=== PATIENT | male | born 1950 | race Caucasian/White ===

== ENCOUNTER 2025-06-09 13:04 | Outpatient (AMB) | payer OTHER, SELFPAY ==
--- OUTSIDE RECORDS SUMMARY | 2022-10-26 07:07 | XMS_ITS | Continuity of Care Document ---
Author Organization [facility] Address [address] [place] [address] Care Team Providers Care Correctional Officer Captain Name Role Phone Provider MD, Test Unavailable [...] Comp Medication Payment 018 OFFICE/OUTPATIENT VISIT, EST [facility] - PAGE 1-25 [facility] - PAGES 26 AND [...] Diagnoses Date Provider Providers Copied on Encounter [facility], [address], [place], [place], [id number], [facility] No Information 3 Provider Test. . OFFICE/OUTPA TIENT VISIT, EST [facility], [address], [place], [place], [id number], [facility] [place] low back pain (chief complaint) Radiculopath y of lumbosacral regionPostla minectomy syndromeTroc hanteric bursitis, left hipPain in left hipBreakdown (mechanical) of implanted electronic neurostimula tor, generator, sequelaType 2 diabetes mellitus w/ diabetic neuropathyCh ronic pain syndromeEnco unter for therapeutic drug level monitoringLo ng term (current) use of opiate analgesic 2 Delonte Perez. [address] [place] [address], [address], [place], [id number], [place]. tel:[phone] [facility], [address], [place], [place], [id number], [facility] [place] No Information 2 Rakesh Mcbride. [address] [place] [address], [address] [place] [address], [facility], . tel:[phone] Referring Provider: Rae Cameron, [address] [place] [address] [address], [place], [place], [facility]. tel:[phone] OFFICE/OUTPA TIENT VISIT, EST [facility], [address], [place], [place], [id number], [facility] [place] low back pain (chief complaint) Radiculopath y of lumbosacral regionPostla minectomy syndromeTroc hanteric bursitis, left hipPain in left hipBreakdown (mechanical) of implanted electronic neurostimula tor, generator, sequelaType 2 diabetes mellitus w/ diabetic neuropathyCh ronic pain syndromeEnco unter for therapeutic drug level monitoringLo ng term (current) use of opiate analgesic Julian-3 0-202 2 Delonte Ana. [address] [place] [address], [address], [place], [place], [address], . tel:[phone] OFFICE/OUTPA TIENT VISIT, EST [facility], [address], [place], [place], [id number], [facility] [place] low back pain (chief complaint) Radiculopath y of lumbosacral regionPostla minectomy syndromeTroc hanteric bursitis, left hipPain in left hipBreakdown (mechanical) of implanted electronic neurostimula tor, generator, sequelaType 2 diabetes mellitus w/ diabetic neuropathyCh ronic pain syndromeEnco unter for therapeutic drug level monitoringLo ng term (current) use of opiate analgesic Julian-0 2-202 2 Delonte Ana. [address] [place] [address], [address], [place], [place], [address], [place]. tel:[phone] OFFICE/OUTPA TIENT VISIT, EST [facility], [address], [place], [place], [address], [facility] [place] back pain (chief complaint) Chronic pain syndromeBrea kdown (mechanical) of implanted electronic neurostimula tor, generator, sequelaEncou nter for therapeutic drug level monitoringTy pe 2 diabetes mellitus w/ diabetic neuropathyPa in in left hipTrochante kayla bursitis, left hipPostlamin ectomy syndromeRadi culopathy of lumbosacral regionLong term (current) use of opiate analgesic May-0 6-202 2 Kerneklian Liat. [address] [place] [address], [address], [place], [place], [address], [place]. tel:[phone] OFFICE/OUTPA TIENT VISIT, EST [facility], [address], [place], [place], [id number], [facility] [place] low back pain (chief complaint) Chronic pain syndromeBrea kdown (mechanical) of implanted electronic neurostimula tor, generator, sequelaEncou nter for therapeutic drug level monitoringTy pe 2 diabetes mellitus w/ diabetic neuropathyPa in in left hipTrochante kayla bursitis, left hipPostlamin ectomy syndromeRadi culopathy of lumbosacral regionLong term (current) use of opiate analgesic Apr- 2 Sonya Josue. [address] [place] [address], [address], [place], [place], [address], [place]. [phone] OFFICE/OUTPA TIENT VISIT, EST [facility], [address], [place], [place], [id number], [place] [facility] [place] low back pain (chief complaint) Radiculopath y of lumbosacral regionLong term (current) use of opiate analgesicChr onic pain syndromeBrea kdown (mechanical) of implanted electronic neurostimula tor, generator, sequelaEncou nter for therapeutic drug level monitoringTy pe 2 diabetes mellitus w/ diabetic neuropathyPa in in left hipTrochante kayla bursitis, left hipPostlamin ectomy syndrome 2 Sonya Josue. [address] [place] [address], [address], [place], [place], [address], [place]. tel:[phone] OFFICE/OUTPA TIENT VISIT, EST [facility], [address], [place], [place], [address], [place] [facility] [place] low back pain (chief complaint) Radiculopath y of lumbosacral regionLong term (current) use of opiate analgesicChr onic pain syndromeBrea kdown (mechanical) of implanted electronic neurostimula tor, generator, sequelaEncou nter for therapeutic drug level monitoringTy pe 2 diabetes mellitus w/ diabetic neuropathyPa in in left hipTrochante kayla bursitis, left hipPostlamin ectomy syndrome 2 Rakesh Mcbride. [address] [place] [address], [address], [place], [address], [place]. tel:[phone] [facility], [address], [place], [place], [id number], [place] [facility] [place] back pain (chief complaint) Radiculopath y of lumbosacral regionLong term (current) use of opiate analgesicChr onic pain syndromeMusc le spasm of backEncounte r for therapeutic drug level monitoringTy pe 2 diabetes mellitus w/ diabetic neuropathyPa in in left hipTrochante kayla bursitis, left hipPostlamin ectomy syndromeBrea kdown (mechanical) of implanted electronic neurostimula tor, generator, sequela 2 Sonya Liat. [address] [place] [address], [address], [place], [place], [address], [place]. tel:[phone] OFFICE/OUTPA TIENT VISIT, EST [facility], [address], [place], [place], [address], [place] [facility] [place] back pain (chief complaint) Radiculopath y of lumbosacral regionLong term (current) use of opiate analgesicChr onic pain syndromeMusc le spasm of backEncounte r for therapeutic drug level monitoringTy pe 2 diabetes mellitus w/ diabetic neuropathyPa in in left hipTrochante kayla bursitis, left hipPostlamin ectomy syndromeBrea kdown (mechanical) of implanted electronic neurostimula tor, generator, sequela 2 Sony[facility]. [address] [place] [address], [address], [place], [address], [place]. tel:[phone] [facility], [address], [place], [place], [id number], [place] [facility] Breakdown (mechanical) of implanted electronic neurostimula tor, generator, sequela 2 Hannah Baileybh. [address] [place] [address], [address] [place] [address], [id number], [place]. tel:[phone] OFFICE/OUTPA TIENT VISIT, EST [facility], [address], [place], [place], [id number], [place] [facility] [place] back pain (chief complaint) Radiculopath y of lumbosacral regionLong term (current) use of opiate analgesicChr onic pain syndromeMusc le spasm of backEncounte r for therapeutic drug level monitoringTy pe 2 diabetes mellitus w/ diabetic neuropathyPa in in left hipTrochante kayla bursitis, left hipPostlamin ectomy syndromeBrea kdown (mechanical) of implanted electronic neurostimula tor, generator, sequela 2 Rakesh Mcbride. [address] [place] [address], [address], [place], [address], [place]. tel:[phone] OFFICE/OUTPA TIENT VISIT, EST [facility], [address], [place], [place], [id number], [facility] [place] back pain (chief complaint) [facility] (current) use of opiate analgesicChr onic pain syndromeMusc le spasm of backEncounte r for therapeutic drug level monitoringTy pe 2 diabetes mellitus w/ diabetic neuropathyRa diculopathy of lumbosacral regionPain in left hipTrochante kayla bursitis, left hipPostlamin ectomy syndromeBrea kdown (mechanical) of implanted electronic neurostimula tor, generator, sequela 1 Hannah Baileybh. [address] [place] [address], [address], [place], [address], [place]. tel:[phone] [facility], [address], [place], [place], [address], [place] [facility] [place] back pain (chief complaint) Chronic pain syndromeLong term (current) use of opiate analgesicMus marquez spasm of backEncounte r for therapeutic drug level monitoringRa diculopathy, lumbar regionType 2 diabetes mellitus w/ diabetic neuropathyCe rvicalgiaPos tlaminectomy syndrome 1 Sonya Staleyh. [address] [place] [address], [address], [place], [place], [address], [place]. tel:[phone] OFFICE/OUTPA TIENT VISIT, EST [facility], [address], [place], [place], [address], [place] [facility] [place] back pain (chief complaint) Chronic pain syndromeLong term (current) use of opiate analgesicMus marquez spasm of backEncounte r for therapeutic drug level monitoringTy pe 2 diabetes mellitus w/ diabetic neuropathyRa diculopathy, lumbar regionPostla minectomy syndromeCerv icalgia 1 Rakesh Mcbride. [address] [place] [address], [facility] [address], [place], [facility], . tel:[phone] OFFICE/OUTPA TIENT VISIT, EST [facility], [address], [place], [place], [id number], [facility] [place] low back pain (chief complaint) Type 2 diabetes mellitus w/ diabetic neuropathyTr ochanteric bursitis, left hipLong term (current) use of opiate analgesicChr onic pain syndrome 1 Lincoln Rutherford. [facility], [address], [place], [facility], . tel:[phone] OFFICE/OUTPA TIENT VISIT, EST [facility], [address], [place], [place], [address], [facility] [place] back pain (chief complaint) Other cervical disc degeneration , cervicothora cic regionCervic algiaLong term (current) use of opiate analgesicChr onic pain syndrome 1 Lincoln Rutherford. [facility], [address], [place], [facility], . tel:[phone] OFFICE/OUTPA TIENT VISIT, EST [facility], [address], [place], [place], [id number], [facility] [place] back pain (chief complaint) Spondylosis w/o myelopathy of lumbosacral regionPain in left hipLong term (current) use of opiate analgesicChr onic pain syndrome 1 Lincoln Rutherford. [facility], [address], [place], [facility], . tel:[phone] [facility], [address], [place], [place], [id number], [facility] [place] Pain in left hipTrochante kayla bursitis, left hipChronic pain syndromeLong term (current) use of opiate analgesic 1 Hannah Edmonds. [address] [place] [address], [id number], . tel:[phone] OFFICE/OUTPA TIENT VISIT, EST [facility], [address], [place], [place], [id number], [facility] [place] low back pain (chief complaint) Radiculopath y of lumbosacral regionInfect ion due to intrathecal infusion pump, subsequent encounterBre akdown of intrathecal infusion pump, subsequent encounterMus marquez spasm of backChronic pain syndromeEnco unter for therapeutic drug level monitoringLo ng term (current) use of opiate analgesic 1 Hannah Edmonds. [address] [place] [address], [id number], . tel:[phone] Referring Provider: Grey Young, [address] [place] [address], [place], [address] . tel:[phone] [facility], [address], [place], [place], [id number], [facility] [place] low back pain (chief complaint) Pain in left hip 1 Hannah Edmonds. [address] [place] [address], [id number], . tel:[phone] Referring Provider: Grey Young, [address] [place] [address], [place], [address] . tel:[phone] OFFICE/OUTPA TIENT VISIT, EST [facility], [address], [place], [place], [id number], [facility] [place] low back pain (chief complaint) Radiculopath y of lumbosacral regionTrocha nteric bursitis, left hipInfection due to intrathecal infusion pump, subsequent encounterBre akdown of intrathecal infusion pump, subsequent encounterMus marquez spasm of backChronic pain syndromePain in left hipEncounter for therapeutic drug level monitoringLo ng term (current) use of opiate analgesic 1 Delonet Perez. [address] [place] [address], [address], [place], [place], [address], [place]. tel:[phone] [facility], [address], [place], [place], [address], [facility] [place] Radiculopath y of lumbosacral region 1 Hannah Grey. [address] [place] [address], [address], [place], [place], [address], [place]. tel:[phone] OFFICE/OUTPA TIENT VISIT, EST [facility], [address], [place], [place], [address], [facility] [place] back pain (chief complaint) Radiculopath y of lumbosacral regionInfect ion due to intrathecal infusion pump, subsequent encounterBre akdown of intrathecal infusion pump, subsequent encounterMus marquez spasm of backChronic pain syndromeLong term (current) use of opiate analgesicPai n in left hipTrochante kayla bursitis, left hip 1 Hannahtim CabreraGrey. [address] [place] [address], [address] [facility], [place], [place], [address], [place]. tel:[phone] OFFICE/OUTPA TIENT VISIT, EST [facility], [address], [place], [place], [address], [facility] [place] back pain (chief complaint) Radiculopath y of lumbosacral regionInfect ion due to intrathecal infusion pump, subsequent encounterBre akdown of intrathecal infusion pump, subsequent encounterTyp e 2 diabetes mellitus w/ diabetic neuropathyMu scle spasm of backChronic pain syndromeEnco unter for therapeutic drug level monitoringLo ng term (current) use of opiate analgesic 1 Delonte Jonesa. [address] [place] [address], [address], [place], [place], [address], [place]. tel:[phone] OFFICE/OUTPA TIENT VISIT, EST [facility], [address], [place], [place], [address], [facility] [place] back pain (chief complaint)ne ck pain (chief complaint) Radiculopath y of lumbosacral regionInfect ion due to intrathecal infusion pump, subsequent encounterBre akdown of intrathecal infusion pump, subsequent encounterTyp e 2 diabetes mellitus w/ diabetic neuropathyMu scle spasm of backChronic pain syndromeEnco unter for therapeutic drug level monitoringLo ng term (current) use of opiate analgesic 1 Delonte Perez. [address] [place] [address], [address], [place], [place], [address], . tel:[phone] OFFICE/OUTPA TIENT VISIT, EST [facility], [address], [place], [place], [address], [facility] [place] low back pain (chief complaint)ne ck pain (chief complaint) Radiculopath y of lumbosacral regionInfect ion due to intrathecal infusion pump, subsequent encounterBre akdown of intrathecal infusion pump, subsequent encounterTyp e 2 diabetes mellitus w/ diabetic neuropathyMu scle spasm of backChronic pain syndromeEnco unter for therapeutic drug level monitoringLo ng term (current) use of opiate analgesic 1 Delonte Perez. [address] [place] [address], [address], [place], [address], [place]. tel:[phone] OFFICE/OUTPA TIENT VISIT, EST [facility], [address], [place], [place], [address], [facility] [place] neck pain (chief complaint)ba ck pain (chief complaint) Radiculopath y of lumbosacral regionInfect ion due to intrathecal infusion pump, subsequent encounterBre akdown of intrathecal infusion pump, subsequent encounterTyp e 2 diabetes mellitus w/ diabetic neuropathyMu scle spasm of backChronic pain syndromeEnco unter for therapeutic drug level monitoringLo ng term (current) use of opiate analgesic 1 Delonte Ana. [address] [place] [address], [address], [place], [place], [address], [place]. tel:[phone] OFFICE/OUTPA TIENT VISIT, EST [facility], [address], [place], [place], [id number], [facility] [place] back pain (chief complaint)ne ck pain (chief complaint) Body mass index (BMI) 33.0-33.9, adultRadicul opathy of lumbosacral regionInfect ion due to intrathecal infusion pump, subsequent encounterBre akdown of intrathecal infusion pump, subsequent encounterTyp e 2 diabetes mellitus w/ diabetic neuropathyMu scle spasm of backChronic pain syndromeEnco unter for therapeutic drug level monitoringLo ng term (current) use of opiate analgesic 0 Delonte Ana. [address] [place] [address], [address], [place], [place], [address], [place]. tel:[phone] [facility], [address], [place], [place], [id number], [facility] Radiculopath y of lumbosacral region 0 Hannah Grey. [address] [place] [address], [address], [place], [address], [place]. tel:[phone] OFFICE/OUTPA TIENT VISIT, EST [facility], [address], [place], [place], [address], [facility] [place] back pain (chief complaint)ne ck pain (chief complaint) Radiculopath y of lumbosacral regionInfect ion due to intrathecal infusion pump, subsequent encounterBre akdown of intrathecal infusion pump, subsequent encounterTyp e 2 diabetes mellitus w/ diabetic neuropathyMu scle spasm of backChronic pain syndromeEnco unter for therapeutic drug level monitoringLo ng term (current) use of opiate analgesic Jul- 0 Delonte Ana. [address] [place] [address], [address], [place], [place], [address], [place]. tel:[phone] OFFICE/OUTPA TIENT VISIT, EST [facility], [address], [place], [place], [address], [facility] [place] back pain (chief complaint)ne ck pain (chief complaint) Radiculopath y of lumbosacral regionInfect ion due to intrathecal infusion pump, subsequent encounterBre akdown of intrathecal infusion pump, subsequent encounterTyp e 2 diabetes mellitus w/ diabetic neuropathyMu scle spasm of backChronic pain syndromeEnco unter for therapeutic drug level monitoringLo ng term (current) use of opiate analgesic Oct-2 9-202 0 Delonte Ana. [address] [place] [address], [address], [place], [place], [address], [place]. tel:[phone] OFFICE/OUTPA TIENT VISIT, [facility], [address], [place], [place], [address], [facility] [place] back pain (chief complaint)ne ck pain (chief complaint) Radiculopath y of lumbosacral regionInfect ion due to intrathecal infusion pump, subsequent encounterBre akdown of intrathecal infusion pump, subsequent encounterTyp e 2 diabetes mellitus w/ diabetic neuropathyMu scle spasm of backChronic pain syndromeEnco unter for therapeutic drug level monitoringLo ng term (current) use of opiate analgesic Oct-0 2-202 0 Delonte Ana. [address] [place] [address], [address], [place], [address], [place]. tel:[phone] OFFICE/OUTPA TIENT VISIT, [facility], [address], [place], [place], [id number], [facility] [place] low back pain (chief complaint) Radiculopath y of lumbosacral regionInfect ion due to intrathecal infusion pump, subsequent encounterBre akdown of intrathecal infusion pump, subsequent encounterTyp e 2 diabetes mellitus w/ diabetic neuropathyMu scle spasm of backChronic pain syndromeEnco unter for therapeutic drug level monitoringLo ng term (current) use of opiate analgesic Sep-0 4-202 0 Delonte Ana. [address] [place] [address], [address], [place], [id number], [place]. tel:[phone] Referring Provider: Ana Martel, [address] [place] [address] [address], [place], [address] . tel:[phone] OFFICE/OUTPA TIENT VISIT, EST [facility], [address], [place], [place], [address], [facility] [place] low back pain (chief complaint) Radiculopath y of lumbosacral regionInfect ion due to intrathecal infusion pump, subsequent encounterBre akdown of intrathecal infusion pump, subsequent encounterTyp e 2 diabetes mellitus w/ diabetic neuropathyMu scle spasm of backChronic pain syndromeEnco unter for therapeutic drug level monitoringLo ng term (current) use of opiate analgesic Apr- 0 Delonte Ana. [address] [place] [address], [address], [place], [place], [address], . tel:[phone] Referring Provider: Ana Martel, [address] [place] [address] [address], [place], [address] . tel:[phone] OFFICE/OUTPA TIENT VISIT, EST [facility], [address], [place], [place], [address], [facility] [place] low back pain (chief complaint) Radiculopath y of lumbosacral regionInfect ion due to intrathecal infusion pump, subsequent encounterBre akdown of intrathecal infusion pump, subsequent encounterTyp e 2 diabetes mellitus w/ diabetic neuropathyMu scle spasm of backChronic pain syndromeEnco unter for therapeutic drug level monitoringLo ng term (current) use of opiate analgesic Mar- 0 0 Delonte Ana. [address] [place] [address], [address], [place], [place], [address], . tel:[phone] OFFICE/OUTPA TIENT VISIT, EST [facility], [address], [place], [place], [address], [facility] [place] back pain (chief complaint) Radiculopath y of lumbosacral regionInfect ion due to intrathecal infusion pump, subsequent encounterBre akdown of intrathecal infusion pump, subsequent encounterTyp e 2 diabetes mellitus w/ diabetic neuropathyMu scle spasm of backChronic pain syndromeEnco unter for therapeutic drug level monitoringLo ng term (current) use of opiate analgesic Julian-0 5-202 0 Delonte Ana. [address] [place] [address], [address], [place], [place], [address], . tel:[phone] OFFICE/OUTPA TIENT VISIT, EST [facility], [address], [place], [place], [address], [facility] [place] back pain (chief complaint) Radiculopath y of lumbosacral regionInfect ion due to intrathecal infusion pump, subsequent encounterBre akdown of intrathecal infusion pump, subsequent encounterTyp e 2 diabetes mellitus w/ diabetic neuropathyMu scle spasm of backChronic pain syndromeEnco unter for therapeutic drug level monitoringLo ng term (current) use of opiate analgesic May-0 0 Delonte Ana. [address] [place] [address], [address], [place], [place], [address], . tel:[phone] Referring Provider: Ana Martel, [address] [place] [address] [address], [place], [address] . tel:[phone] OFFICE/OUTPA TIENT VISIT, [facility], [address], [place], [place], [address], [facility] [place] back pain (chief complaint) Radiculopath y of lumbosacral regionInfect ion due to intrathecal infusion pump, subsequent encounterMus marquez spasm of backBreakdow n of intrathecal infusion pump, subsequent encounterChr onic pain syndromeEnco unter for therapeutic drug level monitoringLo ng term (current) use of opiate analgesicTyp e 2 diabetes mellitus w/ diabetic neuropathy Apr-1 0-202 0 Delonte Ana. [address] [place] [address], [address], [place], [place], [address], . tel:[phone] OFFICE/OUTPA TIENT VISIT, EST [facility], [address], [place], [place], [address], [facility] [place] back pain (chief complaint)ce rvicalgia (chief complaint) Radiculopath y of lumbosacral regionMuscle spasm of backCervical giaLong term (current) use of opiate analgesicChr onic pain syndrome 0 Symone Craig. [address] , [place], [address], [place]. tel:[phone] [facility], [address], [place], [place], [address], [facility] No Information 0 Delonte Ana. [address] [place] [address], [address], [place], [place], [address], [place]. tel:[phone] Referring Provider: Ana Martel, [address] [place] [address] [address], [place], [address] . tel:[phone] OFFICE/OUTPA TIENT VISIT, EST [facility], [address], [place], [place], [address], [facility] neck pain (chief complaint)lo w back pain (chief complaint) Radiculopath y of lumbosacral regionInfect ion due to intrathecal infusion pump, subsequent encounterMus marquez spasm of backBreakdow n of intrathecal infusion pump, subsequent encounterChr onic pain syndromeEnco unter for therapeutic drug level monitoringLo ng term (current) use of opiate analgesicTyp e 2 diabetes mellitus w/ diabetic neuropathy 0 Delontegerard Oreillysea. [address] [place] [address], [address], [place], [place], [address], [place]. tel:[phone] OFFICE/OUTPA TIENT VISIT, EST [facility], [address], [place], [place], [address], [facility] [place] Follow up chronic pain (chief complaint) Radiculopath y of lumbosacral regionInfect ion due to intrathecal infusion pump, subsequent encounterMus marquez spasm of backBreakdow n of intrathecal infusion pump, subsequent encounterChr onic pain syndromeEnco unter for therapeutic drug level monitoringLo ng term (current) use of opiate analgesicTyp e 2 diabetes mellitus w/ diabetic neuropathy 0 Delonte Ana. [address] [place] [address], [address], [place], [place], [address], . tel:[phone] OFFICE/OUTPA TIENT VISIT, EST [facility], [address], [place], [place], [address], [facility] [place] low back pain (chief complaint) Radiculopath y of lumbosacral regionInfect ion due to intrathecal infusion pump, subsequent encounterMus marquez spasm of backBreakdow n of intrathecal infusion pump, subsequent encounterChr onic pain syndromeEnco unter for therapeutic drug level monitoringLo ng term (current) use of opiate analgesicTyp e 2 diabetes mellitus w/ diabetic neuropathy 9 Delonte Ana. [address] [place] [address], [address], [place], [place], [address], [place]. tel:[phone] OFFICE/OUTPA TIENT VISIT, EST [facility], [address], [place], [place], [address], [facility] [place] back pain (chief complaint) Radiculopath y of lumbosacral regionInfect ion due to intrathecal infusion pump, subsequent encounterMus marquez spasm of backBreakdow n of intrathecal infusion pump, subsequent encounterChr onic pain syndromeEnco unter for therapeutic drug level monitoringLo ng term (current) use of opiate analgesicTyp e 2 diabetes mellitus w/ diabetic neuropathy 9 Delonte Ana. [address] [place] [address], [address], [place], [place], [address], [place]. tel:[phone] OFFICE/OUTPA TIENT VISIT, EST [facility], [address], [place], [place], [address], [facility] [place] low back pain (chief complaint)ne ck pain (chief complaint) Radiculopath y of lumbosacral regionInfect ion due to intrathecal infusion pump, subsequent encounterMus marquez spasm of backBreakdow n of intrathecal infusion pump, subsequent encounterChr onic pain syndromeEnco unter for therapeutic drug level monitoringLo ng term (current) use of opiate analgesic Oct-0 4-201 9 Delonte Ana. [address] [place] [address], [address], [place], [place], [address], [place]. tel:[phone] OFFICE/OUTPA TIENT VISIT, EST [facility], [address], [place], [place], [address], [facility] [place] low back pain (chief complaint)ne ck pain (chief complaint) Radiculopath y of lumbosacral regionInfect ion due to intrathecal infusion pump, subsequent encounterMus marquez spasm of backBreakdow n of intrathecal infusion pump, subsequent encounterChr onic pain syndromeEnco unter for therapeutic drug level monitoringLo ng term (current) use of opiate analgesic Sep-0 6 9 Hannah Grey. [address] [place] [address], [address] [place] [address], [id number], [place]. tel:[phone] OFFICE/OUTPA TIENT VISIT, EST [facility], [address], [place], [place], [address], [facility] [place] neck pain (chief complaint) Radiculopath y of lumbosacral regionInfect ion due to intrathecal infusion pump, subsequent encounterMus marquez spasm of backBreakdow n of intrathecal infusion pump, subsequent encounterChr onic pain syndromeEnco unter for therapeutic drug level monitoringLo ng term (current) use of opiate analgesic Aug-0 9-201 9 Delonte Ana. [address] [place] [address], [address], [place], [place], [address], [place]. tel:[phone] OFFICE/OUTPA TIENT VISIT, EST [facility], [address], [place], [place], [address], [place] [facility] [place] neck pain (chief complaint)lo w back pain (chief complaint) Radiculopath y of lumbosacral regionInfect ion due to intrathecal infusion pump, subsequent encounterMus marquez spasm of backBreakdow n of intrathecal infusion pump, subsequent encounterChr onic pain syndromeEnco unter for therapeutic drug level monitoringLo ng term (current) use of opiate analgesicOve [facility] 2-201 9 Delonte Perez. [address] [place] [address], [address], [place], [place], [address], . tel:[phone] Referring Provider: Ana Martel, [address] [place] [address] [address], [place], [address] . tel:[phone] OFFICE/OUTPA TIENT VISIT, EST [facility], [address], [place], [place], [address], [facility] [place] low back pain (chief complaint)ne ck pain (chief complaint) Radiculopath y of lumbosacral regionInfect ion due to intrathecal infusion pump, subsequent encounterMus marquez spasm of backBreakdow n of intrathecal infusion pump, subsequent encounterChr onic pain syndromeEnco unter for therapeutic drug level monitoringLo ng term (current) use of opiate analgesicOve [facility] 9 Delonte Perez. [address] [place] [address], [address], [place], [place], [address], . tel:[phone] OFFICE/OUTPA TIENT VISIT, EST [facility], [address], [place], [place], [address], [facility] [place] neck pain (chief complaint)lo w back pain (chief complaint) Radiculopath y of lumbosacral regionInfect ion due to intrathecal infusion pump, subsequent encounterMus marquez spasm of backChronic pain syndromeEnco unter for therapeutic drug level monitoringLo ng term (current) use of opiate analgesicBre akdown of intrathecal infusion pump, subsequent encounter 0 3 9 Delonte Perez. [address] [place] [address], [address], [place], [place], [address], . tel:[phone] OFFICE/OUTPA TIENT VISIT, EST [facility], [address], [place], [place], [address], [facility] [place] neck pain (chief complaint)lo w back [...] analgesic Apr-0 5-201 9 Delonte Ana. [address] [place] [address], [address], [place], [place], [address], [place]. tel:[phone] OFFICE/OUTPA TIENT VISIT, [facility], [address], [place], [place], [address], [facility] [place] neck pain (chief complaint)lo w back pain (chief complaint) OverweightRa diculopathy of lumbosacral regionInfect ion due to intrathecal infusion pump, subsequent encounterBre akdown (mechanical) of implanted electronic neurostimula tor, generator, sequelaChron ic pain syndromeEnco unter for therapeutic drug level monitoringLo ng term (current) use of opiate analgesicMus marquez spasm of back Mar-0 -201 9 Delonte Ana. [address] [place] [address], [address], [place], [place], [address], [place]. tel:[phone] OFFICE/OUTPA TIENT VISIT, [facility], [address], [place], [place], [address], [facility] [place] neck pain (chief complaint)lo w back pain (chief complaint) OverweightRa diculopathy of lumbosacral regionInfect ion due to intrathecal infusion pump, subsequent encounterBre akdown (mechanical) of implanted electronic neurostimula tor, generator, sequelaChron ic pain syndromeEnco unter for therapeutic drug level monitoringLo ng term (current) use of opiate analgesic Feb-0 1-201 9 Delonte Ana. [address] [place] [address], [address], [place], [place], [address], . tel:[phone] OFFICE/OUTPA TIENT VISIT, EST [facility], [address], [place], [place], [address], [facility] [place] neck pain (chief complaint)lo w back pain (chief complaint) OverweightRa diculopathy of lumbosacral regionInfect ion due to intrathecal infusion pump, subsequent encounterBre akdown (mechanical) of implanted electronic neurostimula tor, generator, sequelaChron ic pain syndromeEnco unter for therapeutic drug level monitoringLo ng term (current) use of opiate analgesic Pierre-0 4-201 9 Delonte Ana. [address] [place] [address], Unit [facility], [place], [place], [address], . tel:[phone] OFFICE/OUTPA TIENT VISIT, EST [facility], [address], [place], [place], [address], [facility] [place] low back pain (chief complaint)ne ck pain (chief complaint) Radiculopath y of lumbosacral regionInfect ion due to intrathecal infusion pump, subsequent encounterBre akdown (mechanical) of implanted electronic neurostimula tor, generator, sequelaChron ic pain syndromeEnco unter for therapeutic drug level monitoringLo ng term (current) use of opiate analgesicOve [facility] Dec-0 7-201 8 Delonte Ana. [address] [place] [address], [address], [place], [place], [address], [place]. tel:[phone] OFFICE/OUTPA TIENT VISIT, EST [facility], [address], [place], [place], [address], [facility] [place] low back pain (chief complaint)ne ck pain (chief complaint) OverweightRa diculopathy of lumbosacral regionInfect ion due to intrathecal infusion pump, subsequent encounterBre akdown (mechanical) of implanted electronic neurostimula tor, generator, sequelaChron ic pain syndromeEnco unter for therapeutic drug level monitoringLo ng term (current) use of opiate analgesic Nov-0 9-201 8 Delonte Ana. [address] [place] [address], [address], [place], [place], [address], . tel:[phone] OFFICE/OUTPA TIENT VISIT, EST [facility], [address], [place], [place], [address], [facility] [place] neck pain (chief complaint)lo w back pain (chief complaint) OverweightIn fection due to intrathecal infusion pump, subsequent encounterBre akdown (mechanical) of implanted electronic neurostimula tor, generator, sequelaChron ic pain syndromeEnco unter for therapeutic drug level monitoringLo ng term (current) use of opiate analgesicRad iculopathy of lumbosacral region 8 Delonte Perez. [address] [place] [address], [address], [place], [place], [address], [place]. tel:[phone] OFFICE/OUTPA TIENT VISIT, EST [facility], [address], [place], [place], [address], [facility] [place] neck pain (chief complaint)lo w back pain (chief complaint) Body mass index (BMI) 33.0-33.9, adultInfecti on due to intrathecal infusion pump, subsequent encounterBre akdown (mechanical) of implanted electronic neurostimula tor, generator, sequelaChron ic pain syndromeEnco unter for therapeutic drug level monitoringLo ng term (current) use of opiate analgesic 8 Hannah Edmonds. [address] [place] [address], [address], [place], [address], [place]. tel:[phone] OFFICE/OUTPA TIENT VISIT, EST [facility], [address], [place], [place], [address], [facility] [place] neck pain (chief complaint)lo w back pain (chief complaint) Infection due to intrathecal infusion pump, subsequent encounterBre akdown (mechanical) of implanted electronic neurostimula tor, generator, sequelaOverw eightChronic pain syndromeEnco unter for therapeutic drug level monitoringLo ng term (current) use of opiate analgesic 8 Delonte Perez. [address] [place] [address], [address] [facility], [place], [place], [address], [place]. tel:[phone] OFFICE/OUTPA TIENT VISIT, EST [facility], [address], [place], [place], [address], [facility] [place] back pain (chief complaint)ne ck pain (chief complaint) Infection due to intrathecal infusion pump, subsequent encounterBre akdown (mechanical) of implanted electronic neurostimula tor, generator, sequelaChron ic pain syndromeEnco unter for therapeutic drug level monitoringLo ng term (current) use of opiate analgesicBod y mass index (BMI) 32.0-32.9, adult 8 Delonte Jonesa. [address] [place] [address], [address] [place] [address], [id number], [place]. tel:[phone] OFFICE/OUTPA TIENT VISIT, EST [facility], [address], [place], [place], [address], [facility] [place] back pain (chief complaint)ne ck pain (chief complaint) Infection due to intrathecal infusion pump, subsequent encounterBre akdown (mechanical) of implanted electronic neurostimula tor, generator, sequelaChron ic pain syndromeEnco unter for therapeutic drug level monitoringLo ng term (current) use of opiate analgesicBod y mass index (BMI) 32.0-32.9, adult 8 Delonte Jonesa. [address] [place] [address], [address] [facility], [place], [place], [address], [place]. tel:[phone] OFFICE/OUTPA TIENT VISIT, EST [facility], [address], [place], [place], [address], [facility] [place] low back pain (chief complaint) Body mass index (BMI) 32.0-32.9, adultInfecti on due to intrathecal infusion pump, subsequent encounterBre akdown (mechanical) of implanted electronic neurostimula tor, generator, sequelaChron ic pain syndromeLong term (current) use of opiate analgesic 8 Hannah Edmonds. [address] [place] [address], [address] [facility], [place], [place], [address], [place]. tel:[phone] OFFICE/OUTPA TIENT VISIT, EST [facility], [address], [place], [place], [address], [facility] [place] neck pain (chief complaint)Le g Pain (chief complaint) Body mass index (BMI) 32.0-32.9, adultInfecti on due to intrathecal infusion pump, subsequent encounterBre akdown (mechanical) of implanted electronic neurostimula tor, generator, sequelaChron ic pain syndromeLong term (current) use of opiate analgesic Apr-2 8 Hannah Edmonds. [address] [place] [address], [place] [address], [place], [place], [address], [place]. tel:[phone] [facility], [address], [place], [place], [address], [facility] [place] Infection due to intrathecal infusion pump, subsequent encounter Apr-0 8 Hannah Edmonds. [address] [place] [address], [place] [address], [place], [place], [address], [place]. tel:[phone] OFFICE/OUTPA TIENT VISIT, EST [facility], [address], [place], [place], [address], [facility] [place] neck pain (chief complaint)lo w back pain (chief complaint) Chronic pain syndromeBrea kdown (mechanical) of implanted electronic neurostimula tor, generator, initial encounterInf ection due to intrathecal infusion pump, initial encounterLon g term (current) use of opiate analgesic Apr-0 8 Hannah Edmonds. [address] [place] [address], [place], [place], [address], [place]. tel:[phone] Referring Provider: Grey Young, [address] [place] [address], [place], [address] . tel:[phone] OFFICE/OUTPA TIENT VISIT, EST [facility], [address], [place], [place], [address], [facility] [place] [facility] low back pain (chief complaint)ne ck pain (chief complaint) Body mass index (BMI) 32.0-32.9, adultSpondyl osis w/o myelopathy of lumbosacral regionRadicu lopathy of lumbosacral regionLow back painLong term (current) use of opiate analgesicChr onic pain syndrome Apr-0 8 Lincoln Rutherford. [address] [facility], [address], [place], [facility], . tel:[phone] OFFICE/OUTPA TIENT VISIT, EST [facility], [address], [place], [place], [address], [facility] [place] [facility] neck pain (chief complaint)lo w back pain (chief complaint) Obesity, unspecifiedS pondylosis w/o myelopathy of lumbosacral regionRadicu lopathy of lumbosacral regionLow back painChronic pain syndromePain in right handInflamma tory reaction due to intrathecal infusion pump, sequela 8 Lnicoln Rutherford. [address] [facility], [address], [place], [facility], . tel:[phone] [facility], [address], [place], [place], [address], [facility] No Information 8 Jose Theodore. [address], [address] [place], [facility], [place]. [phone] [facility], [address], [place], [place], [address], [facility] No Information 8 Jose Theodore. [address], [place], [address], [place]. tel:[phone] [facility], [address], [place], [place], [address], [facility] No Information 8 Jose Theodore. [address], [place], [place], [facility], . tel:[phone] OFFICE/OUTPA TIENT VISIT, EST [facility], [address], [place], [place], [address], [facility] [place] [facility] low back pain (chief complaint) Spondylosis w/o myelopathy of lumbosacral regionRadicu lopathy of lumbosacral regionPain in right handLow back painLong term (current) use of opiate analgesicChr onic pain syndromeBody mass index (BMI) 32.0-32.9, adult Jose Theodore. [address], [place], [place], [facility], . tel:[phone] [facility], [address], [place], [place], [address], [facility] [place] No Information 8 Jose Theodore. [address] [facility], [address], [place], [place], [facility], . tel:[phone] Referring Provider: Arben Hardy, [address], [place], [place], [facility]. tel:[phone] OFFICE/OUTPA TIENT VISIT, EST [facility], [address], [place], [place], [address], [facility] [place] [facility] low back pain (chief complaint) Spondylosis w/o myelopathy of lumbosacral regionRadicu lopathy of lumbosacral regionPain in right handLow back painChronic pain syndromeLong term (current) use of opiate analgesicObe sity, unspecified 8 Jose Theodore. [address], [place], [place], [facility], . tel:[phone] Referring Provider: Arben Hardy, [address], [place], [address]. tel:[phone] OFFICE/OUTPA TIENT VISIT, EST [facility], [address], [place], [place], [address], [facility] low back pain (chief complaint) Obesity, unspecifiedS pondylosis w/o myelopathy of lumbosacral regionRadicu lopathy of lumbosacral regionPain in right handLow back painLong term (current) use of opiate analgesicChr onic pain syndrome 8 Lincoln Rutherford. [facility], [address], [place], [facility], . tel:[phone] OFFICE/OUTPA TIENT VISIT, EST [facility], [address], [place], [place], [address], [facility] low back pain (chief complaint)ne ck pain (chief complaint) Body mass index (BMI) 33.0-33.9, adultSpondyl osis w/o myelopathy of lumbosacral regionRadicu lopathy of lumbosacral regionLow back painLong term (current) use of opiate analgesicChr onic pain syndrome 8 Lincoln Rutherford. [facility], [facility], [address], [place], [facility], . tel:[phone] OFFICE/OUTPA TIENT VISIT, EST [facility], [address], [place], [place], [id number], [facility] back pain (chief complaint) Radiculopath y of lumbosacral regionLow back painLong term (current) use of opiate analgesicChr onic pain syndromeObes ity, unspecified 7 Kathy Tse. [address] [place] [address], [facility] [place], [place], [address], [place]. [phone] Referring Provider: Dedrick Chou, [address] [place] [address] [place], [address] . tel:[phone] OFFICE/OUTPA TIENT VISIT, EST [facility], [address], [place], [place], [address], [facility] [place] low back pain (chief complaint) Spondylosis w/o myelopathy of lumbosacral regionRadicu lopathy of lumbosacral regionPain in right handLow back painLong term (current) use of opiate analgesicChr onic pain syndromeObes ity, unspecified 0 7 [facility]. [address] [place] [address], [facility] [place], [place], [address] [place] [address], . tel:[phone] OFFICE/OUTPA TIENT VISIT, EST [facility], [address], [place], [place], [address], [facility] [place] [facility] back pain (chief complaint)ne ck pain (chief complaint) Radiculopath y of lumbosacral regionLow back painLong term (current) use of opiate analgesicEnc ounter for therapeutic drug level monitoringCh ronic pain syndromeCerv icalgia 7 [facility]. [address] [place] [address], [facility] [place], [place], [address] [place] [address], . tel:[phone] OFFICE/OUTPA TIENT VISIT, EST [facility], [address], [place], [place], [address], [facility] [place] neck pain (chief complaint)lo w back pain (chief complaint) Radiculopath y of lumbosacral regionSpondy losis w/o myelopathy of lumbosacral regionLow back painLong term (current) use of opiate analgesicChr onic pain syndromeEnco unter for therapeutic drug level monitoring Sep-0 8 7 Symone Craig. [address] [place], [place], [facility], . tel:[phone] OFFICE/OUTPA TIENT VISIT, EST [facility], [address], [place], [place], [address], [facility] neck pain (chief complaint)lo w back pain (chief complaint) Obesity, unspecifiedR adiculopathy of lumbosacral regionLong term (current) use of opiate analgesicChr onic pain syndromeLow back pain Kathy Tse. [address] [place] [address], [address] [place], [place], [address], . tel:[phone] [facility], [address], [place], [place], [address], [facility] PMC neck pain (chief complaint)lo w back pain (chief complaint) Radiculopath y of lumbosacral regionLow back painEncounte r for therapeutic drug level monitoringLo ng term (current) use of opiate analgesicChr onic pain syndromeCerv icalgiaSpond ylosis w/o myelopathy of lumbosacral region Kathy Tse. [address] [place] [address], [facility] [place], [id number], . tel:[phone] Referring Provider: Dedrick Chou, [address] [place] [address] [place], [address] . tel:[phone] OFFICE/OUTPA TIENT VISIT, EST [facility], [address], [place], [place], [id number], [facility] PMC Hip Pain (chief complaint)ne ck pain (chief complaint) Radiculopath y of lumbosacral regionSpondy losis w/o myelopathy of lumbosacral regionLong term (current) use of opiate analgesicChr onic pain syndrome Kathy Tse. [address] [place] [address], [address] [place], [address], . tel:[phone] OFFICE/OUTPA TIENT VISIT, EST [facility], [address], [place], [place], [id number], [facility] PMC back pain (chief complaint)pu mp refill (chief complaint) Spondylosis w/o myelopathy of lumbosacral regionRadicu lopathy of lumbosacral regionPain in right handLow back painCervical giaLong term (current) use of opiate analgesicEnc ounter for therapeutic drug level monitoringCh ronic pain syndromeBody mass index (BMI) 31.0-31.9, adult Feb- 7 [facility]. [address] [place] [address], [facility] [place], [id number], . tel:[phone] OFFICE/OUTPA TIENT VISIT, EST [facility], [address], [place], [place], [id number], [facility] [place] PMC neck pain (chief complaint)lo w back pain (chief complaint) Body mass index (BMI) 31.0-31.9, adultSpondyl osis w/o myelopathy of lumbosacral regionRadicu lopathy of lumbosacral regionLong term (current) use of opiate analgesicLow back painEncounte r for therapeutic drug level monitoringCe rvicalgiaChr onic pain syndrome [facility]. [address] [place] [address], [address] [place], [place], [id number], [place]. tel:[phone] OFFICE/OUTPA TIENT VISIT, EST [facility], [address], [place], [place], [id number], [facility] [place] PMC back pain (chief complaint) Body mass index (BMI) 31.0-31.9, adultCervica lgiaChronic pain syndromeEnco unter for therapeutic drug level monitoringLo ng term (current) use of opiate analgesicLow back painObesity, unspecifiedO verweightPai n in right handRadiculo allie of lumbosacral regionSpondy losis w/o myelopathy of lumbosacral region [facility]. [address] [place] [address], [address] [place], [address] [place] [address], . tel:[phone] [facility], [address], [place], [place], [id number], [facility] PMC Pump modification (chief complaint) Body mass index (BMI) 31.0-31.9, adultCervica lgiaChronic pain syndromeEnco unter for therapeutic drug level monitoringLo ng term (current) use of opiate analgesicLow back painObesity, unspecifiedO verweightPai n in right handRadiculo allie of lumbosacral regionSpondy losis w/o myelopathy of lumbosacral region Apr-1 0-201 7 Kathy Tse. [address] [place] [address], [address] [place], [address], . tel:[phone] OFFICE/OUTPA TIENT VISIT, EST [facility], [address], [place], [place], [id number], [place] [facility] PMC staple removal (chief complaint)ba ck pain (chief complaint)ne ck pain (chief complaint) Body mass index (BMI) 31.0-31.9, adultCervica lgiaChronic pain syndromeEnco unter for therapeutic drug level monitoringLo ng term (current) use of opiate analgesicLow back painObesity, unspecifiedO verweightPai n in right handRadiculo allie of lumbosacral regionSpondy losis w/o myelopathy of lumbosacral region Apr-0 3 7 Kathy Tse. [address] [place] [address], [address] [place], [address], . tel:[phone] Referring Provider: Dedrick Chou, [address] [place] [address] [place], [address] . tel:[phone] [facility], [address], [place], [place], [address], [place] [facility] [place] PMC neck pain (chief complaint)lo w back pain (chief complaint)wo und change (chief complaint) Body mass index (BMI) 31.0-31.9, adultCervica lgiaChronic pain syndromeEnco unter for therapeutic drug level monitoringLo ng term (current) use of opiate analgesicLow back painObesity, unspecifiedO verweightPai n in right handRadiculo allie of lumbosacral regionSpondy losis w/o myelopathy of lumbosacral region Nov-10 10-201 7 Kathy Tse. [address] [place] [address], [address] [place], [address], . tel:[phone] Referring Provider: Dedrick Chou, [address] [place] [address] [address] [facility], [place], [address] . tel:[phone] [facility], [address], [place], [place], [id number], [facility] [place] Chronic pain syndromeRadi culopathy of lumbosacral region 3-201 7 Kathy Tse. [address] [place] [address], [address] [place], [address], . tel:[phone] OFFICE/OUTPA TIENT VISIT, EST [facility], [address], [place], [place], [id number], [facility] PMC neck pain (chief complaint)lo w back pain (chief complaint) Body mass index (BMI) 31.0-31.9, adultCervica lgiaChronic pain syndromeEnco unter for therapeutic drug level monitoringLo ng term (current) use of opiate analgesicObe sity, unspecifiedO verweightPai n in right handRadiculo allie of lumbosacral regionSpondy losis w/o myelopathy of lumbosacral regionLow back pain 7 Kathy Tse. [address] [place] [address], [address] [place], [address], . tel:[phone] OFFICE/OUTPA TIENT VISIT, EST [facility], [address], [place], [place], [id number], [facility] PMC low back pain (chief complaint)ne ck pain (chief complaint) Body mass index (BMI) 31.0-31.9, adultCervica lgiaChronic pain syndromeEnco unter for therapeutic drug level monitoringLo ng term (current) use of opiate analgesicPai n in right handRadiculo allie of lumbosacral regionObesit y, unspecified 7 [facility]. [facility], [address] [place], [address], . tel:[phone] OFFICE/OUTPA TIENT VISIT, EST [facility], [address], [place], [place], [id number], [facility] PMC back pain (chief complaint)ne ck pain (chief complaint) Spondylosis w/o myelopathy of lumbosacral regionRadicu lopathy of lumbosacral regionPain in right handOverweig htObesity, unspecifiedL royer term (current) use of opiate analgesicEnc ounter for therapeutic drug level monitoringCh ronic pain syndromeCerv icalgiaBody mass index (BMI) 31.0-31.9, adult 6 [facility]. [address] [place] [address], [address] [place], [address], . tel:[phone] [facility], [address], [place], [place], [id number], [facility] [place] PMC neck pain (chief complaint)lo w back pain (chief complaint) Body mass index (BMI) 31.0-31.9, adultCervica lgiaChronic pain syndromeEnco unter for therapeutic drug level monitoringLo ng term (current) use of opiate analgesicObe sity, unspecifiedO verweightPai n in right handRadiculo allie of lumbosacral regionSpondy losis w/o myelopathy of lumbosacral region 6 [facility]. [address] [place] [address], [address] [place], [address], . tel:[phone] [facility] [employer], [address], [place], [place], [id number], [facility] Radiculopath y of lumbosacral region 6 [facility]. [address] [place] [address], [address] [place], [address], . tel:[phone] [facility], [address], [place], [place], [id number], [place] [facility] No Information 6 Madelinadán Santiago. [address], [place], [address], [place]. tel:[phone] OFFICE/OUTPA TIENT VISIT, EST [facility], [address], [place], [place], [id number], [facility] [place] PMC neck pain (chief complaint)lo w back pain (chief complaint) CervicalgiaC hronic pain syndromeEnco unter for therapeutic drug level monitoringLo ng term (current) use of opiate analgesicObe sity, unspecifiedO verweightRad iculopathy of lumbosacral regionSpondy losis w/o myelopathy of lumbosacral regionPain in right hand [facility]. [address] [place] [address], [facility] [place], [place], [address] [place] [address], . tel:[phone] OFFICE/OUTPA TIENT VISIT, EST [facility], [address], [place], [place], [id number], [facility] [place] PMC neck pain (chief complaint)lo w back pain (chief complaint) Obesity, unspecifiedC hronic pain syndromeLong term (current) use of opiate analgesicRad iculopathy of lumbosacral regionSpondy losis w/o myelopathy of lumbosacral regionCervic algia 6 [facility]. [address] [place] [address], [facility] [place], [place], [address] [place] [address], . tel:[phone] OFFICE/OUTPA TIENT VISIT, EST [facility], [address], [place], [place], [id number], [facility] [place] PMC low back pain (chief complaint)ne ck pain (chief complaint) Obesity, unspecifiedC hronic pain syndromeLong term (current) use of opiate analgesicRad iculopathy of lumbosacral regionSpondy losis w/o myelopathy of lumbosacral region Sep-3 0-201 6 [facility]. [facility], [address] [place], [address], . tel:[phone] OFFICE/OUTPA TIENT VISIT, EST [facility], [address], [place], [place], [id number], [facility] [place] PMC neck pain (chief complaint)lo w back pain (chief complaint) Obesity, unspecifiedC hronic pain syndromeLong term (current) use of opiate analgesicCer vicalgiaRadi culopathy of lumbosacral regionSpondy losis w/o myelopathy of lumbosacral regionEncoun ter for therapeutic drug level monitoring Sep-0 2-201 6 [facility]. [address] [place] [address], [address] [place], [address], . tel:[phone] OFFICE/OUTPA TIENT VISIT, EST [facility], [address], [place], [place], [id number], [facility] [place] PMC neck pain (chief complaint)Ab dominal pain (chief complaint)lo w back pain (chief complaint) OverweightCh ronic pain syndromeLong term (current) use of opiate analgesicRad iculopathy of lumbosacral regionSpondy ls w/o myelopathy or radiculopath y, lumbosacr region Aug-0 5-201 6 [facility]. [facility], [address] [place], [address], . tel:[phone] [facility], [address], [place], [place], [id number], [facility] [place] No Information 6 Damion Santiago. [address], [place], [address], [place]. tel:[phone] [facility], [address], [place], [place], [address], [place] [facility] [place] Radiculopath y of lumbosacral region 6 Indio Saxena. [address], [place], [place], [facility], . tel:[phone] Referring Provider: Hemanth Mora, [address], [place], [place], [facility]. tel:[phone] OFFICE/OUTPA TIENT VISIT, EST [facility], [address], [place], [place], [id number], [facility] [place] neck pain (chief complaint)lo w back pain (chief complaint) Obesity, unspecifiedC hronic pain syndromeRadi culopathy of lumbosacral regionCervic algiaLong term (current) use of opiate analgesicEnc ounter for therapeutic drug level monitoring 6 Indio Saxena. [address], [place], [place], [facility], [place]. tel:[phone] OFFICE/OUTPA TIENT VISIT, EST [facility], [address], [place], [place], [id number], [facility] [place] neck pain (chief complaint)lo w back pain (chief complaint) Obesity, unspecified 6 Indio Saxena. [address], [place], [facility], [place]. tel:[phone] OFFICE/OUTPA TIENT VISIT, EST [facility], [address], [place], [place], [id number], [facility] [place] neck pain (chief complaint)lo w back pain (chief complaint) Obesity, unspecifiedC hronic pain syndromeRadi culopathy of lumbosacral regionCervic algiaLong term (current) use of opiate analgesicEnc ounter for therapeutic drug level monitoring 6 Indio Saxena. [address], [place], [facility], [place]. tel:[phone] OFFICE/OUTPA TIENT VISIT, EST [facility], [address], [place], [place], [id number], [facility] [place] low back pain (chief complaint)ne ck pain (chief complaint) Obesity, unspecifiedC hronic pain syndromeRadi culopathy of lumbosacral regionCervic algiaLong term (current) use of opiate analgesicEnc ounter for therapeutic drug level monitoring 6 Indio Saxena. [address], [place], [facility], [place]. tel:[phone] OFFICE/OUTPA TIENT VISIT, EST [facility], [address], [place], [place], [id number], [facility] [place] low back pain (chief complaint)ne ck pain (chief complaint) Obesity, unspecifiedC hronic pain syndromeRadi culopathy of lumbosacral regionCervic algiaLong term (current) use of opiate analgesicEnc ounter for therapeutic drug level monitoring 6 Indio Saxena. [address], [place], [facility], [place]. tel:[phone] OFFICE/OUTPA TIENT VISIT, EST [facility], [address], [place], [place], [address], [facility] [place] low back pain (chief complaint)ne ck pain (chief complaint) Obesity, unspecifiedC hronic pain syndromeRadi culopathy of lumbosacral regionCervic algiaLong term (current) use of opiate analgesicEnc ounter for therapeutic drug level monitoring 6 Indio Saxena. [address], [place], [facility], [place]. tel:[phone] OFFICE/OUTPA TIENT VISIT, EST [facility], [address], [place], [place], [id number], [facility] [place] neck pain (chief complaint)lo w back pain (chief complaint) Chronic pain syndromeRadi culopathy of lumbosacral regionCervic algiaLong term (current) use of opiate analgesicEnc ounter for therapeutic drug level monitoring 6 Indio Saxena. [address], [place], [facility], [place]. tel:[phone] OFFICE/OUTPA TIENT VISIT, EST [facility], [address], [place], [place], [id number], [facility] [place] neck pain (chief complaint)lo w back pain (chief complaint) [facility] (current) use of opiate analgesicEnc ounter for therapeutic drug level monitoringCe rvicalgiaRad iculopathy of lumbosacral regionChroni c pain syndromeSpon dyls w/o myelopathy or radiculopath y, lumbosacr region 5 Indio Saxena. [address], [place], [facility], [place]. [phone] OFFICE/OUTPA TIENT VISIT, EST [facility], [address], [place], [place], [id number], [facility] [place] low back pain (chief complaint)ne ck pain (chief complaint) Obesity, unspecifiedL royer term (current) use of opiate analgesicEnc ounter for therapeutic drug level monitoringCe rvicalgiaRad iculopathy of lumbosacral regionChroni c pain syndrome 5 Indio Saxena. [address], [place], [facility], [place]. [phone] OFFICE/OUTPA TIENT VISIT, EST [facility], [address], [place], [place], [id number], [facility] [place] low back pain (chief complaint)ne ck pain (chief complaint) Obesity, unspecifiedC hronic pain syndromeCerv icalgiaEncou nter for therapeutic drug level monitoringLo ng term (current) use of opiate analgesicRad iculopathy of lumbosacral region 5 Indio Saxena. [address], [place], [facility], [place]. [phone] Referring Provider: Hemanth Mora, [address], [place], [facility]. tel:[phone] OFFICE/OUTPA TIENT VISIT, EST [facility], [address], [place], [place], [id number], [facility] [place] low back pain (chief complaint) OverweightCh ronic pain syndromeLumb ar radiculopath yLumbar disc degenerative diseaseCervi theo degenerative disk diseaseEncou nter for current correction use of high risk medicationEn counter for therapeutic drug monitoring 5 Indio Saxena. [address], [place], [address], [place]. tel:[phone] OFFICE/OUTPA TIENT VISIT, EST [facility], [address], [place], [place], [address], [facility] [place] low back pain (chief complaint) Chronic pain syndromeLumb ar radiculopath yLumbar disc degenerative diseaseCervi theo degenerative disk diseaseEncou nter for current herpetologist use of high risk medicationEn counter for therapeutic drug monitoring Indio Saxena. [address], [place], [facility], [place]. tel:[phone] Referring Provider: Hemanth Mora, [address], [place], [facility]. tel:[phone] OFFICE/OUTPA TIENT VISIT, EST [facility], [address], [place], [place], [id number], [facility] [place] neck pain (chief complaint)lo w back pain (chief complaint) ObesityLumba r radiculopath yLumbar disc degenerative diseaseCervi theo degenerative disk diseaseChron ic pain syndromeEnco unter for therapeutic drug monitoringEn counter for current herpetologist use of high risk medication Symone Craig. [address], [place], [facility], . tel:[phone] Family History Family Member Type Diagnosis Age At Onset Mother Problem (finding) malignant neoplasm of l lashaun Mother Problem (finding) Father Problem (finding) cancer of colon Brother Problem Sarcoma Father Problem (finding) Payers Payer name Insurance type Covered libertarian ID Authortank verma(s) [facility] [id number] Social History Type Description Quantity Date Captured [...] Referred To: Brayden Frederick [address] [place], [place], [id number] Ordered: Referrals: Infectious Disease. Brayden Frederick. Evaluate and treat ordered Referral Referred To: Oleksandr Cheng [address] [place], [place], [id number] Ordered: Referrals: Infectious Disease. Oleksandr Cheng. Evaluate [...] incontinence, rash, sexual dysfunction and weight loss. neck [...] ice, injection, narcotic analgesics and physical therapy. low back pain Severity level i s 8. The problem is stable. It occurs persistently. Location of pain is lower back. Pain is radiated to the left ankle, left calf, left foot and left thigh.The patient describes the pain as burning, numbness, piercing and stabbing. Symptoms are aggravated by daily activities. Symptoms are relieved by heat, ice, injection, pain meds/drugs and physical therapy. Follow up chronic pain [...] include Active Movement. Relieving factors include rest. neck pain The severity of the problem is moderate. The problem has not changed. The frequency of pain is constant. Location of pain is bilateral anterior neck and bilateral posterior neck. The patient describes the pain as Aching, Burning, Piercing, Sharp, Shooting and Stabbing. Aggravating factors include bending. Relieving factors include lying down. low back pain Severity level i s [...] reflux, vomiting, weight gain and weight loss. low back pain Severity [...] medication, pain meds/drugs and rest. neck pain Onset: [...] and weather. Relieving factors include narcotic analgesics. low back pain Onset: year ago. Severity [...] are relieved by pain meds/drugs. neck pain The severity of the problem [...] are relieved by pain meds/drugs. wound change neck pain The problem has worsened. The [...] related), tenderness, tingling and weakness. neck pain The problem has [...] incontinence, bladder retention, rash and sexual dysfunction. neck pain Onset: [...] Tool score: 0PHQ2 score: 0CAGE score: <3The [place] EFORCSE/Prescription Drug Monitoring Program was reviewed, found to be compliant and a copy was attached to the chart.Based on the above information and that the patient has not had an inconsistent UDS will consider the patient a green risk stratification. Related to Encounter for therapeutic drug level monitoring Patient is moving to [place]. This is his last visit. He states that his medication allow him to function. Patient needs his medication filled since he is moving on Sunday.[place] was [place]. Will renew medications. No follow up. Today I have discussed the options for care, including possible injections and physical therapy. The patient was advised on proper lifting techniques, home exercises and physical conditioning. Avoid heavy lifting and high impact activity. Patient was provided written material on the [facility] Information on Nonopioid Alternatives for the Treatment [...] to rule out any illicit use. The [place] prescription drug data base was reviewed and is compliant with the patient's treatment plan. 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 The [place] prescription drug data base was reviewed and is compliant with the patient's treatment plan. Related to [facility] (current) use of opiate analgesic The patient risk lev el was determined by evaluating their objective and subjective individual risk factors. At today's assessment, the patient's risk factors include an evaluation of the following documented information:Level of medication in MME/Day: 45# UDT's per last 12 months: 1Most recent UDT: 05/25/2021, this was compliantOpioid Risk Tool score: 0PHQ2 score: 0CAGE score: <3The [place] EFORCSE/Prescription Drug Monitoring Program was reviewed, found [...] his lower back. This is not a [employer] related injury and he will need to go through Medicare for this. Hip X-rays showed moderate degenerative changes. Left hip injection 01/28/21 provided long-lasting relief. No further interventions. Related to Pain in left hip Pt has evidence of t rochanteric bursitis in his left hip. This is not covered under [employer] [employer] and will need to be covered under [...] Patient was provided written material on the [facility] Information on Nonopioid Alternatives for the Treatment [...] to rule out any illicit use. The [place] prescription drug data base was reviewed and is compliant with the patient's treatment plan. 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 This is stable. Will monitor. Related to Postlaminectomy syndrome Pt has evidence of t rochanteric bursitis in his left hip. This is not covered under [employer] and will need to be covered under the patient's regular insurance.Left hip injection on 01/28/21. No interventions. Will monitor. Related to Trochanteric bursitis, left hip PMH of diabetes. Froylan alex obtain clearance prior to procedures. Related to Type 2 diabetes mellitus w/ diabetic neuropathy PMH of chronic left hip in addition to his lower back. This is not a [employer] related injury and he will need to [...] Tool score: 0PHQ2 score: 0CAGE score: <3The [place] EFORCSE/Prescription Drug Monitoring Program was reviewed, found [...] Patient was provided written material on the [facility] Information on Nonopioid Alternatives for the Treatment [...] Tool score: 0PHQ2 score: 0CAGE score: <3The [place] EFORCSE/Prescription Drug Monitoring Program was reviewed, found [...] left hip. This is not covered under [employer] and will need to be covered under the patient's regular insurance.Left hip injection on 01/28/21. No interventions. Will monitor. Related to Trochanteric bursitis, left hip PMH of chronic left hip in addition to his lower back. This is not a [employer] related injury and he will need to [...] to rule out any illicit use. The [place] prescription drug data base was reviewed and is compliant with the patient's treatment plan. Related to [facility] (current) use of opiate analgesic PMH of [...] Patient was provided written material on the [facility] Information on Nonopioid Alternatives for the Treatment [...] to rule out any illicit use. The [place] prescription drug data base was reviewed and is compliant with the patient's treatment plan. 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 Patient has [...] Tool score: 0PHQ2 score: 0CAGE score: <3The [place] EFORCSE/Prescription Drug Monitoring Program was reviewed, found [...] Patient was provided written material on the [facility] Information on Nonopioid Alternatives for the Treatment [...] Patient was provided written material on the [facility] Information on Nonopioid Alternatives for the Treatment [...] Tool score: 0PHQ2 score: 0CAGE score: <3The [place] EFORCSE/Prescription Drug Monitoring Program was reviewed, found to be compliant and a copy was attached to the chart.Based on the above information and that the patient has not had an inconsistent UDS will consider the patient a green risk stratification. Related to Encounter for therapeutic drug level monitoring PMH of back surgery about 20 years [...] healed. Related to Radiculopathy of lumbosacral region PMH of diabetes. Froylan alex obtain clearance prior to procedures. Related to Type 2 diabetes mellitus w/ diabetic neuropathy SCS explanted 10/03/2021. Will nida holden. Related to Breakdown (mechanical) of implanted electronic neurostimulator, generator, sequela The patient has evid ence of trochanteric bursitis in his left hip. This is not covered under [employer] and will need to be covered under the patient's regular insurance.Left hip injection on 01/28/21. No interventions. Will monitor. Related to Trochanteric bursitis, left hip 10/14/2021- No meds s ent- [...] to rule out any illicit use. The [place] prescription drug data base was reviewed and is compliant with the patient's treatment plan. 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 The [place] prescription drug data base was reviewed and is compliant with the patient's treatment plan. 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 This is not covered under [employer] and will need to be covered under [...] Patient was provided written material on the [facility] Information on Nonopioid Alternatives for the Treatment [...] Tool score: 0PHQ2 score: 0CAGE score: <3The [place] EFORCSE/Prescription Drug Monitoring Program was reviewed, found [...] Tool score: 0PHQ2 score: 0CAGE score: <3The [place] EFORCSE/Prescription Drug Monitoring Program was reviewed, found [...] interventions. Related to Pain in left hip Will obtain clearanc e prior to procedures. Related to Type 2 diabetes mellitus w/ diabetic neuropathy SCS explanted 10/03/2021. Will mo navin. Related [...] on plavix. We will reach out to landcare facilitator (Dr. Galvan, [facility]) for procedure clearance in future. He [...] Patient was provided written material on the [facility] Information on Nonopioid Alternatives for the Treatment [...] to rule out any illicit use. The [place] prescription drug data base was reviewed and is compliant with the patient's treatment plan. 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 We will reach out to landcare facilitator (Dr. Galvan, [facility]) for procedure clearance in future. He [...] Tool score: 0PHQ2 score: 0CAGE score: <3The [place] EFORCSE/Prescription Drug Monitoring Program was reviewed, found to be compliant and a copy was attached to the chart.Based on the above information and that the patient has not had an inconsistent UDS will consider the patient a green risk stratification. Related to Encounter for therapeutic drug level monitoring SCS explanted 10/03/2021. Related to Breakdown (mechanical) of implanted electronic neurostimulator, generator, sequela A significant compon ent of the patient's pain is coming from his left hip in addition to his lower back. This is not a [employer] related injury and he will need to go through Medicare for this. Hip X-rays were reviewed and show moderate degenerative changes. Left hip injection 01/28/21 provided long-lasting relief. No further interventions. Related to Pain in left hip PMH of back surgery about 20 years ago. Related to Postlaminectomy syndrome The patient has evid ence of trochanteric bursitis in his left hip. This is not covered under [employer] and will need to be covered under [...] Patient was provided written material on the [facility] Information on Nonopioid Alternatives for the Treatment [...] to rule out any illicit use. The [place] prescription drug data base was reviewed and is compliant with the patient's treatment plan. Related to [facility] (current) use of opiate analgesic The patient has a hi story of back surgery about 20 years ago. Related to Postlaminectomy syndrome A significant compon ent of the patient's pain is coming from his left hip in addition to his lower back. This is not a [employer] related injury and he will need to [...] left hip. This is not covered under [employer] and will need to be covered under [...] Patient was provided written material on the [facility] Information on Nonopioid Alternatives for the Treatment [...] Tool score: 0PHQ2 score: 0CAGE score: <3The [place] EFORCSE/Prescription Drug Monitoring Program was reviewed, found [...] to rule out any illicit use. The [place] prescription drug data base was reviewed and is compliant with the patient's treatment plan. Related to [facility] (current) use of opiate analgesic Patient has [...] stimulator placed. He has been to a sales vice president who states it's not neuropathy from his [...] 5-7 days. We will reach out to landcare facilitator (Dr. Galvan, [facility]). NPO for 6 hours and have lyft driver. No NSAIDs for 7 days. Is [...] lower back. This is not a [employer] related injury and he will need to [...] stimulator placed. He has been to a sales vice president who states it's not neuropathy from his [...] Tool score: 0PHQ2 score: 0CAGE score: <3The [place] EFORCSE/Prescription Drug Monitoring Program was reviewed, found [...] Patient was provided written material on the [facility] Information on Nonopioid Alternatives for the Treatment [...] to rule out any illicit use. The [place] prescription drug data base was reviewed and is compliant with the patient's treatment plan. 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 The [place] prescription drug data base was reviewed and is compliant with the patient's treatment plan. Related to [facility] (current) use of opiate analgesic Patient has [...] Tool score: 0PHQ2 score: 0CAGE score: <3The [place] EFORCSE/Prescription Drug Monitoring Program was reviewed, found [...] and treatments for his back pain through [employer]. Follow up for his hip as needed.Today I have discussed the options for care, including possible injections and physical therapy. The patient was advised on proper lifting techniques, home exercises and physical conditioning. Avoid heavy lifting and high impact activity. Patient was provided written material on the [facility] Information on Nonopioid Alternatives for the Treatment of Pain. Related to Chronic pain syndrome The patient's left h ip continues to do well after his injection on 01/28/21. All of his hip treatments are to be covered through Medicare. He receives medications and treatments for his back pain through [employer]. Follow up for his hip as needed.Today I have discussed the options for care, including possible injections and physical therapy. The patient was advised on proper lifting techniques, home exercises and physical conditioning. Avoid heavy lifting and high impact activity. Patient was provided written material on the [facility] Information on Nonopioid Alternatives for the Treatment [...] Tool score: 0PHQ2 score: 0CAGE score: <3The [place] EFORCSE/Prescription Drug Monitoring Program was reviewed, found [...] to rule out any illicit use. The [place] prescription drug data base was reviewed and is compliant with the patient's treatment plan. 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 Related to [facility] (current) use of opiate analgesic We have [...] Pain made available by the [facility]. 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 All of his hip treatments are to be covered through Medicare. He receives medications and treatments for his back pain through [employer]. Follow up for his hip as needed.Today I have discussed the options for care, including possible injections and physical therapy. The patient was advised on proper lifting techniques, home exercises and physical conditioning. Avoid heavy lifting and high impact activity. Patient was provided written material on the [facility] Information on Nonopioid Alternatives for the Treatment of Pain. Related to Chronic pain syndrome The patient has evid ence of trochanteric bursitis in his left hip. This is not covered under [employer] and will need to be covered under the patient's regular insurance.The patient is doing well since his left hip injection on 01/28/21. No interventions. Related to Trochanteric bursitis, left hip A significant compon ent of the patient's pain is coming from his left hip in addition to his lower back. This is not a [employer] related injury and he will need to [...] Tool score: 0PHQ2 score: 0CAGE score: <3The [place] EFORCSE/Prescription Drug Monitoring Program was reviewed, found to be compliant and a copy was attached to the chart.Based on the above information and that the patient has not had an inconsistent UDS will consider the patient a green risk stratification. Related to Encounter for therapeutic drug level monitoring His lumbar spine cheryl atments and medication are covered under [employer].[place] PDMP was reviewed today. Will renew medications. [...] Patient was provided written material on the [facility] Information on Nonopioid Alternatives for the Treatment [...] to rule out any illicit use. The [place] prescription drug data base was reviewed and is compliant with the patient's treatment plan. Related to [facility] (current) use of opiate analgesic Patient has chronic lower back pain with pain down the his legs L>R. He has been having increased lower back pain and continues to have radicular symptoms. Patient has a spinal cord stimulator placed. He has been to a sales vice president who states it's not neuropathy from his [...] Patient was provided written material on the [facility] Information on Nonopioid Alternatives for the Treatment [...] to rule out any illicit use. The [place] prescription drug data base was reviewed and is compliant with the patient's treatment plan. 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 At today's assessment, the patient's risk factors include an evaluation of the following documented information:Level of medication in MME/Day: 45# UDT's per last 12 months: 1Most recent UDT: 08/30/2020Opioid Risk Tool score: 0PHQ2 score: 0CAGE score: <3The [place] EFORCSE/Prescription Drug Monitoring Program was reviewed, found to be compliant and a copy was attached to the chart.Based on the above information and that the patient has not had an inconsistent UDS will consider the patient a green risk stratification. Related to Encounter for therapeutic drug level monitoring Patient had his morp marnie pump removed. [...] stimulator placed. He has been to a sales vice president who states it's not neuropathy from his [...] Patient was provided written material on the [facility] Information on Nonopioid Alternatives for the Treatment [...] stimulator placed. He has been to a sales vice president who states it's not neuropathy from his [...] to rule out any illicit use. The [place] prescription drug data base was reviewed and is compliant with the patient's treatment plan. 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 At today's assessment, the patient's risk factors include an evaluation of the following documented information:Level of medication in MME/Day: 45# UDT's per last 12 months: 1Most recent UDT: 08/30/2020Opioid Risk Tool score: 0PHQ2 score: 0CAGE score: <3The [place] EFORCSE/Prescription Drug Monitoring Program was reviewed, found [...] Patient was provided written material on the [facility] Information on Nonopioid Alternatives for the Treatment [...] stimulator placed. He has been to a sales vice president who states it's not neuropathy from his [...] Patient was provided written material on the [place] Department of Health Information on Nonopioid Alternatives [...] to rule out any illicit use. The [place] prescription drug data base was reviewed and is compliant with the patient's treatment plan. Related to [facility] (current) use of opiate analgesic Patient had [...] Tool score: 0PHQ2 score: 0CAGE score: <3The [place] EFORCSE/Prescription Drug Monitoring Program was reviewed, found [...] stimulator placed. He has been to a sales vice president who states it's not neuropathy from his [...] Tool score: 0PHQ2 score: 0CAGE score: <3The [place] EFORCSE/Prescription Drug Monitoring Program was reviewed, found [...] Patient was provided written material on the [facility] Information on Nonopioid Alternatives for the Treatment [...] stimulator placed. He has been to a sales vice president who states it's not neuropathy from his [...] to rule out any illicit use. The [place] prescription drug data base was reviewed and is compliant with the patient's treatment plan. Related to [facility] (current) use of opiate analgesic Patient was [...] to rule out any illicit use. The [place] prescription drug data base was reviewed and is compliant with the patient's treatment plan. 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 He has been to a sales vice president who states it's not neuropathy from his [...] Patient was provided written material on the [facility] Information on Nonopioid Alternatives for the Treatment [...] to rule out any illicit use. The [place] prescription drug data base was reviewed and is compliant with the patient's treatment plan. Related to [facility] (current) use of opiate analgesic Patient has [...] stimulator placed. He has been to a sales vice president who states it's not neuropathy from his [...] stimulator placed. He has been to a sales vice president who states it's not neuropathy from his [...] to the procedure and must have a lyft driver present at the time of the [...] to rule out any illicit use. The [place] prescription drug data base was reviewed and is compliant with the patient's treatment plan. 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 [place] PDMP was [place]. Telemedicine Visit. Latest UDS [...] Patient was provided written material on the [facility] Information on Nonopioid Alternatives for the Treatment of Pain. Related to Chronic pain syndrome Patient states that his current pain medication regiment allows him to function with ADLs. Patient has no history or evidence of opioid abuse or misuse and has been compliant on last UDS. For this reason patient's stratified risk is green. [place] PDMP was [place]. Telemedicine Visit. Latest UDS [...] Patient was provided written material on the [facility] Information on Nonopioid Alternatives for the Treatment [...] to rule out any illicit use. The [place] prescription drug data base was reviewed and is compliant with the patient's treatment plan. 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 He has been to a sales vice president who states it's not neuropathy from his [...] to the procedure and must have a lyft driver present at the time of the [...] Patient was provided written material on the [facility] Information on Nonopioid Alternatives for the Treatment [...] stimulator placed. He has been to a sales vice president who states it's not neuropathy from his [...] to rule out any illicit use. The [place] prescription drug data base was reviewed and is compliant with the patient's treatment plan. 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 [place] was [place]. Telemedicine Visit. Latest UDS [...] Patient was provided written material on the [facility] Information on Nonopioid Alternatives for the Treatment [...] to rule out any illicit use. The [place] prescription drug data base was reviewed and is compliant with the patient's treatment plan. 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 He has been having increased lower back pain and continues to have radicular symptoms. Patient has a spinal cord stimulator placed. He has been to a sales vice president who states it's not neuropathy from his [...] stimulator placed. He has been to a sales vice president who states it's not neuropathy from his [...] Patient was provided written material on the [facility] Information on Nonopioid Alternatives for the Treatment [...] to rule out any illicit use. The [place] prescription drug data base was reviewed and is compliant with the patient's treatment plan. Related to [facility] (current) use of opiate analgesic Patient has [...] to rule out any illicit use. The [place] prescription drug data base was reviewed and is compliant with the patient's treatment plan. Related to [facility] (current) use of opiate analgesic Patient's wound [...] Patient was provided written material on the [facility] Information on Nonopioid Alternatives for the Treatment of Pain. Related to Chronic pain syndrome Patient has chronic lower back pain with pain down the left leg. He has been having increased lower back pain and continues to have radicular symptoms. Patient has a spinal cord stimulator placed. He has been to a sales vice president who states it's not neuropathy from his [...] his Lyrica. This is a pharmacy issue. [place] was [place]. Telemedicine Visit. Latest UDS [...] Patient was provided written material on the [facility] Information on Nonopioid Alternatives for [...] to rule out any illicit use. The [place] prescription drug data base was reviewed and is compliant with the patient's treatment plan. 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 He has been to a sales vice president who states it's not neuropathy from his [...] to rule out any illicit use. The [place] prescription drug data base was reviewed and is compliant with the patient's treatment plan. 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 He has been to a sales vice president who states it's not neuropathy from his [...] to rule out any illicit use. The [place] prescription drug data base was reviewed and is compliant with the patient's treatment plan. Related to [facility] (current) use of opiate analgesic Patient states [...] Patient was provided written material on the [facility] Information on Nonopioid Alternatives for the Treatment [...] stimulator placed. He has been to a sales vice president who states it's not neuropathy from his [...] to rule out any illicit use. The [place] prescription drug data base was reviewed and is compliant with the patient's treatment plan.Patient was shown information provided by the [place] Department of Health regarding information on nonopioid alternatives for the treatment of pain. This was discussed patient verbalizes understanding. 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 Patient has [...] adequately. Compliant with previous UDS and current [place] PDMP; compliant. No changes in medical status [...] Patient was provided written material on the [facility] Information on Nonopioid Alternatives for the Treatment [...] stimulator placed. He has been to a sales vice president who states it's not neuropathy from his [...] to rule out any illicit use. The [place] prescription drug data base was reviewed and is compliant with the patient's treatment plan. Related to [facility] (current) use of opiate analgesic Patient states [...] Patient was provided written material on the [facility] Information on Nonopioid Alternatives for the Treatment [...] to rule out any illicit use. The [place] prescription drug data base was reviewed and is compliant with the patient's treatment plan. Related to [facility] (current) use of opiate analgesic Patient had [...] stimulator placed. He has been to a sales vice president who states it's not neuropathy from his [...] Patient was provided written material on the [facility] Information on Nonopioid Alternatives for the Treatment [...] stimulator placed. He has been to a sales vice president who states it's not neuropathy from his [...] to rule out any illicit use. The [place] prescription drug data base was reviewed and is compliant with the patient's treatment plan. 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 The [place] prescription drug data base was reviewed and is compliant with the patient's treatment plan. 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 He has been to a sales vice president who states it's not neuropathy from his [...] to rule out any illicit use. The [place] prescription drug data base was reviewed and is compliant with the patient's treatment plan. 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 The [place] prescription drug data base was reviewed and is compliant with the patient's treatment plan. Related to [facility] (current) use of opiate analgesic Patient's wound [...] this. He has been following with his landcare facilitator.[place]MP was [place]. Physical exam is consistent [...] concerns. Related to Chronic pain syndrome Patient was [...] to rule out any illicit use. The [place] prescription drug data base was reviewed and is compliant with the patient's treatment plan. 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 Related to Radiculopathy of lumbosacral region Patient's [...] he is to follow up with his landcare facilitator in 2 months. [place] PDMP was reviewed. [...] Patient was provided written material on the [facility] Information on Nonopioid Alternatives for the Treatment [...] to rule out any illicit use. The [place] prescription drug data base was reviewed and is compliant with the patient's treatment plan. Related to [facility] (current) use of opiate analgesic Patient has [...] heart rate. He continues following up with cardiology.[place]. Physical exam is consistent [...] to rule out any illicit use. The [place] prescription drug data base was reviewed and is compliant with the patient's treatment plan. Related to [facility] (current) use of opiate analgesic Patient has [...] heart rate. He continues following up with cardiology.[place]. Physical exam is consistent [...] to rule out any illicit use. The [place] prescription drug data base was reviewed and is compliant with the patient's treatment plan. Related to [facility] (current) use of opiate analgesic Patient's wound [...] implanted electronic neurostimulator, generator, sequela Patient has low back pain and a [...] to rule out any illicit use. The [place] prescription drug data base was reviewed and is compliant with the patient's treatment plan. 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 The [place] prescription drug data base was reviewed and is compliant with the patient's treatment plan. 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 The [place] prescription drug data base was reviewed and is compliant with the patient's treatment plan. Related to [facility] (current) use of opiate analgesic Patient had to have a cardiac catheterization with a stent placed. He is now having low heart rate and elevated BP. He states that he might need a pacemaker. He is still working with cardiology. [place] PDMP was [place]. Physical exam is consistent [...] to rule out any illicit use. The [place] prescription drug data base was reviewed and is compliant with the patient's treatment plan. Related to [facility] (current) use of opiate analgesic Patient had [...] to rule out any illicit use. The [place] prescription drug data base was reviewed and is compliant with the patient's treatment plan. Related to [facility] (current) use of opiate analgesic Patient states that he has had cardiac [...] to rule out any illicit use. The [place] prescription drug data base was reviewed and is compliant with the patient's treatment plan. 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 Will continue to monitor. [place] PD[place] was [place]. Physical exam is consistent [...] to rule out any illicit use. The [place] prescription drug data base was reviewed and is compliant with the patient's treatment plan. Related to [facility] (current) use of opiate analgesic Patient's wound [...] to rule out any illicit use. The [place] prescription drug data base was reviewed and is compliant with the patient's treatment plan. Related to [facility] (current) use of opiate analgesic Patient had [...] prescribe Percocet 10 mg daily dispense #30. [place] was [place]. Patient physical exam is [...] to rule out any illicit use. The [place] prescription drug data base was reviewed and is compliant with the patient's treatment plan. 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 The [place] prescription drug data base was reviewed and is compliant with the patient's treatment plan. Related to [facility] (current) use of opiate analgesic Patient feels [...] index (BMI) 32.0-32.9, adult Patient has a [employer] SCS. He feels like he has to charge his battery too often. The battery was changed last year. Advised to call the Chat[employer] artists' booking representative for the next appointment in order [...] to rule out any illicit use. The [place] prescription drug data base was reviewed and is compliant with the patient's treatment plan. Related to [facility] (current) use of opiate analgesic Dietary management [...] to rule out any illicit use. The [place] prescription drug data base was reviewed and is compliant with the patient's treatment plan. Related to [facility] (current) use of opiate analgesic [place] . Will order UDS [...] to rule out any illicit use. The [place] prescription drug data base was reviewed and is compliant with the patient's treatment plan. Related to [facility] (current) use of opiate analgesic [place] . The patient has [...] Body mass index (BMI) 32.0-32.9, adult The [facility] Drug Monitoring Program was reviewed for [...] time, but is being followed by a dean of education regarding this issue. The patient reports no [...] while taking these opioid medications. Related to [facility] (current) use of opiate analgesic Dietary management [...] ago, and was reprogrammed by his pump artists' booking representative. However, he indicates that at his last pump refill (09/28/17), a yellow fluid was extracted. He was concerned there may be a problem with is pump, and contacted a medication technician for his pump (Oleksandr), and was [...] while taking these opioid medications. 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 Related to [facility] (current) use of opiate analgesic The patient [...] Related to Radiculopathy of lumbosacral region The [facility] Drug Monitoring Program was reviewed for [...] was negative for hydromorphone metabolite. Retest and Science Analyst.The patient reports improved pain on the current [...] while taking these opioid medications. Related to [facility] (current) use of opiate analgesic Dietary management [...] is also getting morphine orally. [employer] and Science Analyst.Medications were refilled. The patient reports improved pain [...] while taking these opioid medications. 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 He has oral medication for breakthrough pain that remains stable allowing him to function. Patient is talking medication consistently and claims that current pain regimen allows patient to carry out daily routine/ADLs adequately. Compliant with previous UDS and current [place] PDMP; compliant. No changes in medical status [...] to rule out any illicit use. The [place] prescription drug data base was reviewed and is compliant with the patient's treatment plan. Related to [facility] (current) use of opiate analgesic The [facility] Drug Monitoring Program was reviewed for [...] as discussed at previous appointments. Related to [facility] (current) use of opiate analgesic The patient [...] while taking these opioid medications. Related to [facility] (current) use of opiate analgesic Today the [...] while taking these opioid medications. Related to [facility] (current) use of opiate analgesic Procedure was [...] while taking these opioid medications. Related to [facility] (current) use of opiate analgesic Dietary management [...] while taking these opioid medications. 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 SCS artists' booking representative present today for pump reprogramming. Performed [...] while taking these opioid medications. Related to [facility] (current) use of opiate analgesic Today the [...] to emergency room per the advisory of development representative. He was admitted to hospital and [...] in the presence of scribe and SCS artists' booking representative; no erythema or signs of infections. [...] while taking these opioid medications. 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 Advised to speak with Chatty Representatives to optimize stimulation. The patient presents [...] to rule out any illicit use. The [place] prescription drug data base was reviewed and is compliant with the patient's treatment plan. 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 The [place] prescription drug data base was reviewed and is compliant with the patient's treatment plan. 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 The [place] prescription drug data base was reviewed and is compliant with the patient's treatment plan. 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 Related to [facility] (current) use of opiate analgesic Today the [...] opioid medications.Start MSContin 15mg BID. 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 We will contact the artists' booking representative for reprogramming. Related to Radiculopathy of [...] He recently had the pump refilled by [employer]. He has the sheet from the refill, [...] while taking these opioid medications. Related to [facility] (current) use of opiate analgesic Dietary management [...] his intrathecal drug delivery system. Related to [facility] (current) use of opiate analgesic - Has had multiple e pidural steroid injectiosn as well as lumbar facet injections that have failed to control pain.- Uses Spinal Cord Stimulator daily with 40% relief felt in low back and legs bilaterally. - Continues with use of LSO back brace several days a week with activity. Related to Radiculopathy of lumbosacral region The patient has chromosomal disorders counselor krishna, intractable pain with the diagnoses listed [...] and rule out any illicit use. The [place] Prescription Drug Database was accessed and is [...] is cleared via renal function. Related to [facility] (current) use of opiate analgesic - Has [...] measures Related to Cervicalgia The patient has chromosomal disorders counselor krishna, intractable pain with the diagnoses listed [...] and rule out any illicit use. The [place] Prescription Drug Database was accessed and is compliant with the patient's treatment plan Related to Chronic pain syndrome Dietary management e ducation, guidance, and counseling Related to Obesity, unspecified He is very stable on his medication and IT medications. no changes will be made at this time. 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 The [place] Prescription Drug Database was accessed and is [...] in place and functioning properly. 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 The [place] Prescription Drug Database was accessed and is [...] Pentec and is doing well. Related to [facility] (current) use of opiate analgesic The patient has chromosomal disorders counselor krishna, intractable pain with the diagnoses listed [...] and rule out any illicit use. The [place] Prescription Drug Database was accessed and is [...] to his dosing or plan. 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 The [place] Prescription Drug Database was accessed and is [...] without experiencing significant side effects. 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 The [place] Prescription Drug Database was accessed and is [...] without experiencing significant side effects. 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 The [place] Prescription Drug Database was accessed and is [...] prior to the alarm date. Related to [facility] (current) use of opiate analgesic Patient submitted [...] measures Related to Cervicalgia The patient has chromosomal disorders counselor krishna, intractable pain with the diagnoses listed [...] and rule out any illicit use. The [place] Prescription Drug Database was accessed and is [...] of high risk medication The patient has chromosomal disorders counselor krishna, intractable pain with the diagnoses listed [...] and rule out any illicit use. The [place] Prescription Drug Database was accessed and is [...] intrathecal medications. Related to Encounter for current correction use of high risk medication The patient has chromosomal disorders counselor krishna, intractable pain with the diagnoses listed [...] and rule out any illicit use. The [place] Prescription Drug Database was accessed and is [...]
--- NOTE | 2025-06-09 13:07 | A.OFFVIS_ITS ---
Vital Signs 3 06/09/25 13:21 Height 5 ft 8 in Weight 167 lb 2 oz BMI 25.4 BP 105/56 L Blood Pressure Location Lt brachial Position Sitting Pulse 57 Intake Visit Reasons: painful right sided fatty tumor Intake Note: Patient is seen in office for evaluation of a lipoma of the right side of the abdomen. Pt c/o: onset one month, recently loss 40 lbs and notice a lump in the abdomen, painful, worse to sleep on it- has to sleep in his reclyner, denies any other concers Charge Authorizer Required: No Accompanied by: Self / Same As Patient Allergies No Known Allergies Allergy (Verified 06/09/25 13:14) Medication List - Last Reconciled 06/09/25 by Arben Garcia MD amlodipine 5 mg PO DAILY atorvastatin 80 mg PO DAILY cholecalciferol (vitamin D3) 10 mcg PO DAILY clopidogrel 75 mg PO DAILY diclofenac sodium 2% mL topical empagliflozin (Jardiance) 25 mg PO DAILY isosorbide mononitrate ER 30 mg PO DAILY losartan 50 mg PO DAILY metformin ER 500 mg PO BID ondansetron 2 mg PO Q6-8H PRN oxycodone myristate CR-ER (Xtampza ER) 9 mg PO BID pantoprazole 20 mg PO DAILY pregabalin 150 mg PO BID tamsulosin mg PO tirzepatide (Mounjaro) mg subcut HPI Comments Details: 74-year-old male patient presenting for evaluation of a lump located in the right flank. He reports some pain associated with this lump which seems to be increasing in severity. He is uncertain if the pain is from the lump or from kidney stones. He also has issues with his back in his previously undergone pain pump insertions including 1 in the right flank in the exact location of the palpable lump. He also had a pain pump in the left flank as well as the abdomen which subsequently became infected. He is interested in having the lump in the right flank removed. He does report losing a significant amount of weight which is made the lump more noticeable. COUNTS INCLUDE 234 BEDS AT THE [facility] Surgical History Hx of colonoscopy History of nasal surgery History of surgery on left wrist History of arthroscopy of left knee History of back surgery Hx of carpal tunnel repair Review of Systems Const All systems reviewed & are unremarkable except as noted in HPI and below Physical Exam Vital Signs: Last Vital Signs Pulse 57 06/09/25 13:21 BP 105/56 L 06/09/25 13:21 BMI result Body Mass Index 25.4 Const General: cooperative and no acute distress Nutritional Appearance: well nourished Orientation/consciousness: patient oriented x3 Limitations: no limitations HEENT Head: Yes normocephalic and Yes atraumatic Ears: hearing grossly normal bilaterally Resp Effort & Inspection: normal respiratory effort, no audible wheezes, no cough and no respiratory distress Cardio Jugular venous distension: no JVD GI Inspection: Yes normal to inspection Back/Spine/Pelvis Other: Palpable mass noted below the right flank incision which appears hard possibly scar tissue from prior hardware insertion. Does not feel like a lipoma to me. Back/spine/pelvis image: 2 1. Site of palpable mass right flank Skin Other: Warm, dry, no rash Neuro General: patient oriented x3 Extrem General: Yes no clubbing, cyanosis or edema Assessment & Plan Assessment & Plan (1) Right flank mass: Code(s): R19.09 - Other intra-abdominal and pelvic swelling, mass and lump Category: Medical Plan 74-year-old male patient presenting with a palpable mass located in the right flank which has become more noticeable after losing a significant amount of weight. He is uncertain if this lump is causing pain or is the pain related to kidney stones. On examination there is a flank incision from a prior pain pump placement in the right flank this appears to be residual scar tissue from that implant. To further evaluate this area I recommended a CT abdomen and pelvis. He will return following the study to review the results and discuss treatment options. Orders: Orders 2 CT abdomen pelvis wo IV con Today R19.09 - Other intra-abdominal and pelvic swelling, mass and lump Coding Level of Care Code New Pt Level 4 (48756) Diagnoses Right flank mass R19.09
[2025-06-09 13:21] VITALS: BP 105/56; PULSE 57; BMI 25.4
--- OUTSIDE RECORDS SUMMARY | 2025-06-09 16:00 | XMS_ITS | Patient Health Record ---
Author Organization [facility] Address [address] [facility] [address] [place] [address] Care Team Providers Care In Home Aide Name Role Phone CHEYANNE BENITO Primary Care Provider [phone] Juan DiegoduaneStefany paredes Unavailable [phone] Allergies No Known Allergies Results Component Value Reference Range Notes PSA (Serial Monitor)-[id number] Reviewed date:02/05/2025 07:20:18 AM Interpretation: Performing Lab:[facility], [address] [place] [address], Phone - [phone], Director - MDClarissedry Notes/Report: Prostate Specific Ag 0.4 0.0-4.0 ng/mL Norman ECLIA methodology. . According to the [place] [employer], Serum PSA should decrease and remain at undetectable levels after radical prostatectomy. The AUA defines biochemical recurrence as an initial PSA value 0.2 ng/mL or greater followed by a subsequent confirmatory PSA value 0.2 ng/mL or greater. Values obtained with different assay methods or kits cannot be used interchangeably. Results cannot be interpreted as absolute evidence of the presence or absence of malignant disease. Hemoglobin [id number] Reviewed date:02/05/2025 07:20:21 AM Interpretation: Performing Lab:[facility], [address] [facility], Phone - [phone], Director - Romeo Notes/Report: Hemoglobin A1c 5.2 4.8-5.6 % . Prediabetes: 5.7 - 6.4 Diabetes: >6.4 Glycemic control for adults with diabetes: <7.0 Albumin/Creatinine Ratio,Uri [id number] Reviewed date:02/05/2025 07:20:24 AM Interpretation: Performing Lab:[facility], [address] [place] [address], Phone - [phone], Director - Floryy Notes/Report: Creatinine, Urine 120.1 Not Estab. mg/dL Albumin, Urine 16.5 Not Estab. ug/mL Alb/Creat Ratio 14 0-29 mg/g creat Normal: 0 - 29 Moderately increased: 30 - 300 Severely increased: >300 Lipid Panel-[id number] Reviewed date:02/05/2025 07:20:26 AM Interpretation: Performing Lab:[facility], [address] [place] [address], Phone - [phone], Director - MDClarissedry Notes/Report: Cholesterol, Total 104 100-199 mg/dL Triglycerides 91 0-149 mg/dL HDL Cholesterol 40 >39 mg/dL VLDL Cholesterol Bryce 18 5-40 mg/dL LDL Chol Calc (NIH) 46 0-99 mg/dL Comp. Metabolic Panel (14)-3 Reviewed date:02/05/2025 07:20:38 AM Interpretation: Performing Lab:[facility], [address] [place] [address], Phone - [phone], Director - Floryy Notes/Report: Glucose 79 70-99 mg/dL BUN 16 8-27 mg/dL Creatinine 0.75 0.76-1.27 mg/dL eGFR 94 >59 mL/min/1.73 BUN/Creatinine Ratio 21 10-24 Sodium 144 134-144 mmol/L Potassium 3.7 3.5-5.2 mmol/L Chloride 108 96-106 mmol/L Carbon Dioxide, Total 23 20-29 mmol/L Calcium 9.2 8.6-10.2 mg/dL Protein, Total 5.7 6.0-8.5 g/dL Albumin 4.1 3.8-4.8 g/dL Globulin, Total 1.6 1.5-4.5 g/dL Bilirubin, Total 0.7 0.0-1.2 mg/dL Alkaline Phosphatase 100 44-121 IU/L AST (SGOT) 18 0-40 IU/L ALT (SGPT) 17 0-44 IU/L Hemoglobin [id number] Reviewed date:06/13/2024 01:37:20 PM Interpretation: Performing Lab:[facility], [address] [place] [address], Phone - [phone], Director - Floryy Notes/Report: Hemoglobin A1c 5.9 4.8-5.6 % . Prediabetes: 5.7 - 6.4 Diabetes: >6.4 Glycemic control for adults with diabetes: <7.0 Reason For Referral Reason Evaluation and manag ement Diagnosis 1 Disorder of the skin and subcutaneous tissue, unspecified (L98.9) Referral Organization [facility] Referring Provider First Name BENITO Referring Provider Last Name GU Referring Provider Speciality Internal edicine Referred Provider Specialty Dermatology General Notes Referral sent to [facility] - Office will call patient for scheduling., Mitzy Damon 06/13/2024 12:40:28 PM > Referral Priority Routine Reason Evaluation and manag ement - Dr Tipton Diagnosis 1 Pain in right hand ( M79.641) Referral Organization [facility] Referring Provider First Name BENITO Referring Provider Last Name [facility] Referred Provider Specialty Hand Surgery General Notes Referral sent to [facility] - Office will call patient for scheduling., Mitzy Damon 06/13/2024 12:45:06 PM > Referral Priority Routine Reason Lipoma right side ab domen Please evaluate and treat Diagnosis 1 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) Referral Organization [facility] Referring Provider First Name BENITO Referring Provider Last Name [facility] Referring Provider Speciality Internal edicine Referred Provider Specialty Surgery General Notes Please call the gretchen ent to schedule the appointment, Encounter created and SMS sent to the pt., Joana Diaz 04/28/2025 03:55:51 PM > Referral Priority Routine Reason Painful right sided fatty tumor; please evaluate and treat Diagnosis 1 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 Referral Priority Routine Reason Kidney stones Plea se evaluate and treat Diagnosis 1 Kidney stone (N20.0) Referral Organization [facility] Referring Provider First Name BENITO Referring Provider Last Name [facility] Referring Provider Speciality [facility] Referred Provider Specialty Urology General Notes Please call the gretchen ent to schedule the appointment, Referral SMS sent to the patient, Joana Diaz 05/26/2025 03:30:57 PM > Referral Priority Routine Medications Medication SIG (Take, Route, Frequency, Duration) Notes Start Date End Date Status Jardiance 25 MG TAKE 1 TABLET BY OLGA TH EVERY DAY; Duration: 90 Active Pantoprazole Sodium 20 MG TAKE 1 TABLET BY MOUTH EVERY DAY FOR 90 DAYS; Duration: 90 Active Ondansetron 4 MG 1 TABLET ON THE TONG UE AND ALLOW TO DISSOLVE ORALLY TWICE A DAY AFTER INJECTION 30 DAYS; Duration: 30 Active Tamsulosin HCl 0.4 MG 1 capsule Orally O nce a day; Duration: 30 days 05/25/2025 Active Losartan Potassium 50 MG TAKE 1 TABLET B Y MOUTH EVERY DAY; Duration: 90 Active amLODIPine Besylate 5 MG TAKE 1 TABLET B Y MOUTH EVERY DAY; Duration: 90 Active Diclofenac Sodium 3 % 1 application Exte rnally Twice a day; Duration: 30 days 10/07/2024 Active Isosorbide Mononitrate ER 30 MG 1 tablet in the morning Orally Once a day; Duration: 90 days Active Xtampza ER 9 MG 1 capsule with food Orally every 12 hrs; Duration: 28 days 05/19/2025 Active Mounjaro 15 MG/0.5ML 15 mg Subcutaneous Weekly; Duration: 30 days 03/03/2025 Active Tirzepatide 12.5 MG/0.5ML 12.5 mg Dx: Z6 8.28, E66.09 Subcutaneous weekly; Duration: 30 days Active Clopidogrel Bisulfate 75 MG TAKE 1 TABLET BY MOUTH EVERY DAY; Duration: 90 Active Atorvastatin Calcium 80 MG 1 tablet Oral ly Once a day; Duration: 90 days Active metFORMIN HCl ER 500 MG TAKE ONE TABLET BY MOUTH TWICE DAILY FOR 90 DAYS.; Duration: 90 Active Vitamin D (Cholecalciferol) 10 MCG (400 UNIT) 1 tablet Orally Once a day A ctive Pregabalin 150 MG TAKE 1 CAPSULE BY MO UTH TWICE A DAY; Duration: 28 05/28/2025 Active Social History Tobacco Use: Social History Observation Description Date Details (start date - stop date) Never Smoker NA - NA Tobacco Use/Smoking Question Answer Notes Are you a nonsmoker Alcohol Screen (Audit-C) Question Answer Notes Did you have a drink containing alcohol in the p ast year? No Points 0 Interpretation Negative Problems Problem Type SNOMED Code ICD Code Onset Dates Problem Status W/U Status Risk Notes Problem Basal cell carcinoma of scalp (923009410) Basal cell carcinoma of skin of scalp and neck (C44.41) Active confirmed Problem Diabetic neuropathy (179498574) Diabetes mellitus due to underlying condition with diabetic neuropathy, unspecified (E08.40) Active confirmed Problem Obesity due to excess calories (819422649) Other obesity due to excess calories (E66.09) Active confirmed Problem Mixed hyperlipidemia (242247476) Mixed hyperlipidemia (E78.2) Active confirmed Problem Pain due to neoplastic disease (97728107896738) 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) Active confirmed Problem Essential hypertension (37200847) Essential (primary) hypertension (I10) Active confirmed Problem Atherosclerotic heart disease of [place] coronary artery without angina pectoris (530070601502388) Atherosclerotic heart disease of [place] coronary artery without angina pectoris (I25.10) Active confirmed Problem Occlusion and stenosis of multiple and bilateral cerebral arteries (033149220) Occlusion and stenosis of bilateral carotid arteries (I65.23) Active confirmed Problem Gastro-esophageal reflux disease without esophagitis (639508106) Gastro-esophageal reflux disease without esophagitis (K21.9) Active confirmed Problem Osteoarthritis (571863859) Polyosteoarthritis , unspecified (M15.9) Active confirmed Problem Degeneration of thoracolumbar intervertebral disc (70631312) Other intervertebral disc degeneration, thoracolumbar region (M51.35) Active confirmed Problem Degeneration of lumbosacral intervertebral disc (05842508) Other intervertebral disc degeneration, lumbosacral region (M51.37) Active confirmed Problem Lumbosacral radiculopathy (4706466) Radiculopathy, lumbosacral region (M54.17) Active confirmed Problem Calculus of kidney (36827234) Calculus of kidney (N20.0) Active confirmed Problem Hesitancy of micturition (7588246) Hesitancy of micturition (R39.11) Active confirmed Problem Aortic valve disorder (4067128) Nonrheumatic aortic (valve) stenosis (I35.0) Active confirmed Problem Kidney stone (36474137) Kidney stone (N20.0) Active confirmed Vital Signs Heart Rate 72 /min 05/25/2025 Temperature 96.7 degrees Fahrenheit 05/25/2025 Blood pressure diastolic 78 mm Hg 05/25/2025 Oximetry 98 % 05/25/2025 Height 65 in 05/25/2025 Blood pressure systolic 110 mm Hg 05/25/2025 Weight 169.2 lbs 05/25/2025 BMI 28.15 kg/m2 05/25/2025 Encounters Encounter Location Date Provider Diagnosis [facility] [address] [facility] [address] [place] [address] 06/09/2024 BENITO GUL Radiculopathy, lumbosacral region M54.17 ; Pain in right hand M79.641 ; Type 2 diabetes mellitus with unspecified complications E11.8 ; Atherosclerotic heart disease of [place] coronary artery without angina pectoris I25.10 ; Other obesity due to excess calories E66.09 and Dietary counseling and surveillance Z71.3 [facility] [address] [facility] [address] [place] [address] 07/15/2024 BENITO GUL Type 2 diabetes mellitus with unspecified complications E11.8 ; Atherosclerotic heart disease of [place] coronary artery without angina pectoris I25.10 ; Other obesity due to excess calories E66.09 and Dietary counseling and surveillance Z71.3 [facility] [address] [facility] [address] [place] [address] 08/12/2024 BENITO GUL Type 2 diabetes mellitus with unspecified complications E11.8 ; Atherosclerotic heart disease of [place] coronary artery without angina pectoris I25.10 ; Other obesity due to excess calories E66.09 and Dietary counseling and surveillance Z71.3 [facility] [address] [facility] [address] [place] [address] 09/09/2024 BENITO GUL Type 2 diabetes mellitus with unspecified complications E11.8 ; Atherosclerotic heart disease of [place] coronary artery without angina pectoris I25.10 ; Other obesity due to excess calories E66.09 ; Dietary counseling and surveillance Z71.3 and Basal cell carcinoma of skin of scalp and neck C44.41 [facility] [address] [facility] [address] [place] [address] 10/07/2024 BENITO GUL Type 2 diabetes mellitus with unspecified complications E11.8 ; Atherosclerotic heart disease of [place] coronary artery without angina pectoris I25.10 ; Other obesity due to excess calories E66.09 ; Dietary counseling and surveillance Z71.3 ; Basal cell carcinoma of skin of scalp and neck C44.41 and Polyosteoarthritis, unspecified M15.[address] [place] [address] 11/04/2024 BENITO GUL Other obesity due to excess calories E66.09 and Dietary counseling and surveillance Z71.[address] [place] [address] 12/02/2024 BENITO GUL Other obesity due to excess calories E66.09 and Dietary counseling and surveillance Z71.[address] [place] [address] 01/05/2025 BENITO GUL Other obesity due to excess calories E66.09 and Dietary counseling and surveillance Z71.[address] [place] [address] 01/29/2025 BENITO GUL Encounter for genera l adult medical examination without abnormal findings Z00.00 ; Atherosclerotic heart disease of [place] coronary artery without angina pectoris I25.10 ; Diabetes mellitus due to underlying condition with diabetic neuropathy, unspecified E08.40 ; Mixed hyperlipidemia E78.2 ; Gastro-esophageal reflux disease without esophagitis K21.9 ; Radiculopathy, lumbosacral region M54.17 ; Basal cell carcinoma of skin of scalp and neck C44.41 and Encounter for screening for malignant neoplasm of prostate Z12.[address] [place] [address] 02/02/2025 BENITO GUL Other obesity due to excess calories E66.09 and Dietary counseling and surveillance Z71.[address] [place] [address] 03/02/2025 BENITO GUL Other obesity due to excess calories E66.09 and Dietary counseling and surveillance Z71.[address] [place] [address] 03/30/2025 BENITO GUL Other obesity due to excess calories E66.09 and Dietary counseling and surveillance Z71.3 [facility] [address] [facility] [facility] [address] [place] [address] 04/27/2025 BENITO GUL Other obesity due to excess calories E66.09 ; Dietary counseling and surveillance Z71.3 and Benign lipomatous neoplasm, unspecified D17.9 [facility] [address] [facility] [facility] [address] [place] [address] 05/25/2025 BENITO GUL Other obesity due to excess calories E66.09 ; Dietary counseling and surveillance Z71.3 ; Benign lipomatous neoplasm, unspecified D17.9 ; Calculus of kidney N20.0 and Hesitancy of micturition R39.11 [facility] [address] [facility] [address] [place] [address] 01/27/2025 [facility] [address] [facility] [facility] [address] [place] [address] 06/13/2024 [facility] [address] [facility] [facility] [address] [place] [address] 06/20/2024 [facility] [address] [facility] [facility] [address] [place] [address] 06/27/2024 [facility] [address] [facility] [facility] [address] [place] [address] 07/09/2024 [facility] [address] [facility] [facility] [address] [place] [address] 07/21/2024 [facility] [address] [facility] [facility] [address] [place] [address] 08/08/2024 [facility] [address] [facility] [address] [place] [address] 08/14/2024 [facility] [address] [facility] [facility] [address] [place] [address] 08/14/2024 [facility] [address] [facility] [facility] [address] [facility] [place] [address] 08/28/2024 BENITO GUL [facility] [address] [facility] [facility] [address] [facility] [place] [address] 08/29/2024 [facility] [address] [facility] [facility] [address] [facility] [place] [address] 10/03/2024 [facility]UL [facility] [address] [facility] [facility] [address] [facility] [place] [address] 10/14/2024 [facility]UL [facility] [address] [facility] [facility] [address] [place] [address] 10/31/2024 [facility] [address] [facility] [facility] [address] [facility] [place] [address] 11/28/2024 [facility] [address] [facility] [facility] [address] [place] [address] 12/01/2024 [facility] [address] [facility] [address] [facility] [place] [address] 12/30/2024 [facility]UL [facility] [address] [facility] [facility] [address] [facility] [place] [address] 01/27/2025 [facility] [address] [facility] [address] [facility] [place] [address] 03/03/2025 [facility] [address] [facility] [address] [place] [address] 03/03/2025 [facility]UL [facility] [address] [facility] [facility] [address] [facility] [place] [address] 04/15/2025 [facility] [address] [facility] [facility] [address] [facility] [place] [address] 04/28/2025 [facility] [address] [facility] [address] [facility] [place] [address] 05/07/2025 [facility] [address] [facility] [address] [place] [address] 05/26/2025 BENITO GUL [facility] [address] [facility] [address] [place] [address] 03/18/2025 [facility] [address] [facility] [address] [facility] [place] [address] 12/09/2024 [facility] [address] [facility] [address] [place] [address] 12/10/2024 [facility] [address] [facility] [facility] [address] [place] [address] 12/11/2024 [facility] [address] [facility] [facility] [address] [facility] [place] [address] 12/24/2024 [facility] [address] [facility] [address] [facility] [place] [address] 02/09/2025 [facility] [address] [facility] [facility] [address] [facility] [place] [address] 02/26/20[facility] [address] [facility] [facility] [address] [facility] [place] [address] 03/05/[address] [facility] [address] [facility] [facility] [address] [facility] [place] [address] 03/24/2025 [facility] [address] [facility] [facility] [address] [facility] [place] [address] 04/22/2025 [facility] [address] [address] [facility] [place] [address] 05/06/2025 [facility] [address] [facility] [address] [facility] [place] [address] 05/07/2025 [facility] [address] [place] [address] 05/19/2025 [facility] [address] [facility] [address] [facility] [place] [address] 05/27/2025 [facility] [address] [facility] [facility] [address] [place] [address] 05/28/2025 [facility] Assessments Encounter Date Diagnosis (ICD Code) Assessment Notes Treatment Notes Treatment Clinical Notes Section Notes 06/09/2024 Radiculopathy, lumbosacral region (ICD-10 - M54.17) Mr. Power is a 73-year-old gentleman with DM2, CAD, hypertension, hyperlipidemia, DDD and GERD here for follow up. Plan is as follows: Lumbar radiculopathy. Pain reasonably controlled on current regimen. Advised to do stretching exercises and weight loss. Right hand pain. Remote injury to the right first metacarpal. Now complains of pain and discomfort. Most likely osteoarthritis. x-ray of the right hand shows significant degenerative changes and. Referred to Hand Surgeon Dr. Tipton. DM type II. A1c is 5.9 which is within reasonable limits. His goal fasting sugars is less than 130 and postprandial less than 180. He has seen chief substation operator in the past 1 year. He is on the right medications. We Will add Mounjaro 2.5 mg which will help with diabetes and also help with weight loss. His renal function is stable and is advised to keep hydrated. Foot care discussed. Check A1c. Coronary artery disease. Stable on current regimen and he is asymptomatic. He is on right medications. General health concerns discussed with patient. Scribe services used to formulate this note under HIPAA compliance and under [place] law mandated for scribe services. Patient aware of service. Verbal consent and written consent taken from the patient. Patient understands and verbalizes understanding of the scribes services and all questions answered regarding scribes services. Patient agrees to use of scribes services. 06/09/2024 Pain in right hand (ICD-10 - M79.641) Mr. Power is a 73-year-old gentleman with DM2, CAD, hypertension, hyperlipidemia, DDD and GERD here for follow up. Plan is as follows: Lumbar radiculopathy. Pain reasonably controlled on current regimen. Advised to do stretching exercises and weight loss. Right hand pain. Remote injury to the right first metacarpal. Now complains of pain and discomfort. Most likely osteoarthritis. x-ray of the right hand shows significant degenerative changes and. Referred to Hand Surgeon Dr. Tipton. DM type II. A1c is 5.9 which is within reasonable limits. His goal fasting sugars is less than 130 and postprandial less than 180. He has seen chief substation operator in the past 1 year. He is on the right medications. We Will add Mounjaro 2.5 mg which will help with diabetes and also help with weight loss. His renal function is stable and is advised to keep hydrated. Foot care discussed. Check A1c. Coronary artery disease. Stable on current regimen and he is asymptomatic. He is on right medications. General health concerns discussed with patient. Scribe services used to formulate this note under HIPAA compliance and under [place] law mandated for scribe services. Patient aware of service. Verbal consent and written consent taken from the patient. Patient understands and verbalizes understanding of the scribes services and all questions answered regarding scribes services. Patient agrees to use of scribes services. 09/09/2024 Type 2 diabetes mellitus with unspecified complications (ICD-10 - E11.8) Coronary artery disease. Stable on current regimen and he is asymptomatic. He is on right medications. Type II diabetes mellitus. He checks his blood sugar at home and denies hypoglycemic and hyperglycemic episodes. He is on right medications. He has seen an chief substation operator for the past year. Foot care discussed. Constipation. Appropriate hydration advised and he can use a over the counter MiraLAX, Metamucil, Colace or milk of magnesia Class 1 obesity. He lost 4 pound lbs since last visit. increased to Zepbound 7.5 mg every weekly Advised dietary restrictions and regimental exercise. Goal is to lose 5-6 lbs a month. Office note patient has underlying coronary artery disease, DM type II, hyperlipidemia and Zepbound will help him decrease the risk of [place], strokes, carotid stenosis, peripheral vascular disease and improve diabetes. General health concerns discussed with patient. 09/09/2024 Atherosclerotic heart disease of [place] coronary artery without angina pectoris (ICD-10 - I25.10) Coronary artery disease. Stable on current regimen and he is asymptomatic. He is on right medications. Type II diabetes mellitus. He checks his blood sugar at home and denies hypoglycemic and hyperglycemic episodes. He is on right medications. He has seen an chief substation operator for the past year. Foot care discussed. Constipation. Appropriate hydration advised and he can use a over the counter MiraLAX, Metamucil, Colace or milk of magnesia Class 1 obesity. He lost 4 pound lbs since last visit. increased to Zepbound 7.5 mg every weekly Advised dietary restrictions and regimental exercise. Goal is to lose 5-6 lbs a month. Office note patient has underlying coronary artery disease, DM type II, hyperlipidemia and Zepbound will help him decrease the risk of [place], strokes, carotid stenosis, peripheral vascular disease and improve diabetes. General health concerns discussed with patient. 10/07/2024 Type 2 diabetes mellitus with unspecified complications (ICD-10 - E11.8) Mr. Power is a 73-year-old gentleman with DM2, CAD, hypertension, hyperlipidemia, DDD and GERD here for follow up on weight management. He reported severe pain in left first metatarsal (described as knife-like). Plan as follows: Weight Management: Lost 15-16 lbs in the past month on 7.5 mg medication. Minimal side effects: constipation and possible dehydration (slower urination). Continuing weight loss with current dose. Continue 7.5 mg dose for 4 more weeks. Foot Pain (Left First Metatarsal): Bony protuberance and pain on palpation. Decreased range of motion. Likely arthritis, worsened by weather changes. No signs of gout. Recommend Voltaren gel (diclofenac) for topical application twice daily. Use Biofreeze as an alternative. Can take Tylenol for pain relief. Follow-up: 4-week follow-up for weight management, foot pain, and insurance progress. Reassess pain and mobility in the foot. Check in on family health and medication concerns. Dietary recommendations. Food recall was done today and patient advised to be on low calorie, low carbohydrate diet. Restrict calories to less than 1500 kcal in 24 hours. Low glycemic index foods and encouraged. Meal replacements were recommended. Advised to use ywks-gph-jrrtmzq multivitamins and vitamin D. Advised to use calorie counter and adhere to portion control. Monthly goal is to lose 4-6 pounds Pharmacotherapy. Continue on current regimen. Side effects explained to the patient. Goal is to lose 3-5% of body weight in 3 months. Exercise. Patient encouraged to increase frequency, intensity and duration of exercise. Encouraged to burn at least 250-500 kcal in one session. Also encouraged to do weight training Assess. Different risk factors discussed with the patient and addressed Advise. Patient was given clear And specific advise that she will comply with Low-calorie diet and try not to exceed more than 1300 kcal in 24 hours. Agree. Mutually agreed to work together to achieve appropriate goals Assist. Motivational interviewing done. Arrange. Follow-up appointment arranged. Counseling. 15 minutes spent Face to face with the patient more than 50% of time was spent counseling 10/07/2024 Atherosclerotic heart disease of [place] coronary artery without angina pectoris (ICD-10 - I25.10) Mr. Power is a 73-year-old gentleman with DM2, CAD, hypertension, hyperlipidemia, DDD and GERD here for follow up on weight management. He reported severe pain in left first metatarsal (described as knife-like). Plan as follows: Weight Management: Lost 15-16 lbs in the past month on 7.5 mg medication. Minimal side effects: constipation and possible dehydration (slower urination). Continuing weight loss with current dose. Continue 7.5 mg dose for 4 more weeks. Foot Pain (Left First Metatarsal): Bony protuberance and pain on palpation. Decreased range of motion. Likely arthritis, worsened by weather changes. No signs of gout. Recommend Voltaren gel (diclofenac) for topical application twice daily. Use Biofreeze as an alternative. Can take Tylenol for pain relief. Follow-up: 4-week follow-up for weight management, foot pain, and insurance progress. Reassess pain and mobility in the foot. Check in on family health and medication concerns. Dietary recommendations. Food recall was done today and patient advised to be on low calorie, low carbohydrate diet. Restrict calories to less than 1500 kcal in 24 hours. Low glycemic index foods and encouraged. Meal replacements were recommended. Advised to use jlpt-cce-pnftnfd multivitamins and vitamin D. Advised to use calorie counter and adhere to portion control. Monthly goal is to lose 4-6 pounds Pharmacotherapy. Continue on current regimen. Side effects explained to the patient. Goal is to lose 3-5% of body weight in 3 months. Exercise. Patient encouraged to increase frequency, intensity and duration of exercise. Encouraged to burn at least 250-500 kcal in one session. Also encouraged to do weight training Assess. Different risk factors discussed with the patient and addressed Advise. Patient was given clear And specific advise that she will comply with Low-calorie diet and try not to exceed more than 1300 kcal in 24 hours. Agree. Mutually agreed to work together to achieve appropriate goals Assist. Motivational interviewing done. Arrange. Follow-up appointment arranged. Counseling. 15 minutes spent Face to face with the patient more than 50% of time was spent counseling 11/04/2024 Other obesity due to excess calories (ICD-10 - E66.09) Emile is 74 years old gentleman with CAD, DM type II, hypertension, acid reflux, lumbar radiculopathy/dege nerative disc disease is here for medical weight management. He lost 4 pounds since last visit. He is gradually losing weight and is keeping the weight down. Dietary recommendations. Food recall was done today and patient advised to be on low calorie, low carbohydrate diet. Restrict calories to less than 1500 kcal in 24 hours. Low glycemic index foods and encouraged. Meal replacements were recommended. Advised to use ocbr-pod-mllyink multivitamins and vitamin D. Advised to use calorie counter and adhere to portion control. Monthly goal is to lose 4-6 pounds Pharmacotherapy. Continue on current regimen. Side effects explained to the patient. Goal is to lose 3-5% of body weight in 3 months. Exercise. Patient encouraged to increase frequency, intensity and duration of exercise. Encouraged to burn at least 250-500 kcal in one session. Also encouraged to do weight training Assess. Different risk factors discussed with the patient and addressed Advise. Patient was given clear And specific advise that she will comply with Low-calorie diet and try not to exceed more than 1300 kcal in 24 hours. Agree. Mutually agreed to work together to achieve appropriate goals Assist. Motivational interviewing done. Arrange. Follow-up appointment arranged. Counseling. 20 minutes spent Face to face with the patient more than 50% of time was spent counseling 11/04/2024 Dietary counseling and surveillance (ICD-10 - Z71.3) Emile is 74 years old gentleman with CAD, DM type II, hypertension, acid reflux, lumbar radiculopathy/dege nerative disc disease is here for medical weight management. He lost 4 pounds since last visit. He is gradually losing weight and is keeping the weight down. Dietary recommendations. Food recall was done today and patient advised to be on low calorie, low carbohydrate diet. Restrict calories to less than 1500 kcal in 24 hours. Low glycemic index foods and encouraged. Meal replacements were recommended. Advised to use ztum-rfv-rwcfdkz multivitamins and vitamin D. Advised to use calorie counter and adhere to portion control. Monthly goal is to lose 4-6 pounds Pharmacotherapy. Continue on current regimen. Side effects explained to the patient. Goal is to lose 3-5% of body weight in 3 months. Exercise. Patient encouraged to increase frequency, intensity and duration of exercise. Encouraged to burn at least 250-500 kcal in one session. Also encouraged to do weight training Assess. Different risk factors discussed with the patient and addressed Advise. Patient was given clear And specific advise that she will comply with Low-calorie diet and try not to exceed more than 1300 kcal in 24 hours. Agree. Mutually agreed to work together to achieve appropriate goals Assist. Motivational interviewing done. Arrange. Follow-up appointment arranged. Counseling. 20 minutes spent Face to face with the patient more than 50% of time was spent counseling 12/02/2024 Other obesity due to excess calories (ICD-10 - E66.09) Emile is 74 years old gentleman with CAD, DM type II, hypertension, acid reflux, lumbar radiculopathy/dege nerative disc disease is here for medical weight management. He lost 5 pounds since last visit. He is gradually losing weight and is keeping the weight down. Dietary recommendations. Food recall was done today and patient advised to be on low calorie, low carbohydrate diet. Restrict calories to less than 1500 kcal in 24 hours. Low glycemic index foods and encouraged. Meal replacements were recommended. Advised to use zwgm-wmj-jyztcbu multivitamins and vitamin D. Advised to use calorie counter and adhere to portion control. Monthly goal is to lose 4-6 pounds Pharmacotherapy. Continue on current regimen. Side effects explained to the patient. Goal is to lose 3-5% of body weight in 3 months. Exercise. Patient encouraged to increase frequency, intensity and duration of exercise. Encouraged to burn at least 250-500 kcal in one session. Also encouraged to do weight training Assess. Different risk factors discussed with the patient and addressed Advise. Patient was given clear And specific advise that she will comply with Low-calorie diet and try not to exceed more than 1300 kcal in 24 hours. Agree. Mutually agreed to work together to achieve appropriate goals Assist. Motivational interviewing done. Arrange. Follow-up appointment arranged. Counseling. 15 minutes spent Face to face with the patient more than 50% of time was spent counseling 12/02/2024 Dietary counseling and surveillance (ICD-10 - Z71.3) Emile is 74 years old gentleman with CAD, DM type II, hypertension, acid reflux, lumbar radiculopathy/dege nerative disc disease is here for medical weight management. He lost 5 pounds since last visit. He is gradually losing weight and is keeping the weight down. Dietary recommendations. Food recall was done today and patient advised to be on low calorie, low carbohydrate diet. Restrict calories to less than 1500 kcal in 24 hours. Low glycemic index foods and encouraged. Meal replacements were recommended. Advised to use wxfw-ujh-mbksnjq multivitamins and vitamin D. Advised to use calorie counter and adhere to portion control. Monthly goal is to lose 4-6 pounds Pharmacotherapy. Continue on current regimen. Side effects explained to the patient. Goal is to lose 3-5% of body weight in 3 months. Exercise. Patient encouraged to increase frequency, intensity and duration of exercise. Encouraged to burn at least 250-500 kcal in one session. Also encouraged to do weight training Assess. Different risk factors discussed with the patient and addressed Advise. Patient was given clear And specific advise that she will comply with Low-calorie diet and try not to exceed more than 1300 kcal in 24 hours. Agree. Mutually agreed to work together to achieve appropriate goals Assist. Motivational interviewing done. Arrange. Follow-up appointment arranged. Counseling. 15 minutes spent Face to face with the patient more than 50% of time was spent counseling 01/05/2025 Other obesity due to excess calories (ICD-10 - E66.09) Emile is 74 years:med team type II, coronary artery disease, hypertension, hyperlipidemia, GERD, aortic stenosis is here today for medical weight management. He has lost problem 26 pounds so far. Dietary recommendations. Food recall was done today and patient advised to be on low calorie, low carbohydrate diet. Restrict calories to less than 1500 kcal in 24 hours. Low glycemic index foods and encouraged. Meal replacements were recommended. Advised to use zdwa-vjk-vyfnhui multivitamins and vitamin D. Advised to use calorie counter and adhere to portion control. Monthly goal is to lose 4-6 pounds Pharmacotherapy. Increase Mounjaro to 10 mg every weekly. Side effects explained to the patient. Goal is to lose 3-5% of body weight in 3 months. Exercise. Patient encouraged to increase frequency, intensity and duration of exercise. Encouraged to burn at least 250-500 kcal in one session. Also encouraged to do weight training Assess. Different risk factors discussed with the patient and addressed Advise. Patient was given clear And specific advise that she will comply with Low-calorie diet and try not to exceed more than 1300 kcal in 24 hours. Agree. Mutually agreed to work together to achieve appropriate goals Assist. Motivational interviewing done. Arrange. Follow-up appointment arranged. Counseling. 15 minutes spent Face to face with the patient more than 50% of time was spent counseling 01/05/2025 Dietary counseling and surveillance (ICD-10 - Z71.3) Emile is 74 years:med team type II, coronary artery disease, hypertension, hyperlipidemia, GERD, aortic stenosis is here today for medical weight management. He has lost problem 26 pounds so far. Dietary recommendations. Food recall was done today and patient advised to be on low calorie, low carbohydrate diet. Restrict calories to less than 1500 kcal in 24 hours. Low glycemic index foods and encouraged. Meal replacements were recommended. Advised to use vyso-qrf-dlqivyg multivitamins and vitamin D. Advised to use calorie counter and adhere to portion control. Monthly goal is to lose 4-6 pounds Pharmacotherapy. Increase Mounjaro to 10 mg every weekly. Side effects explained to the patient. Goal is to lose 3-5% of body weight in 3 months. Exercise. Patient encouraged to increase frequency, intensity and duration of exercise. Encouraged to burn at least 250-500 kcal in one session. Also encouraged to do weight training Assess. Different risk factors discussed with the patient and addressed Advise. Patient was given clear And specific advise that she will comply with Low-calorie diet and try not to exceed more than 1300 kcal in 24 hours. Agree. Mutually agreed to work together to achieve appropriate goals Assist. Motivational interviewing done. Arrange. Follow-up appointment arranged. Counseling. 15 minutes spent Face to face with the patient more than 50% of time was spent counseling 01/29/2025 Atherosclerotic heart disease of [place] coronary artery without angina pectoris (ICD-10 - I25.10) Emile is 74 years old gentleman with coronary artery disease/status post stent placement in [place] and currently following up with , diabetes mellitus type 2, hypertension, hyperlipidemia, multiple joint osteoarthritis/lum bar radiculopathy on pain management and basal cell carcinoma and GERD. Plan is as follows Coronary artery disease. Status post stent placement. He follows up with cardiology and had recent echocardiogram which was reviewed with EF of 55-60 percent with mild arteriosclerosis of aortic valve and mild left ventricular concentric hypertrophy. He is on isosorbide mononitrate ER 30 mg ,atorvastatin, isosorbide and losartan. He is also on Plavix 75 mg and he is tolerating the medication fine. Diabetes mellitus type 2 with neuropathy. A1c was 5.9 and it is within reasonable limits. He is on Jardiance 25 mg daily and he is also on Mounjaro which helps with diabetes and weight loss. he goes to [facility]. Foot care discussed with the patient. Hypertension/hyper lipidemia. Blood pressure reasonably controlled on amlodipine 5 mg 1 tablet daily, losartan 50 mg daily. He is on atorvastatin 80 mg daily and his goal LDL is under 100. Check lipid panel. Acid reflux. Continue on Protonix 20 mg 1 tablet daily. Dietary restrictions discussed Chronic pain management/neuropa thy/degenerative disc disease/lumbar radiculopathy. He is on pregabalin 150 mg 1 tablet twice a day along with Xtampza 9 mg 1 tablet every 12 hours and pain is reasonably controlled. Obesity. Dietary restrictions discussed in detail with the patient. He is currently consuming on average 6 sodas a day along with orange juice. He is on Mounjaro. He is losing weight but he is not losing desired weight or expected weight. Basal cell carcinoma of the scalp and forehead. He follows up with [place] [facility].next he is full code and his is his healthcare proxy He is up-to-date on age specific screening. He had his last colonoscopy at [place] and we will retrieve records. He will let us know the name of the physician and practice 01/29/2025 Encounter for general adult medical examination without abnormal findings (ICD-10 - Z00.00) Emile is 74 years old gentleman with coronary artery disease/status post stent placement in [place] and currently following up with , diabetes mellitus type 2, hypertension, hyperlipidemia, multiple joint osteoarthritis/lum bar radiculopathy on pain management and basal cell carcinoma and GERD. Plan is as follows Coronary artery disease. Status post stent placement. He follows up with cardiology and had recent echocardiogram which was reviewed with EF of 55-60 percent with mild arteriosclerosis of aortic valve and mild left ventricular concentric hypertrophy. He is on isosorbide mononitrate ER 30 mg ,atorvastatin, isosorbide and losartan. He is also on Plavix 75 mg and he is tolerating the medication fine. Diabetes mellitus type 2 with neuropathy. A1c was 5.9 and it is within reasonable limits. He is on Jardiance 25 mg daily and he is also on Mounjaro which helps with diabetes and weight loss. he goes to [facility]. Foot care discussed with the patient. Hypertension/hyper lipidemia. Blood pressure reasonably controlled on amlodipine 5 mg 1 tablet daily, losartan 50 mg daily. He is on atorvastatin 80 mg daily and his goal LDL is under 100. Check lipid panel. Acid reflux. Continue on Protonix 20 mg 1 tablet daily. Dietary restrictions discussed Chronic pain management/neuropa thy/degenerative disc disease/lumbar radiculopathy. He is on pregabalin 150 mg 1 tablet twice a day along with Xtampza 9 mg 1 tablet every 12 hours and pain is reasonably controlled. Obesity. Dietary restrictions discussed in detail with the patient. He is currently consuming on average 6 sodas a day along with orange juice. He is on Mounjaro. He is losing weight but he is not losing desired weight or expected weight. Basal cell carcinoma of the scalp and forehead. He follows up with [place] [facility].next he is full code and his is his healthcare proxy He is up-to-date on age specific screening. He had his last colonoscopy at [place] and we will retrieve records. He will let us know the name of the physician and practice 02/02/2025 Other obesity due to excess calories (ICD-10 - E66.09) Emile is 74 yo gentleman with CAD, HTN, HLD, Carotid stenosis, GERD, DDD on pain mgm is here for weight mgm. Plan is follow. Dietary recommendations. Food recall was done today and patient advised to be on low calorie, low carbohydrate diet. Restrict calories to less than 1500 kcal in 24 hours. Low glycemic index foods and encouraged. Meal replacements were recommended. Advised to use iknd-ydc-vitizsm multivitamins and vitamin D. Advised to use calorie counter and adhere to portion control. Monthly goal is to lose 4-6 pounds Pharmacotherapy. Continue on current regimen. Side effects explained to the patient. Goal is to lose 3-5% of body weight in 3 months. Exercise. Patient encouraged to increase frequency, intensity and duration of exercise. Encouraged to burn at least 250-500 kcal in one session. Also encouraged to do weight training Assess. Different risk factors discussed with the patient and addressed Advise. Patient was given clear And specific advise that she will comply with Low-calorie diet and try not to exceed more than 1300 kcal in 24 hours. Agree. Mutually agreed to work together to achieve appropriate goals Assist. Motivational interviewing done. Arrange. Follow-up appointment arranged. Counseling. 15 minutes spent Face to face with the patient more than 50% of time was spent counseling 02/02/2025 Dietary counseling and surveillance (ICD-10 - Z71.3) Emile is 74 yo gentleman with CAD, HTN, HLD, Carotid stenosis, GERD, DDD on pain mgm is here for weight mgm. Plan is follow. Dietary recommendations. Food recall was done today and patient advised to be on low calorie, low carbohydrate diet. Restrict calories to less than 1500 kcal in 24 hours. Low glycemic index foods and encouraged. Meal replacements were recommended. Advised to use eghf-ric-rnrswey multivitamins and vitamin D. Advised to use calorie counter and adhere to portion control. Monthly goal is to lose 4-6 pounds Pharmacotherapy. Continue on current regimen. Side effects explained to the patient. Goal is to lose 3-5% of body weight in 3 months. Exercise. Patient encouraged to increase frequency, intensity and duration of exercise. Encouraged to burn at least 250-500 kcal in one session. Also encouraged to do weight training Assess. Different risk factors discussed with the patient and addressed Advise. Patient was given clear And specific advise that she will comply with Low-calorie diet and try not to exceed more than 1300 kcal in 24 hours. Agree. Mutually agreed to work together to achieve appropriate goals Assist. Motivational interviewing done. Arrange. Follow-up appointment arranged. Counseling. 15 minutes spent Face to face with the patient more than 50% of time was spent counseling 03/02/2025 Other obesity due to excess calories (ICD-10 - E66.09) Emile is 74 yo gentleman with CAD, HTN, HLD, Carotid stenosis, GERD, DDD on pain mgm is here for weight mgm. No weight loss since last timePlan is follow. Dietary recommendations. Food recall was done today and patient advised to be on low calorie, low carbohydrate diet. Restrict calories to less than 1500 kcal in 24 hours. Low glycemic index foods and encouraged. Meal replacements were recommended. Advised to use vhxh-lpy-rjaildt multivitamins and vitamin D. Advised to use calorie counter and adhere to portion control. Monthly goal is to lose 4-6 pounds Pharmacotherapy. increase Mounjaro to 12.5 mg every weekly Side effects explained to the patient. Goal is to lose 3-5% of body weight in 3 months. Exercise. Patient encouraged to increase frequency, intensity and duration of exercise. Encouraged to burn at least 250-500 kcal in one session. Also encouraged to do weight training Assess. Different risk factors discussed with the patient and addressed Advise. Patient was given clear And specific advise that she will comply with Low-calorie diet and try not to exceed more than 1300 kcal in 24 hours. Agree. Mutually agreed to work together to achieve appropriate goals Assist. Motivational interviewing done. Arrange. Follow-up appointment arranged. Counseling. 15 minutes spent Face to face with the patient more than 50% of time was spent counseling 03/02/2025 Dietary counseling and surveillance (ICD-10 - Z71.3) Emile is 74 yo gentleman with CAD, HTN, HLD, Carotid stenosis, GERD, DDD on pain mgm is here for weight mgm. No weight loss since last timePlan is follow. Dietary recommendations. Food recall was done today and patient advised to be on low calorie, low carbohydrate diet. Restrict calories to less than 1500 kcal in 24 hours. Low glycemic index foods and encouraged. Meal replacements were recommended. Advised to use yvhb-hbn-czoigus multivitamins and vitamin D. Advised to use calorie counter and adhere to portion control. Monthly goal is to lose 4-6 pounds Pharmacotherapy. increase Mounjaro to 12.5 mg every weekly Side effects explained to the patient. Goal is to lose 3-5% of body weight in 3 months. Exercise. Patient encouraged to increase frequency, intensity and duration of exercise. Encouraged to burn at least 250-500 kcal in one session. Also encouraged to do weight training Assess. Different risk factors discussed with the patient and addressed Advise. Patient was given clear And specific advise that she will comply with Low-calorie diet and try not to exceed more than 1300 kcal in 24 hours. Agree. Mutually agreed to work together to achieve appropriate goals Assist. Motivational interviewing done. Arrange. Follow-up appointment arranged. Counseling. 15 minutes spent Face to face with the patient more than 50% of time was spent counseling 03/30/2025 Other obesity due to excess calories (ICD-10 - E66.09) Emile is 74 yo gentleman with CAD, HTN, HLD, Carotid stenosis, GERD, DDD on pain mgm is here for weight mgm. No weight loss since last time because he was noncompliant with low calorie diet. Plan is follow. Dietary recommendations. Food recall was done today and patient advised to be on low calorie, low carbohydrate diet. Restrict calories to less than 1500 kcal in 24 hours. Low glycemic index foods and encouraged. Meal replacements were recommended. Advised to use asxr-zqn-vqhnmdb multivitamins and vitamin D. Advised to use calorie counter and adhere to portion control. Monthly goal is to lose 4-6 pounds Pharmacotherapy. increase Mounjaro to 12.5 mg every weekly Side effects explained to the patient. Goal is to lose 3-5% of body weight in 3 months. Exercise. Patient encouraged to increase frequency, intensity and duration of exercise. Encouraged to burn at least 250-500 kcal in one session. Also encouraged to do weight training Assess. Different risk factors discussed with the patient and addressed Advise. Patient was given clear And specific advise that she will comply with Low-calorie diet and try not to exceed more than 1300 kcal in 24 hours. Agree. Mutually agreed to work together to achieve appropriate goals Assist. Motivational interviewing done. Arrange. Follow-up appointment arranged. Counseling. 15 minutes spent Face to face with the patient more than 50% of time was spent counseling 03/30/2025 Dietary counseling and surveillance (ICD-10 - Z71.3) Emile is 74 yo gentleman with CAD, HTN, HLD, Carotid stenosis, GERD, DDD on pain mgm is here for weight mgm. No weight loss since last time because he was noncompliant with low calorie diet. Plan is follow. Dietary recommendations. Food recall was done today and patient advised to be on low calorie, low carbohydrate diet. Restrict calories to less than 1500 kcal in 24 hours. Low glycemic index foods and encouraged. Meal replacements were recommended. Advised to use mizx-sye-vgqqabf multivitamins and vitamin D. Advised to use calorie counter and adhere to portion control. Monthly goal is to lose 4-6 pounds Pharmacotherapy. increase Mounjaro to 12.5 mg every weekly Side effects explained to the patient. Goal is to lose 3-5% of body weight in 3 months. Exercise. Patient encouraged to increase frequency, intensity and duration of exercise. Encouraged to burn at least 250-500 kcal in one session. Also encouraged to do weight training Assess. Different risk factors discussed with the patient and addressed Advise. Patient was given clear And specific advise that she will comply with Low-calorie diet and try not to exceed more than 1300 kcal in 24 hours. Agree. Mutually agreed to work together to achieve appropriate goals Assist. Motivational interviewing done. Arrange. Follow-up appointment arranged. Counseling. 15 minutes spent Face to face with the patient more than 50% of time was spent counseling 04/27/2025 Other obesity due to excess calories (ICD-10 - E66.09) Emile is 74 yo gentleman with CAD, HTN, HLD, Carotid stenosis, GERD, DDD on pain mgm is here for weight mgm. No weight loss since last time because he was noncompliant with low calorie diet. Plan is follow. Dietary recommendations. Food recall was done today and patient advised to be on low calorie, low carbohydrate diet. Restrict calories to less than 1500 kcal in 24 hours. Low glycemic index foods and encouraged. Meal replacements were recommended. Advised to use wwlt-sux-kksrjxc multivitamins and vitamin D. Advised to use calorie counter and adhere to portion control. Monthly goal is to lose 4-6 pounds Pharmacotherapy. Continue Mounjaro to 12.5 mg every weekly and there is no improvement we will switch to 15 mg every weekly. Side effects explained to the patient. Goal is to lose 3-5% of body weight in 3 months. Exercise. Patient encouraged to increase frequency, intensity and duration of exercise. Encouraged to burn at least 250-500 kcal in one session. Also encouraged to do weight training Assess. Different risk factors discussed with the patient and addressed Advise. Patient was given clear And specific advise that she will comply with Low-calorie diet and try not to exceed more than 1300 kcal in 24 hours. Agree. Mutually agreed to work together to achieve appropriate goals Assist. Motivational interviewing done. Arrange. Follow-up appointment arranged. Counseling. 15 minutes spent Face to face with the patient more than 50% of time was spent counseling 04/27/2025 Dietary counseling and surveillance (ICD-10 - Z71.3) Emile is 74 yo gentleman with CAD, HTN, HLD, Carotid stenosis, GERD, DDD on pain mgm is here for weight mgm. No weight loss since last time because he was noncompliant with low calorie diet. Plan is follow. Dietary recommendations. Food recall was done today and patient advised to be on low calorie, low carbohydrate diet. Restrict calories to less than 1500 kcal in 24 hours. Low glycemic index foods and encouraged. Meal replacements were recommended. Advised to use rlsl-ght-voceoki multivitamins and vitamin D. Advised to use calorie counter and adhere to portion control. Monthly goal is to lose 4-6 pounds Pharmacotherapy. Continue Mounjaro to 12.5 mg every weekly and there is no improvement we will switch to 15 mg every weekly. Side effects explained to the patient. Goal is to lose 3-5% of body weight in 3 months. Exercise. Patient encouraged to increase frequency, intensity and duration of exercise. Encouraged to burn at least 250-500 kcal in one session. Also encouraged to do weight training Assess. Different risk factors discussed with the patient and addressed Advise. Patient was given clear And specific advise that she will comply with Low-calorie diet and try not to exceed more than 1300 kcal in 24 hours. Agree. Mutually agreed to work together to achieve appropriate goals Assist. Motivational interviewing done. Arrange. Follow-up appointment arranged. Counseling. 15 minutes spent Face to face with the patient more than 50% of time was spent counseling 05/25/2025 Other obesity due to excess calories (ICD-10 - E66.09) Emile is 74 yo gentleman with CAD, HTN, HLD, Carotid stenosis, GERD, DDD on pain mgm is here for weight mgm. Lost 1 lb since last time because he was noncompliant with low calorie diet. Also complained of pain and discomfort right flank area.Plan is follow. Right flank pain. History of kidney stones in the past. Urine dip is negative for hematuria or infection. It can be musculoskeletal pain or pain coming from lipoma. Hesitancy of urination. Started on Flomax 0.4 mg 1 tablet daily and observe. Dietary recommendations. Food recall was done today and patient advised to be on low calorie, low carbohydrate diet. Restrict calories to less than 1500 kcal in 24 hours. Low glycemic index foods and encouraged. Meal replacements were recommended. Advised to use nzyv-hib-kttlvui multivitamins and vitamin D. Advised to use calorie counter and adhere to portion control. Monthly goal is to lose 4-6 pounds Pharmacotherapy. Increase Mounjaro to 15 mg every weekly Side effects explained to the patient. Goal is to lose 3-5% of body weight in 3 months. Exercise. Patient encouraged to increase frequency, intensity and duration of exercise. Encouraged to burn at least 250-500 kcal in one session. Also encouraged to do weight training Assess. Different risk factors discussed with the patient and addressed Advise. Patient was given clear And specific advise that she will comply with Low-calorie diet and try not to exceed more than 1300 kcal in 24 hours. Agree. Mutually agreed to work together to achieve appropriate goals Assist. Motivational interviewing done. Arrange. Follow-up appointment arranged. Counseling. 15 minutes spent Face to face with the patient more than 50% of time was spent counseling 05/25/2025 Dietary counseling and surveillance (ICD-10 - Z71.3) Emile is 74 yo gentleman with CAD, HTN, HLD, Carotid stenosis, GERD, DDD on pain mgm is here for weight mgm. Lost 1 lb since last time because he was noncompliant with low calorie diet. Also complained of pain and discomfort right flank area.Plan is follow. Right flank pain. History of kidney stones in the past. Urine dip is negative for hematuria or infection. It can be musculoskeletal pain or pain coming from lipoma. Hesitancy of urination. Started on Flomax 0.4 mg 1 tablet daily and observe. Dietary recommendations. Food recall was done today and patient advised to be on low calorie, low carbohydrate diet. Restrict calories to less than 1500 kcal in 24 hours. Low glycemic index foods and encouraged. Meal replacements were recommended. Advised to use lkva-vnw-ovmvefd multivitamins and vitamin D. Advised to use calorie counter and adhere to portion control. Monthly goal is to lose 4-6 pounds Pharmacotherapy. Increase Mounjaro to 15 mg every weekly Side effects explained to the patient. Goal is to lose 3-5% of body weight in 3 months. Exercise. Patient encouraged to increase frequency, intensity and duration of exercise. Encouraged to burn at least 250-500 kcal in one session. Also encouraged to do weight training Assess. Different risk factors discussed with the patient and addressed Advise. Patient was given clear And specific advise that she will comply with Low-calorie diet and try not to exceed more than 1300 kcal in 24 hours. Agree. Mutually agreed to work together to achieve appropriate goals Assist. Motivational interviewing done. Arrange. Follow-up appointment arranged. Counseling. 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 Lost 1 lb since last time because he was noncompliant with low calorie diet. Also complained of pain and discomfort right flank area.Plan is follow. Right flank pain. History of kidney stones in the past. Urine dip is negative for hematuria or infection. It can be musculoskeletal pain or pain coming from lipoma. Hesitancy of urination. Started on Flomax 0.4 mg 1 tablet daily and observe. Dietary recommendations. Food recall was done today and patient advised to be on low calorie, low carbohydrate diet. Restrict calories to less than 1500 kcal in 24 hours. Low glycemic index foods and encouraged. Meal replacements were recommended. Advised to use arvu-gsb-syvqbpf multivitamins and vitamin D. Advised to use calorie counter and adhere to portion control. Monthly goal is to lose 4-6 pounds Pharmacotherapy. Increase Mounjaro to 15 mg every weekly Side effects explained to the patient. Goal is to lose 3-5% of body weight in 3 months. Exercise. Patient encouraged to increase frequency, intensity and duration of exercise. Encouraged to burn at least 250-500 kcal in one session. Also encouraged to do weight training Assess. Different risk factors discussed with the patient and addressed Advise. Patient was given clear And specific advise that she will comply with Low-calorie diet and try not to exceed more than 1300 kcal in 24 hours. Agree. Mutually agreed to work together to achieve appropriate goals Assist. Motivational interviewing done. Arrange. Follow-up appointment arranged. Counseling. 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 No weight loss since last time because he was noncompliant with low calorie diet. Plan is follow. Dietary recommendations. Food recall was done today and patient advised to be on low calorie, low carbohydrate diet. Restrict calories to less than 1500 kcal in 24 hours. Low glycemic index foods and encouraged. Meal replacements were recommended. Advised to use zssf-tir-ffkzsum multivitamins and vitamin D. Advised to use calorie counter and adhere to portion control. Monthly goal is to lose 4-6 pounds Pharmacotherapy. Continue Mounjaro to 12.5 mg every weekly and there is no improvement we will switch to 15 mg every weekly. Side effects explained to the patient. Goal is to lose 3-5% of body weight in 3 months. Exercise. Patient encouraged to increase frequency, intensity and duration of exercise. Encouraged to burn at least 250-500 kcal in one session. Also encouraged to do weight training Assess. Different risk factors discussed with the patient and addressed Advise. Patient was given clear And specific advise that she will comply with Low-calorie diet and try not to exceed more than 1300 kcal in 24 hours. Agree. Mutually agreed to work together to achieve appropriate goals Assist. Motivational interviewing done. Arrange. Follow-up appointment arranged. Counseling. 15 minutes spent Face to face with the patient more than 50% of time was spent counseling 01/29/2025 Diabetes mellitus due to underlying condition with diabetic neuropathy, unspecified (ICD-10 - E08.40) Emile is 74 years old gentleman with coronary artery disease/status post stent placement in [place] and currently following up with , diabetes mellitus type 2, hypertension, hyperlipidemia, multiple joint osteoarthritis/lum bar radiculopathy on pain management and basal cell carcinoma and GERD. Plan is as follows Coronary artery disease. Status post stent placement. He follows up with cardiology and had recent echocardiogram which was reviewed with EF of 55-60 percent with mild arteriosclerosis of aortic valve and mild left ventricular concentric hypertrophy. He is on isosorbide mononitrate ER 30 mg ,atorvastatin, isosorbide and losartan. He is also on Plavix 75 mg and he is tolerating the medication fine. Diabetes mellitus type 2 with neuropathy. A1c was 5.9 and it is within reasonable limits. He is on Jardiance 25 mg daily and he is also on Mounjaro which helps with diabetes and weight loss. he goes to [facility]. Foot care discussed with the patient. Hypertension/hyper lipidemia. Blood pressure reasonably controlled on amlodipine 5 mg 1 tablet daily, losartan 50 mg daily. He is on atorvastatin 80 mg daily and his goal LDL is under 100. Check lipid panel. Acid reflux. Continue on Protonix 20 mg 1 tablet daily. Dietary restrictions discussed Chronic pain management/neuropa thy/degenerative disc disease/lumbar radiculopathy. He is on pregabalin 150 mg 1 tablet twice a day along with Xtampza 9 mg 1 tablet every 12 hours and pain is reasonably controlled. Obesity. Dietary restrictions discussed in detail with the patient. He is currently consuming on average 6 sodas a day along with orange juice. He is on Mounjaro. He is losing weight but he is not losing desired weight or expected weight. Basal cell carcinoma of the scalp and forehead. He follows up with [place] [facility].next he is full code and his is his healthcare proxy He is up-to-date on age specific screening. He had his last colonoscopy at [place] and we will retrieve records. He will let us know the name of the physician and practice 10/07/2024 Other obesity due to excess calories (ICD-10 - E66.09) Mr. Power is a 73-year-old gentleman with DM2, CAD, hypertension, hyperlipidemia, DDD and GERD here for follow up on weight management. He reported severe pain in left first metatarsal (described as knife-like). Plan as follows: Weight Management: Lost 15-16 lbs in the past month on 7.5 mg medication. Minimal side effects: constipation and possible dehydration (slower urination). Continuing weight loss with current dose. Continue 7.5 mg dose for 4 more weeks. Foot Pain (Left First Metatarsal): Bony protuberance and pain on palpation. Decreased range of motion. Likely arthritis, worsened by weather changes. No signs of gout. Recommend Voltaren gel (diclofenac) for topical application twice daily. Use Biofreeze as an alternative. Can take Tylenol for pain relief. Follow-up: 4-week follow-up for weight management, foot pain, and insurance progress. Reassess pain and mobility in the foot. Check in on family health and medication concerns. Dietary recommendations. Food recall was done today and patient advised to be on low calorie, low carbohydrate diet. Restrict calories to less than 1500 kcal in 24 hours. Low glycemic index foods and encouraged. Meal replacements were recommended. Advised to use znyh-ntq-wlvloel multivitamins and vitamin D. Advised to use calorie counter and adhere to portion control. Monthly goal is to lose 4-6 pounds Pharmacotherapy. Continue on current regimen. Side effects explained to the patient. Goal is to lose 3-5% of body weight in 3 months. Exercise. Patient encouraged to increase frequency, intensity and duration of exercise. Encouraged to burn at least 250-500 kcal in one session. Also encouraged to do weight training Assess. Different risk factors discussed with the patient and addressed Advise. Patient was given clear And specific advise that she will comply with Low-calorie diet and try not to exceed more than 1300 kcal in 24 hours. Agree. Mutually agreed to work together to achieve appropriate goals Assist. Motivational interviewing done. Arrange. Follow-up appointment arranged. Counseling. 15 minutes spent Face to face with the patient more than 50% of time was spent counseling 09/09/2024 Other obesity due to excess calories (ICD-10 - E66.09) Coronary artery disease. Stable on current regimen and he is asymptomatic. He is on right medications. Type II diabetes mellitus. He checks his blood sugar at home and denies hypoglycemic and hyperglycemic episodes. He is on right medications. He has seen an chief substation operator for the past year. Foot care discussed. Constipation. Appropriate hydration advised and he can use a over the counter MiraLAX, Metamucil, Colace or milk of magnesia Class 1 obesity. He lost 4 pound lbs since last visit. increased to Zepbound 7.5 mg every weekly Advised dietary restrictions and regimental exercise. Goal is to lose 5-6 lbs a month. Office note patient has underlying coronary artery disease, DM type II, hyperlipidemia and Zepbound will help him decrease the risk of [place], strokes, carotid stenosis, peripheral vascular disease and improve diabetes. General health concerns discussed with patient. 06/09/2024 Type 2 diabetes mellitus with unspecified complications (ICD-10 - E11.8) Mr. Power is a 73-year-old gentleman with DM2, CAD, hypertension, hyperlipidemia, DDD and GERD here for follow up. Plan is as follows: Lumbar radiculopathy. Pain reasonably controlled on current regimen. Advised to do stretching exercises and weight loss. Right hand pain. Remote injury to the right first metacarpal. Now complains of pain and discomfort. Most likely osteoarthritis. x-ray of the right hand shows significant degenerative changes and. Referred to Hand Surgeon Dr. Tipton. DM type II. A1c is 5.9 which is within reasonable limits. His goal fasting sugars is less than 130 and postprandial less than 180. He has seen chief substation operator in the past 1 year. He is on the right medications. We Will add Mounjaro 2.5 mg which will help with diabetes and also help with weight loss. His renal function is stable and is advised to keep hydrated. Foot care discussed. Check A1c. Coronary artery disease. Stable on current regimen and he is asymptomatic. He is on right medications. General health concerns discussed with patient. Scribe services used to formulate this note under HIPAA compliance and under [place] law mandated for scribe services. Patient aware of service. Verbal consent and written consent taken from the patient. Patient understands and verbalizes understanding of the scribes services and all questions answered regarding scribes services. Patient agrees to use of scribes services. 07/15/2024 Type 2 diabetes mellitus with unspecified complications (ICD-10 - E11.8) Mr. Power is a 73-year-old gentleman with DM2, CAD, hypertension, hyperlipidemia, DDD and GERD here for follow up. Plan is as follows: Lumbar radiculopathy. Pain reasonably controlled on current regimen. Advised to do stretching exercises and weight loss. Coronary artery disease. Stable on current regimen and he is asymptomatic. He is on right medications. Type II diabetes mellitus. A1c 5.9. He checks his blood sugar at home and denies hypoglycemic and hyperglycemic episodes. He is on right medications. He has seen an chief substation operator for the past year. Foot care discussed. check A1c. Constipation. Appropriate hydration advised and he can use a over the counter MiraLAX, Metamucil, Colace or milk of magnesia Class 1 obesity. He lost 4 lbs since last visit. Continue current regimen. Advised dietary restrictions and regimental exercise. Goal is to lose 5-6 lbs a month. General health concerns discussed with patient. Scribe services used to formulate this note under HIPAA compliance and under [place] law mandated for scribe services. Patient aware of service. Verbal consent and written consent taken from the patient. Patient understands and verbalizes understanding of the scribes services and all questions answered regarding scribes services. Patient agrees to use of scribes services. 08/12/2024 Type 2 diabetes mellitus with unspecified complications (ICD-10 - E11.8) Coronary artery disease. Stable on current regimen and he is asymptomatic. He is on right medications. Type II diabetes mellitus. He checks his blood sugar at home and denies hypoglycemic and hyperglycemic episodes. He is on right medications. He has seen an chief substation operator for the past year. Foot care discussed. Constipation. Appropriate hydration advised and he can use a over the counter MiraLAX, Metamucil, Colace or milk of magnesia Class 1 obesity. He lost a pound lbs since last visit. increased to Zepbound 5 mg every weekly Advised dietary restrictions and regimental exercise. Goal is to lose 5-6 lbs a month. Office note patient has underlying coronary artery disease, DM type II, hyperlipidemia and Zepbound will help him decrease the risk of [place], strokes, carotid stenosis, peripheral vascular disease and improve diabetes. General health concerns discussed with patient. Scribe services used to formulate this note under HIPAA compliance and under [place] law mandated for scribe services. Patient aware of service. Verbal consent and written consent taken from the patient. Patient understands and verbalizes understanding of the scribes services and all questions answered regarding scribes services. Patient agrees to use of scribes services. 08/12/2024 Atherosclerotic heart disease of [place] coronary artery without angina pectoris (ICD-10 - I25.10) Coronary artery disease. Stable on current regimen and he is asymptomatic. He is on right medications. Type II diabetes mellitus. He checks his blood sugar at home and denies hypoglycemic and hyperglycemic episodes. He is on right medications. He has seen an chief substation operator for the past year. Foot care discussed. Constipation. Appropriate hydration advised and he can use a over the counter MiraLAX, Metamucil, Colace or milk of magnesia Class 1 obesity. He lost a pound lbs since last visit. increased to Zepbound 5 mg every weekly Advised dietary restrictions and regimental exercise. Goal is to lose 5-6 lbs a month. Office note patient has underlying coronary artery disease, DM type II, hyperlipidemia and Zepbound will help him decrease the risk of [place], strokes, carotid stenosis, peripheral vascular disease and improve diabetes. General health concerns discussed with patient. Scribe services used to formulate this note under HIPAA compliance and under [place] law mandated for scribe services. Patient aware of service. Verbal consent and written consent taken from the patient. Patient understands and verbalizes understanding of the scribes services and all questions answered regarding scribes services. Patient agrees to use of scribes services. 07/15/2024 Atherosclerotic heart disease of [place] coronary artery without angina pectoris (ICD-10 - I25.10) Mr. Power is a 73-year-old gentleman with DM2, CAD, hypertension, hyperlipidemia, DDD and GERD here for follow up. Plan is as follows: Lumbar radiculopathy. Pain reasonably controlled on current regimen. Advised to do stretching exercises and weight loss. Coronary artery disease. Stable on current regimen and he is asymptomatic. He is on right medications. Type II diabetes mellitus. A1c 5.9. He checks his blood sugar at home and denies hypoglycemic and hyperglycemic episodes. He is on right medications. He has seen an chief substation operator for the past year. Foot care discussed. check A1c. Constipation. Appropriate hydration advised and he can use a over the counter MiraLAX, Metamucil, Colace or milk of magnesia Class 1 obesity. He lost 4 lbs since last visit. Continue current regimen. Advised dietary restrictions and regimental exercise. Goal is to lose 5-6 lbs a month. General health concerns discussed with patient. Scribe services used to formulate this note under HIPAA compliance and under [place] law mandated for scribe services. Patient aware of service. Verbal consent and written consent taken from the patient. Patient understands and verbalizes understanding of the scribes services and all questions answered regarding scribes services. Patient agrees to use of scribes services. 06/09/2024 Atherosclerotic heart disease of [place] coronary artery without angina pectoris (ICD-10 - I25.10) Mr. Power is a 73-year-old gentleman with DM2, CAD, hypertension, hyperlipidemia, DDD and GERD here for follow up. Plan is as follows: Lumbar radiculopathy. Pain reasonably controlled on current regimen. Advised to do stretching exercises and weight loss. Right hand pain. Remote injury to the right first metacarpal. Now complains of pain and discomfort. Most likely osteoarthritis. x-ray of the right hand shows significant degenerative changes and. Referred to Hand Surgeon Dr. Tipton. DM type II. A1c is 5.9 which is within reasonable limits. His goal fasting sugars is less than 130 and postprandial less than 180. He has seen chief substation operator in the past 1 year. He is on the right medications. We Will add Mounjaro 2.5 mg which will help with diabetes and also help with weight loss. His renal function is stable and is advised to keep hydrated. Foot care discussed. Check A1c. Coronary artery disease. Stable on current regimen and he is asymptomatic. He is on right medications. General health concerns discussed with patient. Scribe services used to formulate this note under HIPAA compliance and under [place] law mandated for scribe services. Patient aware of service. Verbal consent and written consent taken from the patient. Patient understands and verbalizes understanding of the scribes services and all questions answered regarding scribes services. Patient agrees to use of scribes services. 09/09/2024 Dietary counseling and surveillance (ICD-10 - Z71.3) Coronary artery disease. Stable on current regimen and he is asymptomatic. He is on right medications. Type II diabetes mellitus. He checks his blood sugar at home and denies hypoglycemic and hyperglycemic episodes. He is on right medications. He has seen an chief substation operator for the past year. Foot care discussed. Constipation. Appropriate hydration advised and he can use a over the counter MiraLAX, Metamucil, Colace or milk of magnesia Class 1 obesity. He lost 4 pound lbs since last visit. increased to Zepbound 7.5 mg every weekly Advised dietary restrictions and regimental exercise. Goal is to lose 5-6 lbs a month. Office note patient has underlying coronary artery disease, DM type II, hyperlipidemia and Zepbound will help him decrease the risk of [place], strokes, carotid stenosis, peripheral vascular disease and improve diabetes. General health concerns discussed with patient. 01/29/2025 Mixed hyperlipidemia (ICD-10 - E78.2) Emile is 74 years old gentleman with coronary artery disease/status post stent placement in [place] and currently following up with , diabetes mellitus type 2, hypertension, hyperlipidemia, multiple joint osteoarthritis/lum bar radiculopathy on pain management and basal cell carcinoma and GERD. Plan is as follows Coronary artery disease. Status post stent placement. He follows up with cardiology and had recent echocardiogram which was reviewed with EF of 55-60 percent with mild arteriosclerosis of aortic valve and mild left ventricular concentric hypertrophy. He is on isosorbide mononitrate ER 30 mg ,atorvastatin, isosorbide and losartan. He is also on Plavix 75 mg and he is tolerating the medication fine. Diabetes mellitus type 2 with neuropathy. A1c was 5.9 and it is within reasonable limits. He is on Jardiance 25 mg daily and he is also on Mounjaro which helps with diabetes and weight loss. he goes to [facility]. Foot care discussed with the patient. Hypertension/hyper lipidemia. Blood pressure reasonably controlled on amlodipine 5 mg 1 tablet daily, losartan 50 mg daily. He is on atorvastatin 80 mg daily and his goal LDL is under 100. Check lipid panel. Acid reflux. Continue on Protonix 20 mg 1 tablet daily. Dietary restrictions discussed Chronic pain management/neuropa thy/degenerative disc disease/lumbar radiculopathy. He is on pregabalin 150 mg 1 tablet twice a day along with Xtampza 9 mg 1 tablet every 12 hours and pain is reasonably controlled. Obesity. Dietary restrictions discussed in detail with the patient. He is currently consuming on average 6 sodas a day along with orange juice. He is on Mounjaro. He is losing weight but he is not losing desired weight or expected weight. Basal cell carcinoma of the scalp and forehead. He follows up with [place] [facility].next he is full code and his is his healthcare proxy He is up-to-date on age specific screening. He had his last colonoscopy at [place] and we will retrieve records. He will let us know the name of the physician and practice 10/07/2024 Dietary counseling and surveillance (ICD-10 - Z71.3) Mr. Power is a 73-year-old gentleman with DM2, CAD, hypertension, hyperlipidemia, DDD and GERD here for follow up on weight management. He reported severe pain in left first metatarsal (described as knife-like). Plan as follows: Weight Management: Lost 15-16 lbs in the past month on 7.5 mg medication. Minimal side effects: constipation and possible dehydration (slower urination). Continuing weight loss with current dose. Continue 7.5 mg dose for 4 more weeks. Foot Pain (Left First Metatarsal): Bony protuberance and pain on palpation. Decreased range of motion. Likely arthritis, worsened by weather changes. No signs of gout. Recommend Voltaren gel (diclofenac) for topical application twice daily. Use Biofreeze as an alternative. Can take Tylenol for pain relief. Follow-up: 4-week follow-up for weight management, foot pain, and insurance progress. Reassess pain and mobility in the foot. Check in on family health and medication concerns. Dietary recommendations. Food recall was done today and patient advised to be on low calorie, low carbohydrate diet. Restrict calories to less than 1500 kcal in 24 hours. Low glycemic index foods and encouraged. Meal replacements were recommended. Advised to use [id number] multivitamins and vitamin D. Advised to use calorie counter and adhere to portion control. Monthly goal is to lose 4-6 pounds Pharmacotherapy. Continue on current regimen. Side effects explained to the patient. Goal is to lose 3-5% of body weight in 3 months. Exercise. Patient encouraged to increase frequency, intensity and duration of exercise. Encouraged to burn at least 250-500 kcal in one session. Also encouraged to do weight training Assess. Different risk factors discussed with the patient and addressed Advise. Patient was given clear And specific advise that she will comply with Low-calorie diet and try not to exceed more than 1300 kcal in 24 hours. Agree. Mutually agreed to work together to achieve appropriate goals Assist. Motivational interviewing done. Arrange. Follow-up appointment arranged. Counseling. 15 minutes spent Face to face with the patient more than 50% of time was spent counseling 05/25/2025 Calculus of kidney (ICD-10 - N20.0) Emile is 74 yo gentleman with CAD, HTN, HLD, Carotid stenosis, GERD, DDD on pain mgm is here for weight mgm. Lost 1 lb since last time because he was noncompliant with low calorie diet. Also complained of pain and discomfort right flank area.Plan is follow. Right flank pain. History of kidney stones in the past. Urine dip is negative for hematuria or infection. It can be musculoskeletal pain or pain coming from lipoma. Hesitancy of urination. Started on Flomax 0.4 mg 1 tablet daily and observe. Dietary recommendations. Food recall was done today and patient advised to be on low calorie, low carbohydrate diet. Restrict calories to less than 1500 kcal in 24 hours. Low glycemic index foods and encouraged. Meal replacements were recommended. Advised to use [id number]-[id number] multivitamins and vitamin D. Advised to use calorie counter and adhere to portion control. Monthly goal is to lose 4-6 pounds Pharmacotherapy. Increase Mounjaro to 15 mg every weekly Side effects explained to the patient. Goal is to lose 3-5% of body weight in 3 months. Exercise. Patient encouraged to increase frequency, intensity and duration of exercise. Encouraged to burn at least 250-500 kcal in one session. Also encouraged to do weight training Assess. Different risk factors discussed with the patient and addressed Advise. Patient was given clear And specific advise that she will comply with Low-calorie diet and try not to exceed more than 1300 kcal in 24 hours. Agree. Mutually agreed to work together to achieve appropriate goals Assist. Motivational interviewing done. Arrange. Follow-up appointment arranged. Counseling. 15 minutes spent Face to face with the patient more than 50% of time was spent counseling 05/25/2025 Hesitancy of micturition (ICD-10 - R39.11) Emile is 74 yo gentleman with CAD, HTN, HLD, Carotid stenosis, GERD, DDD on pain mgm is here for weight mgm. Lost 1 lb since last time because he was noncompliant with low calorie diet. Also complained of pain and discomfort right flank area.Plan is follow. Right flank pain. History of kidney stones in the past. Urine dip is negative for hematuria or infection. It can be musculoskeletal pain or pain coming from lipoma. Hesitancy of urination. Started on Flomax 0.4 mg 1 tablet daily and observe. Dietary recommendations. Food recall was done today and patient advised to be on low calorie, low carbohydrate diet. Restrict calories to less than 1500 kcal in 24 hours. Low glycemic index foods and encouraged. Meal replacements were recommended. Advised to use [id number] multivitamins and vitamin D. Advised to use calorie counter and adhere to portion control. Monthly goal is to lose 4-6 pounds Pharmacotherapy. Increase Mounjaro to 15 mg every weekly Side effects explained to the patient. Goal is to lose 3-5% of body weight in 3 months. Exercise. Patient encouraged to increase frequency, intensity and duration of exercise. Encouraged to burn at least 250-500 kcal in one session. Also encouraged to do weight training Assess. Different risk factors discussed with the patient and addressed Advise. Patient was given clear And specific advise that she will comply with Low-calorie diet and try not to exceed more than 1300 kcal in 24 hours. Agree. Mutually agreed to work together to achieve appropriate goals Assist. Motivational interviewing done. Arrange. Follow-up appointment arranged. Counseling. 15 minutes spent Face to face with the patient more than 50% of time was spent counseling 01/29/2025 Gastro-esophageal reflux disease without esophagitis (ICD-10 - K21.9) Emile is 74 years old gentleman with coronary artery disease/status post stent placement in [place] and currently following up with , diabetes mellitus type 2, hypertension, hyperlipidemia, multiple joint osteoarthritis/lum bar radiculopathy on pain management and basal cell carcinoma and GERD. Plan is as follows Coronary artery disease. Status post stent placement. He follows up with cardiology and had recent echocardiogram which was reviewed with EF of 55-60 percent with mild arteriosclerosis of aortic valve and mild left ventricular concentric hypertrophy. He is on isosorbide mononitrate ER 30 mg ,atorvastatin, isosorbide and losartan. He is also on Plavix 75 mg and he is tolerating the medication fine. Diabetes mellitus type 2 with neuropathy. A1c was 5.9 and it is within reasonable limits. He is on Jardiance 25 mg daily and he is also on Mounjaro which helps with diabetes and weight loss. he goes to [facility]. Foot care discussed with the patient. Hypertension/hyper lipidemia. Blood pressure reasonably controlled on amlodipine 5 mg 1 tablet daily, losartan 50 mg daily. He is on atorvastatin 80 mg daily and his goal LDL is under 100. Check lipid panel. Acid reflux. Continue on Protonix 20 mg 1 tablet daily. Dietary restrictions discussed Chronic pain management/neuropa thy/degenerative disc disease/lumbar radiculopathy. He is on pregabalin 150 mg 1 tablet twice a day along with Xtampza 9 mg 1 tablet every 12 hours and pain is reasonably controlled. Obesity. Dietary restrictions discussed in detail with the patient. He is currently consuming on average 6 sodas a day along with orange juice. He is on Mounjaro. He is losing weight but he is not losing desired weight or expected weight. Basal cell carcinoma of the scalp and forehead. He follows up with [place] [facility].next he is full code and his is his healthcare proxy He is up-to-date on age specific screening. He had his last colonoscopy at [place] and we will retrieve records. He will let us know the name of the physician and practice 09/09/2024 Basal cell carcinoma of skin of scalp and neck (ICD-10 - C44.41) Coronary artery disease. Stable on current regimen and he is asymptomatic. He is on right medications. Type II diabetes mellitus. He checks his blood sugar at home and denies hypoglycemic and hyperglycemic episodes. He is on right medications. He has seen an chief substation operator for the past year. Foot care discussed. Constipation. Appropriate hydration advised and he can use a over the counter MiraLAX, Metamucil, Colace or milk of magnesia Class 1 obesity. He lost 4 pound lbs since last visit. increased to Zepbound 7.5 mg every weekly Advised dietary restrictions and regimental exercise. Goal is to lose 5-6 lbs a month. Office note patient has underlying coronary artery disease, DM type II, hyperlipidemia and Zepbound will help him decrease the risk of [place], strokes, carotid stenosis, peripheral vascular disease and improve diabetes. General health concerns discussed with patient. 10/07/2024 Basal cell carcinoma of skin of scalp and neck (ICD-10 - C44.41) Mr. Power is a 73-year-old gentleman with DM2, CAD, hypertension, hyperlipidemia, DDD and GERD here for follow up on weight management. He reported severe pain in left first metatarsal (described as knife-like). Plan as follows: Weight Management: Lost 15-16 lbs in the past month on 7.5 mg medication. Minimal side effects: constipation and possible dehydration (slower urination). Continuing weight loss with current dose. Continue 7.5 mg dose for 4 more weeks. Foot Pain (Left First Metatarsal): Bony protuberance and pain on palpation. Decreased range of motion. Likely arthritis, worsened by weather changes. No signs of gout. Recommend Voltaren gel (diclofenac) for topical application twice daily. Use Biofreeze as an alternative. Can take Tylenol for pain relief. Follow-up: 4-week follow-up for weight management, foot pain, and insurance progress. Reassess pain and mobility in the foot. Check in on family health and medication concerns. Dietary recommendations. Food recall was done today and patient advised to be on low calorie, low carbohydrate diet. Restrict calories to less than 1500 kcal in 24 hours. Low glycemic index foods and encouraged. Meal replacements were recommended. Advised to use vjmz-dcz-mjfholn multivitamins and vitamin D. Advised to use calorie counter and adhere to portion control. Monthly goal is to lose 4-6 pounds Pharmacotherapy. Continue on current regimen. Side effects explained to the patient. Goal is to lose 3-5% of body weight in 3 months. Exercise. Patient encouraged to increase frequency, intensity and duration of exercise. Encouraged to burn at least 250-500 kcal in one session. Also encouraged to do weight training Assess. Different risk factors discussed with the patient and addressed Advise. Patient was given clear And specific advise that she will comply with Low-calorie diet and try not to exceed more than 1300 kcal in 24 hours. Agree. Mutually agreed to work together to achieve appropriate goals Assist. Motivational interviewing done. Arrange. Follow-up appointment arranged. Counseling. 15 minutes spent Face to face with the patient more than 50% of time was spent counseling 06/09/2024 Other obesity due to excess calories (ICD-10 - E66.09) Mr. Power is a 73-year-old gentleman with DM2, CAD, hypertension, hyperlipidemia, DDD and GERD here for follow up. Plan is as follows: Lumbar radiculopathy. Pain reasonably controlled on current regimen. Advised to do stretching exercises and weight loss. Right hand pain. Remote injury to the right first metacarpal. Now complains of pain and discomfort. Most likely osteoarthritis. x-ray of the right hand shows significant degenerative changes and. Referred to Hand Surgeon Dr. Tipton. DM type II. A1c is 5.9 which is within reasonable limits. His goal fasting sugars is less than 130 and postprandial less than 180. He has seen chief substation operator in the past 1 year. He is on the right medications. We Will add Mounjaro 2.5 mg which will help with diabetes and also help with weight loss. His renal function is stable and is advised to keep hydrated. Foot care discussed. Check A1c. Coronary artery disease. Stable on current regimen and he is asymptomatic. He is on right medications. General health concerns discussed with patient. Scribe services used to formulate this note under HIPAA compliance and under [place] law mandated for scribe services. Patient aware of service. Verbal consent and written consent taken from the patient. Patient understands and verbalizes understanding of the scribes services and all questions answered regarding scribes services. Patient agrees to use of scribes services. 07/15/2024 Other obesity due to excess calories (ICD-10 - E66.09) Mr. Power is a 73-year-old gentleman with DM2, CAD, hypertension, hyperlipidemia, DDD and GERD here for follow up. Plan is as follows: Lumbar radiculopathy. Pain reasonably controlled on current regimen. Advised to do stretching exercises and weight loss. Coronary artery disease. Stable on current regimen and he is asymptomatic. He is on right medications. Type II diabetes mellitus. A1c 5.9. He checks his blood sugar at home and denies hypoglycemic and hyperglycemic episodes. He is on right medications. He has seen an chief substation operator for the past year. Foot care discussed. check A1c. Constipation. Appropriate hydration advised and he can use a over the counter MiraLAX, Metamucil, Colace or milk of magnesia Class 1 obesity. He lost 4 lbs since last visit. Continue current regimen. Advised dietary restrictions and regimental exercise. Goal is to lose 5-6 lbs a month. General health concerns discussed with patient. Scribe services used to formulate this note under HIPAA compliance and under [place] law mandated for scribe services. Patient aware of service. Verbal consent and written consent taken from the patient. Patient understands and verbalizes understanding of the scribes services and all questions answered regarding scribes services. Patient agrees to use of scribes services. 08/12/2024 Other obesity due to excess calories (ICD-10 - E66.09) Coronary artery disease. Stable on current regimen and he is asymptomatic. He is on right medications. Type II diabetes mellitus. He checks his blood sugar at home and denies hypoglycemic and hyperglycemic episodes. He is on right medications. He has seen an chief substation operator for the past year. Foot care discussed. Constipation. Appropriate hydration advised and he can use a over the counter MiraLAX, Metamucil, Colace or milk of magnesia Class 1 obesity. He lost a pound lbs since last visit. increased to Zepbound 5 mg every weekly Advised dietary restrictions and regimental exercise. Goal is to lose 5-6 lbs a month. Office note patient has underlying coronary artery disease, DM type II, hyperlipidemia and Zepbound will help him decrease the risk of [place], strokes, carotid stenosis, peripheral vascular disease and improve diabetes. General health concerns discussed with patient. Scribe services used to formulate this note under HIPAA compliance and under [place] law mandated for scribe services. Patient aware of service. Verbal consent and written consent taken from the patient. Patient understands and verbalizes understanding of the scribes services and all questions answered regarding scribes services. Patient agrees to use of scribes services. 08/12/2024 Dietary counseling and surveillance (ICD-10 - Z71.3) Coronary artery disease. Stable on current regimen and he is asymptomatic. He is on right medications. Type II diabetes mellitus. He checks his blood sugar at home and denies hypoglycemic and hyperglycemic episodes. He is on right medications. He has seen an chief substation operator for the past year. Foot care discussed. Constipation. Appropriate hydration advised and he can use a over the counter MiraLAX, Metamucil, Colace or milk of magnesia Class 1 obesity. He lost a pound lbs since last visit. increased to Zepbound 5 mg every weekly Advised dietary restrictions and regimental exercise. Goal is to lose 5-6 lbs a month. Office note patient has underlying coronary artery disease, DM type II, hyperlipidemia and Zepbound will help him decrease the risk of [place], strokes, carotid stenosis, peripheral vascular disease and improve diabetes. General health concerns discussed with patient. Scribe services used to formulate this note under HIPAA compliance and under [place] law mandated for scribe services. Patient aware of service. Verbal consent and written consent taken from the patient. Patient understands and verbalizes understanding of the scribes services and all questions answered regarding scribes services. Patient agrees to use of scribes services. 07/15/2024 Dietary counseling and surveillance (ICD-10 - Z71.3) Mr. Power is a 73-year-old gentleman with DM2, CAD, hypertension, hyperlipidemia, DDD and GERD here for follow up. Plan is as follows: Lumbar radiculopathy. Pain reasonably controlled on current regimen. Advised to do stretching exercises and weight loss. Coronary artery disease. Stable on current regimen and he is asymptomatic. He is on right medications. Type II diabetes mellitus. A1c 5.9. He checks his blood sugar at home and denies hypoglycemic and hyperglycemic episodes. He is on right medications. He has seen an chief substation operator for the past year. Foot care discussed. check A1c. Constipation. Appropriate hydration advised and he can use a over the counter MiraLAX, Metamucil, Colace or milk of magnesia Class 1 obesity. He lost 4 lbs since last visit. Continue current regimen. Advised dietary restrictions and regimental exercise. Goal is to lose 5-6 lbs a month. General health concerns discussed with patient. Scribe services used to formulate this note under HIPAA compliance and under [place] law mandated for scribe services. Patient aware of service. Verbal consent and written consent taken from the patient. Patient understands and verbalizes understanding of the scribes services and all questions answered regarding scribes services. Patient agrees to use of scribes services. 06/09/2024 Dietary counseling and surveillance (ICD-10 - Z71.3) Mr. Power is a 73-year-old gentleman with DM2, CAD, hypertension, hyperlipidemia, DDD and GERD here for follow up. Plan is as follows: Lumbar radiculopathy. Pain reasonably controlled on current regimen. Advised to do stretching exercises and weight loss. Right hand pain. Remote injury to the right first metacarpal. Now complains of pain and discomfort. Most likely osteoarthritis. x-ray of the right hand shows significant degenerative changes and. Referred to Hand Surgeon Dr. Tipton. DM type II. A1c is 5.9 which is within reasonable limits. His goal fasting sugars is less than 130 and postprandial less than 180. He has seen chief substation operator in the past 1 year. He is on the right medications. We Will add Mounjaro 2.5 mg which will help with diabetes and also help with weight loss. His renal function is stable and is advised to keep hydrated. Foot care discussed. Check A1c. Coronary artery disease. Stable on current regimen and he is asymptomatic. He is on right medications. General health concerns discussed with patient. Scribe services used to formulate this note under HIPAA compliance and under [place] law mandated for scribe services. Patient aware of service. Verbal consent and written consent taken from the patient. Patient understands and verbalizes understanding of the scribes services and all questions answered regarding scribes services. Patient agrees to use of scribes services. 10/07/2024 Polyosteoarthritis , unspecified (ICD-10 - M15.9) Mr. Power is a 73-year-old gentleman with DM2, CAD, hypertension, hyperlipidemia, DDD and GERD here for follow up on weight management. He reported severe pain in left first metatarsal (described as knife-like). Plan as follows: Weight Management: Lost 15-16 lbs in the past month on 7.5 mg medication. Minimal side effects: constipation and possible dehydration (slower urination). Continuing weight loss with current dose. Continue 7.5 mg dose for 4 more weeks. Foot Pain (Left First Metatarsal): Bony protuberance and pain on palpation. Decreased range of motion. Likely arthritis, worsened by weather changes. No signs of gout. Recommend Voltaren gel (diclofenac) for topical application twice daily. Use Biofreeze as an alternative. Can take Tylenol for pain relief. Follow-up: 4-week follow-up for weight management, foot pain, and insurance progress. Reassess pain and mobility in the foot. Check in on family health and medication concerns. Dietary recommendations. Food recall was done today and patient advised to be on low calorie, low carbohydrate diet. Restrict calories to less than 1500 kcal in 24 hours. Low glycemic index foods and encouraged. Meal replacements were recommended. Advised to use [id number] multivitamins and vitamin D. Advised to use calorie counter and adhere to portion control. Monthly goal is to lose 4-6 pounds Pharmacotherapy. Continue on current regimen. Side effects explained to the patient. Goal is to lose 3-5% of body weight in 3 months. Exercise. Patient encouraged to increase frequency, intensity and duration of exercise. Encouraged to burn at least 250-500 kcal in one session. Also encouraged to do weight training Assess. Different risk factors discussed with the patient and addressed Advise. Patient was given clear And specific advise that she will comply with Low-calorie diet and try not to exceed more than 1300 kcal in 24 hours. Agree. Mutually agreed to work together to achieve appropriate goals Assist. Motivational interviewing done. Arrange. Follow-up appointment arranged. Counseling. 15 minutes spent Face to face with the patient more than 50% of time was spent counseling 01/29/2025 Radiculopathy, lumbosacral region (ICD-10 - M54.17) Emile is 74 years old gentleman with coronary artery disease/status post stent placement in [place] and currently following up with , diabetes mellitus type 2, hypertension, hyperlipidemia, multiple joint osteoarthritis/lum bar radiculopathy on pain management and basal cell carcinoma and GERD. Plan is as follows Coronary artery disease. Status post stent placement. He follows up with cardiology and had recent echocardiogram which was reviewed with EF of 55-60 percent with mild arteriosclerosis of aortic valve and mild left ventricular concentric hypertrophy. He is on isosorbide mononitrate ER 30 mg ,atorvastatin, isosorbide and losartan. He is also on Plavix 75 mg and he is tolerating the medication fine. Diabetes mellitus type 2 with neuropathy. A1c was 5.9 and it is within reasonable limits. He is on Jardiance 25 mg daily and he is also on Mounjaro which helps with diabetes and weight loss. he goes to [facility]. Foot care discussed with the patient. Hypertension/hyper lipidemia. Blood pressure reasonably controlled on amlodipine 5 mg 1 tablet daily, losartan 50 mg daily. He is on atorvastatin 80 mg daily and his goal LDL is under 100. Check lipid panel. Acid reflux. Continue on Protonix 20 mg 1 tablet daily. Dietary restrictions discussed Chronic pain management/neuropa thy/degenerative disc disease/lumbar radiculopathy. He is on pregabalin 150 mg 1 tablet twice a day along with Xtampza 9 mg 1 tablet every 12 hours and pain is reasonably controlled. Obesity. Dietary restrictions discussed in detail with the patient. He is currently consuming on average 6 sodas a day along with orange juice. He is on Mounjaro. He is losing weight but he is not losing desired weight or expected weight. Basal cell carcinoma of the scalp and forehead. He follows up with [place] [facility].next he is full code and his is his healthcare proxy He is up-to-date on age specific screening. He had his last colonoscopy at [place] and we will retrieve records. He will let us know the name of the physician and practice 01/29/2025 Basal cell carcinoma of skin of scalp and neck (ICD-10 - C44.41) Emile is 74 years old gentleman with coronary artery disease/status post stent placement in [place] and currently following up with , diabetes mellitus type 2, hypertension, hyperlipidemia, multiple joint osteoarthritis/lum bar radiculopathy on pain management and basal cell carcinoma and GERD. Plan is as follows Coronary artery disease. Status post stent placement. He follows up with cardiology and had recent echocardiogram which was reviewed with EF of 55-60 percent with mild arteriosclerosis of aortic valve and mild left ventricular concentric hypertrophy. He is on isosorbide mononitrate ER 30 mg ,atorvastatin, isosorbide and losartan. He is also on Plavix 75 mg and he is tolerating the medication fine. Diabetes mellitus type 2 with neuropathy. A1c was 5.9 and it is within reasonable limits. He is on Jardiance 25 mg daily and he is also on Mounjaro which helps with diabetes and weight loss. he goes to [facility]. Foot care discussed with the patient. Hypertension/hyper lipidemia. Blood pressure reasonably controlled on amlodipine 5 mg 1 tablet daily, losartan 50 mg daily. He is on atorvastatin 80 mg daily and his goal LDL is under 100. Check lipid panel. Acid reflux. Continue on Protonix 20 mg 1 tablet daily. Dietary restrictions discussed Chronic pain management/neuropa thy/degenerative disc disease/lumbar radiculopathy. He is on pregabalin 150 mg 1 tablet twice a day along with Xtampza 9 mg 1 tablet every 12 hours and pain is reasonably controlled. Obesity. Dietary restrictions discussed in detail with the patient. He is currently consuming on average 6 sodas a day along with orange juice. He is on Mounjaro. He is losing weight but he is not losing desired weight or expected weight. Basal cell carcinoma of the scalp and forehead. He follows up with [place] [facility]next he is full code and his is his healthcare proxy He is up-to-date on age specific screening. He had his last colonoscopy at [place] and we will retrieve records. He will let us know the name of the physician and practice 01/29/2025 Encounter for screening for malignant neoplasm of prostate (ICD-10 - Z12.5) Emile is 74 years old gentleman with coronary artery disease/status post stent placement in [place] and currently following up with , diabetes mellitus type 2, hypertension, hyperlipidemia, multiple joint osteoarthritis/lum bar radiculopathy on pain management and basal cell carcinoma and GERD. Plan is as follows Coronary artery disease. Status post stent placement. He follows up with cardiology and had recent echocardiogram which was reviewed with EF of 55-60 percent with mild arteriosclerosis of aortic valve and mild left ventricular concentric hypertrophy. He is on isosorbide mononitrate ER 30 mg ,atorvastatin, isosorbide and losartan. He is also on Plavix 75 mg and he is tolerating the medication fine. Diabetes mellitus type 2 with neuropathy. A1c was 5.9 and it is within reasonable limits. He is on Jardiance 25 mg daily and he is also on Mounjaro which helps with diabetes and weight loss. he goes to [facility]. Foot care discussed with the patient. Hypertension/hyper lipidemia. Blood pressure reasonably controlled on amlodipine 5 mg 1 tablet daily, losartan 50 mg daily. He is on atorvastatin 80 mg daily and his goal LDL is under 100. Check lipid panel. Acid reflux. Continue on Protonix 20 mg 1 tablet daily. Dietary restrictions discussed Chronic pain management/neuropa thy/degenerative disc disease/lumbar radiculopathy. He is on pregabalin 150 mg 1 tablet twice a day along with Xtampza 9 mg 1 tablet every 12 hours and pain is reasonably controlled. Obesity. Dietary restrictions discussed in detail with the patient. He is currently consuming on average 6 sodas a day along with orange juice. He is on Mounjaro. He is losing weight but he is not losing desired weight or expected weight. Basal cell carcinoma of the scalp and forehead. He follows up with [place] [facility]next he is full code and his is his healthcare proxy He is up-to-date on age specific screening. He had his last colonoscopy at [place] and we will retrieve records. He will let us know the name of the physician and practice Plan Of Treatment Pending Test Test Name Order Date Ultrasound : Kidneys and Bladder 025 Xray: Limited Hand Right-2 Vws 4 Next Appt Details Provider Name:THONG EDWARD , 06/22/2025 01:45:00 PM, [address] [place] [address], [id number], Insurance Providers Payer Name Payer Address Payer Phone Subscriber Number Group Number Insured Name Patient Relationship to Insured Coverage Start Date Coverage End Date [facility] [address] [address] [place] [phone] [id number] Emile Power Self - patient is the insured 2 Medical (General) History Medical History History ICD Code DM2 CAD s/p BLU in mid RCA and RCA 2018, [place]. 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
== END 2025-06-09 13:57 | disposition home or self-care (01) ==
LOC: HO.HGS 13:04
PROVIDERS: PCP Hospitalist; Visit Provider Surgery
DX: R19.09 Other intra-abdominal and pelvic swelling, mass and lump (principal)
CPT/HCPCS: 99204

== ENCOUNTER 2025-08-05 16:00 | Outpatient (REF) | payer MEDICARE, SELFPAY ==
--- OUTSIDE RECORDS SUMMARY | 2022-10-26 06:07 | XMS_ITS | Continuity of Care Document ---
Author Organization [facility] Address [address] [place] [address] Care Team Providers Care Sys Dir Name Role Phone Provider MD, Test Unavailable Unavailable Allergies, Adverse Reactions, Alerts Substance Reaction Status Criticality No Known Allergies Active No Inform ation Medications Medication Instructions Dosage Effective Dates (start - stop) Status Comments Lyrica 75 mg capsule take 1 capsule by oral route 2 times every day 75 MG - Active Please fill toda y as patient is moving. MS Contin 15 mg tablet,extended release take 1 tablet by oral route every 12 hours 15 MG - Active For non-acute pain. This is a 30 day prescription Please fill today patient is moving Percocet 10 mg-325 mg tablet take 1 tablet by oral route once a day. - Active For non-acute pain. This is a 30 day prescription Please fill today patient is moving diclofenac 1 % topical gel apply 4 gram by topical route 4 times every day to the affected area(s) 4 gram - Active Apply 4 grams 4 times daily to effected area, not to exceed 32 g daily. Do not applied to damaged skin or open areas. Over muscle and joint only. Jardiance 10 mg tablet take 1 tablet by oral route every day in the morning 10 MG - Active Janumet 50 mg-500 mg tablet take 1 tablet by oral route 2 times every day with meals 1.00 tablet - Active atorvastatin 40 mg tablet take 1 tablet by oral route every day 40 MG - Active losartan 100 mg-hydrochlorothia zide 25 mg tablet take 1 tablet by oral route every day 1.00 tablet - Active amlodipine 5 mg tablet take 1 tablet by oral route every day 5 MG - Active pantoprazole 40 mg tablet,delayed release take 1 tablet by oral route every day 40 MG - Active clopidogrel 75 mg tablet take 1 tablet by oral route every day 75 MG - Active benzonatate 100 mg capsule take 1 capsule by oral route 6 times every day as needed for cough 100 MG - Active Procedures Procedure Date OFFICE/OUTPATIENT VISIT, EST DRUG TEST PRSMV CHEM ANLYZR Duplicate Encounter OFFICE/OUTPATIENT VISIT, EST OFFICE/OUTPATIENT VISIT, EST OFFICE/OUTPATIENT VISIT, EST OFFICE/OUTPATIENT VISIT, EST OFFICE/OUTPATIENT VISIT, EST OFFICE/OUTPATIENT VISIT, EST POSTOP FOLLOW-UP VISIT OFFICE/OUTPATIENT VISIT, EST Spinal Cord Stim pocket revision 2021 OFFICE/OUTPATIENT VISIT, EST OFFICE/OUTPATIENT VISIT, EST Encounter Created In Error OFFICE/OUTPATIENT VISIT, EST OFFICE/OUTPATIENT VISIT, EST Drug Tests,presumptive, Any Number Of Dr mandeep Morris OFFICE/OUTPATIENT VISIT, EST OFFICE/OUTPATIENT VISIT, EST OFFICE/OUTPATIENT VISIT, EST Foll-up eval q3mo opiod tx Triamcinolone acet inj NOS Drain/inj Joint/bursa W/us OFFICE/OUTPATIENT VISIT, EST REJI interlaminar lmbr/sac OFFICE/OUTPATIENT VISIT, EST OFFICE/OUTPATIENT VISIT, EST OFFICE/OUTPATIENT VISIT, EST OFFICE/OUTPATIENT VISIT, EST OFFICE/OUTPATIENT VISIT, EST OFFICE/OUTPATIENT VISIT, EST DRUG SCREEN, SINGLE REJI Lumbar Or Sacral (caudal) 0 OFFICE/OUTPATIENT VISIT, EST OFFICE/OUTPATIENT VISIT, EST OFFICE/OUTPATIENT VISIT, EST OFFICE/OUTPATIENT VISIT, EST OFFICE/OUTPATIENT VISIT, EST OFFICE/OUTPATIENT VISIT, EST Foll-up eval q3mo opiod tx OFFICE/OUTPATIENT VISIT, EST Foll-up eval q3mo opiod tx OFFICE/OUTPATIENT VISIT, EST Foll-up eval q3mo opiod tx OFFICE/OUTPATIENT VISIT, EST Foll-up eval q3mo opiod tx OFFICE/OUTPATIENT VISIT, EST Foll-up eval q3mo opiod tx Encounter Created In Error OFFICE/OUTPATIENT VISIT, EST Foll-up eval q3mo opiod tx OFFICE/OUTPATIENT VISIT, EST Foll-up eval q3mo opiod tx DRUG SCREEN, SINGLE OFFICE/OUTPATIENT VISIT, EST OFFICE/OUTPATIENT VISIT, EST OFFICE/OUTPATIENT VISIT, EST DRUG SCREEN, SINGLE OFFICE/OUTPATIENT VISIT, EST Foll-up eval q3mo opiod tx OFFICE/OUTPATIENT VISIT, EST OFFICE/OUTPATIENT VISIT, EST DRUG SCREEN, SINGLE OFFICE/OUTPATIENT VISIT, EST OFFICE/OUTPATIENT VISIT, EST OFFICE/OUTPATIENT VISIT, EST OFFICE/OUTPATIENT VISIT, EST OFFICE/OUTPATIENT VISIT, EST OFFICE/OUTPATIENT VISIT, EST OFFICE/OUTPATIENT VISIT, EST OFFICE/OUTPATIENT VISIT, EST DRUG SCREEN, SINGLE OFFICE/OUTPATIENT VISIT, EST OFFICE/OUTPATIENT VISIT, EST OFFICE/OUTPATIENT VISIT, EST OFFICE/OUTPATIENT VISIT, EST OFFICE/OUTPATIENT VISIT, EST OFFICE/OUTPATIENT VISIT, EST DRUG SCREEN, SINGLE OFFICE/OUTPATIENT VISIT, EST REMOVE SPINE INFUSION DEVICE REMOVE SPINAL CANAL CATHETER OFFICE/OUTPATIENT VISIT, EST OFFICE/OUTPATIENT VISIT, EST OFFICE/OUTPATIENT VISIT, EST OFFICE/OUTPATIENT VISIT, EST Workers Comp Medication Payment 018 Workers Comp Medication Payment 018 Workers Comp Medication Payment 018 OFFICE/OUTPATIENT VISIT, EST [place] [facility] [place] - PAGE 1-25 [place] [facility] [employer] [place] - PAGES 26 AND G REATER Duplicate Encounter OFFICE/OUTPATIENT VISIT, EST Elec Spinal Pump Refill Anlys, Phys Drugs unclassified injection OFFICE/OUTPATIENT VISIT, EST OFFICE/OUTPATIENT VISIT, EST OFFICE/OUTPATIENT VISIT, EST DRUG SCREEN, SINGLE Elec Spinal Pump Refill Anlys, Phys Ultrasonic Guidance for needle placement Drugs unclassified injection Drugs unclassified injection Drugs unclassified injection OFFICE/OUTPATIENT VISIT, EST DRUG TEST PRSMV CHEM ANLYZR OFFICE/OUTPATIENT VISIT, EST DRUG TEST PRSMV CHEM ANLYZR Elec Spinal Pump Refill Anlys, Phys Ultrasonic Guidance for needle placement Drugs unclassified injection Drugs unclassified injection Drugs unclassified injection OFFICE/OUTPATIENT VISIT, EST DRUG TEST PRSMV CHEM ANLYZR OFFICE/OUTPATIENT VISIT, EST Elec Spinal Pump Refill Anlys, Phys Ultrasonic Guidance for needle placement Drugs unclassified injection Drugs unclassified injection Drugs unclassified injection OFFICE/OUTPATIENT VISIT, EST Patient Left Without Being Seen 017 OFFICE/OUTPATIENT VISIT, EST Elec Spinal Pump Refill Anlys, Phys Ultrasonic Guidance for needle placement Drugs unclassified injection Drugs unclassified injection Drugs unclassified injection OFFICE/OUTPATIENT VISIT, EST DRUG SCREEN, SINGLE OFFICE/OUTPATIENT VISIT, EST Elec Spinal Pump Refill Anlys, Phys Drugs unclassified injection OFFICE/OUTPATIENT VISIT, EST DRUG SCREEN, SINGLE Drugs unclassified injection Drugs unclassified injection Spinal Pump Analysis w/ reprog OFFICE/OUTPATIENT VISIT, EST DRUG SCREEN, SINGLE POSTOP FOLLOW-UP VISIT ASC Procedure Pump Implant IMPLANT SPINAL CANAL CATH Elec Spinal Pump Refill Anlys, Phys Ultrasonic Guidance for needle placement Drugs unclassified injection Drugs unclassified injection Drugs unclassified injection OFFICE/OUTPATIENT VISIT, EST OFFICE/OUTPATIENT VISIT, EST DRUG SCREEN, SINGLE OFFICE/OUTPATIENT VISIT, EST POSTOP FOLLOW-UP VISIT ASC Procedure Spinal Cord Stimulator, Revision 2015 Stimulator Analysis ANESTH, HEAD/NECK/PTRUNK OFFICE/OUTPATIENT VISIT, EST DRUG SCREEN, SINGLE OFFICE/OUTPATIENT VISIT, EST DRUG SCREEN, SINGLE OFFICE/OUTPATIENT VISIT, EST DRUG SCREEN, SINGLE OFFICE/OUTPATIENT VISIT, EST Spinal Pump Analysis w/ reprog DRUG SCREEN, SINGLE OFFICE/OUTPATIENT VISIT, EST SPIN/BRAIN PUMP REFIL & MAIN Drugs unclassified injection Drugs unclassified injection ASC Procedure ASC Procedure BRAIN CANAL SHUNT PROCEDURE NONVASCULAR SHUNT, X-RAY Anesthesia No Charge OFFICE/OUTPATIENT VISIT, EST OFFICE/OUTPATIENT VISIT, EST OFFICE/OUTPATIENT VISIT, EST OFFICE/OUTPATIENT VISIT, EST Spinal Pump Analysis w/o reprog 016 OFFICE/OUTPATIENT VISIT, EST Spinal Pump Analysis w/o reprog 016 OFFICE/OUTPATIENT VISIT, EST Drugs unclassified injection Drugs unclassified injection OFFICE/OUTPATIENT VISIT, EST SPIN/BRAIN PUMP REFIL & MAIN DRUG SCREEN, SINGLE SPIN/BRAIN PUMP REFIL & MAIN Drugs unclassified injection OFFICE/OUTPATIENT VISIT, EST Drugs unclassified injection DRUG SCREEN, SINGLE ASSAY OF ETHANOL Drugs unclassified injection Drugs unclassified injection OFFICE/OUTPATIENT VISIT, EST SPIN/BRAIN PUMP REFIL & MAIN Drugs unclassified injection Drugs unclassified injection OFFICE/OUTPATIENT VISIT, EST SPIN/BRAIN PUMP REFIL & MAIN OFFICE/OUTPATIENT VISIT, EST SPIN/BRAIN PUMP REFIL & MAIN Drugs unclassified injection Drugs unclassified injection DRUG SCREEN, SINGLE ASSAY OF ETHANOL Drugs unclassified injection Drugs unclassified injection OFFICE/OUTPATIENT VISIT, EST SPIN/BRAIN PUMP REFIL & MAIN Spinal Pump Analysis w/ reprog SPIN/BRAIN PUMP REFIL & MAIN Drugs unclassified injection Drugs unclassified injection OFFICE/OUTPATIENT VISIT, EST Advance Directives Directive Yes / No Effective Date File Name No Information Encounters Encounter Description Practice Location Reason(s) For Visit Diagnoses Date Provider Providers Copied on Encounter [facility], [address], [place], [place], [id number], [facility] No Information 3 Provider Test. . OFFICE/OUTPA TIENT VISIT, EST [facility], [address], [place], [place], [id number], [facility] [place] low back pain (chief complaint) Radiculopath y of lumbosacral regionPostla minectomy syndromeTroc hanteric bursitis, left hipPain in left hipBreakdown (mechanical) of implanted electronic neurostimula tor, generator, sequelaType 2 diabetes mellitus w/ diabetic neuropathyCh ronic pain syndromeEnco unter for therapeutic drug level monitoringLo ng term (current) use of opiate analgesic 2 Delonte Perez. [address] [place] [address], [address], [place], [id number], [place]. tel:[phone] [facility], [address], [place], [place], [id number], [facility] No Information 2 Rakesh Mcbride. [address] [place] [address], [address] [place] [address], [facility], . tel:[phone] Referring Provider: Rae Cameron, [address] [place] [address] [address], [place], [place], [facility]. tel:[phone] OFFICE/OUTPA TIENT VISIT, EST [facility], [address], [place], [place], [id number], [facility] [place] low back pain (chief complaint) Radiculopath y of lumbosacral regionPostla minectomy syndromeTroc hanteric bursitis, left hipPain in left hipBreakdown (mechanical) of implanted electronic neurostimula tor, generator, sequelaType 2 diabetes mellitus w/ diabetic neuropathyCh ronic pain syndromeEnco unter for therapeutic drug level monitoringLo ng term (current) use of opiate analgesic Julian-3 0-202 2 Delonte Ana. [address] [place] [address], [address], [place], [place], [id number], . tel:[phone] OFFICE/OUTPA TIENT VISIT, EST [facility], [address], [place], [place], [id number], [facility] [place] low back pain (chief complaint) Radiculopath y of lumbosacral regionPostla minectomy syndromeTroc hanteric bursitis, left hipPain in left hipBreakdown (mechanical) of implanted electronic neurostimula tor, generator, sequelaType 2 diabetes mellitus w/ diabetic neuropathyCh ronic pain syndromeEnco unter for therapeutic drug level monitoringLo ng term (current) use of opiate analgesic Julian-0 2-202 2 Delonte Ana. [address] [place] [address], [address], [place], [place], [id number], [place]. tel:[phone] OFFICE/OUTPA TIENT VISIT, EST [facility], [address], [place], [place], [id number], [facility] [place] back pain (chief complaint) Chronic pain syndromeBrea kdown (mechanical) of implanted electronic neurostimula tor, generator, sequelaEncou nter for therapeutic drug level monitoringTy pe 2 diabetes mellitus w/ diabetic neuropathyPa in in left hipTrochante kayla bursitis, left hipPostlamin ectomy syndromeRadi culopathy of lumbosacral regionLong term (current) use of opiate analgesic May-0 6-202 2 Kerneklian Liat. [address] [place] [address], [address], [place], [place], [id number], [place]. tel:[phone] OFFICE/OUTPA TIENT VISIT, EST [facility], [address], [place], [place], [id number], [facility] [place] low back pain (chief complaint) Chronic pain syndromeBrea kdown (mechanical) of implanted electronic neurostimula tor, generator, sequelaEncou nter for therapeutic drug level monitoringTy pe 2 diabetes mellitus w/ diabetic neuropathyPa in in left hipTrochante kayla bursitis, left hipPostlamin ectomy syndromeRadi culopathy of lumbosacral regionLong term (current) use of opiate analgesic Apr- 2 Sonya Josue. [address] [place] [address], [address], [place], [place], [id number], [place]. [phone] OFFICE/OUTPA TIENT VISIT, EST [facility], [address], [place], [place], [id number], [place] [facility] [place] low back pain (chief complaint) Radiculopath y of lumbosacral regionLong term (current) use of opiate analgesicChr onic pain syndromeBrea kdown (mechanical) of implanted electronic neurostimula tor, generator, sequelaEncou nter for therapeutic drug level monitoringTy pe 2 diabetes mellitus w/ diabetic neuropathyPa in in left hipTrochante kayla bursitis, left hipPostlamin ectomy syndrome 2 Sonya Josue. [address] [place] [address], [address], [place], [place], [id number], [place]. tel:[phone] OFFICE/OUTPA TIENT VISIT, EST [facility], [address], [place], [place], [id number], [place] [facility] [place] low back pain (chief complaint) Radiculopath y of lumbosacral regionLong term (current) use of opiate analgesicChr onic pain syndromeBrea kdown (mechanical) of implanted electronic neurostimula tor, generator, sequelaEncou nter for therapeutic drug level monitoringTy pe 2 diabetes mellitus w/ diabetic neuropathyPa in in left hipTrochante kayla bursitis, left hipPostlamin ectomy syndrome 2 Rakesh Mcbride. [address] [place] [address], [address], [place], [address], [place]. tel:[phone] [facility], [address], [place], [place], [id number], [place] [facility] [place] back pain (chief complaint) Radiculopath y of lumbosacral regionLong term (current) use of opiate analgesicChr onic pain syndromeMusc le spasm of backEncounte r for therapeutic drug level monitoringTy pe 2 diabetes mellitus w/ diabetic neuropathyPa in in left hipTrochante kayla bursitis, left hipPostlamin ectomy syndromeBrea kdown (mechanical) of implanted electronic neurostimula tor, generator, sequela 2 Sonya Liat. [address] [place] [address], [address], [place], [place], [id number], [place]. tel:[phone] OFFICE/OUTPA TIENT VISIT, EST [facility], [address], [place], [place], [id number], [place] [facility] [place] back pain (chief complaint) Radiculopath y of lumbosacral regionLong term (current) use of opiate analgesicChr onic pain syndromeMusc le spasm of backEncounte r for therapeutic drug level monitoringTy pe 2 diabetes mellitus w/ diabetic neuropathyPa in in left hipTrochante kayla bursitis, left hipPostlamin ectomy syndromeBrea kdown (mechanical) of implanted electronic neurostimula tor, generator, sequela 2 Sonya [facility]. [address] [place] [address], [address], [place], [id number], [place]. tel:[phone] [facility], [address], [place], [place], [id number], [place] [facility] Breakdown (mechanical) of implanted electronic neurostimula tor, generator, sequela 2 Hannah Baileybh. [address] [place] [address], [address] [place] [address], [id number], [place]. tel:[phone] OFFICE/OUTPA TIENT VISIT, EST [facility], [address], [place], [place], [id number], [place] [facility] [place] back pain (chief complaint) Radiculopath y of lumbosacral regionLong term (current) use of opiate analgesicChr onic pain syndromeMusc le spasm of backEncounte r for therapeutic drug level monitoringTy pe 2 diabetes mellitus w/ diabetic neuropathyPa in in left hipTrochante kayla bursitis, left hipPostlamin ectomy syndromeBrea kdown (mechanical) of implanted electronic neurostimula tor, generator, sequela 2 Rakesh Mcbride. [address] [place] [address], [address], [place], [address], [place]. tel:[phone] OFFICE/OUTPA TIENT VISIT, EST [facility], [address], [place], [place], [id number], [facility] [place] back pain (chief complaint) roving frame tender (current) use of opiate analgesicChr onic pain syndromeMusc le spasm of backEncounte r for therapeutic drug level monitoringTy pe 2 diabetes mellitus w/ diabetic neuropathyRa diculopathy of lumbosacral regionPain in left hipTrochante kayla bursitis, left hipPostlamin ectomy syndromeBrea kdown (mechanical) of implanted electronic neurostimula tor, generator, sequela 1 Hannah Baileybh. [address] [place] [address], [address], [place], [id number], [place]. tel:[phone] [facility], [address], [place], [place], [id number], [place] [facility] [place] back pain (chief complaint) Chronic pain syndromeLong term (current) use of opiate analgesicMus marquez spasm of backEncounte r for therapeutic drug level monitoringRa diculopathy, lumbar regionType 2 diabetes mellitus w/ diabetic neuropathyCe rvicalgiaPos tlaminectomy syndrome 1 Sonya Staleyh. [address] [place] [address], [address], [place], [place], [id number], [place]. tel:[phone] OFFICE/OUTPA TIENT VISIT, EST [facility], [address], [place], [place], [id number], [place] [facility] [place] back pain (chief complaint) Chronic pain syndromeLong term (current) use of opiate analgesicMus marquez spasm of backEncounte r for therapeutic drug level monitoringTy pe 2 diabetes mellitus w/ diabetic neuropathyRa diculopathy, lumbar regionPostla minectomy syndromeCerv icalgia 1 Rakesh Mcbride. [address] [place] [address], [facility] [place], [facility], . tel:[phone] OFFICE/OUTPA TIENT VISIT, EST [facility], [address], [place], [place], [id number], [facility] [place] low back pain (chief complaint) Type 2 diabetes mellitus w/ diabetic neuropathyTr ochanteric bursitis, left hipLong term (current) use of opiate analgesicChr onic pain syndrome 1 Lincoln Rutherford. [facility], [address], [place], [facility], . tel:[phone] OFFICE/OUTPA TIENT VISIT, EST [facility], [address], [place], [place], [id number], [facility] [place] back pain (chief complaint) Other cervical disc degeneration , cervicothora cic regionCervic algiaLong term (current) use of opiate analgesicChr onic pain syndrome 1 Lincoln Rutherford. [facility], [address], [place], [facility], . tel:[phone] OFFICE/OUTPA TIENT VISIT, EST [facility], [address], [place], [place], [id number], [facility] [place] back pain (chief complaint) Spondylosis w/o myelopathy of lumbosacral regionPain in left hipLong term (current) use of opiate analgesicChr onic pain syndrome 1 Lincoln Rutherford. [facility], [address], [place], [facility], . tel:[phone] [facility], [address], [place], [place], [id number], [facility] Pain in left hipTrochante kayla bursitis, left hipChronic pain syndromeLong term (current) use of opiate analgesic 1 Hannah Edmonds. [address] [place] [address], [id number], . tel:[phone] OFFICE/OUTPA TIENT VISIT, EST [facility], [address], [place], [place], [id number], [facility] [place] low back pain (chief complaint) Radiculopath y of lumbosacral regionInfect ion due to intrathecal infusion pump, subsequent encounterBre akdown of intrathecal infusion pump, subsequent encounterMus marquez spasm of backChronic pain syndromeEnco unter for therapeutic drug level monitoringLo ng term (current) use of opiate analgesic 1 Hannah Edmonds. [address] [place] [address], [id number], . tel:[phone] Referring Provider: Grey Young, [address] [place] [address], [place], [address] . tel:[phone] [facility], [address], [place], [place], [id number], [facility] [place] low back pain (chief complaint) Pain in left hip 1 Hannah Edmonds. [address] [place] [address], [id number], . tel:[phone] Referring Provider: Grey Young, [address] [place] [address], [place], [address] . tel:[phone] OFFICE/OUTPA TIENT VISIT, EST [facility], [address], [place], [place], [id number], [facility] [place] low back pain (chief complaint) Radiculopath y of lumbosacral regionTrocha nteric bursitis, left hipInfection due to intrathecal infusion pump, subsequent encounterBre akdown of intrathecal infusion pump, subsequent encounterMus marquez spasm of backChronic pain syndromePain in left hipEncounter for therapeutic drug level monitoringLo ng term (current) use of opiate analgesic 1 Delonte Perez. [address] [place] [address], [address], [place], [place], [id number], [place]. tel:[phone] [facility], [address], [place], [place], [id number], [facility] [place] Radiculopath y of lumbosacral region 1 Hannah Grey. [address] [place] [address], [address], [place], [place], [id number], [place]. tel:[phone] OFFICE/OUTPA TIENT VISIT, EST [facility], [address], [place], [place], [id number], [facility] back pain (chief complaint) Radiculopath y of lumbosacral regionInfect ion due to intrathecal infusion pump, subsequent encounterBre akdown of intrathecal infusion pump, subsequent encounterMus marquez spasm of backChronic pain syndromeLong term (current) use of opiate analgesicPai n in left hipTrochante kayla bursitis, left hip 1 Hannahtim CabreraGrey. [address] [place] [address], [address] [facility], [place], [place], [id number], [place]. tel:[phone] OFFICE/OUTPA TIENT VISIT, EST [facility], [address], [place], [place], [id number], [facility] [place] back pain (chief complaint) Radiculopath y of lumbosacral regionInfect ion due to intrathecal infusion pump, subsequent encounterBre akdown of intrathecal infusion pump, subsequent encounterTyp e 2 diabetes mellitus w/ diabetic neuropathyMu scle spasm of backChronic pain syndromeEnco unter for therapeutic drug level monitoringLo ng term (current) use of opiate analgesic 1 Delonte Jonesa. [address] [place] [address], [address], [place], [place], [id number], [place]. tel:[phone] OFFICE/OUTPA TIENT VISIT, EST [facility], [address], [place], [place], [id number], [facility] [place] back pain (chief complaint)ne ck pain (chief complaint) Radiculopath y of lumbosacral regionInfect ion due to intrathecal infusion pump, subsequent encounterBre akdown of intrathecal infusion pump, subsequent encounterTyp e 2 diabetes mellitus w/ diabetic neuropathyMu scle spasm of backChronic pain syndromeEnco unter for therapeutic drug level monitoringLo ng term (current) use of opiate analgesic 1 Delonte Perez. [address] [place] [address], [address], [place] [place], [place], [id number], . tel:[phone] OFFICE/OUTPA TIENT VISIT, EST [facility], [address], [place], [place], [id number], [facility] [place] low back pain (chief complaint)ne ck pain (chief complaint) Radiculopath y of lumbosacral regionInfect ion due to intrathecal infusion pump, subsequent encounterBre akdown of intrathecal infusion pump, subsequent encounterTyp e 2 diabetes mellitus w/ diabetic neuropathyMu scle spasm of backChronic pain syndromeEnco unter for therapeutic drug level monitoringLo ng term (current) use of opiate analgesic 1 Delonte Perez. [address] [place] [address], [address], [place], [place], [id number], [place]. tel:[phone] OFFICE/OUTPA TIENT VISIT, EST [facility], [address], [place], [place], [id number], [facility] [place] neck pain (chief complaint)ba ck pain (chief complaint) Radiculopath y of lumbosacral regionInfect ion due to intrathecal infusion pump, subsequent encounterBre akdown of intrathecal infusion pump, subsequent encounterTyp e 2 diabetes mellitus w/ diabetic neuropathyMu scle spasm of backChronic pain syndromeEnco unter for therapeutic drug level monitoringLo ng term (current) use of opiate analgesic 1 Delonte Ana. [address] [place] [address], [address], [place], [place], [address], [place]. tel:[phone] OFFICE/OUTPA TIENT VISIT, EST [facility], [address], [place], [place], [id number], [facility] [place] back pain (chief complaint)ne ck pain (chief complaint) Body mass index (BMI) 33.0-33.9, adultRadicul opathy of lumbosacral regionInfect ion due to intrathecal infusion pump, subsequent encounterBre akdown of intrathecal infusion pump, subsequent encounterTyp e 2 diabetes mellitus w/ diabetic neuropathyMu scle spasm of backChronic pain syndromeEnco unter for therapeutic drug level monitoringLo ng term (current) use of opiate analgesic 0 Delonte Ana. [address] [place] [address], [address], [place], [place], [address], [place]. tel:[phone] [facility], [address], [place], [place], [id number], [facility] Radiculopath y of lumbosacral region 0 Hannah Grey. [address] [place] [address], [address], [place], [address], [place]. tel:[phone] OFFICE/OUTPA TIENT VISIT, EST [facility], [address], [place], [place], [address], [facility] [place] back pain (chief complaint)ne ck pain (chief complaint) Radiculopath y of lumbosacral regionInfect ion due to intrathecal infusion pump, subsequent encounterBre akdown of intrathecal infusion pump, subsequent encounterTyp e 2 diabetes mellitus w/ diabetic neuropathyMu scle spasm of backChronic pain syndromeEnco unter for therapeutic drug level monitoringLo ng term (current) use of opiate analgesic Jul- 0 Delonte Ana. [address] [place] [address], [address], [place], [place], [address], [place]. tel:[phone] OFFICE/OUTPA TIENT VISIT, EST [facility], [address], [place], [place], [id number], [facility] [place] back pain (chief complaint)ne ck pain (chief complaint) Radiculopath y of lumbosacral regionInfect ion due to intrathecal infusion pump, subsequent encounterBre akdown of intrathecal infusion pump, subsequent encounterTyp e 2 diabetes mellitus w/ diabetic neuropathyMu scle spasm of backChronic pain syndromeEnco unter for therapeutic drug level monitoringLo ng term (current) use of opiate analgesic Oct-2 9-202 0 Delonte Ana. [address] [place] [address], [address], [place], [place], [address], [place]. tel:[phone] OFFICE/OUTPA TIENT VISIT, [facility], [address], [place], [place], [id number], [facility] [place] back pain (chief complaint)ne ck pain (chief complaint) Radiculopath y of lumbosacral regionInfect ion due to intrathecal infusion pump, subsequent encounterBre akdown of intrathecal infusion pump, subsequent encounterTyp e 2 diabetes mellitus w/ diabetic neuropathyMu scle spasm of backChronic pain syndromeEnco unter for therapeutic drug level monitoringLo ng term (current) use of opiate analgesic Oct-0 2-202 0 Delonte Ana. [address] [place] [address], [address], [place], [place], [id number], [place]. tel:[phone] OFFICE/OUTPA TIENT VISIT, [facility], [address], [place], [place], [id number], [facility] [place] low back pain (chief complaint) Radiculopath y of lumbosacral regionInfect ion due to intrathecal infusion pump, subsequent encounterBre akdown of intrathecal infusion pump, subsequent encounterTyp e 2 diabetes mellitus w/ diabetic neuropathyMu scle spasm of backChronic pain syndromeEnco unter for therapeutic drug level monitoringLo ng term (current) use of opiate analgesic Sep-0 4-202 0 Delonte Ana. [address] [place] [address], [address], [place], [place], [address], [place]. tel:[phone] Referring Provider: Ana Martel, [address] [place] [address] [address], [place], [address] . tel:[phone] OFFICE/OUTPA TIENT VISIT, EST [facility], [address], [place], [place], [id number], [facility] [place] low back pain (chief complaint) Radiculopath y of lumbosacral regionInfect ion due to intrathecal infusion pump, subsequent encounterBre akdown of intrathecal infusion pump, subsequent encounterTyp e 2 diabetes mellitus w/ diabetic neuropathyMu scle spasm of backChronic pain syndromeEnco unter for therapeutic drug level monitoringLo ng term (current) use of opiate analgesic Apr- 0 Delonte Ana. [address] [place] [address], [address], [place], [place], [id number], . tel:[phone] Referring Provider: Ana Martel, [address] [place] [address] [address], [place], [address] . tel:[phone] OFFICE/OUTPA TIENT VISIT, EST [facility], [address], [place], [place], [id number], [facility] [place] low back pain (chief complaint) Radiculopath y of lumbosacral regionInfect ion due to intrathecal infusion pump, subsequent encounterBre akdown of intrathecal infusion pump, subsequent encounterTyp e 2 diabetes mellitus w/ diabetic neuropathyMu scle spasm of backChronic pain syndromeEnco unter for therapeutic drug level monitoringLo ng term (current) use of opiate analgesic Mar- 0 0 Delonte Ana. [address] [place] [address], [address], [place], [place], [id number], . tel:[phone] OFFICE/OUTPA TIENT VISIT, EST [facility], [address], [place], [place], [id number], [facility] [place] back pain (chief complaint) Radiculopath y of lumbosacral regionInfect ion due to intrathecal infusion pump, subsequent encounterBre akdown of intrathecal infusion pump, subsequent encounterTyp e 2 diabetes mellitus w/ diabetic neuropathyMu scle spasm of backChronic pain syndromeEnco unter for therapeutic drug level monitoringLo ng term (current) use of opiate analgesic Julian-0 5-202 0 Delonte Ana. [address] [place] [address], [address], [place], [place], [address], . tel:[phone] OFFICE/OUTPA TIENT VISIT, EST [facility], [address], [place], [place], [address], [facility] [place] back pain (chief complaint) Radiculopath y of lumbosacral regionInfect ion due to intrathecal infusion pump, subsequent encounterBre akdown of intrathecal infusion pump, subsequent encounterTyp e 2 diabetes mellitus w/ diabetic neuropathyMu scle spasm of backChronic pain syndromeEnco unter for therapeutic drug level monitoringLo ng term (current) use of opiate analgesic May-0 0 Delonte Ana. [address] [place] [address], [address], [place], [place], [address], . tel:[phone] Referring Provider: Ana Martel, [address] [place] [address] [address], [place], [address] . tel:[phone] OFFICE/OUTPA TIENT VISIT, [facility], [address], [place], [place], [id number], [facility] [place] back pain (chief complaint) Radiculopath y of lumbosacral regionInfect ion due to intrathecal infusion pump, subsequent encounterMus marquez spasm of backBreakdow n of intrathecal infusion pump, subsequent encounterChr onic pain syndromeEnco unter for therapeutic drug level monitoringLo ng term (current) use of opiate analgesicTyp e 2 diabetes mellitus w/ diabetic neuropathy Apr-1 0-202 0 Delonte Ana. [address] [place] [address], [address], [place], [place], [address], . tel:[phone] OFFICE/OUTPA TIENT VISIT, EST [facility], [address], [place], [place], [id number], [facility] [place] back pain (chief complaint)ce rvicalgia (chief complaint) Radiculopath y of lumbosacral regionMuscle spasm of backCervical giaLong term (current) use of opiate analgesicChr onic pain syndrome 0 Symone Craig. [address] , [place], [address], [place]. tel:[phone] [facility], [address], [place], [place], [address], [facility] No Information 0 Delonte Ana. [address] [place] [address], [address], [place], [place], [address], [place]. tel:[phone] Referring Provider: Ana Martel, [address] [place] [address] [address], [place], [address] . tel:[phone] OFFICE/OUTPA TIENT VISIT, EST [facility], [address], [place], [place], [id number], [facility] neck pain (chief complaint)lo w back pain (chief complaint) Radiculopath y of lumbosacral regionInfect ion due to intrathecal infusion pump, subsequent encounterMus marquez spasm of backBreakdow n of intrathecal infusion pump, subsequent encounterChr onic pain syndromeEnco unter for therapeutic drug level monitoringLo ng term (current) use of opiate analgesicTyp e 2 diabetes mellitus w/ diabetic neuropathy 0 Delontegerard Oreillysea. [address] [place] [address], [address], [place], [place], [address], [place]. tel:[phone] OFFICE/OUTPA TIENT VISIT, EST [facility], [address], [place], [place], [address], [facility] [place] Follow up chronic pain (chief complaint) Radiculopath y of lumbosacral regionInfect ion due to intrathecal infusion pump, subsequent encounterMus marquez spasm of backBreakdow n of intrathecal infusion pump, subsequent encounterChr onic pain syndromeEnco unter for therapeutic drug level monitoringLo ng term (current) use of opiate analgesicTyp e 2 diabetes mellitus w/ diabetic neuropathy 0 Delonte Ana. [address] [place] [address], [address], [place], [place], [address], . tel:[phone] OFFICE/OUTPA TIENT VISIT, EST [facility], [address], [place], [id number], [facility] [place] low back pain (chief complaint) Radiculopath y of lumbosacral regionInfect ion due to intrathecal infusion pump, subsequent encounterMus marquez spasm of backBreakdow n of intrathecal infusion pump, subsequent encounterChr onic pain syndromeEnco unter for therapeutic drug level monitoringLo ng term (current) use of opiate analgesicTyp e 2 diabetes mellitus w/ diabetic neuropathy 9 Delonte Ana. [address] [place] [address], [address], [place], [place], [address], [place]. tel:[phone] OFFICE/OUTPA TIENT VISIT, EST [facility], [address], [place], [id number], [facility] [place] back pain (chief complaint) Radiculopath y of lumbosacral regionInfect ion due to intrathecal infusion pump, subsequent encounterMus marquez spasm of backBreakdow n of intrathecal infusion pump, subsequent encounterChr onic pain syndromeEnco unter for therapeutic drug level monitoringLo ng term (current) use of opiate analgesicTyp e 2 diabetes mellitus w/ diabetic neuropathy 9 Delonte Naa. [address] [place] [address], [address], [place], [place], [address], [place]. tel:[phone] OFFICE/OUTPA TIENT VISIT, EST [facility], [address], [place], [place], [id number], [facility] [place] low back pain (chief complaint)ne ck pain (chief complaint) Radiculopath y of lumbosacral regionInfect ion due to intrathecal infusion pump, subsequent encounterMus marquez spasm of backBreakdow n of intrathecal infusion pump, subsequent encounterChr onic pain syndromeEnco unter for therapeutic drug level monitoringLo ng term (current) use of opiate analgesic Oct-0 4-201 9 Delonte Ana. [address] [place] [address], [address], [place], [place], [address], [place]. tel:[phone] OFFICE/OUTPA TIENT VISIT, EST [facility], [address], [place], [place], [id number], [facility] [place] low back pain (chief complaint)ne ck pain (chief complaint) Radiculopath y of lumbosacral regionInfect ion due to intrathecal infusion pump, subsequent encounterMus marquez spasm of backBreakdow n of intrathecal infusion pump, subsequent encounterChr onic pain syndromeEnco unter for therapeutic drug level monitoringLo ng term (current) use of opiate analgesic Sep-0 6 9 Hannah Grey. [address] [place] [address], [address] [place] [address], [id number], [place]. tel:[phone] OFFICE/OUTPA TIENT VISIT, EST [facility], [address], [place], [place], [id number], [facility] [place] neck pain (chief complaint) Radiculopath y of lumbosacral regionInfect ion due to intrathecal infusion pump, subsequent encounterMus mraquez spasm of backBreakdow n of intrathecal infusion pump, subsequent encounterChr onic pain syndromeEnco unter for therapeutic drug level monitoringLo ng term (current) use of opiate analgesic Aug-0 9-201 9 Delonte Ana. [address] [place] [address], [address], [place], [place], [address], [place]. tel:[phone] OFFICE/OUTPA TIENT VISIT, EST [facility], [address], [place], [place], [address], [place] [facility] [place] neck pain (chief complaint)lo w back pain (chief complaint) Radiculopath y of lumbosacral regionInfect ion due to intrathecal infusion pump, subsequent encounterMus marquez spasm of backBreakdow n of intrathecal infusion pump, subsequent encounterChr onic pain syndromeEnco unter for therapeutic drug level monitoringLo ng term (current) use of opiate analgesicOve [facility] 2-201 9 Delonte Perez. [address] [place] [address], [address], [place], [place], [address], . tel:[phone] Referring Provider: Ana Martel, [address] [place] [address] [address], [place], [address] . tel:[phone] OFFICE/OUTPA TIENT VISIT, EST [facility], [address], [place], [address], [facility] [place] low back pain (chief complaint)ne ck pain (chief complaint) Radiculopath y of lumbosacral regionInfect ion due to intrathecal infusion pump, subsequent encounterMus marquez spasm of backBreakdow n of intrathecal infusion pump, subsequent encounterChr onic pain syndromeEnco unter for therapeutic drug level monitoringLo ng term (current) use of opiate analgesicOve [facility] 9 Delonte Perez. [address] [place] [address], [address], [place], [place], [address], . tel:[phone] OFFICE/OUTPA TIENT VISIT, EST [facility], [address], [place], [id number], [facility] [place] neck pain (chief complaint)lo w back pain (chief complaint) Radiculopath y of lumbosacral regionInfect ion due to intrathecal infusion pump, subsequent encounterMus marquez spasm of backChronic pain syndromeEnco unter for therapeutic drug level monitoringLo ng term (current) use of opiate analgesicBre akdown of intrathecal infusion pump, subsequent encounter 0 3 9 Delonte Perez. [address] [place] [address], [address], [place], [place], [address], . tel:[phone] OFFICE/OUTPA TIENT VISIT, EST [facility], [address], [place], [place], [id number], [facility] [place] neck pain (chief complaint)lo w back pain (chief complaint)Ab dominal pain (chief complaint) Body mass index (BMI) 32.0-32.9, adultRadicul opathy of lumbosacral regionInfect ion due to intrathecal infusion pump, subsequent encounterBre akdown (mechanical) of implanted electronic neurostimula tor, generator, sequelaMuscl e spasm of backChronic pain syndromeEnco unter for therapeutic drug level monitoringLo ng term (current) use of opiate analgesic Apr-0 5-201 9 Delonte Ana. [address] [place] [address], [address], [place], [place], [address], [place]. tel:[phone] OFFICE/OUTPA TIENT VISIT, [facility], [address], [place], [place], [id number], [facility] [place] neck pain (chief complaint)lo w back pain (chief complaint) OverweightRa diculopathy of lumbosacral regionInfect ion due to intrathecal infusion pump, subsequent encounterBre akdown (mechanical) of implanted electronic neurostimula tor, generator, sequelaChron ic pain syndromeEnco unter for therapeutic drug level monitoringLo ng term (current) use of opiate analgesicMus marquez spasm of back Mar-0 -201 9 Delonte Ana. [address] [place] [address], [address], [place], [place], [address], [place]. tel:[phone] OFFICE/OUTPA TIENT VISIT, [facility], [address], [place], [place], [id number], [facility] [place] neck pain (chief complaint)lo w back pain (chief complaint) OverweightRa diculopathy of lumbosacral regionInfect ion due to intrathecal infusion pump, subsequent encounterBre akdown (mechanical) of implanted electronic neurostimula tor, generator, sequelaChron ic pain syndromeEnco unter for therapeutic drug level monitoringLo ng term (current) use of opiate analgesic Feb-0 1-201 9 Delonte Ana. [address] [place] [address], [address], [place], [place], [address], . tel:[phone] OFFICE/OUTPA TIENT VISIT, EST [facility], [address], [place], [place], [address], [facility] [place] neck pain (chief complaint)lo w back pain (chief complaint) OverweightRa diculopathy of lumbosacral regionInfect ion due to intrathecal infusion pump, subsequent encounterBre akdown (mechanical) of implanted electronic neurostimula tor, generator, sequelaChron ic pain syndromeEnco unter for therapeutic drug level monitoringLo ng term (current) use of opiate analgesic Pierre-0 4-201 9 Delonte Ana. [address] [place] [address], [address] [facility], [place], [place], [address], . tel:[phone] OFFICE/OUTPA TIENT VISIT, EST [facility], [address], [place], [place], [address], [facility] [place] low back pain (chief complaint)ne ck pain (chief complaint) Radiculopath y of lumbosacral regionInfect ion due to intrathecal infusion pump, subsequent encounterBre akdown (mechanical) of implanted electronic neurostimula tor, generator, sequelaChron ic pain syndromeEnco unter for therapeutic drug level monitoringLo ng term (current) use of opiate analgesicOve [facility] Dec-0 7-201 8 Delonte Ana. [address] [place] [address], [address], [place], [place], [address], [place]. tel:[phone] OFFICE/OUTPA TIENT VISIT, EST [facility], [address], [place], [id number], [facility] [place] low back pain (chief complaint)ne ck pain (chief complaint) OverweightRa diculopathy of lumbosacral regionInfect ion due to intrathecal infusion pump, subsequent encounterBre akdown (mechanical) of implanted electronic neurostimula tor, generator, sequelaChron ic pain syndromeEnco unter for therapeutic drug level monitoringLo ng term (current) use of opiate analgesic Nov-0 9-201 8 Delonte Ana. [address] [place] [address], [address], [place], [place], [address], . tel:[phone] OFFICE/OUTPA TIENT VISIT, EST [facility], [address], [place], [place], [address], [facility] [place] neck pain (chief complaint)lo w back pain (chief complaint) OverweightIn fection due to intrathecal infusion pump, subsequent encounterBre akdown (mechanical) of implanted electronic neurostimula tor, generator, sequelaChron ic pain syndromeEnco unter for therapeutic drug level monitoringLo ng term (current) use of opiate analgesicRad iculopathy of lumbosacral region 8 Delonte Perez. [address] [place] [address], [address], [place], [place], [address], [place]. tel:[phone] OFFICE/OUTPA TIENT VISIT, EST [facility], [address], [place], [place], [id number], [facility] [place] neck pain (chief complaint)lo w back pain (chief complaint) Body mass index (BMI) 33.0-33.9, adultInfecti on due to intrathecal infusion pump, subsequent encounterBre akdown (mechanical) of implanted electronic neurostimula tor, generator, sequelaChron ic pain syndromeEnco unter for therapeutic drug level monitoringLo ng term (current) use of opiate analgesic 8 Hannah Edmonds. [address] [place] [address], [address], [place], [address], [place]. tel:[phone] OFFICE/OUTPA TIENT VISIT, EST [facility], [address], [place], [id number], [facility] [place] neck pain (chief complaint)lo w back pain (chief complaint) Infection due to intrathecal infusion pump, subsequent encounterBre akdown (mechanical) of implanted electronic neurostimula tor, generator, sequelaOverw eightChronic pain syndromeEnco unter for therapeutic drug level monitoringLo ng term (current) use of opiate analgesic 8 Delonte Perez. [address] [place] [address], [address] [facility], [place], [place], [address], [place]. tel:[phone] OFFICE/OUTPA TIENT VISIT, EST [facility], [address], [place], [place], [id number], [facility] [place] back pain (chief complaint)ne ck pain (chief complaint) Infection due to intrathecal infusion pump, subsequent encounterBre akdown (mechanical) of implanted electronic neurostimula tor, generator, sequelaChron ic pain syndromeEnco unter for therapeutic drug level monitoringLo ng term (current) use of opiate analgesicBod y mass index (BMI) 32.0-32.9, adult 8 Delonte Jonesa. [address] [place] [address], [address] [place] [address], [id number], [place]. tel:[phone] OFFICE/OUTPA TIENT VISIT, EST [facility], [address], [place], [place], [id number], [facility] [place] back pain (chief complaint)ne ck pain (chief complaint) Infection due to intrathecal infusion pump, subsequent encounterBre akdown (mechanical) of implanted electronic neurostimula tor, generator, sequelaChron ic pain syndromeEnco unter for therapeutic drug level monitoringLo ng term (current) use of opiate analgesicBod y mass index (BMI) 32.0-32.9, adult 8 Delonte Jonesa. [address] [place] [address], Unit [facility], [place], [place], [id number], [place]. tel:[phone] OFFICE/OUTPA TIENT VISIT, EST [facility], [address], [place], [place], [id number], [facility] low back pain (chief complaint) Body mass index (BMI) 32.0-32.9, adultInfecti on due to intrathecal infusion pump, subsequent encounterBre akdown (mechanical) of implanted electronic neurostimula tor, generator, sequelaChron ic pain syndromeLong term (current) use of opiate analgesic 8 Hannah Edmonds. [address] [place] [address], Suite [facility], [place], [place], [id number], [place]. tel:[phone] OFFICE/OUTPA TIENT VISIT, EST [facility], [address], [place], [place], [address], [facility] neck pain (chief complaint)Le g Pain (chief complaint) Body mass index (BMI) 32.0-32.9, adultInfecti on due to intrathecal infusion pump, subsequent encounterBre akdown (mechanical) of implanted electronic neurostimula tor, generator, sequelaChron ic pain syndromeLong term (current) use of opiate analgesic Apr-2 8 Hannah Edmonds. [address] [place] [address], [place] [address], [place], [place], [id number], [place]. tel:[phone] [facility], [address], [place], [place], [address], [facility] [place] Infection due to intrathecal infusion pump, subsequent encounter Apr-0 8 Hannah Edmonds. [address] [place] [address], [place] [address], [place], [place], [id number], [place]. tel:[phone] OFFICE/OUTPA TIENT VISIT, EST [facility], [address], [place], [place], [address], [facility] neck pain (chief complaint)lo w back pain (chief complaint) Chronic pain syndromeBrea kdown (mechanical) of implanted electronic neurostimula tor, generator, initial encounterInf ection due to intrathecal infusion pump, initial encounterLon g term (current) use of opiate analgesic Apr-0 8 Hannah Edmonds. [address] [place] [address], [place], [place], [id number], [place]. tel:[phone] Referring Provider: Grey Young, [address] [place] [address], [place], [address] . tel:[phone] OFFICE/OUTPA TIENT VISIT, EST [facility], [address], [place], [place], [address], [facility] [place] [facility]C low back pain (chief complaint)ne ck pain (chief complaint) Body mass index (BMI) 32.0-32.9, adultSpondyl osis w/o myelopathy of lumbosacral regionRadicu lopathy of lumbosacral regionLow back painLong term (current) use of opiate analgesicChr onic pain syndrome Apr-0 8 Lincoln Rutherford. [address] [facility], [address], [facility], . tel:[phone] OFFICE/OUTPA TIENT VISIT, EST [facility], [address], [place], [place], [address], [facility] [place] PMC neck pain (chief complaint)lo w back pain (chief complaint) Obesity, unspecifiedS pondylosis w/o myelopathy of lumbosacral regionRadicu lopathy of lumbosacral regionLow back painChronic pain syndromePain in right handInflamma tory reaction due to intrathecal infusion pump, sequela 8 Lincoln Rutherford. [address] [facility], [address], [facility], . tel:[phone] [facility], [address], [place], [place], [address], [facility] No Information 8 Jose Theodore. [address] [place], [facility], [place]. [phone] [facility], [address], [place], [place], [address], [facility] No Information 8 Jose Theodore. [address], [place], [address], [place]. tel:[phone] [facility], [address], [place], [place], [address], [facility] No Information 8 Jose Theodore. [address], [place], [place], [facility], . tel:[phone] OFFICE/OUTPA TIENT VISIT, EST [facility], [address], [place], [place], [address], [facility] [place] [facility]C low back pain (chief complaint) Spondylosis w/o myelopathy of lumbosacral regionRadicu lopathy of lumbosacral regionPain in right handLow back painLong term (current) use of opiate analgesicChr onic pain syndromeBody mass index (BMI) 32.0-32.9, adult Jose Theodore. [address], [place], [facility], . tel:[phone] [facility], [address], [place], [place], [address], [facility] [place] No Information 8 Jose Theoodre. [address] [facility], [address], [place], [facility], . tel:[phone] Referring Provider: Arben Hardy, [address], [place], [facility]. tel:[phone] OFFICE/OUTPA TIENT VISIT, EST [facility], [address], [place], [place], [address], [facility] [place] PMC low back pain (chief complaint) Spondylosis w/o myelopathy of lumbosacral regionRadicu lopathy of lumbosacral regionPain in right handLow back painChronic pain syndromeLong term (current) use of opiate analgesicObe sity, unspecified 8 Jose Theodore. [address], [place], [facility], . tel:[phone] Referring Provider: Arben Hardy, [address], [place], [address]. tel:[phone] OFFICE/OUTPA TIENT VISIT, EST [facility], [address], [place], [place], [address], [facility] low back pain (chief complaint) Obesity, unspecifiedS pondylosis w/o myelopathy of lumbosacral regionRadicu lopathy of lumbosacral regionPain in right handLow back painLong term (current) use of opiate analgesicChr onic pain syndrome 8 Lincoln Rutherford. [facility], [address], [place], [facility], . tel:[phone] OFFICE/OUTPA TIENT VISIT, EST [facility], [address], [place], [place], [address], [facility] low back pain (chief complaint)ne ck pain (chief complaint) Body mass index (BMI) 33.0-33.9, adultSpondyl osis w/o myelopathy of lumbosacral regionRadicu lopathy of lumbosacral regionLow back painLong term (current) use of opiate analgesicChr onic pain syndrome 8 Lincoln Rutherford. [facility], [address], [facility], . tel:[phone] OFFICE/OUTPA TIENT VISIT, EST [facility], [address], [place], [place], [address], [facility] back pain (chief complaint) Radiculopath y of lumbosacral regionLow back painLong term (current) use of opiate analgesicChr onic pain syndromeObes ity, unspecified 7 Kathy Tse. [address] [place] [address], [facility] [place], [id number], [place]. [phone] Referring Provider: Dedrick Chou, [address] [place] [address] [place], [address] . tel:[phone] OFFICE/OUTPA TIENT VISIT, EST [facility], [address], [place], [place], [address], [facility] [place] [facility]C low back pain (chief complaint) Spondylosis w/o myelopathy of lumbosacral regionRadicu lopathy of lumbosacral regionPain in right handLow back painLong term (current) use of opiate analgesicChr onic pain syndromeObes ity, unspecified 0 7 [facility]. [address] [place] [address], [facility] [place], [address] [place] [address], . tel:[phone] OFFICE/OUTPA TIENT VISIT, EST [facility], [address], [place], [place], [address], [facility] [place] PMC back pain (chief complaint)ne ck pain (chief complaint) Radiculopath y of lumbosacral regionLow back painLong term (current) use of opiate analgesicEnc ounter for therapeutic drug level monitoringCh ronic pain syndromeCerv icalgia 7 [facility]. [address] [place] [address], [facility] [place], [address] [place] [address], . tel:[phone] OFFICE/OUTPA TIENT VISIT, EST [facility], [address], [place], [place], [address], [facility] [place] neck pain (chief complaint)lo w back pain (chief complaint) Radiculopath y of lumbosacral regionSpondy losis w/o myelopathy of lumbosacral regionLow back painLong term (current) use of opiate analgesicChr onic pain syndromeEnco unter for therapeutic drug level monitoring Sep-0 8 7 Symone Craig. [address] [place], [place], [facility], . tel:[phone] OFFICE/OUTPA TIENT VISIT, EST [facility], [address], [place], [place], [address], [facility] neck pain (chief complaint)lo w back pain (chief complaint) Obesity, unspecifiedR adiculopathy of lumbosacral regionLong term (current) use of opiate analgesicChr onic pain syndromeLow back pain Kathy Tse. [address] [place] [address], [address] [place], [address], . tel:[phone] [facility], [address], [place], [place], [address], [facility] neck pain (chief complaint)lo w back pain (chief complaint) Radiculopath y of lumbosacral regionLow back painEncounte r for therapeutic drug level monitoringLo ng term (current) use of opiate analgesicChr onic pain syndromeCerv icalgiaSpond ylosis w/o myelopathy of lumbosacral region Kathy Tse. [address] [place] [address], [facility] [place], [id number], . tel:[phone] Referring Provider: Dedrick Chou, [address] [place] [address] [place], [address] . tel:[phone] OFFICE/OUTPA TIENT VISIT, EST [facility], [address], [place], [place], [address], [facility] Hip Pain (chief complaint)ne ck pain (chief complaint) Radiculopath y of lumbosacral regionSpondy losis w/o myelopathy of lumbosacral regionLong term (current) use of opiate analgesicChr onic pain syndrome Kathy Tse. [address] [place] [address], [address] [place], [address], . tel:[phone] OFFICE/OUTPA TIENT VISIT, EST [facility], [address], [place], [place], [address], [facility] back pain (chief complaint)pu mp refill (chief complaint) Spondylosis w/o myelopathy of lumbosacral regionRadicu lopathy of lumbosacral regionPain in right handLow back painCervical giaLong term (current) use of opiate analgesicEnc ounter for therapeutic drug level monitoringCh ronic pain syndromeBody mass index (BMI) 31.0-31.9, adult Feb- 7 [facility]. [address] [place] [address], [facility] [place], [address], . tel:[phone] OFFICE/OUTPA TIENT VISIT, EST [facility], [address], [place], [place], [address], [facility] [place] [facility]C neck pain (chief complaint)lo w back pain (chief complaint) Body mass index (BMI) 31.0-31.9, adultSpondyl osis w/o myelopathy of lumbosacral regionRadicu lopathy of lumbosacral regionLong term (current) use of opiate analgesicLow back painEncounte r for therapeutic drug level monitoringCe rvicalgiaChr onic pain syndrome [facility]. [address] [place] [address], [address] [place], [address], [place]. tel:[phone] OFFICE/OUTPA TIENT VISIT, EST [facility], [address], [place], [place], [id number], [facility] [place] [facility]C back pain (chief complaint) Body mass index (BMI) 31.0-31.9, adultCervica lgiaChronic pain syndromeEnco unter for therapeutic drug level monitoringLo ng term (current) use of opiate analgesicLow back painObesity, unspecifiedO verweightPai n in right handRadiculo allie of lumbosacral regionSpondy losis w/o myelopathy of lumbosacral region [facility]. [address] [place] [address], [address] [place], [address] [place] [address], . tel:[phone] [facility], [address], [place], [place], [address], [facility] Pump modification (chief complaint) Body mass index (BMI) 31.0-31.9, adultCervica lgiaChronic pain syndromeEnco unter for therapeutic drug level monitoringLo ng term (current) use of opiate analgesicLow back painObesity, unspecifiedO verweightPai n in right handRadiculo allie of lumbosacral regionSpondy losis w/o myelopathy of lumbosacral region Apr-1 0-201 7 Kathy Tse. [address] [place] [address], [address] [place], [address], . tel:[phone] OFFICE/OUTPA TIENT VISIT, EST [facility], [address], [place], [place], [address], [place] [facility] staple removal (chief complaint)ba ck pain (chief complaint)ne ck pain (chief complaint) Body mass index (BMI) 31.0-31.9, adultCervica lgiaChronic pain syndromeEnco unter for therapeutic drug level monitoringLo ng term (current) use of opiate analgesicLow back painObesity, unspecifiedO verweightPai n in right handRadiculo allie of lumbosacral regionSpondy losis w/o myelopathy of lumbosacral region Apr-0 3 7 Kathy Tse. [address] [place] [address], [address] [place], [address], . tel:[phone] Referring Provider: Dedrick Chou, [address] [place] [address] [place], [address] . tel:[phone] [facility], [address], [place], [place], [address], [place] [facility] [place] [facility] neck pain (chief complaint)lo w back pain (chief complaint)wo und change (chief complaint) Body mass index (BMI) 31.0-31.9, adultCervica lgiaChronic pain syndromeEnco unter for therapeutic drug level monitoringLo ng term (current) use of opiate analgesicLow back painObesity, unspecifiedO verweightPai n in right handRadiculo allie of lumbosacral regionSpondy losis w/o myelopathy of lumbosacral region Nov-10 10-201 7 Kathy Tse. [address] [place] [address], [address] [place], [address], . tel:[phone] Referring Provider: Dedrick Chou, [address] [place] [address] [address] [facility], [place], [address] . tel:[phone] [facility], [address], [place], [place], [address], [facility] [place] Chronic pain syndromeRadi culopathy of lumbosacral region 3-201 7 Kathy Tse. [address] [place] [address], [address] [place], [address], . tel:[phone] OFFICE/OUTPA TIENT VISIT, EST [facility], [address], [place], [place], [address], [facility] neck pain (chief complaint)lo w back pain (chief complaint) Body mass index (BMI) 31.0-31.9, adultCervica lgiaChronic pain syndromeEnco unter for therapeutic drug level monitoringLo ng term (current) use of opiate analgesicObe sity, unspecifiedO verweightPai n in right handRadiculo allie of lumbosacral regionSpondy losis w/o myelopathy of lumbosacral regionLow back pain 7 Kathy Tse. [address] [place] [address], [address] [place], [address], . tel:[phone] OFFICE/OUTPA TIENT VISIT, EST [facility], [address], [place], [place], [address], [facility] low back pain (chief complaint)ne ck pain (chief complaint) Body mass index (BMI) 31.0-31.9, adultCervica lgiaChronic pain syndromeEnco unter for therapeutic drug level monitoringLo ng term (current) use of opiate analgesicPai n in right handRadiculo allie of lumbosacral regionObesit y, unspecified 7 [facility]. [facility], [address] [place], [address], . tel:[phone] OFFICE/OUTPA TIENT VISIT, EST [facility], [address], [place], [place], [address], [facility] back pain (chief complaint)ne ck pain (chief complaint) Spondylosis w/o myelopathy of lumbosacral regionRadicu lopathy of lumbosacral regionPain in right handOverweig htObesity, unspecifiedL royer term (current) use of opiate analgesicEnc ounter for therapeutic drug level monitoringCh ronic pain syndromeCerv icalgiaBody mass index (BMI) 31.0-31.9, adult 6 [facility]. [address] [place] [address], [address] [place], [address], . tel:[phone] [facility], [address], [place], [place], [address], [facility] [place] [facility]C neck pain (chief complaint)lo w back pain (chief complaint) Body mass index (BMI) 31.0-31.9, adultCervica lgiaChronic pain syndromeEnco unter for therapeutic drug level monitoringLo ng term (current) use of opiate analgesicObe sity, unspecifiedO verweightPai n in right handRadiculo allie of lumbosacral regionSpondy losis w/o myelopathy of lumbosacral region 6 [facility]. [address] [place] [address], [address] [place], [address], . tel:[phone] [facility], [address], [place], [place], [address], [facility] Radiculopath y of lumbosacral region 6 [facility]. [address] [place] [address], [address] [place], [address], . tel:[phone] [facility], [address], [place], [place], [id number], [place] [facility] No Information 6 Madelinadán Santiago. [address], [place], [address], [place]. tel:[phone] OFFICE/OUTPA TIENT VISIT, EST [facility], [address], [place], [place], [address], [facility] [place] [facility] neck pain (chief complaint)lo w back pain (chief complaint) CervicalgiaC hronic pain syndromeEnco unter for therapeutic drug level monitoringLo ng term (current) use of opiate analgesicObe sity, unspecifiedO verweightRad iculopathy of lumbosacral regionSpondy losis w/o myelopathy of lumbosacral regionPain in right hand [facility]. [address] [place] [address], [facility] [place], [address] [place] [address], . tel:[phone] OFFICE/OUTPA TIENT VISIT, EST [facility], [address], [place], [place], [address], [facility] [place] [facility] neck pain (chief complaint)lo w back pain (chief complaint) Obesity, unspecifiedC hronic pain syndromeLong term (current) use of opiate analgesicRad iculopathy of lumbosacral regionSpondy losis w/o myelopathy of lumbosacral regionCervic algia 6 [facility]. [address] [place] [address], [facility] [place], [address] [place] [address], . tel:[phone] OFFICE/OUTPA TIENT VISIT, EST [facility], [address], [place], [place], [id number], [facility] [place] [facility] low back pain (chief complaint)ne ck pain (chief complaint) Obesity, unspecifiedC hronic pain syndromeLong term (current) use of opiate analgesicRad iculopathy of lumbosacral regionSpondy losis w/o myelopathy of lumbosacral region Sep-3 0-201 6 [facility]. [facility], [address] [place], [address], . tel:[phone] OFFICE/OUTPA TIENT VISIT, EST [facility], [address], [place], [place], [id number], [facility] [place] [facility] neck pain (chief complaint)lo w back pain (chief complaint) Obesity, unspecifiedC hronic pain syndromeLong term (current) use of opiate analgesicCer vicalgiaRadi culopathy of lumbosacral regionSpondy losis w/o myelopathy of lumbosacral regionEncoun ter for therapeutic drug level monitoring Sep-0 2-201 6 [facility]. [address] [place] [address], [address] [place], [address], . tel:[phone] OFFICE/OUTPA TIENT VISIT, EST [facility], [address], [place], [place], [address], [facility] [place] [facility] neck pain (chief complaint)Ab dominal pain (chief complaint)lo w back pain (chief complaint) OverweightCh ronic pain syndromeLong term (current) use of opiate analgesicRad iculopathy of lumbosacral regionSpondy ls w/o myelopathy or radiculopath y, lumbosacr region Aug-0 5-201 6 [facility]. [facility], [address] [place], [address], . tel:[phone] [facility], [address], [place], [place], [address], [facility] [place] No Information 6 Damion Santiago. [address], [place], [address], [place]. tel:[phone] [facility], [address], [place], [place], [address], [place] [facility] [place] Radiculopath y of lumbosacral region 6 Indio Saxena. [address], [place], [facility], . tel:[phone] Referring Provider: Hemanth Mora, [address], [place], [place], [facility]. tel:[phone] OFFICE/OUTPA TIENT VISIT, EST [facility], [address], [place], [place], [id number], [facility] [place] neck pain (chief complaint)lo w back pain (chief complaint) Obesity, unspecifiedC hronic pain syndromeRadi culopathy of lumbosacral regionCervic algiaLong term (current) use of opiate analgesicEnc ounter for therapeutic drug level monitoring 6 Indio Saxena. [address], [place], [facility], [place]. tel:[phone] OFFICE/OUTPA TIENT VISIT, EST [facility], [address], [place], [place], [address], [facility] [place] neck pain (chief complaint)lo w back pain (chief complaint) Obesity, unspecified 6 Indio Saxena. [address], [place], [facility], [place]. tel:[phone] OFFICE/OUTPA TIENT VISIT, EST [facility], [address], [place], [place], [address], [facility] [place] neck pain (chief complaint)lo w back pain (chief complaint) Obesity, unspecifiedC hronic pain syndromeRadi culopathy of lumbosacral regionCervic algiaLong term (current) use of opiate analgesicEnc ounter for therapeutic drug level monitoring 6 Indio Saxena. [address], [place], [facility], [place]. tel:[phone] OFFICE/OUTPA TIENT VISIT, EST [facility], [address], [place], [place], [address], [facility] [place] low back pain (chief complaint)ne ck pain (chief complaint) Obesity, unspecifiedC hronic pain syndromeRadi culopathy of lumbosacral regionCervic algiaLong term (current) use of opiate analgesicEnc ounter for therapeutic drug level monitoring 6 Indio Saxena. [address], [place], [place], [facility], [place]. tel:[phone] OFFICE/OUTPA TIENT VISIT, EST [facility], [address], [place], [place], [id number], [facility] [place] low back pain (chief complaint)ne ck pain (chief complaint) Obesity, unspecifiedC hronic pain syndromeRadi culopathy of lumbosacral regionCervic algiaLong term (current) use of opiate analgesicEnc ounter for therapeutic drug level monitoring 6 Indio Saxena. [address], [place], [place], [facility], [place]. tel:[phone] OFFICE/OUTPA TIENT VISIT, EST [facility], [address], [place], [place], [id number], [facility] [place] low back pain (chief complaint)ne ck pain (chief complaint) Obesity, unspecifiedC hronic pain syndromeRadi culopathy of lumbosacral regionCervic algiaLong term (current) use of opiate analgesicEnc ounter for therapeutic drug level monitoring 6 Indio Saxena. [address], [place], [facility], [place]. tel:[phone] OFFICE/OUTPA TIENT VISIT, EST [facility], [address], [place], [place], [id number], [facility] [place] neck pain (chief complaint)lo w back pain (chief complaint) Chronic pain syndromeRadi culopathy of lumbosacral regionCervic algiaLong term (current) use of opiate analgesicEnc ounter for therapeutic drug level monitoring 6 Indio Saxena. [address], [place], [facility], [place]. 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 [address], [place], [facility], [place]. [phone] OFFICE/OUTPA TIENT VISIT, EST [facility], [address], [place], [place], [id number], [facility] [place] low back pain (chief complaint)ne ck pain (chief complaint) Obesity, unspecifiedL royer term (current) use of opiate analgesicEnc ounter for therapeutic drug level monitoringCe rvicalgiaRad iculopathy of lumbosacral regionChroni c pain syndrome 5 Indio Saxena. [address], [place], [facility], [place]. [phone] OFFICE/OUTPA TIENT VISIT, EST [facility], [address], [place], [place], [phone], [facility] [place] low back pain (chief complaint)ne ck pain (chief complaint) Obesity, unspecifiedC hronic pain syndromeCerv icalgiaEncou nter for therapeutic drug level monitoringLo ng term (current) use of opiate analgesicRad iculopathy of lumbosacral region 5 Indio Saxena. [address], [place], [facility], [place]. [phone] Referring Provider: Hemanth Mora, [address], [place], [facility]. tel:[phone] OFFICE/OUTPA TIENT VISIT, EST [facility], [address], [place], [place], [id number], [facility] [place] low back pain (chief complaint) OverweightCh ronic pain syndromeLumb ar radiculopath yLumbar disc degenerative diseaseCervi theo degenerative disk diseaseEncou nter for current bale tie machine operator use of high risk medicationEn counter for therapeutic drug monitoring 5 Indio Saxena. [address], [place], [address], [place]. 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 [address], [place], [facility], [place]. tel:[phone] Referring Provider: Hemanth Mora, [address], [place], [facility]. tel:[phone] OFFICE/OUTPA TIENT VISIT, EST [facility], [address], [place], [place], [id number], [facility] [place] neck pain (chief complaint)lo w back pain (chief complaint) ObesityLumba r radiculopath yLumbar disc degenerative diseaseCervi theo degenerative disk diseaseChron ic pain syndromeEnco unter for therapeutic drug monitoringEn counter for current correction use of high risk medication Symone Craig. [address], [place], [facility], . tel:[phone] Family History Family Member Type Diagnosis Age At Onset Mother Problem (finding) malignant neoplasm of l lashaun Mother Problem (finding) Father Problem (finding) cancer of colon Brother Problem Sarcoma Father Problem (finding) Payers Payer name Insurance type Covered libertarian ID Authortank verma(s) [facility] [id number] Social History Type Description Quantity Date Captured Comments Alcohol Use Details Unknown Caffeine Use Details Unknown Tobacco Use Status No Information Smoking Status No Information Sex Male Chief Complaint And Reason For Visit No Information Reason For Referral Reason For Referral No Information Plan Of Treatment Date Type Action Status Goal Lifestyle education regardin g diet completed Goal Dietary manageme nt education, guidance, and counseling completed Goal Dietary manageme nt education, guidance, and counseling completed Goal Dietary manageme nt education, guidance, and counseling completed Goal Dietary manageme nt education, guidance, and counseling completed Goal Dietary manageme nt education, guidance, and counseling completed Goal Dietary manageme nt education, guidance, and counseling completed Goal Dietary manageme nt education, guidance, and counseling completed Goal Dietary manageme nt education, guidance, and counseling completed Goal Dietary manageme nt education, guidance, and counseling completed Goal Dietary manageme nt education, guidance, and counseling completed Goal Dietary manageme nt education, guidance, and counseling completed Goal Dietary manageme nt education, guidance, and counseling completed Goal Dietary manageme nt education, guidance, and counseling completed Goal Dietary manageme nt education, guidance, and counseling completed Goal Tobacco cessation counseling completed Goal Dietary manageme nt education, guidance, and counseling completed Goal Tobacco cessation counseling completed Goal Tobacco cessation counseling completed Goal Dietary manageme nt education, guidance, and counseling completed Goal Dietary manageme nt education, guidance, and counseling completed Goal Dietary manageme nt education, guidance, and counseling completed Goal Dietary manageme nt education, guidance, and counseling completed Goal Dietary manageme nt education, guidance, and counseling completed Goal Dietary manageme nt education, guidance, and counseling completed Goal Dietary manageme nt education, guidance, and counseling completed Goal Dietary manageme nt education, guidance, and counseling completed Goal Dietary manageme nt education, guidance, and counseling completed Goal Dietary manageme nt education, guidance, and counseling completed Goal Dietary manageme nt education, guidance, and counseling completed Goal Dietary manageme nt education, guidance, and counseling completed Goal Dietary manageme nt education, guidance, and counseling completed Goal Dietary manageme nt education, guidance, and counseling completed Goal Dietary manageme nt education, guidance, and counseling completed Goal Dietary manageme nt education, guidance, and counseling completed Goal Dietary manageme nt education, guidance, and counseling completed Goal Dietary manageme nt education, guidance, and counseling completed Goal Dietary manageme nt education, guidance, and counseling completed Goal Dietary manageme nt education, guidance, and counseling completed Goal Dietary manageme nt education, guidance, and counseling completed Goal Dietary manageme nt education, guidance, and counseling completed Goal Dietary manageme nt education, guidance, and counseling completed Goal Dietary manageme nt education, guidance, and counseling completed Goal Dietary manageme nt education, guidance, and counseling completed Goal Dietary manageme nt education, guidance, and counseling completed Goal Dietary manageme nt education, guidance, and counseling completed Goal Dietary manageme nt education, guidance, and counseling completed Goal Dietary manageme nt education, guidance, and counseling completed Goal Dietary manageme nt education, guidance, and counseling completed Goal Dietary manageme nt education, guidance, and counseling completed Referral Ordered: X-RAY EXAM OF L-S SPINE 2/3 V ordered Referral Ordered: X-RAY EXAM OF THORACIC SPINE 2V ordered Referral Ordered: X-RAY EXAM OF SPINE 1V AP TS LS ordered Referral Ordered: X-Ray, Hips, Bilateral, W Pelvis 2 Views Bilateral hip ordered Referral Ordered: CT LUMBAR SPINE W/O DYE ordered Referral Ordered: home health (related to Breakdown (mechanical) of implanted electronic neurostimulator, generator, initial encounter) ordered Referral Referred To: home health Ordered: Referrals: home health. Evaluate and treat ordered Referral Ordered: Brayden Frederick -Infectious Disease (related to Inflammatory reaction due to intrathecal infusion pump, sequela) ordered Referral Ordered: Oleksandr Cheng -Infectious Disease (related to Inflammatory reaction due to intrathecal infusion pump, sequela) ordered Referral Referred To: Brayden Frederick [address] [place], [place], [id number] Ordered: Referrals: Infectious Disease. Brayden Frederick. Evaluate and treat ordered Referral Referred To: Oleksandr Cheng [address] [place], [place], [id number] Ordered: Referrals: Infectious Disease. Oleksandr Cheng. Evaluate and treat ordered Referral Ordered: CT ABDOMEN W/O DYE ordered Referral Ordered: CHEST X-RAY ordered Referral Ordered: X-RAY EXAM OF THORACIC SPINE ordered Referral Ordered: MRI C-SPINE W/O CONTRAST spine, cervical ordered Future Order: Lab Order Urine Dr ug Screen w/Alcohol Screen (101), Collected on: , Sent on: Sent History Of Present Illness Encounter Date Complaint History Of Prese nt Illness low back pain Severity level i s 7. The problem is stable. It occurs persistently. Location of pain is lower back. Pain is radiated to the left foot and left thigh.The patient describes the pain as burning and sharp. Symptoms are aggravated by daily activities, standing and walking. Symptoms are relieved by pain meds/drugs. low back pain Severity level i s 8. The problem is stable. It occurs persistently. Location of pain is lower back. Pain is radiated to the left foot and left thigh.The patient describes the pain as burning and sharp.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 loss of balance, numbness, rash, sexual dysfunction, sexual dysfunction not spinal related, spasms, tenderness, tingling in the arms, tingling in the legs, weakness and weight loss. Abdominal pain Severity is 7. I t occurs daily. The problem is unchanged. Location is LUQ, RUQ, LLQ, RLQ. The patient describes it as burning, sharp and stabbing. Relieving factors include pain meds. Associated symptoms include diarrhea and heartburn. Pertinent negatives include back pain, bloating, blood in stool, change in appetite, constipation, diaphoresis, dizziness, dyspnea, eructation, fatigue, fever, flank pain, flatulence, flushing, hematuria, jaundice, lightheadedness, myalgia, nausea, rash, reflux, vomiting, weight gain and weight loss. neck pain The problem is s evere. The problem has not changed. The frequency of pain is constant. Location of pain is bilateral posterior neck. There is no radiation of pain. The patient describes the pain as Burning, Piercing, Sharp, Shooting and Stabbing. Relieving factors include ice and narcotic analgesics. Associated symptoms include bladder retention and joint pain. Pertinent negatives include bladder dysfunction not spinal related, bladder incontinence, bowel dysfunction not spinal related, bowel incontinence, bowel retention, decreased mobility, dermatomic rash, difficulty sleeping, dysphagia, incoordination, loss of balance, muscle atrophy, muscle spasm, numbness, rash, sexual dysfunction, sexual dysfunction (not spinal related), tenderness, tingling, weakness and weight loss. low back pain Severity level i s 8. The problem is stable. It occurs persistently. Location of pain is lower back. Pain is radiated to the left ankle, left calf, left foot and left thigh.The patient describes the pain as burning, numbness, piercing, sharp, shooting, stabbing and throbbing. Symptoms are aggravated by daily activities. Symptoms are relieved by heat, ice, lying down, injection, pain meds/drugs and rest. neck pain The severity of the problem is moderate. The problem has not changed. The frequency of pain is constant. Location of pain is bilateral anterior neck, bilateral lateral neck and bilateral posterior neck. The patient describes the pain as Burning, Piercing, Sharp, Shooting, Stabbing, Throbbing and Tingling. Relieving factors include heating pad, ice, injection, narcotic analgesics and lying down/rest. Associated symptoms include bladder incontinence and joint pain. Pertinent negatives include bladder retention, rash, sexual dysfunction and weight loss. Additional information: pain level 5. neck pain Onset: 25 years ago. The severity of the problem is mild. The problem has not changed. The frequency of pain is constant. Location of pain is bilateral anterior neck, bilateral lateral neck and bilateral posterior neck. The patient describes the pain as Aching, Burning, Piercing, Sharp and Stabbing. Relieving factors include heating pad, ice, injection, narcotic analgesics, NSAIDs and lying down/rest. Associated symptoms include bladder retention and joint pain. Pertinent negatives include bladder incontinence, rash, sexual dysfunction and weight loss. Additional information: pain level 4. low back pain Onset: 25 years ago. Severity level is 8. The problem is stable. It occurs persistently. Location of pain is lower back. Pain is radiated to the left ankle, right ankle, left calf, right calf, left foot, right foot, left thigh and right thigh.The patient describes the pain as an ache, burning, piercing, sharp and stabbing. Symptoms are relieved by heat, ice, lying down, injection, over the counter medication, pain meds/drugs and rest. neck pain The severity of the problem is mild. Location of pain is bilateral anterior neck, bilateral lateral neck and bilateral posterior neck. The patient describes the pain as Burning, Discomforting, Piercing, Sharp and Stabbing. The patient denies aggravating factors such as daily activities. Relieving factors include ice, injection, narcotic analgesics, NSAIDs and lying down/rest. Associated symptoms include bladder retention and joint pain. Pertinent negatives include bladder incontinence, rash, sexual dysfunction and weight loss. low back pain Severity level i s 7. The problem is stable. It occurs persistently. Location of pain is lower back. Pain is radiated to the left ankle, left calf, left foot and left thigh.The patient describes the pain as burning, discomforting, piercing, sharp and stabbing. Symptoms are aggravated by daily activities. Symptoms are relieved by ice, lying down, injection, over the counter medication, pain meds/drugs and rest. low back pain Onset: year ago. Severity level is 6. The problem is stable. Location of pain is lower back. Pain is radiated to the left calf, left thigh and left buttock.The patient describes the pain as an ache, burning, discomforting, piercing, sharp, shooting and stabbing. Symptoms are aggravated by ascending stairs, daily activities, descending stairs, jumping, lifting, rolling over in bed, sitting, standing and walking. Symptoms are relieved by pain meds/drugs. neck pain Onset: 20 years ago. The severity of the problem is moderate. The problem has not changed. The frequency of pain is constant. Location of pain is bilateral anterior neck, bilateral lateral neck, bilateral posterior neck and bilateral shoulder. There is radiation of pain to the bilateral upper arm. The patient describes the pain as Aching, Burning, Discomforting, Piercing, Sharp, Shooting and Stabbing. Aggravating factors include climbing stairs, lifting, lying down, prolonged sitting, standing and walking. The patient denies aggravating factors such as daily activities changing positions, jumping and weather. Relieving factors include narcotic analgesics. neck pain The severity of the problem is moderate. The problem has not changed. The frequency of pain is constant. Location of pain is bilateral anterior neck, bilateral lateral neck and bilateral posterior neck. The patient describes the pain as Burning, Piercing, Sharp, Shooting and Tingling. Aggravating factors include climbing stairs and lifting. The patient denies aggravating factors such as changing positions, daily activities, jumping, roling over in bed and sitting. Relieving factors include ice, narcotic analgesics and lying down/rest. Associated symptoms include bladder retention and joint pain. Pertinent negatives include bladder incontinence, rash, sexual dysfunction and weight loss. low back pain Severity level i s 7. The problem is stable. It occurs persistently. Location of pain is lower back. Pain is radiated to the left ankle, left calf, left foot and left thigh.The patient describes the pain as burning, piercing, sharp, shooting and tingling. Symptoms are aggravated by ascending stairs, changing positions, daily activities, jumping, lifting, rolling over in bed and sitting. Symptoms are relieved by ice, lying down, pain meds/drugs and rest. neck pain Onset: 20 years ago. The problem has not changed. The frequency of pain is constant. Location of pain is bilateral anterior neck, bilateral lateral neck and bilateral posterior neck. The patient describes the pain as Burning, Piercing, Sharp and Stabbing. Aggravating factors include climbing stairs, lifting, standing and walking. The patient denies aggravating factors such as changing positions, daily activities and jumping. Relieving factors include ice, narcotic analgesics and lying down/rest. Associated symptoms include bladder retention and joint pain. Pertinent negatives include bladder incontinence, rash, sexual dysfunction and weight loss. low back pain Severity level i s 7. The problem is stable. It occurs persistently. Location of pain is lower back. Pain is radiated to the left ankle, left calf, left foot and left thigh.The patient describes the pain as burning, piercing, sharp and stabbing. Symptoms are aggravated by ascending stairs, changing positions, daily activities, jumping, lifting, standing and walking. Symptoms are relieved by ice, lying down, pain meds/drugs and rest. low back pain Onset: 25 years ago. Severity level is 8. The problem is stable. It occurs persistently. Location of pain is lower back. Pain is radiated to the left ankle, left calf, left foot and left thigh.The patient describes the pain as burning, piercing, sharp, shooting and throbbing. Symptoms are aggravated by ascending stairs, changing positions, daily activities, jumping, lifting, rolling over in bed and standing. Symptoms are relieved by ice, lying down and pain meds/drugs. neck pain Onset: 25 years ago. The problem is severe. The problem has not changed. The frequency of pain is constant. Location of pain is bilateral posterior neck. The patient describes the pain as Burning, Piercing, Sharp and Throbbing. Aggravating factors include lifting, stairs, changing positions, daily activities, jumping and rolling over in bed. Relieving factors include ice, narcotic analgesics and lying down. Associated symptoms include bladder retention and joint pain. Pertinent negatives include bladder incontinence, rash, sexual dysfunction and weight loss. low back pain Onset: 25 years ago. Location of pain is lower back. Pain is radiated to the left ankle, left calf, left foot and left thigh.The patient describes the pain as burning, piercing, sharp and stabbing. Symptoms are aggravated by ascending stairs, changing positions, daily activities, jumping, lifting, sitting and standing. Symptoms are relieved by ice, lying down, movement, pain meds/drugs and rest. neck pain Onset: 25 years ago. The frequency of pain is constant. Location of pain is bilateral anterior neck, bilateral lateral neck and bilateral posterior neck. The patient describes the pain as Burning, Piercing, Sharp and Stabbing. Aggravating factors include climbing stairs, lifting and standing. The patient denies aggravating factors such as changing positions, daily activities, jumping and sitting. Relieving factors include ice, narcotic analgesics, lying down/rest and movement. Associated symptoms include joint pain. Pertinent negatives include bladder incontinence, bladder retention, rash, sexual dysfunction and weight loss. back pain Severity level i s 8. The problem is worsening. It occurs persistently. Location of pain is upper back, middle back and lower back. Pain is radiated to the left ankle, left arm, left calf, left foot and left thigh.The patient describes the pain as burning, piercing, sharp, shooting, stabbing and throbbing. Symptoms are aggravated by ascending stairs, daily activities, descending stairs, jumping, lifting, rolling over in bed, standing and walking. Symptoms are relieved by ice, lying down, pain meds/drugs and rest. Pertinent negatives include abdominal pain, bladder dysfunction not spinal related, bladder incontinence, bladder retention, bowel dysfunction not spinal related, bowel incontinence, bowel retention, decreased mobility, diarrhea, dyspareunia, joint pain, limping, loss of balance, numbness, rash, sexual dysfunction, sexual dysfunction not spinal related, spasms, tenderness, tingling in the arms, tingling in the legs, weakness and weight loss. neck pain The severity of the problem is incapacitating. The problem has worsened. The frequency of pain is constant. Location of pain is bilateral head, bilateral posterior neck and bilateral shoulder. There is no radiation of pain. The patient describes the pain as burning, piercing, sharp, shooting, stabbing and throbbing. Aggravating factors include climbing stairs, lifting, standing and walking. Relieving factors include ice, rest and Pain Meds/drugs. Pertinent negatives include bladder dysfunction not spinal related, bladder incontinence, bladder retention, bowel dysfunction not spinal related, bowel incontinence, bowel retention, decreased mobility, dermatomic rash, difficulty sleeping, dysphagia, incoordination, joint pain, loss of balance, muscle atrophy, muscle spasm, numbness, rash, sexual dysfunction, sexual dysfunction (not spinal related), tenderness, tingling, weakness and weight loss. back pain Severity level i s 8. The problem is stable. It occurs persistently. Location of pain is lower back. Pain is radiated to the left ankle, left calf, left foot and left thigh.The patient describes the pain as burning, piercing, sharp, shooting, stabbing and throbbing. Symptoms are aggravated by ascending stairs, bending, changing positions, daily activities, descending stairs, jumping, lifting, lying/rest, rolling over in bed, sitting, standing, twisting and walking. Symptoms are relieved by ice, lying down, pain meds/drugs and rest. Pertinent negatives include abdominal pain, bladder dysfunction not spinal related, bladder incontinence, bladder retention, bowel dysfunction not spinal related, bowel incontinence, bowel retention, decreased mobility, diarrhea, dyspareunia, joint pain, limping, loss of balance, numbness, rash, sexual dysfunction, sexual dysfunction not spinal related, spasms, tenderness, tingling in the arms, tingling in the legs, weakness and weight loss. neck pain The problem is s evere. The problem has not changed. The frequency of pain is constant. Location of pain is bilateral posterior neck and bilateral shoulder. There is no radiation of pain. The patient describes the pain as burning, piercing, sharp, shooting, stabbing, throbbing and tingling. Aggravating factors include bending, climbing stairs, lifting, lying down, prolonged sitting, standing, turning head, twisting, walking and daily activities. Relieving factors include ice, rest and Pain MEds/drugs. Pertinent negatives include bladder dysfunction not spinal related, bladder incontinence, bladder retention, bowel dysfunction not spinal related, bowel incontinence, bowel retention, decreased mobility, dermatomic rash, difficulty sleeping, dysphagia, incoordination, joint pain, loss of balance, muscle atrophy, muscle spasm, numbness, rash, sexual dysfunction, sexual dysfunction (not spinal related), tenderness, tingling, weakness and weight loss. low back pain Severity level i s 8. The problem is stable. It occurs persistently. Location of pain is lower back, left flank and neck. Pain is radiated to the right ankle, right calf, right foot and right thigh.The patient describes the pain as burning, piercing, sharp, shooting, stabbing and tingling. Symptoms are aggravated by ascending stairs, changing positions, daily activities, descending stairs, jumping, lifting, sitting, standing and walking. Symptoms are relieved by ice, lying down and pain meds/drugs. Associated symptoms include abdominal pain, bladder retention and diarrhea. Pertinent negatives include bladder dysfunction not spinal related, bladder incontinence, bowel dysfunction not spinal related, bowel incontinence, bowel retention, decreased mobility, dyspareunia, joint pain, limping, loss of balance, numbness, rash, sexual dysfunction, sexual dysfunction not spinal related, spasms, tenderness, tingling in the arms, tingling in the legs, weakness and weight loss. neck pain The problem is s evere. Location of pain is bilateral posterior neck and left shoulder. The patient describes the pain as burning, piercing, sharp, shooting, stabbing and throbbing. Aggravating factors include climbing stairs, prolonged sitting, standing, walking, changing positions and daily activities. Relieving factors include ice and rest. Pertinent negatives include bladder incontinence, bladder retention, joint pain, rash, sexual dysfunction and weight loss. Leg Pain Severity level i s 8. Location: left. The pain is burning, sharp and throbbing. The pain is aggravated by climbing (and descending) stairs, sitting, walking, standing, changing positions anddaily activites. The pain is relieved by ice, pain/RX meds and rest. Pertinent negatives include difficulty initiating sleep. neck pain Location of pain is bilateral posterior neck. The patient describes the pain as burning, piercing, sharp, shooting and stabbing. Aggravating factors include climbing stairs, lifting and prolonged sitting. Relieving factors include narcotic analgesics and rest. Associated symptoms include bladder retention and joint pain. Pertinent negatives include bladder incontinence, rash, sexual dysfunction and weight loss. low back pain Location of pain is lower back.The patient describes the pain as burning, piercing, sharp, shooting and throbbing. Symptoms are aggravated by ascending stairs, changing positions, daily activities, descending stairs and sitting. Symptoms are relieved by lying down, pain meds/drugs and rest. low back pain Severity level i s 9. Location of pain is lower back. Pain is radiated to the Left Leg.The patient describes the pain as an ache, burning, numbness, piercing, sharp, shooting and stabbing. Symptoms are aggravated by ascending stairs, changing positions, daily activities, descending stairs, jumping, lifting, sitting and standing. Symptoms are relieved by ice, lying down and pain meds/drugs. neck pain The problem is s evere. Location of pain is bilateral posterior neck. The patient describes the pain as aching, burning, piercing, sharp, shooting and stabbing. Aggravating factors include climbing stairs, lifting, prolonged sitting, standing, Changing Position, Daily activities and Jumping. neck pain Location of pain is bilateral anterior neck, bilateral lateral neck and bilateral posterior neck. There is radiation of pain to the right interscapular. The patient describes the pain as aching, burning, discomforting, sharp, shooting, tingling and numbness. Aggravating factors include climbing stairs and lifting. The patient denies aggravating factors such as daily activities, changign positions, jumping and weather. Relieving factors include ice, narcotic analgesics and lying down/rest. Associated symptoms include bladder retention, joint pain and rash. Pertinent negatives include bladder incontinence, sexual dysfunction and weight loss. low back pain Location of pain is lower back. Pain is radiated to the right ankle, right calf, right foot and right thigh.The patient describes the pain as an ache, burning, discomforting, numbness, sharp, shooting and tingling. Symptoms are aggravated by ascending stairs, changing positions, daily activities, jumping, lifting and weather. Symptoms are relieved by ice, lying down, pain meds/drugs and rest. low back pain The problem is s table. It occurs persistently. Pain is radiated to the left calf, left foot and left thigh.The patient describes the pain as burning, piercing, sharp and shooting. Symptoms are aggravated by ascending stairs, changing positions, daily activities, descending stairs, jumping, lifting, sitting and standing. Symptoms are relieved by heat, ice and pain meds/drugs. low back pain Location of pain is lower back. Pain is radiated to the right ankle, right calf, right foot and right thigh.The patient describes the pain as burning, piercing, sharp, shooting and throbbing. Symptoms are aggravated by ascending stairs, changing positions, daily activities, jumping, lifting, standing and walking. Symptoms are relieved by ice, lying down, pain meds/drugs and rest. low back pain Location of pain is lower back. Pain is radiated to the right ankle, right calf, right foot and right thigh.The patient describes the pain as burning, piercing, sharp, shooting and stabbing. Symptoms are aggravated by ascending stairs, changing positions, daily activities, jumping, lifting, standing, walking and weather. Symptoms are relieved by lying down, pain meds/drugs and rest. neck pain The problem is s evere. The problem has not changed. The frequency of pain is constant. Location of pain is bilateral posterior neck. The patient describes the pain as burning, piercing, sharp, shooting and stabbing. Aggravating factors include climbing stairs, lifting, lying down and standing. Relieving factors include heating pad, narcotic analgesics and rest. Associated symptoms include bladder retention and joint pain. Pertinent negatives include bladder incontinence, rash, sexual dysfunction and weight loss. low back pain Severity level i s 7. The problem is stable. It occurs persistently. Location of pain is lower back. Pain is radiated to the Right Leg.The patient describes the pain as burning, numbness, piercing, sharp, shooting and stabbing. Symptoms are aggravated by ascending stairs, descending stairs, jumping, lifting, rolling over in bed, sitting and standing. Symptoms are relieved by heat, lying down and pain meds/drugs. back pain The problem is s table. It occurs persistently. Location of pain is upper back, middle back and lower back. Pain is radiated to the right ankle, right calf, right foot and right thigh.The patient describes the pain as burning, piercing, sharp, shooting, stabbing and tingling. Symptoms are aggravated by ascending stairs, changing positions, daily activities, jumping, lifting, rolling over in bed, sitting and standing. Symptoms are relieved by ice, lying down, pain meds/drugs and rest. low back pain The problem is s table. It occurs persistently. Location of pain is lower back. Pain is radiated to the right ankle, right calf, right foot and right thigh.The patient describes the pain as burning, sharp, shooting, stabbing and tingling. Symptoms are aggravated by ascending stairs, changing positions, daily activities, jumping, lifting and sitting. Symptoms are relieved by heat, lying down, pain meds/drugs and rest. Associated symptoms include bladder retention and joint pain. Pertinent negatives include abdominal pain, bladder dysfunction not spinal related, bladder incontinence, bowel dysfunction not spinal related, bowel incontinence, bowel retention, decreased mobility, diarrhea, dyspareunia, limping, loss of balance, numbness, rash, sexual dysfunction, sexual dysfunction not spinal related, spasms, tenderness, tingling in the arms, tingling in the legs, weakness and weight loss. neck pain The severity of the problem is moderate. The problem has not changed. The frequency of pain is constant. Location of pain is bilateral posterior neck. The patient describes the pain as burning, piercing, sharp, shooting, stabbing and throbbing. Aggravating factors include exertion, flexion and hyperextension. Relieving factors include narcotic analgesics and rest. Associated symptoms include joint pain. Pertinent negatives include bladder dysfunction not spinal related, bladder incontinence, bladder retention, bowel dysfunction not spinal related, bowel incontinence, bowel retention, decreased mobility, dermatomic rash, difficulty sleeping, dysphagia, incoordination, loss of balance, muscle atrophy, muscle spasm, numbness, rash, sexual dysfunction, sexual dysfunction (not spinal related), tenderness, tingling, weakness and weight loss. back pain Severity level i s 7. The problem is stable. It occurs persistently. Location of pain is lower back. Pain is radiated to the right calf, right foot and right thigh.The patient describes the pain as burning, piercing, sharp, shooting, stabbing and throbbing. Symptoms are aggravated by ascending stairs, changing positions, daily activities, descending stairs, jumping, lifting, standing and weather. Symptoms are relieved by lying down, pain meds/drugs, rest and intrathecal pump. low back pain Severity level i s 8. The problem is stable. It occurs persistently. Location of pain is lower back. Pain is radiated to the right calf and right thigh.The patient describes the pain as burning, numbness, sharp and shooting. Context: no injury. Symptoms are aggravated by ascending stairs, changing positions, daily activities, jumping and lifting. Symptoms are relieved by ice, lying down and pain meds/drugs. neck pain The problem has not changed. The frequency of pain is constant. Location of pain is bilateral posterior neck. There is no radiation of pain. The patient describes the pain as burning, sharp, shooting and tingling. Aggravating factors include climbing stairs, exertion and lifting. Relieving factors include ice, narcotic analgesics and rest. Associated symptoms include joint pain. Pertinent negatives include bladder dysfunction not spinal related, bladder incontinence, bladder retention, bowel dysfunction not spinal related, bowel incontinence, bowel retention, decreased mobility, dermatomic rash, difficulty sleeping, dysphagia, incoordination, loss of balance, muscle atrophy, muscle spasm, numbness, rash, sexual dysfunction, sexual dysfunction (not spinal related), tenderness, tingling, weakness and weight loss. neck pain Location of pain is bilateral anterior neck, bilateral lateral neck, bilateral posterior neck and left shoulder. The patient describes the pain as burning, dull, piercing, sharp and stabbing. Aggravating factors include climbing stairs, lifting, lying down, standing and walking. The patient denies aggravating factors such as daily activities, changing positions, rolling over in bed and weather. Relieving factors include ice, narcotic analgesics and lying down/rest. Associated symptoms include bladder retention and joint pain. Pertinent negatives include bladder dysfunction not spinal related, bladder incontinence, bowel dysfunction not spinal related, bowel incontinence, bowel retention, decreased mobility, dermatomic rash, difficulty sleeping, dysphagia, incoordination, loss of balance, muscle atrophy, muscle spasm, numbness, rash, sexual dysfunction, sexual dysfunction (not spinal related), tenderness, tingling, weakness and weight loss. low back pain The problem is s table. It occurs persistently. Location of pain is lower back. Pain is radiated to the right ankle, right calf, right foot and right thigh.The patient describes the pain as burning, dull, piercing, sharp and stabbing. Symptoms are aggravated by ascending stairs, changing positions, daily activities, jumping, lifting, lying/rest, rolling over in bed, sitting, standing and weather. Symptoms are relieved by ice, lying down, pain meds/drugs and rest. Associated symptoms include bladder retention and joint pain. Pertinent negatives include abdominal pain, bladder dysfunction not spinal related, bladder incontinence, bowel dysfunction not spinal related, bowel incontinence, bowel retention, decreased mobility, diarrhea, dyspareunia, limping, loss of balance, numbness, rash, sexual dysfunction, sexual dysfunction not spinal related, spasms, tenderness, tingling in the arms, tingling in the legs, weakness and weight loss. low back pain The problem is w orsening. It occurs persistently. Location of pain is lower back, left flank, right flank, legs, neck and thighs. Pain is radiated to the left ankle, left calf, left foot and left thigh.The patient describes the pain as burning, piercing, sharp, shooting and stabbing. Symptoms are aggravated by ascending stairs, changing positions, daily activities, descending stairs, lifting, rolling over in bed and sitting. Symptoms are relieved by ice, lying down, pain meds/drugs and rest. Associated symptoms include bladder retention and joint pain. Pertinent negatives include abdominal pain, bladder dysfunction not spinal related, bladder incontinence, bowel dysfunction not spinal related, bowel incontinence, bowel retention, decreased mobility, diarrhea, dyspareunia, limping, loss of balance, numbness, rash, sexual dysfunction, sexual dysfunction not spinal related, spasms, tenderness, tingling in the arms, tingling in the legs, weakness and weight loss. neck pain The severity of the problem is moderate. The problem has worsened. The frequency of pain is constant. Location of pain is bilateral anterior neck, bilateral lateral neck and bilateral posterior neck. The patient describes the pain as burning, piercing, sharp, shooting, stabbing and tingling. Aggravating factors include climbing stairs, lifting, prolonged sitting and rotation. Relieving factors include ice, narcotic analgesics and rest. Associated symptoms include bladder retention and joint pain. Pertinent negatives include bladder dysfunction not spinal related, bladder incontinence, bowel dysfunction not spinal related, bowel incontinence, bowel retention, decreased mobility, dermatomic rash, difficulty sleeping, dysphagia, incoordination, loss of balance, muscle atrophy, muscle spasm, numbness, rash, sexual dysfunction, sexual dysfunction (not spinal related), tenderness, tingling, weakness and weight loss. Hip Pain The problem is s howing no change. It occurs constantly. Location of pain is right lateral hip. There is radiation of pain to the right thigh and lower leg and foot. The patient describes the pain as burning, piercing, sharp, shooting and stabbing. Symptom is aggravated by active movement, descending stairs, jumping, prolonged standing and standing. Relieving factors include rest. Pertinent negatives include bruising, clicking, crepitus, decreased mobility, difficulty going to sleep, ecchymosis, erythema, fever, grating, grinding, joint pain, leg numbness, limping, locking, nighttime awakening, popping, slipping, snapping, stiffness, tenderness, tingling, warmth and weakness. neck pain The problem has not changed. The frequency of pain is constant. Location of pain is bilateral posterior neck. The patient describes the pain as burning, piercing, sharp, shooting and stabbing. Aggravating factors include climbing stairs, lifting, prolonged sitting and standing. Relieving factors include heating pad, narcotic analgesics and rest. Pertinent negatives include bladder dysfunction not spinal related, bladder incontinence, bladder retention, bowel dysfunction not spinal related, bowel incontinence, bowel retention, decreased mobility, dermatomic rash, difficulty sleeping, dysphagia, incoordination, joint pain, loss of balance, muscle atrophy, muscle spasm, numbness, rash, sexual dysfunction, sexual dysfunction (not spinal related), tenderness, tingling, weakness and weight loss. pump refill back pain The problem is s table. It occurs persistently. Location of pain is lower back, gluteal area and neck. Pain is radiated to the left ankle, left calf, left foot and left thigh.The patient describes the pain as burning, piercing, shooting and stabbing. Symptoms are aggravated by ascending stairs, daily activities, jumping, lifting, sitting and standing. Symptoms are relieved by lying down, pain meds/drugs and rest. low back pain Onset: on 1992. The problem is stable. It occurs persistently. Location of pain is lower back, gluteal area, left flank, right flank and legs. Pain is radiated to the dermatome anteriorly, left ankle, left calf, left foot and left thigh.The patient describes the pain as burning, piercing, sharp, shooting, stabbing and tingling. Symptoms are aggravated by ascending stairs, changing positions, daily activities, jumping, lifting, rolling over in bed, sitting, standing and walking. Symptoms are relieved by ice, lying down and pain meds/drugs. Associated symptoms include abdominal pain, bladder retention, joint pain and weight loss. Pertinent negatives include bladder dysfunction not spinal related, bladder incontinence, bowel dysfunction not spinal related, bowel incontinence, bowel retention, decreased mobility, diarrhea, dyspareunia, limping, loss of balance, numbness, rash, sexual dysfunction, sexual dysfunction not spinal related, spasms, tenderness, tingling in the arms, tingling in the legs and weakness. neck pain Onset: on 1992. Location of pain is bilateral anterior neck, bilateral lateral neck, bilateral posterior neck, bilateral shoulder and bilateral upper back. The patient describes the pain as burning, piercing, sharp, shooting, stabbing and tingling. Aggravating factors include climbing stairs, changing position, daily activities, jumping, lifting, rolling, sitting, standing. walking and weather. Relieving factors include ice, narcotic analgesics and rest. Associated symptoms include bladder retention, joint pain and weight loss. Pertinent negatives include bladder dysfunction not spinal related, bladder incontinence, bowel dysfunction not spinal related, bowel incontinence, bowel retention, decreased mobility, dermatomic rash, difficulty sleeping, dysphagia, incoordination, loss of balance, muscle atrophy, muscle spasm, numbness, rash, sexual dysfunction, sexual dysfunction (not spinal related), tenderness, tingling and weakness. back pain Severity level i s 7. The problem is stable. It occurs persistently. Location of pain is lower back.The patient describes the pain as an ache, burning, piercing, sharp, shooting, stabbing and throbbing. Symptoms are aggravated by ascending stairs, changing positions, daily activities, descending stairs, jumping, lifting and standing. Symptoms are relieved by lying down, pain meds/drugs and rest. Associated symptoms include joint pain and weight loss. Pertinent negatives include abdominal pain, bladder dysfunction not spinal related, bladder incontinence, bowel dysfunction not spinal related, bowel incontinence, bowel retention, decreased mobility, diarrhea, dyspareunia, limping, loss of balance, numbness, rash, sexual dysfunction, sexual dysfunction not spinal related, spasms, tenderness, tingling in the arms, tingling in the legs and weakness. Pump modification staple removal back pain Severity level i s 8. The problem is stable. It occurs persistently. Location of pain is lower back.The patient describes the pain as an ache, burning, piercing, sharp, shooting and throbbing. Symptoms are aggravated by ascending stairs, changing positions, daily activities, descending stairs, lifting, walking and weather. Symptoms are relieved by lying down, pain meds/drugs and rest. Pertinent negatives include abdominal pain, bladder dysfunction not spinal related, bladder incontinence, bladder retention, bowel dysfunction not spinal related, bowel incontinence, bowel retention, decreased mobility, diarrhea, dyspareunia, joint pain, limping, loss of balance, numbness, rash, sexual dysfunction, sexual dysfunction not spinal related, spasms, tenderness, tingling in the arms, tingling in the legs, weakness and weight loss. neck pain The severity of the problem is moderate. The problem has worsened. Location of pain is bilateral posterior neck. The patient describes the pain as aching, burning, piercing, sharp, shooting, stabbing and throbbing. Aggravating factors include working. Relieving factors include rest. Pertinent negatives include bladder dysfunction not spinal related, bladder incontinence, bladder retention, bowel dysfunction not spinal related, bowel incontinence, bowel retention, decreased mobility, dermatomic rash, difficulty sleeping, dysphagia, incoordination, joint pain, loss of balance, muscle atrophy, muscle spasm, numbness, rash, sexual dysfunction, sexual dysfunction (not spinal related), tenderness, tingling, weakness and weight loss. neck pain The problem has worsened. The frequency of pain is constant. The patient describes the pain as aching, burning and sharp. Aggravating factors include turning head. The patient denies aggravating factors such as daily activities. Relieving factors include pain meds. Pertinent negatives include bladder incontinence, bladder retention, joint pain, rash, sexual dysfunction and weight loss. low back pain The problem is w orsening. It occurs persistently. The patient describes the pain as an ache and burning. Symptoms are aggravated by daily activities. Symptoms are relieved by pain meds/drugs. wound change low back pain The problem is s table. It occurs persistently. Location of pain is lower back. Pain is radiated to the left ankle, left calf, left foot and left thigh.The patient describes the pain as burning, piercing, sharp and stabbing. Symptoms are aggravated by ascending stairs, changing positions, daily activities, lifting and sitting. Symptoms are relieved by ice, lying down, pain meds/drugs and rest. Associated symptoms include abdominal pain, bladder retention, diarrhea and joint pain. Pertinent negatives include bladder dysfunction not spinal related, bladder incontinence, bowel dysfunction not spinal related, bowel incontinence, bowel retention, decreased mobility, dyspareunia, limping, loss of balance, numbness, rash, sexual dysfunction, sexual dysfunction not spinal related, spasms, tenderness, tingling in the arms, tingling in the legs, weakness and weight loss. neck pain Onset: 23 years ago. The problem has not changed. The frequency of pain is constant. Location of pain is bilateral lateral neck and bilateral posterior neck. The patient describes the pain as burning, piercing, sharp and stabbing. Aggravating factors include climbing stairs and lifting. The patient denies aggravating factors such as changing positions, daily activities and sitting. Relieving factors include ice, narcotic analgesics and lying down/rest. Associated symptoms include bladder retention and joint pain. Pertinent negatives include bladder dysfunction not spinal related, bladder incontinence, bowel dysfunction not spinal related, bowel incontinence, bowel retention, decreased mobility, dermatomic rash, difficulty sleeping, dysphagia, incoordination, loss of balance, muscle atrophy, muscle spasm, numbness, rash, sexual dysfunction, sexual dysfunction (not spinal related), tenderness, tingling, weakness and weight loss. low back pain Severity level i s 8. The problem is stable. It occurs persistently. Location of pain is lower back. Pain is radiated to the left calf, right calf, left foot, right foot, left thigh and right thigh.The patient describes the pain as an ache, piercing and sharp. Symptoms are aggravated by ascending stairs and descending stairs. Symptoms are relieved by lying down and rest. neck pain The problem is s evere. The problem has not changed. The frequency of pain is constant. The patient describes the pain as aching, piercing and sharp. Aggravating factors include climbing stairs. Relieving factors include rest. Associated symptoms include bladder retention, joint pain and weight loss. Pertinent negatives include bladder dysfunction not spinal related, bladder incontinence, bowel dysfunction not spinal related, bowel incontinence, bowel retention, decreased mobility, dermatomic rash, difficulty sleeping, dysphagia, incoordination, loss of balance, muscle atrophy, muscle spasm, numbness, rash, sexual dysfunction, sexual dysfunction (not spinal related), tenderness, tingling and weakness. back pain The problem is s table. It occurs persistently. Location of pain is lower back. Pain is radiated to the back, left calf, right calf, left foot, right foot, left thigh and right thigh.The patient describes the pain as an ache, burning, discomforting, numbness, piercing, sharp, shooting and stabbing. Symptoms are aggravated by ascending stairs, changing positions, daily activities, descending stairs and lifting. Symptoms are relieved by lying down and pain meds/drugs. neck pain The problem has not changed. The frequency of pain is constant. The patient describes the pain as aching, piercing and sharp. Aggravating factors include climbing stairs. Relieving factors include narcotic analgesics, NSAIDs and rest. Pertinent negatives include bladder incontinence, bladder retention, joint pain, rash, sexual dysfunction and weight loss. neck pain The problem has not changed. The frequency of pain is constant. Location of pain is bilateral head and bilateral posterior neck. The patient describes the pain as aching, burning, discomforting, piercing, sharp, shooting, stabbing, throbbing and tingling. Aggravating factors include climbing stairs, lifting, standing and walking. The patient denies aggravating factors such as wetaher. Relieving factors include heating pad, ice, narcotic analgesics and rest. Associated symptoms include bladder retention, joint pain and weight loss. Pertinent negatives include bladder incontinence, rash and sexual dysfunction. low back pain Severity level i s 8. The problem is stable. It occurs persistently. Location of pain is lower back, legs and neck. Pain is radiated to the back, left calf, left foot and left thigh.The patient describes the pain as burning, dull, numbness, shooting, stabbing and throbbing. Trauma occurred due to work injury while at work. Symptoms are aggravated by ascending stairs, changing positions, descending stairs, rolling over in bed, standing, walking and weather. Symptoms are relieved by heat, ice, lying down, pain meds/drugs and nsaids. Additional information: worse when sitting. low back pain Location of pain is lower back. Pain is radiated to the right ankle, right calf, right foot and right thigh.The patient describes the pain as an ache, burning, piercing, sharp, shooting, stabbing, throbbing and tingling. Symptoms are aggravated by ascending stairs, daily activities, lifting, sitting and weather. Symptoms are relieved by ice, lying down, pain meds/drugs and rest. Associated symptoms include abdominal pain, bladder retention, diarrhea, joint pain and weight loss. Pertinent negatives include bladder dysfunction not spinal related, bladder incontinence, bowel dysfunction not spinal related, bowel incontinence, bowel retention, decreased mobility, dyspareunia, limping, loss of balance, numbness, rash, sexual dysfunction, sexual dysfunction not spinal related, spasms, tenderness, tingling in the arms, tingling in the legs and weakness. neck pain Location of pain is bilateral posterior neck. The patient describes the pain as aching, burning, piercing, sharp, shooting, stabbing, throbbing and tingling. Aggravating factors include climbing stairs and lifting. The patient denies aggravating factors such as daily activities, sitting and weather. Relieving factors include ice, narcotic analgesics and lying down/rest. Associated symptoms include bladder retention, joint pain and weight loss. Pertinent negatives include bladder dysfunction not spinal related, bladder incontinence, bowel dysfunction not spinal related, bowel incontinence, bowel retention, decreased mobility, dermatomic rash, difficulty sleeping, dysphagia, incoordination, loss of balance, muscle atrophy, muscle spasm, numbness, rash, sexual dysfunction, sexual dysfunction (not spinal related), tenderness, tingling and weakness. low back pain The problem is s table. It occurs persistently. Location of pain is lower back. Pain is radiated to the left ankle, left calf, left foot and left thigh.The patient describes the pain as burning, piercing, sharp and stabbing. Symptoms are aggravated by ascending stairs, changing positions, daily activities, sitting and walking. Symptoms are relieved by lying down, pain meds/drugs and rest. neck pain The problem has not changed. The frequency of pain is constant. Location of pain is bilateral posterior neck and bilateral upper back. There is radiation of pain to the bilateral head, left upper arm, left elbow, left forearm, left interscapular, left wrist and left hand. The patient describes the pain as burning, piercing, sharp and stabbing. Aggravating factors include climbing stairs and walking. The patient denies aggravating factors such as changing positions, daily activities and sitting. Relieving factors include narcotic analgesics and lying down/rest. Associated symptoms include bladder retention and joint pain. Pertinent negatives include bladder dysfunction not spinal related, bladder incontinence, bowel dysfunction not spinal related, bowel incontinence, bowel retention, decreased mobility, dermatomic rash, difficulty sleeping, dysphagia, incoordination, loss of balance, muscle atrophy, muscle spasm, numbness, rash, sexual dysfunction, sexual dysfunction (not spinal related), tenderness, tingling, weakness and weight loss. low back pain Onset: 23 years ago. Severity level is 9. The problem is worsening. It occurs persistently. Location of pain is lower back and left flank. Pain is radiated to the left ankle, left calf, left foot, left thigh and left buttock.The patient describes the pain as an ache, burning, sharp, shooting, stabbing and throbbing. Symptoms are aggravated by ascending stairs, changing positions, daily activities, descending stairs, jumping, lifting, sitting, standing, walking and weather. Symptoms are relieved by lying down and pain meds/drugs. Additional information: problem worse on tablets compared to pump. fell and scratched knees. neck pain Onset: 23 years ago. The problem is severe. The problem has worsened. The frequency of pain is constant. The patient describes the pain as burning, sharp, shooting, stabbing and throbbing. Aggravating factors include climbing stairs, lifting, standing, walking, sitting,weather,daily activites,changing positions andjumping. Relieving factors include narcotic analgesics and rest. Associated symptoms include bladder retention and joint pain. Additional information: problem worse on tablets compared to pump. neck pain Onset: 23 years ago. The problem is severe. The problem has worsened. The frequency of pain is constant. Location of pain is bilateral lateral neck, bilateral posterior neck, bilateral shoulder, bilateral arm, bilateral upper back, bilateral scapula and bilateral interscapular. There is radiation of pain to the bilateral upper arm and bilateral interscapular. The patient describes the pain as burning, piercing, sharp, shooting, stabbing, throbbing, tingling and Numbness. The event(s) surrounding the occurrence of the symptom include Work Related Injury. Aggravating factors include climbing stairs, lifting, standing, Weather, Changing Position and Daily Activities. Relieving factors include ice, narcotic analgesics, rest and Lying Down. Associated symptoms include bladder retention, joint pain and weight loss. Pertinent negatives include bladder dysfunction not spinal related, bladder incontinence, bowel dysfunction not spinal related, bowel incontinence, bowel retention, decreased mobility, dermatomic rash, difficulty sleeping, dysphagia, incoordination, loss of balance, muscle atrophy, muscle spasm, numbness, rash, sexual dysfunction, sexual dysfunction (not spinal related), tenderness, tingling and weakness. low back pain Onset: 23 years ago. Severity level is 8. The problem is worsening. It occurs persistently. Location of pain is lower back. Pain is radiated to the left ankle, left calf, left foot, left thigh and left buttock.The patient describes the pain as burning, numbness, piercing, sharp, shooting, stabbing, throbbing and Tingling. Context: Work Related Injury. Symptoms are aggravated by ascending stairs, changing positions, daily activities, descending stairs, lifting, standing and Weather. Symptoms are relieved by ice, lying down, pain meds/drugs and rest. neck pain The problem has worsened. The frequency of pain is constant. Location of pain is bilateral lateral neck, bilateral posterior neck, left shoulder, left arm and bilateral interscapular. There is radiation of pain to the bilateral head, left upper arm and bilateral interscapular. The patient describes the pain as burning, piercing, sharp, shooting, stabbing and Numbness. Aggravating factors include climbing stairs, prolonged sitting, standing, walking, Weather, Daily Activities and Changing Position. Relieving factors include ice, narcotic analgesics, rest and Lying Down. Associated symptoms include weight loss. Pertinent negatives include bladder dysfunction not spinal related, bladder incontinence, bladder retention, bowel dysfunction not spinal related, bowel incontinence, bowel retention, decreased mobility, dermatomic rash, difficulty sleeping, dysphagia, incoordination, joint pain, loss of balance, muscle atrophy, muscle spasm, numbness, rash, sexual dysfunction, sexual dysfunction (not spinal related), tenderness, tingling and weakness. Abdominal pain It occurs consta ntly. The problem is worse. Location is diffuse. There is no radiation. The patient describes it as burning, sharp, stabbing, Shooting, Piercing and Numbness. Context: no pattern noted. Symptom is aggravated by prolonged sitting, prolonged standing, Stairs, Changing Position and Daily Activities. Relieving factors include lying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 reviewed and is compliant with the patient's treatment plan. Related to alf (current) use of opiate analgesic PMH of back surgery about 20 years ago. This is stable. Will monitor. Related to Postlaminectomy syndrome Pt has evidence of t rochanteric bursitis in his left hip. This is not covered under [employer] and will need to be covered under the patient's regular insurance.Left hip injection on 01/28/21. No interventions. Will monitor. Related to Trochanteric bursitis, left hip PMH of diabetes. Froylan alex obtain clearance prior to procedures. Related to Type 2 diabetes mellitus w/ diabetic neuropathy PMH of chronic left hip in addition to his lower back. This is not a [email or web address] related injury and he will need to go through Medicare for this. Hip X-rays showed moderate degenerative changes. Left hip injection 01/28/21 provided long-lasting relief. No further interventions. Related to Pain in left hip The patient risk lev el was determined by evaluating their objective and subjective individual risk factors. At today's assessment, the patient's risk factors include an evaluation of the following documented information:Level of medication in MME/Day: 45# UDT's per last 12 months: 1Most recent UDT: 05/25/2021, this was compliantOpioid Risk Tool score: 0PHQ2 score: 0CAGE score: <3The [place] EFORCSE/Prescription Drug Monitoring Program was reviewed, found to be compliant and a copy was attached to the chart.Based on the above information and that the patient has not had an inconsistent UDS will consider the patient a green risk stratification. Related to Encounter for therapeutic drug level monitoring PMH of chronic lower back pain with pain down the his LE's on L>R. PMH of SCS implanted a number of years ago as well as an IT pump. IT pump was explanted by us on an emergency basis due to an infection. We treated his lumbosacral radiculopathy with caudal REJI's as his stimulator has not been working and he hasn't used it in a number of years. Leads in place still. likely not MRI compatible as they are from 2011 or 2012. Will monitor. Caudal REJI 08/23/2020 with >50% relief Repeat caudal 01/17/2021with >50% but not as good as in the past. SCS removed 10/03/2021. Incision healed.Patient is having increased pain. He is going to consider a repeat caudal REJI soon. Related to Radiculopathy of lumbosacral region [place] PDMP was reviewed . Will renew medications. Follow up 4 wks. Today I have discussed the options for care, including possible injections and physical therapy. The patient was advised on proper lifting techniques, home exercises and physical conditioning. Avoid heavy lifting and high impact activity. Patient was provided written material on the [facility] Information on Nonopioid Alternatives for the Treatment of Pain. The patient reports stable pain on the current opioid medication regimen. There are no signs of adverse effects, medication abuse or evidence of diversion. The patient reports improved activity and functional levels on this medication regimen. The patient's last urine drug screen is consistent with prescribed medications. The patient has chronic, intractable pain with the diagnoses listed in the assessment. Patient was instructed not to use heavy machinery, not to drink alcohol, or use illicit substances while taking these opioid medications. Related to Chronic pain syndrome SCS explanted 10/03/2021. Will nida holden. Related to Breakdown (mechanical) of implanted electronic neurostimulator, generator, sequela SCS explanted 10/03/2021. Will nida holden. Related to Breakdown (mechanical) of implanted electronic neurostimulator, generator, sequela The patient risk lev el was determined by evaluating their objective and subjective individual risk factors. At today's assessment, the patient's risk factors include an evaluation of the following documented information:Level of medication in MME/Day: 45# UDT's per last 12 months: 1Most recent UDT: 05/25/2021, this was compliantOpioid Risk Tool score: 0PHQ2 score: 0CAGE score: <3The [place] EFORCSE/Prescription Drug Monitoring Program was reviewed, found to be compliant and a copy was attached to the chart.Based on the above information and that the patient has not had an inconsistent UDS will consider the patient a green risk stratification. Related to Encounter for therapeutic drug level monitoring PMH of diabetes. Froylan alex obtain clearance prior to procedures. Related to Type 2 diabetes mellitus w/ diabetic neuropathy PMH of chronic lower back pain with pain down the his LE's on L>R. PMH of SCS implanted a number of years ago as well as an IT pump. IT pump was explanted by us on an emergency basis due to an infection. We treated his lumbosacral radiculopathy with caudal REJI's as his stimulator has not been working and he hasn't used it in a number of years. Leads in place still. likely not MRI compatible as they are from 2011 or 2012. Will monitor. Caudal REJI 08/23/2020 with >50% relief Repeat caudal 01/17/2021with >50% but not as good as in the past. SCS removed 10/03/2021. Incision healed. Related to Radiculopathy of lumbosacral region Pt has evidence of t rochanteric bursitis in his left hip. This is not covered under [email or web address] and will need to be covered under the patient's regular insurance.Left hip injection on 01/28/21. No interventions. Will monitor. Related to Trochanteric bursitis, left hip PMH of chronic left hip in addition to his lower back. This is not a [employer] related injury and he will need to go through Medicare for this. Hip X-rays showed moderate degenerative changes. Left hip injection 01/28/21 provided long-lasting relief. No further interventions. Related to Pain in left hip 10/14/2021- No meds s ent- post op follow upPatient was given greater than 72 hours of narcotic medication to control severe and intractable pain. Interventional procedures, physical therapy and adjuvant therapy was not successful alone in controlling patient's severe pain. Chronic opioid therapy may be continued indefinitely and the patient will be reassessed at regular office visits. Urine drug screens will be performed in order to ensure compliance with medication prescriptions and to rule out any illicit use. The [place] prescription drug data base was reviewed and is compliant with the patient's treatment plan. Related to alf (current) use of opiate analgesic PMH of back surgery about 20 years ago. This is stable. Will monitor. Related to Postlaminectomy syndrome [place] was [place] . Pt has worsening cervical pain and radicular symptoms down the left UE to the shoulder. This has not been investigated. He had XR done by another provider. He stated that he has not implants; however, he has leads in place from 2011 or 2012 and we are unsure if they are MRI compactable. This was a WC visit, advised he return on his health insurance and have his neck investigated further. Will refill meds as they enable the pt to function. Follow up 4 wks. Today I have discussed the options for care, including possible injections and physical therapy. The patient was advised on proper lifting techniques, home exercises and physical conditioning. Avoid heavy lifting and high impact activity. Patient was provided written material on the [facility] Information on Nonopioid Alternatives for the Treatment of Pain. The patient reports stable pain on the current opioid medication regimen. There are no signs of adverse effects, medication abuse or evidence of diversion. The patient reports improved activity and functional levels on this medication regimen. The patient's last urine drug screen is consistent with prescribed medications. The patient has chronic, intractable pain with the diagnoses listed in the assessment. Patient was instructed not to use heavy machinery, not to drink alcohol, or use illicit substances while taking these opioid medications. Related to Chronic pain syndrome PMH of back surgery about 20 years ago. Will monitor. Related to Postlaminectomy syndrome PMH of chronic lower back pain with pain down the his LE's on L>R. PMH of SCS implanted a number of years ago as well as an IT pump. The IT pump was explanted by us on an emergency basis due to an infection. We treated his lumbosacral radiculopathy with caudal REJI's as his stimulator has not been working and he hasn't used it in a number of years. Leads in place still. likely not MRI compatible as they are from 2011 or 2012. Will monitor. Caudal REJI 08/23/2020 with >50% relief Repeat caudal 01/17/2021with >50% but not as good as in the past. SCS removed 10/03/2021. Incision healed. Related to Radiculopathy of lumbosacral region 10/14/2021- No meds s ent- post op follow upPatient was given greater than 72 hours of narcotic medication to control severe and intractable pain. Interventional procedures, physical therapy and adjuvant therapy was not successful alone in controlling patient's severe pain. Chronic opioid therapy may be continued indefinitely and the patient will be reassessed at regular office visits. Urine drug screens will be performed in order to ensure compliance with medication prescriptions and to rule out any illicit use. The [place] prescription drug data base was reviewed and is compliant with the patient's treatment plan. Related to alf (current) use of opiate analgesic Patient has evidence of trochanteric bursitis in his left hip. This is not covered under [employer] and will need to be covered under the patient's regular insurance.Left hip injection on 01/28/21. No interventions. Will monitor. Related to Trochanteric bursitis, left hip SCS explanted 10/03/2021. Will mo nitor. Related to Breakdown (mechanical) of implanted electronic neurostimulator, generator, sequela PMH of diabetes. Froylan alex obtain clearance prior to procedures. Related to Type 2 diabetes mellitus w/ diabetic neuropathy The patient risk lev el was determined by evaluating their objective and subjective individual risk factors. At today's assessment, the patient's risk factors include an evaluation of the following documented information:Level of medication in MME/Day: 45# UDT's per last 12 months: 1Most recent UDT: 05/25/2021, this was compliantOpioid Risk Tool score: 0PHQ2 score: 0CAGE score: <3The [place] EFORCSE/Prescription Drug Monitoring Program was reviewed, found to be compliant and a copy was attached to the chart.Based on the above information and that the patient has not had an inconsistent UDS will consider the patient a green risk stratification. Related to Encounter for therapeutic drug level monitoring [place] PD[place] was [place] . Pt has worsening cervical pain and radicular symptoms down the left UE to the shoulder. This has not been investigated. He had XR done by another provider. He stated that he has not implants; however, he has leads in place from 2011 or 2012 and we are unsure if they are MRI compactable. This was a visit, advised he return on his health insurance and have his neck investigated further. Will refill meds as they enable the pt to function. Follow up 4 wks. Today I have discussed the options for care, including possible injections and physical therapy. The patient was advised on proper lifting techniques, home exercises and physical conditioning. Avoid heavy lifting and high impact activity. Patient was provided written material on the [facility] Information on Nonopioid Alternatives for the Treatment of Pain. The patient reports stable pain on the current opioid medication regimen. There are no signs of adverse effects, medication abuse or evidence of diversion. The patient reports improved activity and functional levels on this medication regimen. The patient's last urine drug screen is consistent with prescribed medications. The patient has chronic, intractable pain with the diagnoses listed in the assessment. Patient was instructed not to use heavy machinery, not to drink alcohol, or use illicit substances while taking these opioid medications. Related to Chronic pain syndrome PMH of chronic left hip in addition to his lower back. This is not a Workers' [employer] related injury and he will need to go through Medicare for this. Hip X-rays showed moderate degenerative changes. Left hip injection 01/28/21 provided long-lasting relief. No further interventions. Related to Pain in left hip [place] . Pt has worsening cervical pain and radicular symptoms down the left UE to the shoulder. This has not been investigated. He had XR done by another provider. He stated that he has not implants; however, he has leads in place from 2011 or 2012 and we are unsure if they are MRI compactable. This was a visit, advised he return on his health insurance and have his neck investigated further. Will refill meds as they enable the pt to function. Follow up 4 wks. Today I have discussed the options for care, including possible injections and physical therapy. The patient was advised on proper lifting techniques, home exercises and physical conditioning. Avoid heavy lifting and high impact activity. Patient was provided written material on the [facility] Information on Nonopioid Alternatives for the Treatment of Pain. The patient reports stable pain on the current opioid medication regimen. There are no signs of adverse effects, medication abuse or evidence of diversion. The patient reports improved activity and functional levels on this medication regimen. The patient's last urine drug screen is consistent with prescribed medications. The patient has chronic, intractable pain with the diagnoses listed in the assessment. Patient was instructed not to use heavy machinery, not to drink alcohol, or use illicit substances while taking these opioid medications. Related to Chronic pain syndrome PMH of chronic left hip in addition to his lower back. This is not a Workers' Comp related injury and he will need to go through Medicare for this. Hip X-rays showed moderate degenerative changes. Left hip injection 01/28/21 provided long-lasting relief. No further interventions. Related to Pain in left hip PMH of back surgery about 20 years ago. Will monitor. Related to Postlaminectomy syndrome The patient risk lev el was determined by evaluating their objective and subjective individual risk factors. At today's assessment, the patient's risk factors include an evaluation of the following documented information:Level of medication in MME/Day: 45# UDT's per last 12 months: 1Most recent UDT: 05/25/2021, this was compliantOpioid Risk Tool score: 0PHQ2 score: 0CAGE score: <3The [place] E[employer]CSE/Prescription Drug Monitoring Program was reviewed, found to be compliant and a copy was attached to the chart.Based on the above information and that the patient has not had an inconsistent UDS will consider the patient a green risk stratification. Related to Encounter for therapeutic drug level monitoring PMH of diabetes. Froylan alex obtain clearance prior to procedures. Related to Type 2 diabetes mellitus w/ diabetic neuropathy PMH of chronic lower back pain with pain down the his legs L>R. He had a SCS implanted a number of years ago as well as an IT pump. The IT pump was explanted by us on an emergency basis due to an infection. We treated his lumbosacral radiculopathy with caudal REJI's as his stimulator has not been working and he hasn't used it in a number of years. Leads in place still. likely not MRI compatible as they are from 2011 or 2012.Caudal REJI 08/23/2020 with >50% relief Repeat caudal 01/17/2021with >50% but not as good as in the past. SCS removed 10/03/2021. Incision healed. Related to Radiculopathy of lumbosacral region SCS explanted 10/03/2021. Will nida holden. Related to Breakdown (mechanical) of implanted electronic neurostimulator, generator, sequela 10/14/2021- No meds s ent- post op follow upPatient was given greater than 72 hours of narcotic medication to control severe and intractable pain. Interventional procedures, physical therapy and adjuvant therapy was not successful alone in controlling patient's severe pain. Chronic opioid therapy may be continued indefinitely and the patient will be reassessed at regular office visits. Urine drug screens will be performed in order to ensure compliance with medication prescriptions and to rule out any illicit use. The [place] prescription drug data base was reviewed and is compliant with the patient's treatment plan. 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 This is not covered under [employer] and will need to be covered under the patient's regular insurance.Left hip injection on 01/28/21. No interventions. Will monitor. Related to Trochanteric bursitis, left hip PMH of back surgery about 20 years ago. Will monitor. Related to Postlaminectomy syndrome 10/14/2021- No meds s ent- post op follow upPatient was given greater than 72 hours of narcotic medication to control severe and intractable pain. Interventional procedures, physical therapy and adjuvant therapy was not successful alone in controlling patient's severe pain. Chronic opioid therapy may be continued indefinitely and the patient will be reassessed at regular office visits. Urine drug screens will be performed in order to ensure compliance with medication prescriptions and to rule out any illicit use. The [place] prescription drug data base was reviewed and is compliant with the patient's treatment plan. 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 This is not covered under [employer] and will need to be covered under the patient's regular insurance.Left hip injection on 01/28/21. No interventions. Will monitor. Related to Trochanteric bursitis, left hip SCS explanted 10/03/2021. Will nida holden. Related to Breakdown (mechanical) of implanted electronic neurostimulator, generator, sequela PMH of chronic lower back pain with pain down the his legs L>R. He had a SCS implanted a number of years ago as well as an IT pump. The IT pump was explanted by us on an emergency basis due to an infection. We treated his lumbosacral radiculopathy with caudal REJI's as his stimulator has not been working and he hasn't used it in a number of years. Caudal REJI 08/23/2020 with >50% relief Repeat caudal 01/17/2021with >50% but not as good as in the past. SCS removed 10/03/2021. Removed sutures today. No redness. Wound edges well approximated with no drainage. Cleansed, applied steri strips and dry dressing. Provided another dressing, May shower in 2 days and keep dressing dry. Related to Radiculopathy of lumbosacral region [place] PDMP was reviewed . No medications sent today. keep follow up appointment as scheduled. .Today I have discussed the options for care, including possible injections and physical therapy. The patient was advised on proper lifting techniques, home exercises and physical conditioning. Avoid heavy lifting and high impact activity. Patient was provided written material on the [facility] Information on Nonopioid Alternatives for the Treatment of Pain. The patient reports stable pain on the current opioid medication regimen. There are no signs of adverse effects, medication abuse or evidence of diversion. The patient reports improved activity and functional levels on this medication regimen. The patient's last urine drug screen is consistent with prescribed medications. The patient has chronic, intractable pain with the diagnoses listed in the assessment. Patient was instructed not to use heavy machinery, not to drink alcohol, or use illicit substances while taking these opioid medications. Related to Chronic pain syndrome A significant compon ent of the patient's pain is coming from his left hip in addition to his lower back. This is not a Workers' Comp related injury and he will need to go through Medicare for this. Hip X-rays showed moderate degenerative changes. Left hip injection 01/28/21 provided long-lasting relief. No further interventions. Related to Pain in left hip The patient risk lev el was determined by evaluating their objective and subjective individual risk factors. At today's assessment, the patient's risk factors include an evaluation of the following documented information:Level of medication in MME/Day: 45# UDT's per last 12 months: 2Most recent UDT: 05/25/2021, this was compliantOpioid Risk Tool score: 0PHQ2 score: 0CAGE score: <3The [place] EFORCSE/Prescription Drug Monitoring Program was reviewed, found to be compliant and a copy was attached to the chart.Based on the above information and that the patient has not had an inconsistent UDS will consider the patient a green risk stratification. Related to Encounter for therapeutic drug level monitoring Will obtain clearanc e prior to procedures. Related to Type 2 diabetes mellitus w/ diabetic neuropathy The patient has evid ence of trochanteric bursitis in his left hip. This is not covered under [employer] and will need to be covered under the patient's regular insurance.Left hip injection on 01/28/21. No interventions. Will monitor. Related to Trochanteric bursitis, left hip PMH of back surgery about 20 years ago. Will monitor. Related to Postlaminectomy syndrome The patient risk lev el was determined by evaluating their objective and subjective individual risk factors. At today's assessment, the patient's risk factors include an evaluation of the following documented information:Level of medication in MME/Day: 45# UDT's per last 12 months: 2Most recent UDT: 05/25/2021, this was compliantOpioid Risk Tool score: 0PHQ2 score: 0CAGE score: <3The [place] EFORCSE/Prescription Drug Monitoring Program was reviewed, found to be compliant and a copy was attached to the chart.Based on the above information and that the patient has not had an inconsistent UDS will consider the patient a green risk stratification. Related to Encounter for therapeutic drug level monitoring A significant compon ent of the patient's pain is coming from his left hip in addition to his lower back. This is not a Workers' Comp related injury and he will need to go through Medicare for this. Hip X-rays showed moderate degenerative changes. Left hip injection 01/28/21 provided long-lasting relief. No further interventions. Related to Pain in left hip SCS explanted 10/03/2021. Will mo navin. Related to Breakdown (mechanical) of implanted electronic neurostimulator, generator, sequela Will obtain clearanc e prior to procedures. Related to Type 2 diabetes mellitus w/ diabetic neuropathy PMH of chronic lower back pain with pain down the his legs L>R. He had a SCS implanted a number of years ago as well as an IT pump. The IT pump was explanted by us on an emergency basis due to an infection. We treated his lumbosacral radiculopathy with caudal REJI's as his stimulator has not been working and he hasn't used it in a number of years. Caudal REJI 08/23/2020 with >50% relief Repeat caudal 01/17/2021with >50% but not as good as in the past. Pt had increasing pain on the generator side which stopped him from laying on his side. We recommended removal of the generator due to this. XR reviewed, leads weren't attached to battery thus not operational. XR also showed battery was near the skin surface and battery was palpable more superficially which contributed to pain and risk for infection. SCS removed 10/03/2021. Dr. Young inspected incision. 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 No surrounding redness/warmth/edema. No drainage or signs of infections. We will not take out sutures, incision was cleaned with alcohol and island dressing applied. He is not to shower until we clear him. He will follow up in 1 wk. PMH of infected pain pump. So will need to get cardiac and medical clearance for any procedures. Patient is on plavix. We will reach out to material reprocessing associate (Dr. Galvan, [facility]) for procedure clearance in future. He is diabetic. Related to Radiculopathy of lumbosacral region Patient has low back pain and a component of his pain seemed to be coming from a muscle spasm. Discussed previously possible medication options and treatment options in the past, including prescribing a muscle relaxer. However, he is reluctant to take more medications. Advised him to continue to stretch, try light massage, and using a foam roller to stretch out his muscles. Will monitor. Related to Muscle spasm of back [place] PD[place] was reviewed . No medications sent today. Follow up in 1 weeks.Today I have discussed the options for care, including possible injections and physical therapy. The patient was advised on proper lifting techniques, home exercises and physical conditioning. Avoid heavy lifting and high impact activity. Patient was provided written material on the [facility] Information on Nonopioid Alternatives for the Treatment of Pain. The patient reports stable pain on the current opioid medication regimen. There are no signs of adverse effects, medication abuse or evidence of diversion. The patient reports improved activity and functional levels on this medication regimen. The patient's last urine drug screen is consistent with prescribed medications. The patient has chronic, intractable pain with the diagnoses listed in the assessment. Patient was instructed not to use heavy machinery, not to drink alcohol, or use illicit substances while taking these opioid medications. Related to Chronic pain syndrome 10/14/2021- No meds s ent- post op follow upPatient was given greater than 72 hours of narcotic medication to control severe and intractable pain. Interventional procedures, physical therapy and adjuvant therapy was not successful alone in controlling patient's severe pain. Chronic opioid therapy may be continued indefinitely and the patient will be reassessed at regular office visits. Urine drug screens will be performed in order to ensure compliance with medication prescriptions and to rule out any illicit use. The [place] prescription drug data base was reviewed and is compliant with the patient's treatment plan. Related to alf (current) use of opiate analgesic Patient has low back pain and a component of his pain seems to be coming from a muscle spasm. Discussed previously possible medication options and treatment options in the past, including prescribing a muscle relaxer. However, he is reluctant to take more medications. Advised him to continue to stretch, try light massage, and using a foam roller to stretch out his muscles. No interventions are planned at this time. Will monitor. Related to Muscle spasm of back Patient has chronic lower back pain with pain down the his legs L>R. The patient had a SCS implanted a number of years ago as well as an IT pump. The IT pump was explanted by me on an emergency basis due to an infection. We treated his lumbosacral radiculopathy with caudal ESIs as his stimulator has not been working and he hasn't used it in a number of years. Caudal REJI 08/23/2020 with >50% relief, repeat caudal 01/17/2021with >50% but not as good as in the past. He is having increasing pain on the generator side which stops him from laying on his side. We recommended removal of the generator due to this. XR reviewed, leads weren't attached to battery thus not operational. XR also showed battery was near the skin surface and battery was palpable more superficially which contributed to pain and risk for infection. 10/07/2021 Pt presents for follow up post SCS removal. He currently has is 7-8/10 pain level and has not been sleeping well. He is uncomfortable, but meds help. Dr. Young inspected incision. Mild incisional redness present as it was esplanted about 5 days ago. No surrounding redness/warmth/edema. No drainage or signs of infections. We will not take out sutures, incision cleaned with alcohol and island dressing applied. He is not to shower until we clear him. He will follow up in 1 wk. Patient has a history of infected pain pump. So will need to get cardiac and medical clearance for any procedures. . Patient is on plavix and hold for 5-7 days. We will reach out to material reprocessing associate (Dr. Galvan, [facility]) for procedure clearance in future. He is diabetic. Related to Radiculopathy of lumbosacral region The patient risk lev el was determined by evaluating their objective and subjective individual risk factors. At today's assessment, the patient's risk factors include an evaluation of the following documented information:Level of medication in MME/Day: 45# UDT's per last 12 months: 2Most recent UDT: 05/25/2021, this was compliantOpioid Risk Tool score: 0PHQ2 score: 0CAGE score: <3The [place] EFORCSE/Prescription Drug Monitoring Program was reviewed, found to be compliant and a copy was attached to the chart.Based on the above information and that the patient has not had an inconsistent UDS will consider the patient a green risk stratification. Related to Encounter for therapeutic drug level monitoring SCS explanted 10/03/2021. Related to Breakdown (mechanical) of implanted electronic neurostimulator, generator, sequela PMH of back surgery about 20 years ago. Related to Postlaminectomy syndrome A significant compon ent of the patient's pain is coming from his left hip in addition to his lower back. This is not a Workers' [employer] related injury and he will need to go through Medicare for this. Hip X-rays were reviewed and show moderate degenerative changes. Left hip injection 01/28/21 provided long-lasting relief. No further interventions. Related to Pain in left hip The patient has evid ence of trochanteric bursitis in his left hip. This is not covered under [email or web address] and will need to be covered under the patient's regular insurance.Left hip injection on 01/28/21. No interventions. Related to Trochanteric bursitis, left hip [place] PDMP was reviewed . We will renew medications. Follow up in 4 weeks.Today I have discussed the options for care, including possible injections and physical therapy. The patient was advised on proper lifting techniques, home exercises and physical conditioning. Avoid heavy lifting and high impact activity. Patient was provided written material on the [facility] Information on Nonopioid Alternatives for the Treatment of Pain. The patient reports stable pain on the current opioid medication regimen. There are no signs of adverse effects, medication abuse or evidence of diversion. The patient reports improved activity and functional levels on this medication regimen. The patient's last urine drug screen is consistent with prescribed medications. The patient has chronic, intractable pain with the diagnoses listed in the assessment. Patient was instructed not to use heavy machinery, not to drink alcohol, or use illicit substances while taking these opioid medications. Related to Chronic pain syndrome Will obtain clearanc e prior to procedures. Related to Type 2 diabetes mellitus w/ diabetic neuropathy Patient was given gr eater than 72 hours of narcotic medication to control severe and intractable pain. Interventional procedures, physical therapy and adjuvant therapy was not successful alone in controlling patient's severe pain. Chronic opioid therapy may be continued indefinitely and the patient will be reassessed at regular office visits. Urine drug screens will be performed in order to ensure compliance with medication prescriptions and to rule out any illicit use. The [place] prescription drug data base was reviewed and is compliant with the patient's treatment plan. 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 Related to Postlaminectomy syndrome A significant compon ent of the patient's pain is coming from his left hip in addition to his lower back. This is not a Workers' [employer] related injury and he will need to go through Medicare for this. The patient's hip X-rays were reviewed and show moderate degenerative changes.The patient underwent a left hip injection on 01/28/21 and is still doing well since this injection. No further interventions. Related to Pain in left hip The patient has evid ence of trochanteric bursitis in his left hip. This is not covered under [email or web address] and will need to be covered under the patient's regular insurance.The patient is doing well since his left hip injection on 01/28/21. No interventions. Related to Trochanteric bursitis, left hip The patient has not used his SCS for a number of years because his battery only worked for a year after it was last changed. He does not find it helpful and his generator site is painful. We will plan to explant this in the near future. Related to Breakdown (mechanical) of implanted electronic neurostimulator, generator, sequela He wants to discuss removal of his SCS with Dr. Young. He says the SCS no longer works and he just wants it removed. Related to Type 2 diabetes mellitus w/ diabetic neuropathy [place] PDMP was reviewed . We will renew his medications today. Follow up in 4 weeks.Today I have discussed the options for care, including possible injections and physical therapy. The patient was advised on proper lifting techniques, home exercises and physical conditioning. Avoid heavy lifting and high impact activity. Patient was provided written material on the [facility] Information on Nonopioid Alternatives for the Treatment of Pain. The patient reports stable pain on the current opioid medication regimen. There are no signs of adverse effects, medication abuse or evidence of diversion. The patient reports improved activity and functional levels on this medication regimen. The patient's last urine drug screen is consistent with prescribed medications. The patient has chronic, intractable pain with the diagnoses listed in the assessment. Patient was instructed not to use heavy machinery, not to drink alcohol, or use illicit substances while taking these opioid medications. Related to Chronic pain syndrome The patient risk lev el was determined by evaluating their objective and subjective individual risk factors. At today's assessment, the patient's risk factors include an evaluation of the following documented information:Level of medication in MME/Day: 45# UDT's per last 12 months: 2Most recent UDT: 05/25/2021, this was compliantOpioid Risk Tool score: 0PHQ2 score: 0CAGE score: <3The [place] EFORCSE/Prescription Drug Monitoring Program was reviewed, found to be compliant and a copy was attached to the chart.Based on the above information and that the patient has not had an inconsistent UDS will consider the patient a green risk stratification. Related to Encounter for therapeutic drug level monitoring Patient was given gr eater than 72 hours of narcotic medication to control severe and intractable pain. Interventional procedures, physical therapy and adjuvant therapy was not successful alone in controlling patient's severe pain. Chronic opioid therapy may be continued indefinitely and the patient will be reassessed at regular office visits. Urine drug screens will be performed in order to ensure compliance with medication prescriptions and to rule out any illicit use. The [place] prescription drug data base was reviewed and is compliant with the patient's treatment plan. Related to alf (current) use of opiate analgesic Patient has low back pain and a component of his pain seems to be coming from a muscle spasm. Discussed possible medication options and treatment options in the past, including prescribing a muscle relaxer. However, he is reluctant to take more medications. Advised him to continue to stretch, try light massage, and using a foam roller to stretch out his muscles. No interventions are planned at this time. Related to Muscle spasm of back Patient has chronic lower back pain with pain down the his legs L>R. He has been having increased lower back pain and continues to have radicular symptoms. Patient has a spinal cord stimulator placed. He has been to a digital community manager who states it's not neuropathy from his diabetes, and that his hemoglobin A1c was 6.3. Patient was told by his PCP that these symptoms are not neuropathy but coming from his back. Patient has a history of infected pain pump. So will need to get cardiac and medical clearance. He still has a SCS. Reviewed CT Scan. Patient had a caudal REJI on 08/23/2020 which provided greater then 50% relief. Patient is having issues with walking upstairs. He states this is new and feels like he does not have strength to hold himself up.Patient had a caudal REJI on 01/17/2021 which has provided greater then 50% but not as good as in the past.The patient had a SCS implanted a number of years ago as well as an IT pump. The IT pump was explanted by me on an emergency basis due to an infection. We treated his lumbosacral radiculopathy with caudal ESIs as his stimulator has not been working and he hasn't used it in a number of years. He is having increasing pain on the generator side which stops him from laying on his side. I recommend removal of the generator due to this. He will be getting thoracic and lumbar X-rays and after we view these we will plan on explanting his generator and getting Workers' Comp approval for that.Xray reviewed, leads are not attached to battery thus not operational and not helping any with pain management. Also upon xray, the battery in near the surface of the skin and on palpitation the battery is close to protrusion outside of the skin causing pain and risk for infection if skin becomes open which is a huge safety concern for patients health. Order removal of Spinal Cord stimulator. Patient is on plavix and hold for 5-7 days. We will reach out to material reprocessing associate (Dr. Galvan, [facility]). NPO for 6 hours and have tow bar driver. No NSAIDs for 7 days. Is diabetic- last A1C 6.9 6 weeks ago with PCP. Related to Radiculopathy of lumbosacral region The patient has a hi story of back surgery about 20 years ago. Related to Postlaminectomy syndrome The patient has not used his SCS for a number of years because his battery only worked for a year after it was last changed. He does not find it helpful and his generator site is painful. We will plan to explant this in the near future. Related to Breakdown (mechanical) of implanted electronic neurostimulator, generator, sequela The patient has evid ence of trochanteric bursitis in his left hip. This is not covered under Workers' Comp and will need to be covered under the patient's regular insurance.The patient is doing well since his left hip injection on 01/28/21. No interventions. Related to Trochanteric bursitis, left hip A significant compon ent of the patient's pain is coming from his left hip in addition to his lower back. This is not a Workers[employer] related injury and he will need to go through Medicare for this. The patient's hip X-rays were reviewed and show moderate degenerative changes.The patient underwent a left hip injection on 01/28/21 and is still doing well since this injection. No further interventions. Related to Pain in left hip Patient has chronic lower back pain with pain down the his legs L>R. He has been having increased lower back pain and continues to have radicular symptoms. Patient has a spinal cord stimulator placed. He has been to a digital community manager who states it's not neuropathy from his diabetes, and that his hemoglobin A1c was 6.3. Patient was told by his PCP that these symptoms are not neuropathy but coming from his back. Patient has a history of infected pain pump. So will need to get cardiac and medical clearance. He still has a SCS. Reviewed CT Scan. Patient had a caudal REJI on 08/23/2020 which provided greater then 50% relief. Patient is having issues with walking upstairs. He states this is new and feels like he does not have strength to hold himself up.Patient had a caudal REJI on 01/17/2021 which has provided greater then 50% but not as good as in the past.The patient had a SCS implanted a number of years ago as well as an IT pump. The IT pump was explanted by me on an emergency basis due to an infection. We treated his lumbosacral radiculopathy with caudal ESIs as his stimulator has not been working and he hasn't used it in a number of years. He is having increasing pain on the generator side which stops him from laying on his side. I recommend removal of the generator due to this. He will be getting thoracic and lumbar X-rays and after we view these we will plan on explanting his generator and getting Workers' Comp approval for that. Related to Radiculopathy of lumbosacral region He wants to discuss removal of his SCS with Dr. Young. He says the SCS no longer works and he just wants it removed. Related to Type 2 diabetes mellitus w/ diabetic neuropathy The patient risk lev el was determined by evaluating their objective and subjective individual risk factors. At today's assessment, the patient's risk factors include an evaluation of the following documented information:Level of medication in MME/Day: 45# UDT's per last 12 months: 2Most recent UDT: 05/25/2021, this was compliantOpioid Risk Tool score: 0PHQ2 score: 0CAGE score: <3The [place] EFORCSE/Prescription Drug Monitoring Program was reviewed, found to be compliant and a copy was attached to the chart.Based on the above information and that the patient has not had an inconsistent UDS will consider the patient a green risk stratification. Related to Encounter for therapeutic drug level monitoring Patient has low back pain and a component of his pain seems to be coming from a muscle spasm. Discussed possible medication options and treatment options in the past, including prescribing a muscle relaxer. However, he is reluctant to take more medications. Advised him to continue to stretch, try light massage, and using a foam roller to stretch out his muscles. No interventions are planned at this time. Related to Muscle spasm of back [place] PDMP was reviewed . We will renew his medications today. Follow up in 4 weeks.Today I have discussed the options for care, including possible injections and physical therapy. The patient was advised on proper lifting techniques, home exercises and physical conditioning. Avoid heavy lifting and high impact activity. Patient was provided written material on the [facility] Information on Nonopioid Alternatives for the Treatment of Pain. The patient reports stable pain on the current opioid medication regimen. There are no signs of adverse effects, medication abuse or evidence of diversion. The patient reports improved activity and functional levels on this medication regimen. The patient's last urine drug screen is consistent with prescribed medications. The patient has chronic, intractable pain with the diagnoses listed in the assessment. Patient was instructed not to use heavy machinery, not to drink alcohol, or use illicit substances while taking these opioid medications. Related to Chronic pain syndrome Patient was given gr eater than 72 hours of narcotic medication to control severe and intractable pain. Interventional procedures, physical therapy and adjuvant therapy was not successful alone in controlling patient's severe pain. Chronic opioid therapy may be continued indefinitely and the patient will be reassessed at regular office visits. Urine drug screens will be performed in order to ensure compliance with medication prescriptions and to rule out any illicit use. The [place] prescription drug data base was reviewed and is compliant with the patient's treatment plan. Related to alf (current) use of opiate analgesic Patient was given gr eater than 72 hours of narcotic medication to control severe and intractable pain. Interventional procedures, physical therapy and adjuvant therapy was not successful alone in controlling patient's severe pain. Chronic opioid therapy may be continued indefinitely and the patient will be reassessed at regular office visits. Urine drug screens will be performed in order to ensure compliance with medication prescriptions and to rule out any illicit use. The [place] prescription drug data base was reviewed and is compliant with the patient's treatment plan. Related to alf (current) use of opiate analgesic Patient has low back pain and a component of his pain seems to be coming from a muscle spasm. Discussed possible medication options and treatment options in the past, including prescribing a muscle relaxer. However, he is reluctant to take more medications. Advised him to continue to stretch, try light massage, and using a foam roller to stretch out his muscles. No interventions are planned at this time. Related to Muscle spasm of back The patient risk lev el was determined by evaluating their objective and subjective individual risk factors. At today's assessment, the patient's risk factors include an evaluation of the following documented information:Level of medication in MME/Day: 45# UDT's per last 12 months: 1Most recent UDT: 08/30/2020Opioid Risk Tool score: 0PHQ2 score: 0CAGE score: <3The [place] EFORCSE/Prescription Drug Monitoring Program was reviewed, found to be compliant and a copy was attached to the chart.Based on the above information and that the patient has not had an inconsistent UDS will consider the patient a green risk stratification. Related to Encounter for therapeutic drug level monitoring The patient's left h ip continues to do well after his injection on 01/28/21. All of his hip treatments are to be covered through Medicare. He receives medications and treatments for his back pain through [employer]. Follow up for his hip as needed.Today I have discussed the options for care, including possible injections and physical therapy. The patient was advised on proper lifting techniques, home exercises and physical conditioning. Avoid heavy lifting and high impact activity. Patient was provided written material on the [facility] Information on Nonopioid Alternatives for the Treatment of Pain. Related to Chronic pain syndrome The patient's left h ip continues to do well after his injection on 01/28/21. All of his hip treatments are to be covered through Medicare. He receives medications and treatments for his back pain through [employer]. Follow up for his hip as needed.Today I have discussed the options for care, including possible injections and physical therapy. The patient was advised on proper lifting techniques, home exercises and physical conditioning. Avoid heavy lifting and high impact activity. Patient was provided written material on the [facility] Information on Nonopioid Alternatives for the Treatment of Pain. Related to Chronic pain syndrome The patient risk lev el was determined by evaluating their objective and subjective individual risk factors. At today's assessment, the patient's risk factors include an evaluation of the following documented information:Level of medication in MME/Day: 45# UDT's per last 12 months: 1Most recent UDT: 08/30/2020Opioid Risk Tool score: 0PHQ2 score: 0CAGE score: <3The [place] EFORCSE/Prescription Drug Monitoring Program was reviewed, found to be compliant and a copy was attached to the chart.Based on the above information and that the patient has not had an inconsistent UDS will consider the patient a green risk stratification. Related to Encounter for therapeutic drug level monitoring Patient was given gr eater than 72 hours of narcotic medication to control severe and intractable pain. Interventional procedures, physical therapy and adjuvant therapy was not successful alone in controlling patient's severe pain. Chronic opioid therapy may be continued indefinitely and the patient will be reassessed at regular office visits. Urine drug screens will be performed in order to ensure compliance with medication prescriptions and to rule out any illicit use. The [place] prescription drug data base was reviewed and is compliant with the patient's treatment plan. 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 Discussed possible medication options and treatment options in the past, including prescribing a muscle relaxer. However, he is reluctant to take more medications. Advised him to continue to stretch, try light massage, and using a foam roller to stretch out his muscles. No interventions are planned at this time. Related to Muscle spasm of back Have discussed that there is a limit to the relief we can provided with medications alone, and that medications in combination with other treatment options including PT and interventional procedures may provide additional relief and/or improve overall quality of life.He will consider additional injections for bursitis. Related to Trochanteric bursitis, left hip Patient says the med ications provide partial relief from the pain, while simultaneously increase the ability to complete ADLs/maintain meaningful activities. Denies self escalation of the medication this month and has denied concerning side effects. The patient's risk of misuse of controlled substance abuse has been evaluated and ongoing monitoring is an integral part of their treatment plan.They have been provided with the pamphlet titled Information on Nonopioid Alternatives for the Treatment of Pain made available by the Department of Health. 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 As outlined in the Opioid Agreement, have previously discussed: 1) narcotic therapy and the risks of tolerance dependence and addiction, 2) the risk of sedation and the possibility of severe civil or criminal penalties for operating a motor vehicle while taking opioids, and 3) the risk of opioids when combined with other substances that may depress the central nervous system such as anti-anxiety medications, muscle relaxants, antidepressants, alcohol and marijuana, and that the combination of these medications may cause respiratory depression, coma and Related to Chronic pain syndrome Patient says the med ications provide partial relief from the pain, while simultaneously increase the ability to complete ADLs/maintain meaningful activities. Denies self escalation of the medication this month and has denied concerning side effects. The patient's risk of misuse of controlled substance abuse has been evaluated and ongoing monitoring is an integral part of their treatment plan.They have been provided with the pamphlet titled Information on Nonopioid Alternatives for the Treatment of Pain made available by the Department of [facility]. 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 As outlined in the Opioid Agreement, have previously discussed: 1) narcotic therapy and the risks of tolerance dependence and addiction, 2) the risk of sedation and the possibility of severe civil or criminal penalties for operating a motor vehicle while taking opioids, and 3) the risk of opioids when combined with other substances that may depress the central nervous system such as anti-anxiety medications, muscle relaxants, antidepressants, alcohol and marijuana, and that the combination of these medications may cause respiratory depression, coma and Related to Chronic pain syndrome We have evaluated th e patient and are prescribing over 72 hours of opioid medication within a comprehensive approach to care. As outlined in the Opioid Agreement, have previously discussed: 1) narcotic therapy and the risks of tolerance dependence and addiction, 2) the risk of sedation and the possibility of severe civil or criminal penalties for operating a motor vehicle while taking opioids, and 3) the risk of opioids when combined with other substances that may depress the central nervous system such as anti-anxiety medications, muscle relaxants, antidepressants, alcohol and marijuana, and that the combination of these medications may cause respiratory depression, coma and Related to Chronic pain syndrome Patient says the med ications provide partial relief from the pain, while simultaneously increase the ability to complete ADLs/maintain meaningful activities. Denies self escalation of the medication this month and has denied concerning side effects. The patient's risk of misuse of controlled substance abuse has been evaluated and ongoing monitoring is an integral part of their treatment plan.They have been provided with the pamphlet titled Information on Nonopioid Alternatives for the Treatment of Pain made available by the Department of [facility]. Related to alf (current) use of opiate analgesic The patient's left h ip continues to do well after his injection on 01/28/21. All of his hip treatments are to be covered through Medicare. He receives medications and treatments for his back pain through [employer]. Follow up for his hip as needed.Today I have discussed the options for care, including possible injections and physical therapy. The patient was advised on proper lifting techniques, home exercises and physical conditioning. Avoid heavy lifting and high impact activity. Patient was provided written material on the [facility] Information on Nonopioid Alternatives for the Treatment of Pain. Related to Chronic pain syndrome The patient has evid ence of trochanteric bursitis in his left hip. This is not covered under [employer] and will need to be covered under the patient's regular insurance.The patient is doing well since his left hip injection on 01/28/21. No interventions. Related to Trochanteric bursitis, left hip A significant compon ent of the patient's pain is coming from his left hip in addition to his lower back. This is not a [email or web address] related injury and he will need to go through Medicare for this. The patient's hip X-rays were reviewed and show moderate degenerative changes.The patient underwent a left hip injection on 01/28/21 and is still doing well since this injection. No further interventions. Related to Pain in left hip Patient has low back pain and a component of his pain seems to be coming from a muscle spasm. Discussed possible medication options and treatment options in the past, including prescribing a muscle relaxer. However, he is reluctant to take more medications. Advised him to continue to stretch, try light massage, and using a foam roller to stretch out his muscles. No interventions are planned at this time. Related to Muscle spasm of back The patient risk lev el was determined by evaluating their objective and subjective individual risk factors. At today's assessment, the patient's risk factors include an evaluation of the following documented information:Level of medication in MME/Day: 45# UDT's per last 12 months: 1Most recent UDT: 08/30/2020Opioid Risk Tool score: 0PHQ2 score: 0CAGE score: <3The [place] EFORCSE/Prescription Drug Monitoring Program was reviewed, found to be compliant and a copy was attached to the chart.Based on the above information and that the patient has not had an inconsistent UDS will consider the patient a green risk stratification. Related to Encounter for therapeutic drug level monitoring His lumbar spine cheryl atments and medication are covered under Workers[employer].[place] PDMP was reviewed today. Will renew medications. No UDT required today. Follow up in 1 month with Ana Martel APRN.The patient reports stable pain on the current opioid medication regimen. There are no signs of adverse effects, medication abuse or evidence of diversion. The patient reports improved activity and functional levels on this medication regimen. The patient's last urine drug screen is consistent with prescribed medications. The patient has chronic, intractable pain with the diagnoses listed in the assessment. Patient was instructed not to use heavy machinery, not to drink alcohol, or use illicit substances while taking these opioid medications.Today I have discussed the options for care, including possible injections and physical therapy. The patient was advised on proper lifting techniques, home exercises and physical conditioning. Avoid heavy lifting and high impact activity. Patient was provided written material on the [facility] Information on Nonopioid Alternatives for the Treatment of Pain. Related to Chronic pain syndrome Patient was given gr eater than 72 hours of narcotic medication to control severe and intractable pain. Interventional procedures, physical therapy and adjuvant therapy was not successful alone in controlling patient's severe pain. Chronic opioid therapy may be continued indefinitely and the patient will be reassessed at regular office visits. Urine drug screens will be performed in order to ensure compliance with medication prescriptions and to rule out any illicit use. The [place] prescription drug data base was reviewed and is compliant with the patient's treatment plan. Related to alf (current) use of opiate analgesic Patient has chronic lower back pain with pain down the his legs L>R. He has been having increased lower back pain and continues to have radicular symptoms. Patient has a spinal cord stimulator placed. He has been to a digital community manager who states it's not neuropathy from his diabetes, and that his hemoglobin A1c was 6.3. Patient was told by his PCP that these symptoms are not neuropathy but coming from his back. Patient has a history of infected pain pump. So will need to get cardiac and medical clearance. He still has a SCS. Reviewed CT Scan. Patient had a caudal REJI on 08/23/2020 which provided greater then 50% relief. Patient is having issues with walking upstairs. He states this is new and feels like he does not have strength to hold himself up.Patient had a caudal REJI on 01/17/2021 which has provided greater then 50% but not as good as in the past.The patient is still experiencing pain relief from his recent caudal REJI but has sprained his back recently and is having increased symptoms in his back. This seems to be a lumbar sprain strain that has settled down some since the initial injury. We will continue to monitor this. Related to Radiculopathy of lumbosacral region Patient's wound is w ell healed with no signs or symptoms of infection. He is performing stretching and yoga to help with pain. He had tightness from his adhesions. No interventions at this time. 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 Condition is stable. Will continue to monitor. No interventions are planned at this time. 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 Patient states great relief without any complications. See procedure note for details. Will follow up at next scheduled appointment. Related to Pain in left hip Patient has low back pain and a component of his pain seems to be coming from a muscle spasm. Discussed possible medication options and treatment options in the past, including prescribing a muscle relaxer. However, he is reluctant to take more medications. Advised him to continue to stretch, try light massage, and using a foam roller to stretch out his muscles. No interventions are planned at this time. Related to Muscle spasm of back Will renew medicatio ns. Follow up in 1 month.The patient reports stable pain on the current opioid medication regimen. There are no signs of adverse effects, medication abuse or evidence of diversion. The patient reports improved activity and functional levels on this medication regimen. The patient's last urine drug screen is consistent with prescribed medications. The patient has chronic, intractable pain with the diagnoses listed in the assessment. Patient was instructed not to use heavy machinery, not to drink alcohol, or use illicit substances while taking these opioid medications.Today I have discussed the options for care, including possible injections and physical therapy. The patient was advised on proper lifting techniques, home exercises and physical conditioning. Avoid heavy lifting and high impact activity. Patient was provided written material on the [facility] Information on Nonopioid Alternatives for the Treatment of Pain. Related to Chronic pain syndrome The patient has evid ence of trochanteric bursitis in his left hip. We will reevaluate this condition after his left hip intraarticular injection. This is not covered under Workers' Comp and will need to be covered under the patient's regular insurance. Related to Trochanteric bursitis, left hip Patient was given gr eater than 72 hours of narcotic medication to control severe and intractable pain. Interventional procedures, physical therapy and adjuvant therapy was not successful alone in controlling patient's severe pain. Chronic opioid therapy may be continued indefinitely and the patient will be reassessed at regular office visits. Urine drug screens will be performed in order to ensure compliance with medication prescriptions and to rule out any illicit use. The [place] prescription drug data base was reviewed and is compliant with the patient's treatment plan. Related to alf (current) use of opiate analgesic Patient had his morp marnie pump removed. Condition is stable. Will continue to monitor. No interventions are planned at this time. Related to Breakdown of intrathecal infusion pump, subsequent encounter The patient risk lev el was determined by evaluating their objective and subjective individual risk factors. At today's assessment, the patient's risk factors include an evaluation of the following documented information:Level of medication in MME/Day: 45# UDT's per last 12 months: 1Most recent UDT: 08/30/2020Opioid Risk Tool score: 0PHQ2 score: 0CAGE score: <3The [place] EFORCSE/Prescription Drug Monitoring Program was reviewed, found to be compliant and a copy was attached to the chart.Based on the above information and that the patient has not had an inconsistent UDS will consider the patient a green risk stratification. Related to Encounter for therapeutic drug level monitoring Patient's wound is w ell healed with no signs or symptoms of infection. He is performing stretching and yoga to help with pain. He had tightness from his adhesions. No interventions at this time. 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 He has been having increased lower back pain and continues to have radicular symptoms. Patient has a spinal cord stimulator placed. He has been to a digital community manager who states it's not neuropathy from his diabetes, and that his hemoglobin A1c was 6.3. Patient was told by his PCP that these symptoms are not neuropathy but coming from his back. Patient has a history of infected pain pump. So will need to get cardiac and medical clearance. He still has a SCS. Reviewed CT Scan. Patient had a caudal REJI on 08/23/2020 which provided greater then 50% relief. Patient is having issues with walking upstairs. He states this is new and feels like he does not have strength to hold himself up.Patient had a caudal REJI on 01/17/2021 which has provided greater then 50% but not as good as in the past. Related to Radiculopathy of lumbosacral region A significant compon ent of the patient's pain is coming from his left hip in addition to his lower back. This is not a Workers' Comp related injury and he will need to go through his regular insurance for this. We will order hip X-rays and set the patient up for a left hip intraarticular steroid injection under ultrasound guidance both to be covered under the patient's regular insurance. He is scheduled with regular insurance for an injection on 01/28/2021. Related to Pain in left hip The patient has evid ence of trochanteric bursitis in his left hip. We will reevaluate this condition after his left hip intraarticular injection. This is not covered under Workers' Comp and will need to be covered under the patient's regular insurance. Related to Trochanteric bursitis, left hip A significant compon ent of the patient's pain is coming from his left hip in addition to his lower back. This is not a Workers' Comp related injury and he will need to go through his regular insurance for this. We will order hip X-rays and set the patient up for a left hip intraarticular steroid injection under ultrasound guidance both to be covered under the patient's regular insurance. Related to Pain in left hip [place] PDMP was reviewed . No medications were called out today because he does not need a refill. Follow up in 3 weeks with Ana Martel APRN.The patient reports stable pain on the current opioid medication regimen. There are no signs of adverse effects, medication abuse or evidence of diversion. The patient reports improved activity and functional levels on this medication regimen. The patient's last urine drug screen is consistent with prescribed medications. The patient has chronic, intractable pain with the diagnoses listed in the assessment. Patient was instructed not to use heavy machinery, not to drink alcohol, or use illicit substances while taking these opioid medications.Today I have discussed the options for care, including possible injections and physical therapy. The patient was advised on proper lifting techniques, home exercises and physical conditioning. Avoid heavy lifting and high impact activity. Patient was provided written material on the [facility] Information on Nonopioid Alternatives for the Treatment of Pain. Related to Chronic pain syndrome Patient had his morp marnie pump removed. Condition is stable. Will continue to monitor. No interventions are planned at this time. Related to Breakdown of intrathecal infusion pump, subsequent encounter Patient has chronic lower back pain with pain down the his legs L>R. He has been having increased lower back pain and continues to have radicular symptoms. Patient has a spinal cord stimulator placed. He has been to a digital community manager who states it's not neuropathy from his diabetes, and that his hemoglobin A1c was 6.3. Patient was told by his PCP that these symptoms are not neuropathy but coming from his back. Patient has a history of infected pain pump. So will need to get cardiac and medical clearance. He still has a SCS. Reviewed CT Scan. Patient had a caudal REJI on 08/23/2020 which provided greater then 50% relief. Patient is having issues with walking upstairs. He states this is new and feels like he does not have strength to hold himself up.The patient returns today with recurrent lumbosacral radiculopathy, left-side worse than right-side. The patient did very well following his last caudal REJI on 08/23/20. His lumbar CT scan was reviewed and showed no new findings. I recommend that the patient undergo a repeat caudal REJI due to his significant pain and because his last one helped him significantly with almost complete relief for over three months. The patient will need to stop his Plavix medication for 5 days prior to this injection and will get permission to do so pending approval through Workers' Comp. We will see him back subsequently and reassess. Related to Radiculopathy of lumbosacral region Patient has low back pain and a component of his pain seems to be coming from a muscle spasm. Discussed possible medication options and treatment options in the past, including prescribing a muscle relaxer. However, he is reluctant to take more medications. Advised him to continue to stretch, try light massage, and using a foam roller to stretch out his muscles. No interventions are planned at this time. Related to Muscle spasm of back Patient's wound is w ell healed with no signs or symptoms of infection. He is performing stretching and yoga to help with pain. He had tightness from his adhesions. No interventions at this time. 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 Interventional procedures, physical therapy and adjuvant therapy was not successful alone in controlling patient's severe pain. Chronic opioid therapy may be continued indefinitely and the patient will be reassessed at regular office visits. Urine drug screens will be performed in order to ensure compliance with medication prescriptions and to rule out any illicit use. The [place] prescription drug data base was reviewed and is compliant with the patient's treatment plan. 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 At today's assessment, the patient's risk factors include an evaluation of the following documented information:Level of medication in MME/Day: 45# UDT's per last 12 months: 1Most recent UDT: 08/30/2020Opioid Risk Tool score: 0PHQ2 score: 0CAGE score: <3The [place] EFORCSE/Prescription Drug Monitoring Program was reviewed, found to be compliant and a copy was attached to the chart.Based on the above information and that the patient has not had an inconsistent UDS will consider the patient a green risk stratification. Related to Encounter for therapeutic drug level monitoring Telemedicine Visit. Will renew medications. Follow up in 1 month.The patient reports stable pain on the current opioid medication regimen. There are no signs of adverse effects, medication abuse or evidence of diversion. The patient reports improved activity and functional levels on this medication regimen. The patient's last urine drug screen is consistent with prescribed medications. The patient has chronic, intractable pain with the diagnoses listed in the assessment. Patient was instructed not to use heavy machinery, not to drink alcohol, or use illicit substances while taking these opioid medications.Today I have discussed the options for care, including possible injections and physical therapy. The patient was advised on proper lifting techniques, home exercises and physical conditioning. Avoid heavy lifting and high impact activity. Patient was provided written material on the [facility] Information on Nonopioid Alternatives for the Treatment of Pain. Related to Chronic pain syndrome Patient had his morp marnie pump removed. Condition is stable. Will continue to monitor. No interventions are planned at this time. Related to Breakdown of intrathecal infusion pump, subsequent encounter Patient has type 2 d iabetes with neuropathy. He continues to follow with his providers who monitor this condition. He states his latest Alc is 6.3. 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 He has been having increased lower back pain and continues to have radicular symptoms. Patient has a spinal cord stimulator placed. He has been to a digital community manager who states it's not neuropathy from his diabetes, and that his hemoglobin A1c was 6.3. Patient was told by his PCP that these symptoms are not neuropathy but coming from his back. Patient has a history of infected pain pump. So will need to get cardiac and medical clearance. He still has a SCS. Reviewed CT Scan. Patient had a caudal REJI on 08/23/2020 which provided greater then 50% relief. Patient is having issues with walking upstairs. He states this is new and feels like he does not have strength to hold himself up. Will order PT. Will have him follow up Dr. Young in one week for a physical. Related to Radiculopathy of lumbosacral region Patient has low back pain and a component of his pain seems to be coming from a muscle spasm. Discussed possible medication options and treatment options in the past, including prescribing a muscle relaxer. However, he is reluctant to take more medications. Advised him to continue to stretch, try light massage, and using a foam roller to stretch out his muscles. No interventions are planned at this time. Related to Muscle spasm of back Patient's wound is w ell healed with no signs or symptoms of infection. He is performing stretching and yoga to help with pain. He had tightness from his adhesions. No interventions at this time. 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 Will renew medications. Follow up in 1 month.The patient reports stable pain on the current opioid medication regimen. There are no signs of adverse effects, medication abuse or evidence of diversion. The patient reports improved activity and functional levels on this medication regimen. The patient's last urine drug screen is consistent with prescribed medications. The patient has chronic, intractable pain with the diagnoses listed in the assessment. Patient was instructed not to use heavy machinery, not to drink alcohol, or use illicit substances while taking these opioid medications.Today I have discussed the options for care, including possible injections and physical therapy. The patient was advised on proper lifting techniques, home exercises and physical conditioning. Avoid heavy lifting and high impact activity. Patient was provided written material on the [place] [employer] Information on Nonopioid Alternatives for the Treatment of Pain. Related to Chronic pain syndrome Patient has type 2 d iabetes with neuropathy. He continues to follow with his providers who monitor this condition. He states his latest Alc is 6.3. Related to Type 2 diabetes mellitus w/ diabetic neuropathy Patient was given gr eater than 72 hours of narcotic medication to control severe and intractable pain. Interventional procedures, physical therapy and adjuvant therapy was not successful alone in controlling patient's severe pain. Chronic opioid therapy may be continued indefinitely and the patient will be reassessed at regular office visits. Urine drug screens will be performed in order to ensure compliance with medication prescriptions and to rule out any illicit use. The [place] prescription drug data base was reviewed and is compliant with the patient's treatment plan. Related to alf (current) use of opiate analgesic Patient had his morp marnie pump removed. Condition is stable. Will continue to monitor. No interventions are planned at this time. Related to Breakdown of intrathecal infusion pump, subsequent encounter Patient has low back pain and a component of his pain seems to be coming from a muscle spasm. Discussed possible medication options and treatment options in the past, including prescribing a muscle relaxer. However, he is reluctant to take more medications. Advised him to continue to stretch, try light massage, and using a foam roller to stretch out his muscles. No interventions are planned at this time. Related to Muscle spasm of back The patient risk lev el was determined by evaluating their objective and subjective individual risk factors. At today's assessment, the patient's risk factors include an evaluation of the following documented information:Level of medication in MME/Day: 45# UDT's per last 12 months: 1Most recent UDT: 08/30/2020Opioid Risk Tool score: 0PHQ2 score: 0CAGE score: <3The [place] EFORCSE/Prescription Drug Monitoring Program was reviewed, found to be compliant and a copy was attached to the chart.Based on the above information and that the patient has not had an inconsistent UDS will consider the patient a green risk stratification. Related to Encounter for therapeutic drug level monitoring Patient's wound is w ell healed with no signs or symptoms of infection. He is performing stretching and yoga to help with pain. He had tightness from his adhesions. No interventions at this time. 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 He has been having increased lower back pain and continues to have radicular symptoms. Patient has a spinal cord stimulator placed. He has been to a digital community manager who states it's not neuropathy from his diabetes, and that his hemoglobin A1c was 6.3. Patient was told by his PCP that these symptoms are not neuropathy but coming from his back. Patient has a history of infected pain pump. So will need to get cardiac and medical clearance. He still has a SCS. Reviewed CT Scan. Patient had a caudal REJI on 08/23/2020 which provided greater then 50% relief. Related to Radiculopathy of lumbosacral region The patient risk lev el was determined by evaluating their objective and subjective individual risk factors. At today's assessment, the patient's risk factors include an evaluation of the following documented information:Level of medication in MME/Day: 45# UDT's per last 12 months: 1Most recent UDT: 08/30/2020Opioid Risk Tool score: 0PHQ2 score: 0CAGE score: <3The [place] EFORCSE/Prescription Drug Monitoring Program was reviewed, found to be compliant and a copy was attached to the chart.Based on the above results, the absence of concerning clinical observations, the fact that the patient has been stable on the medications and UDTs have been appropriate, this patient is assessed today as a risk level of: Green Related to Encounter for therapeutic drug level monitoring Telemedicine Visit. Will renew medications. Follow up in 1 month.The patient reports stable pain on the current opioid medication regimen. There are no signs of adverse effects, medication abuse or evidence of diversion. The patient reports improved activity and functional levels on this medication regimen. The patient's last urine drug screen is consistent with prescribed medications. The patient has chronic, intractable pain with the diagnoses listed in the assessment. Patient was instructed not to use heavy machinery, not to drink alcohol, or use illicit substances while taking these opioid medications.Today I have discussed the options for care, including possible injections and physical therapy. The patient was advised on proper lifting techniques, home exercises and physical conditioning. Avoid heavy lifting and high impact activity. Patient was provided written material on the [facility] Information on Nonopioid Alternatives for the Treatment of Pain. Related to Chronic pain syndrome Patient had his morp marnie pump removed. Condition is stable. Will continue to monitor. No interventions are planned at this time. Related to Breakdown of intrathecal infusion pump, subsequent encounter Patient has low back pain and a component of his pain seems to be coming from a muscle spasm. Discussed possible medication options and treatment options in the past, including prescribing a muscle relaxer. However, he is reluctant to take more medications. Advised him to continue to stretch, try light massage, and using a foam roller to stretch out his muscles. No interventions are planned at this time. Related to Muscle spasm of back Patient's wound is w ell healed with no signs or symptoms of infection. He is performing stretching and yoga to help with pain. He had tightness from his adhesions. No interventions at this time. 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 He has been having increased lower back pain and continues to have radicular symptoms. Patient has a spinal cord stimulator placed. He has been to a digital community manager who states it's not neuropathy from his diabetes, and that his hemoglobin A1c was 6.3. Patient was told by his PCP that these symptoms are not neuropathy but coming from his back. Patient has a history of infected pain pump. So will need to get cardiac and medical clearance. He still has a SCS. Reviewed CT Scan. Patient had a caudal REJI on 08/23/2020 which provided greater then 50% relief. Related to Radiculopathy of lumbosacral region Patient has type 2 d iabetes with neuropathy. He continues to follow with his providers who monitor this condition. He states his latest Alc is 6.3. Related to Type 2 diabetes mellitus w/ diabetic neuropathy Patient was given gr eater than 72 hours of narcotic medication to control severe and intractable pain. Interventional procedures, physical therapy and adjuvant therapy was not successful alone in controlling patient's severe pain. Chronic opioid therapy may be continued indefinitely and the patient will be reassessed at regular office visits. Urine drug screens will be performed in order to ensure compliance with medication prescriptions and to rule out any illicit use. The [place] prescription drug data base was reviewed and is compliant with the patient's treatment plan. Related to alf (current) use of opiate analgesic Patient was given gr eater than 72 hours of narcotic medication to control severe and intractable pain. Interventional procedures, physical therapy and adjuvant therapy was not successful alone in controlling patient's severe pain. Chronic opioid therapy may be continued indefinitely and the patient will be reassessed at regular office visits. Urine drug screens will be performed in order to ensure compliance with medication prescriptions and to rule out any illicit use. The [place] prescription drug data base was reviewed and is compliant with the patient's treatment plan. 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 He continues to follow with his providers who monitor this condition. He states his latest Alc is 6.3. Related to Type 2 diabetes mellitus w/ diabetic neuropathy Patient's wound is w ell healed with no signs or symptoms of infection. He is performing stretching and yoga to help with pain. He had tightness from his adhesions. No interventions at this time. 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 Patient has no history or evidence of opioid abuse or misuse and has been compliant on last UDS. For this reason patient's stratified risk is green. [place] PDMP was not reviewed due to IT issues at the site. Telemedicine Visit. Latest UDS was compliant (08/30/2020). Will not order a presumptive UDS today. Will renew medications. Follow up in 1 month.The patient reports stable pain on the current opioid medication regimen. There are no signs of adverse effects, medication abuse or evidence of diversion. The patient reports improved activity and functional levels on this medication regimen. The patient's last urine drug screen is consistent with prescribed medications. The patient has chronic, intractable pain with the diagnoses listed in the assessment. Patient was instructed not to use heavy machinery, not to drink alcohol, or use illicit substances while taking these opioid medications.Today I have discussed the options for care, including possible injections and physical therapy. The patient was advised on proper lifting techniques, home exercises and physical conditioning. Avoid heavy lifting and high impact activity. Patient was provided written material on the [facility] Information on Nonopioid Alternatives for the Treatment of Pain. Related to Chronic pain syndrome Patient had his morp marnie pump removed. Condition is stable. Will continue to monitor. No interventions are planned at this time. Related to Breakdown of intrathecal infusion pump, subsequent encounter Patient has low back pain and a component of his pain seems to be coming from a muscle spasm. Discussed possible medication options and treatment options in the past, including prescribing a muscle relaxer. However, he is reluctant to take more medications. Advised him to continue to stretch, try light massage, and using a foam roller to stretch out his muscles. No interventions are planned at this time. Related to Muscle spasm of back Patient has chronic lower back pain with pain down the his legs L>R. He has been having increased lower back pain and continues to have radicular symptoms. Patient has a spinal cord stimulator placed. He has been to a digital community manager who states it's not neuropathy from his diabetes, and that his hemoglobin A1c was 6.3. Patient was told by his PCP that these symptoms are not neuropathy but coming from his back. Patient has a history of infected pain pump. So will need to get cardiac and medical clearance. He still has a SCS. Reviewed CT Scan. Patient had a caudal REJI on 08/23/2020 which provided greater then 50% relief. Related to Radiculopathy of lumbosacral region Patient states that his current pain medication regiment allows him to function with ADLs. Patient has no history or evidence of opioid abuse or misuse and has been compliant on last UDS. For this reason patient's stratified risk is green. [place] PDMP was not reviewed due to IT issues at the site. Telemedicine Visit. Latest UDS was compliant (09/08/2019). Will order a presumptive UDS today as per protocol. Will come in to the office in the next week. Will renew medications. Follow up in 1 month.The patient reports stable pain on the current opioid medication regimen. There are no signs of adverse effects, medication abuse or evidence of diversion. The patient reports improved activity and functional levels on this medication regimen. The patient's last urine drug screen is consistent with prescribed medications. The patient has chronic, intractable pain with the diagnoses listed in the assessment. Patient was instructed not to use heavy machinery, not to drink alcohol, or use illicit substances while taking these opioid medications.Today I have discussed the options for care, including possible injections and physical therapy. The patient was advised on proper lifting techniques, home exercises and physical conditioning. Avoid heavy lifting and high impact activity. Patient was provided written material on the [facility] Information on Nonopioid Alternatives for the Treatment of Pain. Related to Chronic pain syndrome Patient was given gr eater than 72 hours of narcotic medication to control severe and intractable pain. Interventional procedures, physical therapy and adjuvant therapy was not successful alone in controlling patient's severe pain. Chronic opioid therapy may be continued indefinitely and the patient will be reassessed at regular office visits. Urine drug screens will be performed in order to ensure compliance with medication prescriptions and to rule out any illicit use. The [place] prescription drug data base was reviewed and is compliant with the patient's treatment plan. 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 Discussed possible medication options and treatment options in the past, including prescribing a muscle relaxer. However, he is reluctant to take more medications. Advised him to continue to stretch, try light massage, and using a foam roller to stretch out his muscles. No interventions are planned at this time. Related to Muscle spasm of back Patient has chronic lower back pain with pain down the his legs L>R. He has been having increased lower back pain and continues to have radicular symptoms. Patient has a spinal cord stimulator placed. He has been to a digital community manager who states it's not neuropathy from his diabetes, and that his hemoglobin A1c was 6.3. Patient was told by his PCP that these symptoms are not neuropathy but coming from his back. Patient has a history of infected pain pump. So will need to get cardiac and medical clearance. He still has a SCS. Reviewed CT Scan. Patient had a caudal REJI on 08/23/2020 which provided greater then 50% relief. Related to Radiculopathy of lumbosacral region Patient had his morp marnie pump removed. Condition is stable. Will continue to monitor. No interventions are planned at this time. Related to Breakdown of intrathecal infusion pump, subsequent encounter Patient has type 2 d iabetes with neuropathy. He continues to follow with his providers who monitor this condition. He states his latest Alc is 6.3. Related to Type 2 diabetes mellitus w/ diabetic neuropathy Patient's wound is w ell healed with no signs or symptoms of infection. He is performing stretching and yoga to help with pain. He had tightness from his adhesions. No interventions at this time. 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 He continues to follow with his providers who monitor this condition. He states his latest Alc is 6.3. Related to Type 2 diabetes mellitus w/ diabetic neuropathy Patient had his morp marnie pump removed. Condition is stable. Will continue to monitor. No interventions are planned at this time. Related to Breakdown of intrathecal infusion pump, subsequent encounter Patient has low back pain and a component of his pain seems to be coming from a muscle spasm. I have discussed possible medication options and treatment options in the past, including prescribing a muscle relaxer. However, he is reluctant to take more medications. I have advised him to continue to stretch, try light massage, and using a foam roller to stretch out his muscles. No interventions are planned at this time. Related to Muscle spasm of back Patient's wound is w ell healed with no signs or symptoms of infection. He is performing stretching and yoga to help with pain. He had tightness from his adhesions. No interventions at this time. 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 He has been having increased lower back pain and continues to have radicular symptoms. Patient has a spinal cord stimulator placed. He has been to a digital community manager who states it's not neuropathy from his diabetes, and that his hemoglobin A1c was 6.3. Patient was told by his PCP that these symptoms are not neuropathy but coming from his back. Patient has a history of infected pain pump. So will need to get cardiac and medical clearance. He still has a SCS. Reviewed CT Scan. He would benefit from a Caudal REJI. Patient has been through extensive conservative treatment including activity modifications, NSAIDs and narcotic medication. The patient is continuing with their at home exercise program after completing suitable 4-6 weeks of formal therapy. The patient has tried several modalities in a stepwise approach to control their pain but despite these attempts the patient continues to be symptomatic with pain. Will schedule patient for a caudal REJI.Discussed with patient the risks, benefits, and failures possible with this procedure. Answered and encouraged patient's questions. Instructed patient discontinue taking any NSAIDs at least 72 hrs prior to the procedure and must have a tow bar driver present at the time of the procedure. Patient verbalizes agreement and wishes to proceed. The risks of proceeding with this procedure during a public health emergency, and potential benefits, were discussed at length with the patient. The patient acknowledges the discussion of this exposure, has had an opportunity to ask questions, discussed alternatives including postponing the procedure and has decided to proceed with the procedure.Patient verbalized that he is stop his Plavix 7 days prior to procedure Related to Radiculopathy of lumbosacral region Patient was given gr eater than 72 hours of narcotic medication to control severe and intractable pain. Interventional procedures, physical therapy and adjuvant therapy was not successful alone in controlling patient's severe pain. Chronic opioid therapy may be continued indefinitely and the patient will be reassessed at regular office visits. Urine drug screens will be performed in order to ensure compliance with medication prescriptions and to rule out any illicit use. The [place] prescription drug data base was reviewed and is compliant with the patient's treatment plan. Related to alf (current) use of opiate analgesic Patient states that he is having increased radicular symptoms. He is having a hard time walking his dog. He will be schedule for a Caudal REJI. Patient states that his current pain medication regiment allows him to function with ADLs. Patient has no history or evidence of opioid abuse or misuse and has been compliant on last UDS. For this reason patient's stratified risk is green. [place] was [place]. Telemedicine Visit. Latest UDS was compliant. Will not order a UDS today secondary to Covid-19 restrictions. Will renew medications. Follow up in 1 month.The patient reports stable pain on the current opioid medication regimen. There are no signs of adverse effects, medication abuse or evidence of diversion. The patient reports improved activity and functional levels on this medication regimen. The patient's last urine drug screen is consistent with prescribed medications. The patient has chronic, intractable pain with the diagnoses listed in the assessment. Patient was instructed not to use heavy machinery, not to drink alcohol, or use illicit substances while taking these opioid medications.Today I have discussed the options for care, including possible injections and physical therapy. The patient was advised on proper lifting techniques, home exercises and physical conditioning. Avoid heavy lifting and high impact activity. Patient was provided written material on the [facility] Information on Nonopioid Alternatives for the Treatment of Pain. Related to Chronic pain syndrome Patient states that his current pain medication regiment allows him to function with ADLs. Patient has no history or evidence of opioid abuse or misuse and has been compliant on last UDS. For this reason patient's stratified risk is green. [place]. Telemedicine Visit. Latest UDS was compliant. Will not order a UDS today secondary to Covid-19 restrictions. Will renew medications. Follow up in 1 month.The patient reports stable pain on the current opioid medication regimen. There are no signs of adverse effects, medication abuse or evidence of diversion. The patient reports improved activity and functional levels on this medication regimen. The patient's last urine drug screen is consistent with prescribed medications. The patient has chronic, intractable pain with the diagnoses listed in the assessment. Patient was instructed not to use heavy machinery, not to drink alcohol, or use illicit substances while taking these opioid medications.Today I have discussed the options for care, including possible injections and physical therapy. The patient was advised on proper lifting techniques, home exercises and physical conditioning. Avoid heavy lifting and high impact activity. Patient was provided written material on the [facility] Information on Nonopioid Alternatives for the Treatment of Pain. Related to Chronic pain syndrome Patient was given gr eater than 72 hours of narcotic medication to control severe and intractable pain. Interventional procedures, physical therapy and adjuvant therapy was not successful alone in controlling patient's severe pain. Chronic opioid therapy may be continued indefinitely and the patient will be reassessed at regular office visits. Urine drug screens will be performed in order to ensure compliance with medication prescriptions and to rule out any illicit use. The [place] prescription drug data base was reviewed and is compliant with the patient's treatment plan. Related to alf (current) use of opiate analgesic Patient has low back pain and a component of his pain seems to be coming from a muscle spasm. I have discussed possible medication options and treatment options in the past, including prescribing a muscle relaxer. However, he is reluctant to take more medications. I have advised him to continue to stretch, try light massage, and using a foam roller to stretch out his muscles. No interventions are planned at this time. Related to Muscle spasm of back Patient has chronic lower back pain with pain down the his legs L>R. He has been having increased lower back pain and continues to have radicular symptoms. Patient has a spinal cord stimulator placed. He has been to a digital community manager who states it's not neuropathy from his diabetes, and that his hemoglobin A1c was 6.3. Patient was told by his PCP that these symptoms are not neuropathy but coming from his back. Patient has a history of infected pain pump. So will need to get cardiac and medical clearance. He still has a SCS. Reviewed CT Scan. He would benefit from a Caudal REJI. Patient has been through extensive conservative treatment including activity modifications, NSAIDs and narcotic medication. The patient is continuing with their at home exercise program after completing suitable 4-6 weeks of formal therapy. The patient has tried several modalities in a stepwise approach to control their pain but despite these attempts the patient continues to be symptomatic with pain. Will schedule patient for a caudal REJI.Discussed with patient the risks, benefits, and failures possible with this procedure. Answered and encouraged patient's questions. Instructed patient discontinue taking any NSAIDs at least 72 hrs prior to the procedure and must have a tow bar driver present at the time of the procedure. Patient verbalizes agreement and wishes to proceed. The risks of proceeding with this procedure during a public health emergency, and potential benefits, were discussed at length with the patient. The patient acknowledges the discussion of this exposure, has had an opportunity to ask questions, discussed alternatives including postponing the procedure and has decided to proceed with the procedure.Patient verbalized that he is stop his Plavix 7 days prior to procedure Related to Radiculopathy of lumbosacral region Patient's wound is w ell healed with no signs or symptoms of infection. He is performing stretching and yoga to help with pain. He had tightness from his adhesions. No interventions at this time. 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 He continues to follow with his providers who monitor this condition. He states his latest Alc is 6.3. Related to Type 2 diabetes mellitus w/ diabetic neuropathy Patient had his morp marnie pump removed. Condition is stable. Will continue to monitor. No interventions are planned at this time. Related to Breakdown of intrathecal infusion pump, subsequent encounter Patient has type 2 d iabetes with neuropathy. He continues to follow with his providers who monitor this condition. He states his latest Alc is 6.3. Related to Type 2 diabetes mellitus w/ diabetic neuropathy Patient had his morp marnie pump removed. Condition is stable. Will continue to monitor. No interventions are planned at this time. Related to Breakdown of intrathecal infusion pump, subsequent encounter Patient states that his current pain medication regiment allows him to function with ADLs. [place] PDMP was reviewed. Telemedicine Visit. Latest UDS was compliant. Will not order a UDS today secondary to Covid-19 restrictions. Will renew medications. Follow up in 1 month.The patient reports stable pain on the current opioid medication regimen. There are no signs of adverse effects, medication abuse or evidence of diversion. The patient reports improved activity and functional levels on this medication regimen. The patient's last urine drug screen is consistent with prescribed medications. The patient has chronic, intractable pain with the diagnoses listed in the assessment. Patient was instructed not to use heavy machinery, not to drink alcohol, or use illicit substances while taking these opioid medications.Today I have discussed the options for care, including possible injections and physical therapy. The patient was advised on proper lifting techniques, home exercises and physical conditioning. Avoid heavy lifting and high impact activity. Patient was provided written material on the [facility] Information on Nonopioid Alternatives for the Treatment of Pain. Related to Chronic pain syndrome Patient's wound is w ell healed with no signs or symptoms of infection. He is performing stretching and yoga to help with pain. He had tightness from his adhesions. No interventions at this time. 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 I have discussed possible medication options and treatment options in the past, including prescribing a muscle relaxer. However, he is reluctant to take more medications. I have advised him to continue to stretch, try light massage, and using a foam roller to stretch out his muscles. No interventions are planned at this time. Related to Muscle spasm of back Patient has chronic lower back pain with pain down the his legs L>R. He has been having increased lower back pain and continues to have radicular symptoms. Patient has a spinal cord stimulator placed. He has been to a digital community manager who states it's not neuropathy from his diabetes, and that his hemoglobin A1c was 6.3. Patient was told by his PCP that these symptoms are not neuropathy but coming from his back. Patient has a history of infected pain pump. So will need to get cardiac and medical clearance. He still has a SCS so will order a lumbar CT scan to further investigate the etiology of these symptoms. Related to Radiculopathy of lumbosacral region Patient was given gr eater than 72 hours of narcotic medication to control severe and intractable pain. Interventional procedures, physical therapy and adjuvant therapy was not successful alone in controlling patient's severe pain. Chronic opioid therapy may be continued indefinitely and the patient will be reassessed at regular office visits. Urine drug screens will be performed in order to ensure compliance with medication prescriptions and to rule out any illicit use. The [place] prescription drug data base was reviewed and is compliant with the patient's treatment plan. 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 He continues to follow with his providers who monitor this condition. He states his latest Alc is 6.3. Related to Type 2 diabetes mellitus w/ diabetic neuropathy Patient stats that h is rib are still causing increased pain. Will continue to monitor. Patient states that his current pain medication regiment allows him to function with ADLs. [place] Telemedicine Visit. Latest UDS was compliant. Will not order a UDS today secondary to Covid-19 restrictions. Will renew medications. Follow up in 1 month.The patient reports stable pain on the current opioid medication regimen. There are no signs of adverse effects, medication abuse or evidence of diversion. The patient reports improved activity and functional levels on this medication regimen. The patient's last urine drug screen is consistent with prescribed medications. The patient has chronic, intractable pain with the diagnoses listed in the assessment. Patient was instructed not to use heavy machinery, not to drink alcohol, or use illicit substances while taking these opioid medications.Today I have discussed the options for care, including possible injections and physical therapy. The patient was advised on proper lifting techniques, home exercises and physical conditioning. Avoid heavy lifting and high impact activity. Patient was provided written material on the [facility] Information on Nonopioid Alternatives for the Treatment of Pain. Related to Chronic pain syndrome Patient has low back pain and a component of his pain seems to be coming from a muscle spasm. I have discussed possible medication options and treatment options in the past, including prescribing a muscle relaxer. However, he is reluctant to take more medications. I have advised him to continue to stretch, try light massage, and using a foam roller to stretch out his muscles. No interventions are planned at this time. Related to Muscle spasm of back Patient was given gr eater than 72 hours of narcotic medication to control severe and intractable pain. Interventional procedures, physical therapy and adjuvant therapy was not successful alone in controlling patient's severe pain. Chronic opioid therapy may be continued indefinitely and the patient will be reassessed at regular office visits. Urine drug screens will be performed in order to ensure compliance with medication prescriptions and to rule out any illicit use. The [place] prescription drug data base was reviewed and is compliant with the patient's treatment plan. Related to alf (current) use of opiate analgesic Patient has chronic lower back pain with pain down the left leg. He has been having increased lower back pain and continues to have radicular symptoms. Patient has a spinal cord stimulator placed. He has been to a digital community manager who states it's not neuropathy from his diabetes, and that his hemoglobin A1c was 6.3. They feel it was from his back. He notes increased lower back pain he believes may be due to his new mattress. I will provide a prescription of Voltaren gel to see if it decreases some of his lower back pain. Currently, he is not a candidate for further interventions secondary to recent cardiac procedures. He may get clearance later on this year. I will continue to monitor. Related to Radiculopathy of lumbosacral region Patient had his morp marnie pump removed. Condition is stable. Will continue to monitor. No interventions are planned at this time. Related to Breakdown of intrathecal infusion pump, subsequent encounter Patient's wound is w ell healed with no signs or symptoms of infection. He is performing stretching and yoga to help with pain. He had tightness from his adhesions. No interventions at this time. 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 He has been having increased lower back pain and continues to have radicular symptoms. Patient has a spinal cord stimulator placed. He has been to a digital community manager who states it's not neuropathy from his diabetes, and that his hemoglobin A1c was 6.3. They feel it was from his back. He notes increased lower back pain he believes may be due to his new mattress. I will provide a prescription of Voltaren gel to see if it decreases some of his lower back pain. Currently, he is not a candidate for further interventions secondary to recent cardiac procedures. He may get clearance later on this year. I will continue to monitor. Related to Radiculopathy of lumbosacral region Patient states that the fell off a ladder and has 3 broken ribs. He has had increased pain. Teaching done regarding deep breaths. Will continue to monitor. Patient states that his current pain medication regiment allows him to function with ADLs. [place] PDMP was reviewed. Telemedicine Visit. Latest UDS was compliant. Will not order a UDS today secondary to Covid-19 restrictions. Will renew medications. Follow up in 1 month.The patient reports stable pain on the current opioid medication regimen. There are no signs of adverse effects, medication abuse or evidence of diversion. The patient reports improved activity and functional levels on this medication regimen. The patient's last urine drug screen is consistent with prescribed medications. The patient has chronic, intractable pain with the diagnoses listed in the assessment. Patient was instructed not to use heavy machinery, not to drink alcohol, or use illicit substances while taking these opioid medications.Today I have discussed the options for care, including possible injections and physical therapy. The patient was advised on proper lifting techniques, home exercises and physical conditioning. Avoid heavy lifting and high impact activity. Patient was provided written material on the [facility] Information on Nonopioid Alternatives for the Treatment of Pain. Related to Chronic pain syndrome Patient had his morp marnie pump removed. Condition is stable. Will continue to monitor. No interventions are planned at this time. Related to Breakdown of intrathecal infusion pump, subsequent encounter Patient's wound is w ell healed with no signs or symptoms of infection. He is performing stretching and yoga to help with pain. He had tightness from his adhesions. No interventions at this time. 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 Interventional procedures, physical therapy and adjuvant therapy was not successful alone in controlling patient's severe pain. Chronic opioid therapy may be continued indefinitely and the patient will be reassessed at regular office visits. Urine drug screens will be performed in order to ensure compliance with medication prescriptions and to rule out any illicit use. The [place] prescription drug data base was reviewed and is compliant with the patient's treatment plan. 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 He continues to follow with his providers who monitor this condition. He states his latest Alc is 6.3. Related to Type 2 diabetes mellitus w/ diabetic neuropathy Patient has low back pain and a component of his pain seems to be coming from a muscle spasm. I have discussed possible medication options and treatment options in the past, including prescribing a muscle relaxer. However, he is reluctant to take more medications. I have advised him to continue to stretch, try light massage, and using a foam roller to stretch out his muscles. No interventions are planned at this time. Related to Muscle spasm of back Patient was given gr eater than 72 hours of narcotic medication to control severe and intractable pain. Interventional procedures, physical therapy and adjuvant therapy was not successful alone in controlling patient's severe pain. Chronic opioid therapy may be continued indefinitely and the patient will be reassessed at regular office visits. Urine drug screens will be performed in order to ensure compliance with medication prescriptions and to rule out any illicit use. The [place] prescription drug data base was reviewed and is compliant with the patient's treatment plan. 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 He is performing stretching and yoga to help with pain. He had tightness from his adhesions. No interventions at this time. Related to Infection due to intrathecal infusion pump, subsequent encounter Patient states that his current pain medication regiment allows him to function with ADLs. [place] PDMP was reviewed. Telemedicine Visit. Latest UDS was compliant. Will not order a UDS today secondary to Covid-19 restrictions. Will renew medications. Follow up in 1 month.The patient reports stable pain on the current opioid medication regimen. There are no signs of adverse effects, medication abuse or evidence of diversion. The patient reports improved activity and functional levels on this medication regimen. The patient's last urine drug screen is consistent with prescribed medications. The patient has chronic, intractable pain with the diagnoses listed in the assessment. Patient was instructed not to use heavy machinery, not to drink alcohol, or use illicit substances while taking these opioid medications.Today I have discussed the options for care, including possible injections and physical therapy. The patient was advised on proper lifting techniques, home exercises and physical conditioning. Avoid heavy lifting and high impact activity. Patient was provided written material on the [facility] Information on Nonopioid Alternatives for the Treatment of Pain. Related to Chronic pain syndrome Patient has chronic lower back pain with pain down the left leg. He has been having increased lower back pain and continues to have radicular symptoms. Patient has a spinal cord stimulator placed. He has been to a digital community manager who states it's not neuropathy from his diabetes, and that his hemoglobin A1c was 6.3. They feel it was from his back. He notes increased lower back pain he believes may be due to his new mattress. I will provide a prescription of Voltaren gel to see if it decreases some of his lower back pain. Currently, he is not a candidate for further interventions secondary to recent cardiac procedures. He may get clearance later on this year. I will continue to monitor. Related to Radiculopathy of lumbosacral region Patient has type 2 d iabetes with neuropathy. He continues to follow with his providers who monitor this condition. He states his latest Alc is 6.3. Related to Type 2 diabetes mellitus w/ diabetic neuropathy Patient has low back pain and a component of his pain seems to be coming from a muscle spasm. I have discussed possible medication options and treatment options in the past, including prescribing a muscle relaxer. However, he is reluctant to take more medications. I have advised him to continue to stretch, try light massage, and using a foam roller to stretch out his muscles. No interventions are planned at this time. Related to Muscle spasm of back Patient had his morp marnie pump removed. Condition is stable. Will continue to monitor. No interventions are planned at this time. Related to Breakdown of intrathecal infusion pump, subsequent encounter Patient has low back pain and a component of his pain seems to be coming from a muscle spasm. I have discussed possible medication options and treatment options in the past, including prescribing a muscle relaxer. However, he is reluctant to take more medications. I have advised him to continue to stretch, try light massage, and using a foam roller to stretch out his muscles. No interventions are planned at this time. Related to Muscle spasm of back Patient states that he has been having problems getting his Lyrica. This [place] a [place] issue. [place] Telemedicine Visit. Latest UDS was compliant. Will not order a UDS today secondary to Covid-19 restrictions. Will renew medications. Follow up in 1 month.The patient reports stable pain on the current opioid medication regimen. There are no signs of adverse effects, medication abuse or evidence of diversion. The patient reports improved activity and functional levels on this medication regimen. The patient's last urine drug screen is consistent with prescribed medications. The patient has chronic, intractable pain with the diagnoses listed in the assessment. Patient was instructed not to use heavy machinery, not to drink alcohol, or use illicit substances while taking these opioid medications.Today I have discussed the options for care, including possible injections and physical therapy. The patient was advised on proper lifting techniques, home exercises and physical conditioning. Avoid heavy lifting and high impact activity. Patient was provided written material on the [facility] Information on Nonopioid Alternatives for the Treatment of Pain. Related to Chronic pain syndrome Patient was given gr eater than 72 hours of narcotic medication to control severe and intractable pain. Interventional procedures, physical therapy and adjuvant therapy was not successful alone in controlling patient's severe pain. Chronic opioid therapy may be continued indefinitely and the patient will be reassessed at regular office visits. Urine drug screens will be performed in order to ensure compliance with medication prescriptions and to rule out any illicit use. The [place] prescription drug data base was reviewed and is compliant with the patient's treatment plan. 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 He continues to follow with his providers who monitor this condition. He states his latest Alc is 6.3. 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 He has been having increased lower back pain and continues to have radicular symptoms. Patient has a spinal cord stimulator placed. He has been to a digital community manager who states it's not neuropathy from his diabetes, and that his hemoglobin A1c was 6.3. They feel it was from his back. He notes increased lower back pain he believes may be due to his new mattress. I will provide a prescription of Voltaren gel to see if it decreases some of his lower back pain. Currently, he is not a candidate for further interventions secondary to recent cardiac procedures. He may get clearance later on this year. I will continue to monitor. Related to Radiculopathy of lumbosacral region Patient's wound is w ell healed with no signs or symptoms of infection. He is performing stretching and yoga to help with pain. He had tightness from his adhesions. No interventions at this time. 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 Condition is stable. Will continue to monitor. No interventions are planned at this time. Related to Breakdown of intrathecal infusion pump, subsequent encounter Patient has low back pain and a component of his pain seems to be coming from a muscle spasm. I have discussed possible medication options and treatment options in the past, including prescribing a muscle relaxer. However, he is reluctant to take more medications. I have advised him to continue to stretch, try light massage, and using a foam roller to stretch out his muscles. No interventions are planned at this time. Related to Muscle spasm of back Patient was given gr eater than 72 hours of narcotic medication to control severe and intractable pain. Interventional procedures, physical therapy and adjuvant therapy was not successful alone in controlling patient's severe pain. Chronic opioid therapy may be continued indefinitely and the patient will be reassessed at regular office visits. Urine drug screens will be performed in order to ensure compliance with medication prescriptions and to rule out any illicit use. The [place] prescription drug data base was reviewed and is compliant with the patient's treatment plan. 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 Condition is stable. Will continue to monitor. No interventions are planned at this time. Related to Breakdown of intrathecal infusion pump, subsequent encounter Patient states that his current pain medication regiment allows him to function with ADLS. [place] PDMP was reviewed. Telemedicine Visit. Latest UDS was compliant. Will not order a UDS today secondary to Covid-19 restrictions. Will renew medications. Follow up in 1 month.The patient reports stable pain on the current opioid medication regimen. There are no signs of adverse effects, medication abuse or evidence of diversion. The patient reports improved activity and functional levels on this medication regimen. The patient's last urine drug screen is consistent with prescribed medications. The patient has chronic, intractable pain with the diagnoses listed in the assessment. Patient was instructed not to use heavy machinery, not to drink alcohol, or use illicit substances while taking these opioid medications.Today I have discussed the options for care, including possible injections and physical therapy. The patient was advised on proper lifting techniques, home exercises and physical conditioning. Avoid heavy lifting and high impact activity. Patient was provided written material on the [facility] Information on Nonopioid Alternatives for the Treatment of Pain. Related to Chronic pain syndrome Patient has type 2 d iabetes with neuropathy. He continues to follow with his providers who monitor this condition. He states his latest Alc is 6.3. 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 He has been having increased lower back pain and continues to have radicular symptoms. Patient has a spinal cord stimulator placed. He has been to a digital community manager who states it's not neuropathy from his diabetes, and that his hemoglobin A1c was 6.3. They feel it was from his back. He notes increased lower back pain he believes may be due to his new mattress. I will provide a prescription of Voltaren gel to see if it decreases some of his lower back pain. Currently, he is not a candidate for further interventions secondary to recent cardiac procedures. He may get clearance later on this year. I will continue to monitor. Related to Radiculopathy of lumbosacral region Patient's wound is w ell healed with no signs or symptoms of infection. He is performing stretching and yoga to help with pain. He had tightness from his adhesions. No interventions at this time. 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 Interventional procedures, physical therapy and adjuvant therapy was not successful alone in controlling patient's severe pain. Chronic opioid therapy may be continued indefinitely and the patient will be reassessed at regular office visits. Urine drug screens will be performed in order to ensure compliance with medication prescriptions and to rule out any illicit use. The [place] prescription drug data base was reviewed and is compliant with the patient's treatment plan. 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 [place] PDMP was reviewed. Telemedicine Visit. Latest UDS was compliant. Will not order a UDS today. Will renew medications. Will provide a refill of his amitriptyline. Follow up in 1 month.The patient reports stable pain on the current opioid medication regimen. There are no signs of adverse effects, medication abuse or evidence of diversion. The patient reports improved activity and functional levels on this medication regimen. The patient's last urine drug screen is consistent with prescribed medications. The patient has chronic, intractable pain with the diagnoses listed in the assessment. Patient was instructed not to use heavy machinery, not to drink alcohol, or use illicit substances while taking these opioid medications.Today I have discussed the options for care, including possible injections and physical therapy. The patient was advised on proper lifting techniques, home exercises and physical conditioning. Avoid heavy lifting and high impact activity. Patient was provided written material on the [facility] Information on Nonopioid Alternatives for the Treatment of Pain. Related to Chronic pain syndrome Patient has type 2 d iabetes with neuropathy. He continues to follow with his providers who monitor this condition. He states his latest Alc is 6.3. 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 He has been having increased lower back pain and continues to have radicular symptoms. Patient has a spinal cord stimulator placed. He has been to a digital community manager who states it's not neuropathy from his diabetes, and that his hemoglobin A1c was 6.3. They feel it was from his back. He notes increased lower back pain he believes may be due to his new mattress. I will provide a prescription of Voltaren gel to see if it decreases some of his lower back pain. Currently, he is not a candidate for further interventions secondary to recent cardiac procedures. He may get clearance later on this year. I will continue to monitor. Related to Radiculopathy of lumbosacral region Patient had his morp marnie pump removed. Condition is stable. Will continue to monitor. No interventions are planned at this time. Related to Breakdown of intrathecal infusion pump, subsequent encounter Patient's wound is w ell healed with no signs or symptoms of infection. He is performing stretching and yoga to help with pain. He had tightness from his adhesions. No interventions at this time. 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 I have discussed possible medication options and treatment options in the past, including prescribing a muscle relaxer. However, he is reluctant to take more medications. I have advised him to continue to stretch, try light massage, and using a foam roller to stretch out his muscles. No interventions are planned at this time. Related to Muscle spasm of back Patient has low back pain and a component of his pain seems to be coming from a muscle spasm. I have discussed possible medication options and treatment options in the past, including prescribing a muscle relaxer. However, he is reluctant to take more medications. I have advised him to continue to stretch, try light massage, and using a foam roller to stretch out his muscles. No interventions are planned at this time. Related to Muscle spasm of back Today I have discuss ed the options for care, this includes injections and physical therapy. Injections and Physical therapy have been recommended The patient was advised on proper lifting techniques and home exercises and physical conditioning. Avoid heavy lifting and high impact activity. The patient's risk of misuse of controlled substance abuse has also been evaluated and ongoing monitoring is an integral part of their treatment plan.The patient was counseled with respect to the dangers of concurrent benzodiazepine and opioid medication use, including respiratory depression, coma, and , as per CDC guidelines, FDA blackbox warnings, and current standard of care. The patient has been provided written information, and verbalizes understanding. Related to Chronic pain syndrome Patient was given gr eater than 72 hours of narcotic medication to control severe and intractable pain. Interventional procedures, physical therapy and adjuvant therapy was not successful alone in controlling patient's severe pain. Chronic opioid therapy may be continued indefinitely and the patient will be reassessed at regular office visits. Urine drug screens will be performed in order to ensure compliance with medication prescriptions and to rule out any illicit use. The [place] prescription drug data base was reviewed and is compliant with the patient's treatment plan.Patient was shown information provided by the [place] [employer] regarding information on nonopioid alternatives for the treatment of pain. This was discussed patient verbalizes understanding. Related to alf (current) use of opiate analgesic Patient has chronic lower back pain with pain down the left leg. He has been having increased lower back pain and continues to have radicular symptoms. He has history of IT pump that was infected and ultimately removed. Patient has a spinal cord stimulator placed which he states is working well to control pain. Currently, he is not a candidate for further interventions secondary to recent cardiac procedures. He may get clearance later on this year. I will continue to monitor. Pt's stable on current regimen. Patient is taking medication consistently and claims that current pain regimen allows patient to carry out daily routine/ADLs adequately. [place] and [place]. No changes in medical status since last visit. Denies adverse effects from medication. Meds renewed. Encouraged HEP and multimodal approach to cope with daily pain. Related to Radiculopathy of lumbosacral region Patient's wound is w ell healed with no signs or symptoms of infection. He is performing stretching and yoga to help with pain. He had tightness from his adhesions. No interventions at this time. 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 I have discussed possible medication options and treatment options in the past, including prescribing a muscle relaxer. However, he is reluctant to take more medications. I have advised him to continue to stretch, try light massage, and using a foam roller to stretch out his muscles. No interventions are planned at this time. Related to Muscle spasm of back Patient has type 2 d iabetes with neuropathy. He continues to follow with his providers who monitor this condition. He states his latest Alc is 6.3. Related to Type 2 diabetes mellitus w/ diabetic neuropathy Last visit, patient stated he is experiencing new chest pain. He says he has an upcoming visit with cardiology on 03/30/2020, and will not be a candidate for interventions until he has clearance from cardiology. [place] PDMP was reviewed. Physical exam is consistent with previous visit. Latest UDS was compliant. Will not order a UDS today. Will renew medications. Will provide a refill of his amitriptyline. Follow up in 1 month.The patient reports stable pain on the current opioid medication regimen. There are no signs of adverse effects, medication abuse or evidence of diversion. The patient reports improved activity and functional levels on this medication regimen. The patient's last urine drug screen is consistent with prescribed medications. The patient has chronic, intractable pain with the diagnoses listed in the assessment. Patient was instructed not to use heavy machinery, not to drink alcohol, or use illicit substances while taking these opioid medications.Today I have discussed the options for care, including possible injections and physical therapy. The patient was advised on proper lifting techniques, home exercises and physical conditioning. Avoid heavy lifting and high impact activity. Patient was provided written material on the [facility] Information on Nonopioid Alternatives for the Treatment of Pain. Related to Chronic pain syndrome Patient had his morp marnie pump removed. Condition is stable. Will continue to monitor. No interventions are planned at this time. Related to Breakdown of intrathecal infusion pump, subsequent encounter Patient has chronic lower back pain with pain down the left leg. He has been having increased lower back pain and continues to have radicular symptoms. Patient has a spinal cord stimulator placed. He has been to a digital community manager who states it's not neuropathy from his diabetes, and that his hemoglobin A1c was 6.3. They feel it was from his back. He notes increased lower back pain he believes may be due to his new mattress. I will provide a prescription of voltarin gel to see if it decreases some of his lower back pain. Currently, he is not a candidate for further interventions secondary to recent cardiac procedures. He may get clearance later on this year. I will continue to monitor. Related to Radiculopathy of lumbosacral region Patient was given gr eater than 72 hours of narcotic medication to control severe and intractable pain. Interventional procedures, physical therapy and adjuvant therapy was not successful alone in controlling patient's severe pain. Chronic opioid therapy may be continued indefinitely and the patient will be reassessed at regular office visits. Urine drug screens will be performed in order to ensure compliance with medication prescriptions and to rule out any illicit use. The [place] prescription drug data base was reviewed and is compliant with the patient's treatment plan. Related to alf (current) use of opiate analgesic Patient states he is experiencing new chest pain. He says he has an upcoming visit with cardiology. Patient reports he found multiple lumps on his testicle. We advised the patient follow up with his PCP to get this evaluated. [place] PDMP was reviewed. Physical exam is consistent with previous visit. Latest UDS was compliant. Will not order a UDS today. Will renew medications. The patient reports he does not need a refill of his amitriptyline at this time. Follow up in 1 month.The patient reports stable pain on the current opioid medication regimen. There are no signs of adverse effects, medication abuse or evidence of diversion. The patient reports improved activity and functional levels on this medication regimen. The patient's last urine drug screen is consistent with prescribed medications. The patient has chronic, intractable pain with the diagnoses listed in the assessment. Patient was instructed not to use heavy machinery, not to drink alcohol, or use illicit substances while taking these opioid medications.Today I have discussed the options for care, including possible injections and physical therapy. The patient was advised on proper lifting techniques, home exercises and physical conditioning. Avoid heavy lifting and high impact activity. Patient was provided written material on the [facility] Information on Nonopioid Alternatives for the Treatment of Pain. Related to Chronic pain syndrome Patient was given gr eater than 72 hours of narcotic medication to control severe and intractable pain. Interventional procedures, physical therapy and adjuvant therapy was not successful alone in controlling patient's severe pain. Chronic opioid therapy may be continued indefinitely and the patient will be reassessed at regular office visits. Urine drug screens will be performed in order to ensure compliance with medication prescriptions and to rule out any illicit use. The [place] prescription drug data base was reviewed and is compliant with the patient's treatment plan. Related to alf (current) use of opiate analgesic Patient had his morp marnie pump removed. Condition is stable. Will continue to monitor. No interventions are planned at this time. Related to Breakdown of intrathecal infusion pump, subsequent encounter Patient has type 2 d iabetes with neuropathy. He continues to follow with his providers who monitor this condition. He states his latest Alc is 6.3. 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 He has been having increased lower back pain and continues to have radicular symptoms. Patient has a spinal cord stimulator placed. He has been to a digital community manager who states it's not neuropathy from his diabetes, and that his hemoglobin A1c was 6.3. They feel it was from his back. Currently, he is not a candidate for further interventions secondary to recent cardiac procedures. He may get clearance later on this year. I will continue to monitor. Related to Radiculopathy of lumbosacral region Patient has low back pain and a component of his pain seems to be coming from a muscle spasm. I have discussed possible medication options and treatment options in the past, including prescribing a muscle relaxer. However, he is reluctant to take more medications. I have advised him to continue to stretch, try light massage, and using a foam roller to stretch out his muscles. No interventions are planned at this time. Related to Muscle spasm of back Patient's wound is w ell healed with no signs or symptoms of infection. He is performing stretching and yoga to help with pain. He had tightness from his adhesions. No interventions at this time. 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 He says he has an upcoming visit with cardiology.Patient notes his increase from amitriptyline 10mg to 25mg is working better. Will renew amitriptyline 25mg today. [place] PDMP was reviewed. Physical exam is consistent with previous visit. Latest UDS was compliant. Will not order a UDS today. Will renew medications. Follow up in 1 month.The patient reports stable pain on the current opioid medication regimen. There are no signs of adverse effects, medication abuse or evidence of diversion. The patient reports improved activity and functional levels on this medication regimen. The patient's last urine drug screen is consistent with prescribed medications. The patient has chronic, intractable pain with the diagnoses listed in the assessment. Patient was instructed not to use heavy machinery, not to drink alcohol, or use illicit substances while taking these opioid medications.Today I have discussed the options for care, including possible injections and physical therapy. The patient was advised on proper lifting techniques, home exercises and physical conditioning. Avoid heavy lifting and high impact activity. Patient was provided written material on the [facility] Information on Nonopioid Alternatives for the Treatment of Pain. Related to Chronic pain syndrome Patient had his morp marnie pump removed. Condition is stable. Will continue to monitor. No interventions are planned at this time. Related to Breakdown of intrathecal infusion pump, subsequent encounter Patient's wound is w ell healed with no signs or symptoms of infection. He is performing stretching and yoga to help with pain. He had tightness from his adhesions. No interventions at this time. 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 He has been having increased lower back pain and continues to have radicular symptoms. Patient has a spinal cord stimulator placed. He has been to a digital community manager who states it's not neuropathy from his diabetes, and that his hemoglobin A1c was 6.3. They feel it was from his back. Currently, he is not a candidate for further interventions secondary to recent cardiac procedures. He may get clearance later on this year. I will continue to monitor. Related to Radiculopathy of lumbosacral region Patient was given gr eater than 72 hours of narcotic medication to control severe and intractable pain. Interventional procedures, physical therapy and adjuvant therapy was not successful alone in controlling patient's severe pain. Chronic opioid therapy may be continued indefinitely and the patient will be reassessed at regular office visits. Urine drug screens will be performed in order to ensure compliance with medication prescriptions and to rule out any illicit use. The [place] prescription drug data base was reviewed and is compliant with the patient's treatment plan. 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 He continues to follow with his providers who monitor this condition. He states his latest Alc is 6.3. Related to Type 2 diabetes mellitus w/ diabetic neuropathy Patient has low back pain and a component of his pain seems to be coming from a muscle spasm. I have discussed possible medication options and treatment options in the past, including prescribing a muscle relaxer. However, he is reluctant to take more medications. I have advised him to continue to stretch, try light massage, and using a foam roller to stretch out his muscles. No interventions are planned at this time. Related to Muscle spasm of back Patient has type 2 d iabetes with neuropathy. He continues to follow with his providers who monitor this condition. He states his latest Alc is 6.3. Related to Type 2 diabetes mellitus w/ diabetic neuropathy Patient had his morp marnie pump removed. Condition is stable. Will continue to monitor. No interventions are planned at this time. Related to Breakdown of intrathecal infusion pump, subsequent encounter Patient has low back pain and a component of his pain seems to be coming from a muscle spasm. I have discussed possible medication options and treatment options in the past, including prescribing a muscle relaxer. However, he is reluctant to take more medications. I have advised him to continue to stretch, try light massage, and using a foam roller to stretch out his muscles. No interventions are planned at this time. Related to Muscle spasm of back Patient notes his la test decrease to amitriptyline 10mg is not working well enough. We will increase his dosage to 25mg and re-evaluate.[place]. Physical exam is consistent with previous visit. Latest UDS was compliant. Will not order a UDS today. Will renew medications. Follow up in 1 month.The patient reports stable pain on the current opioid medication regimen. There are no signs of adverse effects, medication abuse or evidence of diversion. The patient reports improved activity and functional levels on this medication regimen. We will refill opioid medications at this visit. The patient's last urine drug screen is consistent with prescribed medications. I checked the PDMP for the patient and it is consistent. The patient has chronic, intractable pain with the diagnoses listed in the assessment. They are receiving chronic opioid therapy which requires greater than 72 hours supply of controlled substances. Chronic opioid therapy may continue indefinitely and the patient will be reassessed at regular office visits. Patient was instructed not to use heavy machinery, not to drink alcohol, or use illicit substances while taking these opioid medications.Today I have discussed the options for care, this includes injections and physical therapy, which have been recommended The patient was advised on proper lifting techniques and home exercises and physical conditioning. Avoid heavy lifting and high impact activity.As part of the patient's multi-modal treatment plan, I have discussed several options for pain control with the patient, underlining the importance of non opioid treatment options including their advantages and disadvantages. The patient has been provided with the pamphlet titled Information on Nonopioid Alternatives for the Treatment of Pain made available by the Department of Health. The patient's risk of misuse of controlled substance abuse has also been evaluated and ongoing monitoring is an integral part of their treatment plan. Related to Chronic pain syndrome Patient was given gr eater than 72 hours of narcotic medication to control severe and intractable pain. Interventional procedures, physical therapy and adjuvant therapy was not successful alone in controlling patient's severe pain. Chronic opioid therapy may be continued indefinitely and the patient will be reassessed at regular office visits. Urine drug screens will be performed in order to ensure compliance with medication prescriptions and to rule out any illicit use. The [place] prescription drug data base was reviewed and is compliant with the patient's treatment plan. 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 He is performing stretching and yoga to help with pain. He had tightness from his adhesions. No interventions at this time. 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 He has been having increased lower back pain and continues to have radicular symptoms. Patient has a spinal cord stimulator placed. He has been to a digital community manager who states it's not neuropathy from his diabetes, and that his hemoglobin A1c was 6.3. They feel it was from his back. Currently, he is not a candidate for further interventions secondary to recent cardiac procedures. He may get clearance later on this year. I will continue to monitor. Related to Radiculopathy of lumbosacral region Patient had his morp marnie pump removed. Condition is stable. Will continue to monitor. No interventions are planned at this time. Related to Breakdown of intrathecal infusion pump, subsequent encounter Patient's wound is w ell healed with no signs or symptoms of infection. He is performing stretching and yoga to help with pain. He had tightness from his adhesions. No interventions at this time. 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 Interventional procedures, physical therapy and adjuvant therapy was not successful alone in controlling patient's severe pain. Chronic opioid therapy may be continued indefinitely and the patient will be reassessed at regular office visits. Urine drug screens will be performed in order to ensure compliance with medication prescriptions and to rule out any illicit use. The [place] prescription drug data base was reviewed and is compliant with the patient's treatment plan. 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 He has been having increased lower back pain and continues to have radicular symptoms. Patient has a spinal cord stimulator placed. He is not a candidate for further interventions secondary to recent cardiac procedures. I will continue to monitor. Related to Radiculopathy of lumbosacral region Patient has low back pain and a component of his pain seems to be coming from a muscle spasm. I have discussed possible medication options and treatment options in the past, including prescribing a muscle relaxer. However, he is reluctant to take more medications. I have advised him to continue to stretch, try light massage, and using a foam roller to stretch out his muscles. No interventions are planned at this time. Related to Muscle spasm of back Patient notes light- headedness from amitriptyline. We will decrease his dosage from 50mg to 10mg and re[place]evaluate.[place]. Physical exam is consistent with previous visit. Latest UDS was compliant. Will order a UDS today. Will renew medications. Follow up in 1 month.The patient reports stable pain on the current opioid medication regimen. There are no signs of adverse effects, medication abuse or evidence of diversion. The patient reports improved activity and functional levels on this medication regimen. We will refill opioid medications at this visit. The patient's last urine drug screen is consistent with prescribed medications. I checked the PDMP for the patient and it is consistent. The patient has chronic, intractable pain with the diagnoses listed in the assessment. They are receiving chronic opioid therapy which requires greater than 72 hours supply of controlled substances. Chronic opioid therapy may continue indefinitely and the patient will be reassessed at regular office visits. Patient was instructed not to use heavy machinery, not to drink alcohol, or use illicit substances while taking these opioid medications.Today I have discussed the options for care, this includes injections and physical therapy, which have been recommended The patient was advised on proper lifting techniques and home exercises and physical conditioning. Avoid heavy lifting and high impact activity.As part of the patient's multi-modal treatment plan, I have discussed several options for pain control with the patient, underlining the importance of non opioid treatment options including their advantages and disadvantages. The patient has been provided with the pamphlet titled Information on Nonopioid Alternatives for the Treatment of Pain made available by the Department of Health. The patient's risk of misuse of controlled substance abuse has also been evaluated and ongoing monitoring is an integral part of their treatment plan. Related to Chronic pain syndrome Patient has chronic lower back pain with pain down the left leg. He has been having increased lower back pain. Patient continues to have radicular symptoms. Patient has a spinal cord stimulator placed. He is not a candidate for further interventions secondary to recent cardiac procedures. I will continue to monitor. Related to Radiculopathy of lumbosacral region Patient has low back pain and a component of his pain seems to be coming from a muscle spasm. I have discussed possible medication options and treatment options in the past, including prescribing a muscle relaxer. However, he is reluctant to take more medications. I have advised him to continue to stretch, try light massage, and using a foam roller to stretch out his muscles. No interventions are planned at this time. Related to Muscle spasm of back Patient's wound is w ell healed with no signs or symptoms of infection. He is performing stretching and yoga to help with pain. He still has tightness from his adhesions. No interventions at this time. 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 Physical exam is consistent with previous visit. Latest UDS was compliant. Will not order a UDS today. Will renew medications. Follow up in 1 month.The patient reports stable pain on the current opioid medication regimen. There are no signs of adverse effects, medication abuse or evidence of diversion. The patient reports improved activity and functional levels on this medication regimen. We will refill opioid medications at this visit. The patient's last urine drug screen is consistent with prescribed medications. I checked the PDMP for the patient and it is consistent. The patient has chronic, intractable pain with the diagnoses listed in the assessment. They are receiving chronic opioid therapy which requires greater than 72 hours supply of controlled substances. Chronic opioid therapy may continue indefinitely and the patient will be reassessed at regular office visits. Patient was instructed not to use heavy machinery, not to drink alcohol, or use illicit substances while taking these opioid medications.Today I have discussed the options for care, this includes injections and physical therapy, which have been recommended The patient was advised on proper lifting techniques and home exercises and physical conditioning. Avoid heavy lifting and high impact activity.Reported diagnostic imaging results have been reviewed with the patient.As part of the patient's multi-modal treatment plan, I have discussed several options for pain control with the patient, underlining the importance of non opioid treatment options including their advantages and disadvantages. The patient has been provided with the pamphlet titled Information on Nonopioid Alternatives for the Treatment of Pain made available by the Department of Health. The patient's risk of misuse of controlled substance abuse has also been evaluated and ongoing monitoring is an integral part of their treatment plan. Related to Chronic pain syndrome Patient had his morp marnie pump removed. Condition is stable. Will continue to monitor. No interventions are planned at this time. Related to Breakdown of intrathecal infusion pump, subsequent encounter Patient was given gr eater than 72 hours of narcotic medication to control severe and intractable pain. Interventional procedures, physical therapy and adjuvant therapy was not successful alone in controlling patient's severe pain. Chronic opioid therapy may be continued indefinitely and the patient will be reassessed at regular office visits. Urine drug screens will be performed in order to ensure compliance with medication prescriptions and to rule out any illicit use. The [place] prescription drug data base was reviewed and is compliant with the patient's treatment plan. 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 He is performing stretching and yoga to help with pain. He still has tightness from his adhesions. 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 I have discussed possible medication options and treatment options in the past, including prescribing a muscle relaxer. However, he is reluctant to take more medications. I have advised him to continue to stretch, try light massage, and using a foam roller to stretch out his muscles. No interventions are planned at this time. Related to Muscle spasm of back Patient had his morp marnie pump removed. Condition is stable. Will continue to monitor. No interventions are planned at this time. Related to Breakdown of intrathecal infusion pump, subsequent encounter Patient has been yue ble to get his Amitriptyline and reports that workers compensation is denying this medication at this time. We are prescribing amitriptyline to help with his nerve pain which is part of his lumbosacral radiculopathy, which is work related. We will re-prescribe amitriptyline at this time.Patient has a history of cardiac catheterization with a stent placed. His last stent was placed in May and we cannot do further interventions at this time secondary to this. 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 Physical exam is consistent with previous visit. Latest UDS was compliant. Will not order a UDS today. Will renew medications. Follow up in 1 month.The patient reports stable pain on the current opioid medication regimen. There are no signs of adverse effects, medication abuse or evidence of diversion. The patient reports improved activity and functional levels on this medication regimen. We will refill opioid medications at this visit. The patient's last urine drug screen is consistent with prescribed medications. I checked the PDMP for the patient and it is consistent. The patient has chronic, intractable pain with the diagnoses listed in the assessment. They are receiving chronic opioid therapy which requires greater than 72 hours supply of controlled substances. Chronic opioid therapy may continue indefinitely and the patient will be reassessed at regular office visits. Patient was instructed not to use heavy machinery, not to drink alcohol, or use illicit substances while taking these opioid medications.Today I have discussed the options for care, this includes injections and physical therapy, which have been recommended The patient was advised on proper lifting techniques and home exercises and physical conditioning. Avoid heavy lifting and high impact activity.Reported diagnostic imaging results have been reviewed with the patient.As part of the patient's multi-modal treatment plan, I have discussed several options for pain control with the patient, underlining the importance of non opioid treatment options including their advantages and disadvantages. The patient has been provided with the pamphlet titled Information on Nonopioid Alternatives for the Treatment of Pain made available by the Department of Health. The patient's risk of misuse of controlled substance abuse has also been evaluated and ongoing monitoring is an integral part of their treatment plan.The patient has been counseled with respect to the dangers of concurrent benzodiazepine and opioid medication use, including respiratory depression, coma, and as per CDC guidelines, FDA blackbox warnings, and current standard of care. The patient has been provided written information and has verbalized understanding regarding these concerns. Related to Chronic pain syndrome Patient has chronic lower back pain with pain down the left leg. He has been having increased lower back pain. Patient continues to have radicular symptoms. Patient has a spinal cord stimulator placed. He is not a candidate for further interventions secondary to recent cardiac procedures. I will continue to monitor. No interventions are planned at this time. Related to Radiculopathy of lumbosacral region Patient was given gr eater than 72 hours of narcotic medication to control severe and intractable pain. Interventional procedures, physical therapy and adjuvant therapy was not successful alone in controlling patient's severe pain. Chronic opioid therapy may be continued indefinitely and the patient will be reassessed at regular office visits. Urine drug screens will be performed in order to ensure compliance with medication prescriptions and to rule out any illicit use. The [place] prescription drug data base was reviewed and is compliant with the patient's treatment plan. 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 He is performing stretching and yoga to help with pain. He still has tightness from his adhesions. 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 Condition is stable. Will continue to monitor. No interventions are planned at this time. Related to Breakdown of intrathecal infusion pump, subsequent encounter Patient states that he has sleep apnea and I have advised him to discuss this with his PCP and consider purchasing a CPAP machine to help with this matter. He has been having pain in his pinky toe. Patient states that he has been following with a physician for this and he is considering surgery. Will continue to monitor.Patient has a history of cardiac catheterization with a stent placed. His last stent was placed in May and we cannot do further interventions at this time secondary to this. 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 [place] PDMP was reviewed. Physical exam is consistent with previous visit. I have prescribed the patient with Percocet to take once at night today to help with his increased pain. Will renew medications. Follow up in 1 month.The patient reports stable pain on the current opioid medication regimen. There are no signs of adverse effects, medication abuse or evidence of diversion. The patient reports improved activity and functional levels on this medication regimen. The patient's last urine drug screen is consistent with prescribed medications. The patient has chronic, intractable pain with the diagnoses listed in the assessment. Patient was instructed not to use heavy machinery, not to drink alcohol, or use illicit substances while taking these opioid medications.Today I have discussed the options for care, including possible injections and physical therapy. The patient was advised on proper lifting techniques, home exercises and physical conditioning. Avoid heavy lifting and high impact activity. Patient was provided written material on the [facility] Information on Nonopioid Alternatives for the Treatment of Pain. Related to Chronic pain syndrome Patient has chronic lower back pain with pain down the left leg. He has been having increased lower back pain. Patient continues to have radicular symptoms. Patient has a spinal cord stimulator placed. He is not a candidate for further interventions secondary to recent cardiac procedures. I will continue to monitor. No interventions are planned at this time. Related to Radiculopathy of lumbosacral region Patient was given gr eater than 72 hours of narcotic medication to control severe and intractable pain. Interventional procedures, physical therapy and adjuvant therapy was not successful alone in controlling patient's severe pain. Chronic opioid therapy may be continued indefinitely and the patient will be reassessed at regular office visits. Urine drug screens will be performed in order to ensure compliance with medication prescriptions and to rule out any illicit use. The [place] prescription drug data base was reviewed and is compliant with the patient's treatment plan. 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 I have discussed possible medication options and treatment options in the past, including prescribing a muscle relaxer. However, he is reluctant to take more medications. I have advised him to continue to stretch, try light massage, and using a foam roller to stretch out his muscles. No interventions are planned at this time. Related to Muscle spasm of back Dietary management e ducation, guidance, and counseling Related to Overweight Patient has low back pain and a component of his pain seems to be coming from a muscle spasm. I have discussed possible medication options and treatment options in the past, including prescribing a muscle relaxer. However, he is reluctant to take more medications. I have advised him to continue to stretch, try light massage, and using a foam roller to stretch out his muscles. No interventions are planned at this time. Related to Muscle spasm of back Patient's latest hem oglobin A1C is 6.7. He has been having pain in his pinky toe. His provider thinks it may be either neuropathy or radiculopathy. I have suggested getting an EMG/NCS to determine the etiology. He isn't cleared for procedures yet, and will consider this in the future.Patient has a history of cardiac catheterization with a stent placed. He was having low heart rate and elevated BP. After having the stent placed, he now has a normal heart rate. He continues following up with cardiology.[place] was [place]. Physical exam is consistent with previous visit. Will renew medications. Follow up in 1 month.The patient reports stable pain on the current opioid medication regimen. There are no signs of adverse effects, medication abuse or evidence of diversion. The patient reports improved activity and functional levels on this medication regimen. The patient's last urine drug screen is consistent with prescribed medications. The patient has chronic, intractable pain with the diagnoses listed in the assessment. Patient was instructed not to use heavy machinery, not to drink alcohol, or use illicit substances while taking these opioid medications. Related to Chronic pain syndrome Patient's wound is w ell healed with no signs or symptoms of infection. He is performing stretching and yoga to help with pain. He still has tightness from his adhesions. 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 Interventional procedures, physical therapy and adjuvant therapy was not successful alone in controlling patient's severe pain. Chronic opioid therapy may be continued indefinitely and the patient will be reassessed at regular office visits. Urine drug screens will be performed in order to ensure compliance with medication prescriptions and to rule out any illicit use. The [place] prescription drug data base was reviewed and is compliant with the patient's treatment plan. 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 He has been having increased lower back pain. Patient continues to have radicular symptoms. Patient has a spinal cord stimulator placed. He is not a candidate for further interventions secondary to recent cardiac procedures. I will continue to monitor. No interventions are planned at this time. Related to Radiculopathy of lumbosacral region Patient had his morp marnie pump removed. Condition is stable. Will continue to monitor. No interventions are planned at this time. Related to Breakdown of intrathecal infusion pump, subsequent encounter Dietary management e ducation, guidance, and counseling Related to Overweight Patient had his morp marnie pump removed. Condition is stable. Will continue to monitor. No interventions are planned at this time. Related to Breakdown of intrathecal infusion pump, subsequent encounter Patient had to have a cardiac catheterization with a stent placed. He was having low heart rate and elevated BP. After having the stent placed, he now has a normal heart rate. He continues following up with cardiology.[place]. Physical exam is consistent with previous visit. Will renew medications. Follow up in 1 month.The patient reports stable pain on the current opioid medication regimen. There are no signs of adverse effects, medication abuse or evidence of diversion. The patient reports improved activity and functional levels on this medication regimen. The patient's last urine drug screen is consistent with prescribed medications. The patient has chronic, intractable pain with the diagnoses listed in the assessment. Patient was instructed not to use heavy machinery, not to drink alcohol, or use illicit substances while taking these opioid medications. Related to Chronic pain syndrome Patient has low back pain and a component of his pain seems to be coming from a muscle spasm. I have discussed possible medication options and treatment options in the past, including prescribing a muscle relaxer. However, he is reluctant to take more medications. I have advised him to continue to stretch, try light massage, and using a foam roller to stretch out his muscles. No interventions are planned at this time. Related to Muscle spasm of back Patient was given gr eater than 72 hours of narcotic medication to control severe and intractable pain. Interventional procedures, physical therapy and adjuvant therapy was not successful alone in controlling patient's severe pain. Chronic opioid therapy may be continued indefinitely and the patient will be reassessed at regular office visits. Urine drug screens will be performed in order to ensure compliance with medication prescriptions and to rule out any illicit use. The [place] prescription drug data base was reviewed and is compliant with the patient's treatment plan. Related to alf (current) use of opiate analgesic Patient's wound is w ell healed with no signs or symptoms of infection. He is performing stretching and yoga to help with pain. He still has tightness from his adhesions. 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 He has been having increased lower back pain. Patient continues to have radicular symptoms. Patient has a spinal cord stimulator placed. He is not a candidate for further interventions secondary to recent cardiac procedures. I will continue to monitor. No interventions are planned at this time. Related to Radiculopathy of lumbosacral region Patient has low back pain and a component of his pain seems to be coming from a muscle spasm. I discussed possible medication options and treatment options, including prescribing a muscle relaxer. However, he is reluctant to take more medications. I have advised him to continue to stretch, try light massage, and using a foam roller to stretch out his muscles. Related to Muscle spasm of back Patient had his morp marnie pump removed. Condition is stable. Will continue to monitor. Related to Breakdown (mechanical) of implanted electronic neurostimulator, generator, sequela Patient has chronic lower back pain with pain down the left leg. He has been having increased lower back pain and bilateral flank pain. Patient continues to have radicular symptoms. Patient has a spinal cord stimulator placed. I will continue to monitor. Related to Radiculopathy of lumbosacral region Patient had to have a cardiac catheterization with a stent placed. He was having low heart rate and elevated BP. After having the stent placed, he now has a normal heart rate. He is following up with cardiology and he states he is feeling much better.He continues to have pain in his low back. I have advised him to continue with stretching exercises, light massage, and using a foam roller to stretch out his muscles. I have discussed muscle relaxers but he is reluctant to take more medications.[place]. Physical exam is consistent with previous visit. Will renew medications. Follow up in 1 month.The patient reports stable pain on the current opioid medication regimen. There are no signs of adverse effects, medication abuse or evidence of diversion. The patient reports improved activity and functional levels on this medication regimen. The patient's last urine drug screen is consistent with prescribed medications. The patient has chronic, intractable pain with the diagnoses listed in the assessment. Patient was instructed not to use heavy machinery, not to drink alcohol, or use illicit substances while taking these opioid medications. Related to Chronic pain syndrome Patient's wound is w ell healed with no signs or symptoms of infection. He is performing stretching and yoga to help with pain. He still has tightness from his adhesions. 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 Interventional procedures, physical therapy and adjuvant therapy was not successful alone in controlling patient's severe pain. Chronic opioid therapy may be continued indefinitely and the patient will be reassessed at regular office visits. Urine drug screens will be performed in order to ensure compliance with medication prescriptions and to rule out any illicit use. The [place] prescription drug data base was reviewed and is compliant with the patient's treatment plan. Related to alf (current) use of opiate analgesic Dietary management e ducation, guidance, and counseling Related to Body mass index (BMI) 32.0-32.9, adult Patient has low back pain and a component of his pain seems to be coming from a muscle spasm. I discussed possible medication options and treatment options, including prescribing a muscle relaxer. However, he is reluctant to take more medications. I have advised him to continue to stretch, try light massage, and using a foam roller to stretch out his muscles. Related to Muscle spasm of back Patient was given gr eater than 72 hours of narcotic medication to control severe and intractable pain. Interventional procedures, physical therapy and adjuvant therapy was not successful alone in controlling patient's severe pain. Chronic opioid therapy may be continued indefinitely and the patient will be reassessed at regular office visits. Urine drug screens will be performed in order to ensure compliance with medication prescriptions and to rule out any illicit use. The [place] prescription drug data base was reviewed and is compliant with the patient's treatment plan. 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 He is now having low heart rate and elevated BP. He states that he might need a pacemaker. He is still working with cardiology. They are evaluating his carotid artery as well.He continues to have pain in his low back. I have advised him to continue with stretching exercises, light massage, and using a foam roller to stretch out his muscles. I have discussed muscle relaxers but he is reluctant to take more medications.[place]. Physical exam is consistent with previous visit. Will renew medications. Follow up in 1 month.The patient reports stable pain on the current opioid medication regimen. There are no signs of adverse effects, medication abuse or evidence of diversion. The patient reports improved activity and functional levels on this medication regimen. The patient's last urine drug screen is consistent with prescribed medications. The patient has chronic, intractable pain with the diagnoses listed in the assessment. Patient was instructed not to use heavy machinery, not to drink alcohol, or use illicit substances while taking these opioid medications. Related to Chronic pain syndrome Patient's wound is w ell healed with no signs or symptoms of infection. He is performing stretching and yoga to help with pain. He still has tightness from his adhesions. 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 Condition is stable. Will continue to monitor. Related to Breakdown (mechanical) of implanted electronic neurostimulator, generator, sequela Patient has chronic lower back pain with pain down the left leg. He has been having increased lower back pain and bilateral flank pain. Patient continues to have radicular symptoms. Patient has a spinal cord stimulator placed. I will continue to monitor. Related to Radiculopathy of lumbosacral region Dietary management e ducation, guidance, and counseling Related to Overweight Patient's wound is w ell healed with no signs or symptoms of infection. He is performing stretching and yoga to help with pain. He still has tightness from his adhesions. 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 Interventional procedures, physical therapy and adjuvant therapy was not successful alone in controlling patient's severe pain. Chronic opioid therapy may be continued indefinitely and the patient will be reassessed at regular office visits. Urine drug screens will be performed in order to ensure compliance with medication prescriptions and to rule out any illicit use. The [place] prescription drug data base was reviewed and is compliant with the patient's treatment plan. 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 He is now having low heart rate and elevated BP. He states that he might need a pacemaker. He is still working with cardiology. [place] Physical exam is consistent with previous visit. Will renew medications. Follow up in 1 month.The patient reports stable pain on the current opioid medication regimen. There are no signs of adverse effects, medication abuse or evidence of diversion. The patient reports improved activity and functional levels on this medication regimen. The patient's last urine drug screen is consistent with prescribed medications. The patient has chronic, intractable pain with the diagnoses listed in the assessment. Patient was instructed not to use heavy machinery, not to drink alcohol, or use illicit substances while taking these opioid medications. Related to Chronic pain syndrome Patient had his morphine pump re moved. Related to Breakdown (mechanical) of implanted electronic neurostimulator, generator, sequela Patient has chronic lower back pain with pain down the left leg. He has been having increased lower back pain and bilateral flank pain. Patient is having increased radicular symptoms in the last week. Will increase his Lyrica back to 75mg twice a day. This dose gave him greater pain relief. Related to Radiculopathy of lumbosacral region Dietary management e ducation, guidance, and counseling Related to Overweight Patient's wound is w ell healed with no signs or symptoms of infection. He is performing stretching and yoga to help with pain. He still has tightness from his adhesions. 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 He has been having increased lower back pain and bilateral flank pain. Patient is having increased radicular symptoms in the last week. Will increase his Lyrica back to 75mg twice a day. This dose gave him greater pain relief. Related to Radiculopathy of lumbosacral region Patient has recently been having chest pain and had to go to the ED a few times in the last month. He is having a cardiac catheterization on Sunday. He also has his dog break his finger on his left hand. He was seen for this issue. Patient was having pain that seemed to be related to his kidneys. He has had the imaging and was told by his PCP that his kidneys are within normal limits. [place] PDMP was reviewed. Physical exam is consistent with previous visit. Will renew medications. Follow up in 1 month.The patient reports stable pain on the current opioid medication regimen. There are no signs of adverse effects, medication abuse or evidence of diversion. The patient reports improved activity and functional levels on this medication regimen. The patient's last urine drug screen is consistent with prescribed medications. The patient has chronic, intractable pain with the diagnoses listed in the assessment. Patient was instructed not to use heavy machinery, not to drink alcohol, or use illicit substances while taking these opioid medications. Related to Chronic pain syndrome Patient was given gr eater than 72 hours of narcotic medication to control severe and intractable pain. Interventional procedures, physical therapy and adjuvant therapy was not successful alone in controlling patient's severe pain. Chronic opioid therapy may be continued indefinitely and the patient will be reassessed at regular office visits. Urine drug screens will be performed in order to ensure compliance with medication prescriptions and to rule out any illicit use. The [place] prescription drug data base was reviewed and is compliant with the patient's treatment plan. 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 Related to Breakdown (mechanical) of implanted electronic neurostimulator, generator, sequela Dietary management e ducation, guidance, and counseling Related to Overweight Patient's wound is w ell healed with no signs or symptoms of infection. He is performing stretching and yoga to help with pain. He still has tightness from his adhesions. 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 Related to Breakdown (mechanical) of implanted electronic neurostimulator, generator, sequela Patient was given gr eater than 72 hours of narcotic medication to control severe and intractable pain. Interventional procedures, physical therapy and adjuvant therapy was not successful alone in controlling patient's severe pain. Chronic opioid therapy may be continued indefinitely and the patient will be reassessed at regular office visits. Urine drug screens will be performed in order to ensure compliance with medication prescriptions and to rule out any illicit use. The [place] prescription drug data base was reviewed and is compliant with the patient's treatment plan. Related to alf (current) use of opiate analgesic Patient has chronic lower back pain with pain down the left leg. He has been having increased lower back pain and bilateral flank pain. He currently has kidney stones. We will re-evaluate after he has been cleared by his kidney doctor. Related to Radiculopathy of lumbosacral region Patient states that he has had cardiac stents placed. He is on Plavix and currently is having right flank pain. He states that he has a history of kidney stones but they are on the left side. He has a kidney doctor that he is going to go for this issue. His kidney doctor states to wait for him to pass his stone. We will get blood work to rule out an infection. [place] PDMP was reviewed. Physical exam is consistent with previous visit. Will renew medications. Follow up in 1 month.The patient reports stable pain on the current opioid medication regimen. There are no signs of adverse effects, medication abuse or evidence of diversion. The patient reports improved activity and functional levels on this medication regimen. The patient's last urine drug screen is consistent with prescribed medications. The patient has chronic, intractable pain with the diagnoses listed in the assessment. Patient was instructed not to use heavy machinery, not to drink alcohol, or use illicit substances while taking these opioid medications. Related to Chronic pain syndrome Dietary management e ducation, guidance, and counseling Related to Overweight Patient was given gr eater than 72 hours of narcotic medication to control severe and intractable pain. Interventional procedures, physical therapy and adjuvant therapy was not successful alone in controlling patient's severe pain. Chronic opioid therapy may be continued indefinitely and the patient will be reassessed at regular office visits. Urine drug screens will be performed in order to ensure compliance with medication prescriptions and to rule out any illicit use. The [place] prescription drug data base was reviewed and is compliant with the patient's treatment plan. 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 Related to Breakdown (mechanical) of implanted electronic neurostimulator, generator, sequela Patient's wound is w ell healed with no signs or symptoms of infection. He is performing stretching and yoga to help with pain. He still has tightness from his adhesions. 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 He states that his current pain medication regiment. Related to Radiculopathy of lumbosacral region Patient states that he is now in cardiac rehab. [place] continue to monitor. [place]. Physical exam is consistent with previous visit. Will order UDS today. Will renew medications. Follow up in 1 month.The patient reports stable pain on the current opioid medication regimen. There are no signs of adverse effects, medication abuse or evidence of diversion. The patient reports improved activity and functional levels on this medication regimen. The patient's last urine drug screen is consistent with prescribed medications. The patient has chronic, intractable pain with the diagnoses listed in the assessment. Patient was instructed not to use heavy machinery, not to drink alcohol, or use illicit substances while taking these opioid medications. Related to Chronic pain syndrome Dietary management e ducation, guidance, and counseling Related to Overweight Patient has chronic lower back pain with pain down the left leg. He states that his current pain medication regiment. Related to Radiculopathy of lumbosacral region Patient had his morphine pump re moved. Related to Breakdown (mechanical) of implanted electronic neurostimulator, generator, sequela Patient was given gr eater than 72 hours of narcotic medication to control severe and intractable pain. Interventional procedures, physical therapy and adjuvant therapy was not successful alone in controlling patient's severe pain. Chronic opioid therapy may be continued indefinitely and the patient will be reassessed at regular office visits. Urine drug screens will be performed in order to ensure compliance with medication prescriptions and to rule out any illicit use. The [place] prescription drug data base was reviewed and is compliant with the patient's treatment plan. Related to alf (current) use of opiate analgesic Patient's wound is w ell healed with no signs or symptoms of infection. He is performing stretching and yoga to help with pain. He still has tightness from his adhesions. 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 He has been having trouble with new heart medication following his heart catheterization. Currently following up with PCP regarding this. The patient reports stable pain on the current opioid medication regimen. There are no signs of adverse effects, medication abuse or evidence of diversion. The patient reports improved activity and functional levels on this medication regimen. The patient's last urine drug screen is consistent with prescribed medications. The patient has chronic, intractable pain with the diagnoses listed in the assessment. Patient was instructed not to use heavy machinery, not to drink alcohol, or use illicit substances while taking these opioid medications. [place] PDMP was reviewed. Physical exam is consistent with previous visit. Will order UDS today. Will renew medications. Follow up in 1 month. Related to Chronic pain syndrome Dietary management e ducation, guidance, and counseling Related to Overweight Patient's pain is we ll managed. He has been having trouble with new heart medication following his heart catheterization. Currently following up with PCP regarding this. [place] PDMP was reviewed. Patient physical exam is consistent with previous visit. Latest UDS shows compliance. He wishes to go lower on his Lyrica. Will lower his dose from 75 mg BID to 50 mg BID. Will renew other medications as previously prescribed. Follow up in 1 month with Ana.The patient reports stable pain on the current opioid medication regimen. There are no signs of adverse effects, medication abuse or evidence of diversion. The patient reports improved activity and functional levels on this medication regimen. The patient's last urine drug screen is consistent with prescribed medications. The patient has chronic, intractable pain with the diagnoses listed in the assessment. Patient was instructed not to use heavy machinery, not to drink alcohol, or use illicit substances while taking these opioid medications. Related to Chronic pain syndrome Patient's wound is w ell healed with no signs or symptoms of infection. He is performing stretching and yoga to help with pain. He still has tightness from his adhesions. 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 Interventional procedures, physical therapy and adjuvant therapy was not successful alone in controlling patient's severe pain. Chronic opioid therapy may be continued indefinitely and the patient will be reassessed at regular office visits. Urine drug screens will be performed in order to ensure compliance with medication prescriptions and to rule out any illicit use. The [place] prescription drug data base was reviewed and is compliant with the patient's treatment plan. 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 Related to Breakdown (mechanical) of implanted electronic neurostimulator, generator, sequela Dietary management e ducation, guidance, and counseling Related to Body mass index (BMI) 33.0-33.9, adult Patient's Percocet n eeds to be dispensed #45 and he got #60 last month. He feels he needs only one pill a day. Will prescribe Percocet 10 mg daily [place]30. [place] Patient physical exam is consistent with previous visit. Will renew medications. Follow up in 1 month. The patient reports stable pain on the current opioid medication regimen. There are no signs of adverse effects, medication abuse or evidence of diversion. The patient reports improved activity and functional levels on this medication regimen. The patient's last urine drug screen is consistent with prescribed medications. The patient has chronic, intractable pain with the diagnoses listed in the assessment. Patient was instructed not to use heavy machinery, not to drink alcohol, or use illicit substances while taking these opioid medications. Related to Chronic pain syndrome Patient had his morphine pump re moved. Related to Breakdown (mechanical) of implanted electronic neurostimulator, generator, sequela Patient's wound is w ell healed with no signs or symptoms of infection. He is performing stretching and yoga to help with pain. He still has tightness from his adhesions. 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 Interventional procedures, physical therapy and adjuvant therapy was not successful alone in controlling patient's severe pain. Chronic opioid therapy may be continued indefinitely and the patient will be reassessed at regular office visits. Urine drug screens will be performed in order to ensure compliance with medication prescriptions and to rule out any illicit use. The [place] prescription drug data base was reviewed and is compliant with the patient's treatment plan. Related to roving frame tender (current) use of opiate analgesic Dietary management e ducation, guidance, and counseling Related to Overweight Patient had his morphine pump re moved. Related to Breakdown (mechanical) of implanted electronic neurostimulator, generator, sequela Patient's wound is h ealing well. No signs or symptoms of infection. He is complaing of feeling like an adhesion is forming. Instructed to do stretching exercises and yoga. 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 Interventional procedures, physical therapy and adjuvant therapy was not successful alone in controlling patient's severe pain. Chronic opioid therapy may be continued indefinitely and the patient will be reassessed at regular office visits. Urine drug screens will be performed in order to ensure compliance with medication prescriptions and to rule out any illicit use. The [place] prescription drug data base was reviewed and is compliant with the patient's treatment plan. Related to alf (current) use of opiate analgesic Patient feels he can continue to decrease his Percocet to once a day. Will decrease his Percocet. [place] PDMP was reviewed. Patient physical exam is consistent with previous visit. Will renew medications. Follow up in 1 month. The patient reports stable pain on the current opioid medication regimen. There are no signs of adverse effects, medication abuse or evidence of diversion. The patient reports improved activity and functional levels on this medication regimen. The patient's last urine drug screen is consistent with prescribed medications. The patient has chronic, intractable pain with the diagnoses listed in the assessment. Patient was instructed not to use heavy machinery, not to drink alcohol, or use illicit substances while taking these opioid medications. Related to Chronic pain syndrome Dietary management e ducation, guidance, and counseling Related to Body mass index (BMI) 32.0-32.9, adult Patient has a [employer] SCS. He feels like he has to charge his battery too often. The battery was changed last year. Advised to call the [employer] insurance sales representative for the next appointment in order to have it interrogated. Related to Breakdown (mechanical) of implanted electronic neurostimulator, generator, sequela Patient has an abdom inal wound that is healing well with slight redness. He states that it is improving. He does not like the Percocet. He feels that medication does not keep him with a constent pain level as the morphine pump did. He has to wait for one year before he could have a pain pump placed again. 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 His pain is still elevated but does not want to have the Percocet if he can get off it. [place] PDMP was [place]. Patient physical exam is consistent with previous visit. Will renew medications. Follow up in 1 month. The patient reports stable pain on the current opioid medication regimen. There are no signs of adverse effects, medication abuse or evidence of diversion. The patient reports improved activity and functional levels on this medication regimen. The patient's last urine drug screen is consistent with prescribed medications. The patient has chronic, intractable pain with the diagnoses listed in the assessment. Patient was instructed not to use heavy machinery, not to drink alcohol, or use illicit substances while taking these opioid medications. Related to Chronic pain syndrome Patient was given gr eater than 72 hours of narcotic medication to control severe and intractable pain. Interventional procedures, physical therapy and adjuvant therapy was not successful alone in controlling patient's severe pain. Chronic opioid therapy may be continued indefinitely and the patient will be reassessed at regular office visits. Urine drug screens will be performed in order to ensure compliance with medication prescriptions and to rule out any illicit use. The [place] prescription drug data base was reviewed and is compliant with the patient's treatment plan. Related to alf (current) use of opiate analgesic Dietary management e ducation, guidance, and counseling Related to Body mass index (BMI) 32.0-32.9, adult Patient has a hx of intratheca morphinel pump explantation. Patient reports increased pain despite oral medications.Discussed that this is normal as he is on less medications. Infectious disease reports no significant findings in culture. Condition is stable. Will monitor. 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 Interventional procedures, physical therapy and adjuvant therapy was not successful alone in controlling patient's severe pain. Chronic opioid therapy may be continued indefinitely and the patient will be reassessed at regular office visits. Urine drug screens will be performed in order to ensure compliance with medication prescriptions and to rule out any illicit use. The [place] prescription drug data base was reviewed and is compliant with the patient's treatment plan. 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 Will order UDS today. Physical exam is consistent with previous visit. Wishes to have his intrathecal pump replaced is possible. Will have to stay on oral medications for a mminimum of 6 months before discussing further and getting and ID consult. Will renew medications. Follow up in 1 month. There are no signs of adverse effects, medication abuse or evidence of diversion. The patient reports improved activity and functional levels on this medication regimen. The patient's last urine drug screen is consistent with prescribed medications. The patient has chronic, intractable pain with the diagnoses listed in the assessment. Patient was instructed not to use heavy machinery, not to drink alcohol, or use illicit substances while taking these opioid medications. Related to Chronic pain syndrome Dietary management e ducation, guidance, and counseling Related to Body mass index (BMI) 32.0-32.9, adult Patient was given gr eater than 72 hours of narcotic medication to control severe and intractable pain. Interventional procedures, physical therapy and adjuvant therapy was not successful alone in controlling patient's severe pain. Chronic opioid therapy may be continued indefinitely and the patient will be reassessed at regular office visits. Urine drug screens will be performed in order to ensure compliance with medication prescriptions and to rule out any illicit use. The [place] prescription drug data base was reviewed and is compliant with the patient's treatment plan. 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 The patient has a ORT score of 0. He would like to be followed at this clinic for medication management. Will decrease Percocet 10mg from #90 to #45, per the patient's request. Will renew all other medications as previously prescribed. Follow up in 1 month. There are no signs of adverse effects, medication abuse or evidence of diversion. The patient reports improved activity and functional levels on this medication regimen. The patient's last urine drug screen is consistent with prescribed medications. The patient has chronic, intractable pain with the diagnoses listed in the assessment. Patient was instructed not to use heavy machinery, not to drink alcohol, or use illicit substances while taking these opioid medications. Related to Chronic pain syndrome The patient underwen t a Morphine IT pump on 12/10/17. He was seen by ID two days after the procedure but the patient has not heard anything since. The steristrips were removed today. Discussed that the patient is able to shower but must pat the area dry. The wounds are nicely healed with subcutaneous stitches in place. The wound was cleaned and redressed. Will organize a visit with ID for a follow up. Requested ID visit notes for review. He notes some increased pain due to coming off of the pump, but is otherwise doing well. 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 Recommended patient to remove the SCS as well since he rarely uses it. Patient agrees and wishes to remove SCS at the time of morphine pump removal and has not charged the battery for weeks. Will schedule for SCS explantation at the time of morphine pump explantation on 12/10/17. Related to Breakdown (mechanical) of implanted electronic neurostimulator, generator, initial encounter Patient had morphine pump implanted on November 23 2016. His pump site shows redness and sensitivity. He is currently seeing infectious disease clinic. Reviewing Bijan's: a test report from [facility] ([facility] suggests a deep cellulitis resistant to treatment. He is currently not on blood thinners. Will need to explant patient's morphine pump and catheter. Discussed about the process of the procedure and risks of the explantation including spinal headaches requiring open surgery and nerve damage-- he acknowledges. Patient is informed that he may need a blood patch and follow up with neurosurgeon.Arrange for home health to inspect sutures and change of dressing status post pump and SCS removal. He is to continue to follow up with infectious disease clinic.Infectious doctor is requesting cultures.Will call his infectious disease doctor, Dr. 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 Garcia for pain medication management. Related to Chronic pain syndrome Patient was seen con currently by Dr. Garcia and me today to discuss his IT pump disposition. The imaging results of the CT, Xray and ultrasound were reviewed with him. None of the imaging suggest a collection of fluid around the IT pump, however the latest report from [facility] ([facility] suggests a deep cellulitis resistant to treatment. Today the patient revealed information - previously undisclosed to me - that his first IT pump had a similar area of concern, and that he was previously treated by [facility].While thus far there is no unequivocal evidence that the area is infected, both Dr. Garcia and I have emphatically recommended immediate explant of the IT pump due to the potential risks of leaving the IT pump in place if he truly has cellulitis or a deeper infection. Have also discussed that his symptoms may represent a sensitivity or allergy to some of the components in the IT pump. Even if this were to be the cause of his symptoms, the recommendation to explant remains the same due to potential complications from continued exposure to the allergen.He agrees, and has been scheduled for consultation with Dr. Young tomorrow, with potential explant on Sunday. Patient acknowledges understanding and says he will attend his appointments as scheduled. 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 We have evaluated the patient and we are prescribing over 72 hours of opioid medication within a comprehensive approach to care. Counseled regarding narcotic therapy and the risks; including tolerance dependence and addiction. Counseled regarding the risk of sedation with the use of narcotics and have advised that operating the car while under the influence of opiate medication or other medications that may impair their judgment could result in severe civil or criminal penalties. Counseled in regards to the risk of opioids in combination with other medication or substances that may depress the central nervous system such as anti-anxiety medications, muscle relaxants, antidepressants and other painkillers, alcohol and marijuana, and that the combination of these medications an have serious adverse side effects including respiratory depression, coma and . Related to Chronic pain syndrome He is seen again tofrances crenshaw for pump refill, however, his area of erythema around his pump has increased since his last appointment. He still denies fevers, chills, confusion. He does describe new onset of mild headaches.We have stopped the pump today and will cover his pain with oral medications. Will refer to [facility] for infectious disease consultation, will order abdominal CT, ultrasound and chest xray. 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 The patient has itchiness and a red rash over the area over his pump site. We feel the condition is not of concern at this moment, but will monitor the situation closely and the patient will alert us if there is worsening of the site. He feels that his pump works well at managing his pain. His condition seems stable at this time, and there have been no increases in his pain level. He indicates that he has had severe diarrhea for some time, but is being followed by a stenciler regarding this issue. The patient reports no adverse side effects from his medications, and feels that they help to manage his pain. We will renew medications as previously prescribed, and will follow up 1 month. Medication scripts were sent to the pharmacy electronically. 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 I have explained that it is not appropriate to rely solely on the use of opioid medications for pain control due to long-term side effects and inherent risks of these medications. I have further explained that the safest and most appropriate treatment of pain involves a step-chahal, multimodal approach and that I am not comfortable treating their pain with only opioid medications. Therefore we have discussed and agreed on a comprehensive treatment plan. I have reviewed the PDMP and found it to be appropriate. We have discussed all the treatment options with the patient and they would like to proceed with our plan. Related to Chronic pain syndrome Latest UDS is compli ant. No UDS is due today.The patient reports improved pain on the current opioid medication regimen. There are no signs of adverse effects, medication abuse or evidence of diversion. The patient reports improved activity and functional levels on this medication regimen. We will refill opioid medications at this visit. I checked the PDMP for the patient and it is consistent. The patient has chronic, intractable pain with the diagnoses listed in the assessment. They are receiving chronic opioid therapy, which requires greater than 72 hours supply of controlled substances. Chronic opioid therapy may continue indefinitely and the patient will be reassessed at regular office visits. Patient was instructed not to use heavy machinery, not to drink alcohol, or use illicit substances while taking these opioid medications. 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 The patient denies shaking, chills at night, fever, or fluid leaks from the pump. He denies any changes to his pain level. The patient recounts some of his past history: he notes that he has had two [employer] pain pumps replaced due to complications, and is concerned there may be a problem with his current pump. The patient recounts that he had to have an emergency shut down on his pump several visits ago, and was reprogrammed by his pump insurance sales representative. However, he indicates that at his last pump refill (09/28/17), a yellow fluid was extracted. He was concerned there may be a problem with is pump, and contacted a indoor plant technician for his pump (Oleksandr), and was told that he should contact our office immediately, which is the purpose of his visit today. We performed a pump data analysis of the pump today. There were no recorded pump errors. His next fill date is indicated as November. There are no signs of complications with his pump at the time of today's visit. There has been no increase in his pain levels, and his condition is stable. We will closely monitor the patient's condition, and will consider sending the fluid for analysis. The patient will contact us immediately if there are any concerns or new developments. Ultimately, we feel there is no cause for concern at this time.The patient reports no adverse side effects from his medications, and feels that they help to manage his pain. He is not due for a refill at this time. We will follow up 1 month. 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 No UDS due today. The patient reports improved pain on the current opioid medication regimen. There are no signs of adverse effects, medication abuse or evidence of diversion. The patient reports improved activity and functional levels on this medication regimen. I checked the PDMP for the patient and it is consistent. The patient has chronic, intractable pain with the diagnoses listed in the assessment. They are receiving chronic opioid therapy, which requires greater than 72 hours supply of controlled substances. Chronic opioid therapy may continue indefinitely and the patient will be reassessed at regular office visits. Patient was instructed not to use heavy machinery, not to drink alcohol, or use illicit substances while taking these opioid medications. 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 I have explained that it is not appropriate to rely solely on the use of opioid medications for pain control due to long-term side effects and inherent risks of these medications. I have further explained that the safest and most appropriate treatment of pain involves a step-chahal, multimodal approach and that I am not comfortable treating their pain with only opioid medications. Therefore we have discussed and agreed on a comprehensive treatment plan. I have reviewed the PDMP and found it to be appropriate. We have discussed all the treatment options with the patient and they would like to proceed with our plan. Related to Chronic pain syndrome Dietary management e ducation, guidance, and counseling Related to Obesity, unspecified The [facility] Drug Monitoring Program was reviewed for this patient and a copy was attached for today's visit. We have evaluated the patient and we are prescribing over 72 hours of opioid medication within a comprehensive approach to care. Counseled regarding narcotic therapy and the risks; including tolerance dependence and addiction. Counseled regarding the risk of sedation with the use of narcotics and have advised that operating the car while under the influence of opiate medication or other medications that may impair their judgment could result in severe civil or criminal penalties. Counseled in regards to the risk of opioids in combination with other medication or substances that may depress the central nervous system such as anti-anxiety medications, muscle relaxants, antidepressants and other painkillers, alcohol and marijuana, and that the combination of these medications an have serious adverse side effects including respiratory depression, coma and . Related to roving frame tender (current) use of opiate analgesic The patient presents for intrathecal pump medication refill today. Please see procedure note. Approximately 8 ml of straw-yellow fluid was removed from the IT pump, when approximately 5 ml was expected. He reports no additional symptoms today. Will continue to monitor. 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 He is not asking for an increase in medication today. Will schedule for routine follow up with IT pump refill for his next appointment. Discussed the most recent UDS which was negative for the medications. Have discussed that negative UDS results raise concerns of misuse or diversion and violate the Opioid Agreement, and that additional violations of the Agreement may result in discharge from the practice. Will continue to monitor closely. 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 Most recent PDMP compliant. Has satisfactory relief with the medications. Has not taken additional medications beyond what was prescribed and has denied side effects. Will continue the medications as previously prescribed and schedule a routine follow up appointment. Will continue the established plan of care as discussed at previous appointments. Related to Radiculopathy of lumbosacral region The [facility] Drug Monitoring Program was reviewed for this patient and a copy was attached for today's visit. We have evaluated the patient and we are prescribing over 72 hours of opioid medication within a comprehensive approach to care. Counseled regarding narcotic therapy and the risks; including tolerance dependence and addiction. Counseled regarding the risk of sedation with the use of narcotics and have advised that operating the car while under the influence of opiate medication or other medications that may impair their judgment could result in severe civil or criminal penalties. Counseled in regards to the risk of opioids in combination with other medication or substances that may depress the central nervous system such as anti-anxiety medications, muscle relaxants, antidepressants and other painkillers, alcohol and marijuana, and that the combination of these medications an have serious adverse side effects including respiratory depression, coma and . Related to Chronic pain syndrome Dietary management e ducation, guidance, and counseling Related to Body mass index (BMI) 33.0-33.9, adult Patient presents for a pump refill under ultrasound guidance. He tolerated the procedure well and denies any side effects. Will follow up at next office visit. Patient reports no new changes since his last visit. He is stable on his current regimen of medication and denies any adverse side effects or new symptoms . He states that the medication is providing him with relief from his pain, will renew his medications. Related to Radiculopathy of lumbosacral region Today the patient an d I have engaged in a nidia discussion about the proper treatment of pain. I have explained that it is not appropriate to rely solely on the use of opioid medications for pain control due to long-term side effects and inherent risks of these medications. I have further explained that the safest and most appropriate treatment of pain involves a step-chahal, multimodal approach and that I am not comfortable treating their pain with only opioid medications. Therefore we have discussed and agreed on a comprehensive treatment plan.I have reviewed the PDMP and found it to be appropriate. We have discussed all the treatment options with the patient and they would like to proceed with our plan. Related to Chronic pain syndrome Qualitative and Saleem titative Testing today.Last UDS was negative for hydromorphone metabolite. Retest and Upper Marker.The patient reports improved pain on the current opioid medication regimen. There are no signs of adverse effects, medication abuse or evidence of diversion. The patient reports improved activity and functional levels on this medication regimen. We will refill opioid medications at this visit. The patient's last urine drug screen is consistent with prescribed medications; repeat UDS today. I checked the PDMP for the patient and it is consistent. The patient has chronic, intractable pain with the diagnoses listed in the assessment. They are receiving chronic opioid therapy which requires greater than 72 hours supply of controlled substances. Chronic opioid therapy may continue indefinitely and the patient will be reassessed at regular office visits. Patient was instructed not to use heavy machinery, not to drink alcohol, or use illicit substances while taking these opioid medications. Related to alf (current) use of opiate analgesic Dietary management e ducation, guidance, and counseling Related to Obesity, unspecified Today the patient an d I have engaged in a nidia discussion about the proper treatment of pain. I have explained that it is not appropriate to rely solely on the use of opioid medications for pain control due to long-term side effects and inherent risks of these medications. I have further explained that the safest and most appropriate treatment of pain involves a step-chahal, multimodal approach and that I am not comfortable treating their pain with only opioid medications. Therefore we have discussed and agreed on a comprehensive treatment plan.I have reviewed the PDMP and found it to be appropriate. We have discussed all the treatment options with the patient and they would like to proceed with our plan. Related to Chronic pain syndrome Qualitative and Saleem titative Testing today.Last UDS was negative for hydromorphone. He is also getting morphine orally. Retest and Upper Marker.Medications were refilled. The patient reports improved pain on the current opioid medication regimen. There are no signs of adverse effects, medication abuse or evidence of diversion. The patient reports improved activity and functional levels on this medication regimen. We will refill opioid medications at this visit. The patient's last urine drug screen is consistent with prescribed medications; repeat UDS today. I checked the PDMP for the patient and it is consistent. The patient has chronic, intractable pain with the diagnoses listed in the assessment. They are receiving chronic opioid therapy which requires greater than 72 hours supply of controlled substances. Chronic opioid therapy may continue indefinitely and the patient will be reassessed at regular office visits. Patient was instructed not to use heavy machinery, not to drink alcohol, or use illicit substances while taking these opioid medications. Related to alf (current) use of opiate analgesic Dietary management e ducation, guidance, and counseling Related to Obesity, unspecified Today the patient an d I have engaged in a nidia discussion about the proper treatment of pain. I have explained that it is not appropriate to rely solely on the use of opioid medications for pain control due to long-term side effects and inherent risks of these medications. I have further explained that the safest and most appropriate treatment of pain involves a step-chahal, multimodal approach and that I am not comfortable treating their pain with only opioid medications. Therefore we have discussed and agreed on a comprehensive treatment plan.I have reviewed the PDMP and found it to be appropriate. We have discussed all the treatment options with the patient and they would like to proceed with our plan. Related to Chronic pain syndrome Qualitative and Saleem titative Testing today.The patient reports improved pain on the current opioid medication regimen. There are no signs of adverse effects, medication abuse or evidence of diversion. The patient reports improved activity and functional levels on this medication regimen. We will refill opioid medications at this visit. The patient's last urine drug screen is consistent with prescribed medications; repeat UDS today. I checked the PDMP for the patient and it is consistent. The patient has chronic, intractable pain with the diagnoses listed in the assessment. They are receiving chronic opioid therapy which requires greater than 72 hours supply of controlled substances. Chronic opioid therapy may continue indefinitely and the patient will be reassessed at regular office visits. Patient was instructed not to use heavy machinery, not to drink alcohol, or use illicit substances while taking these opioid medications. Related to alf (current) use of opiate analgesic Patient has IT pump that is working very well to control his pain. He has oral medication for breakthrough pain that remains stable allowing him to function. Patient is talking medication consistently and claims that current pain regimen allows patient to carry out daily routine/ADLs adequately. Compliant with previous U[place] and [facility]; compliant. No changes in medical status since last visit. Denies adverse effects from medication. Meds renewed. Encouraged HEP and multimodal approach to cope with daily pain. Related to Radiculopathy of lumbosacral region Patient was given gr eater than 72 hours of narcotic medication to control severe and intractable pain. Interventional procedures, physical therapy and adjuvant therapy was not successful alone in controlling patient's severe pain. Chronic opioid therapy may be continued indefinitely and the patient will be reassessed at regular office visits. Urine drug screens will be performed in order to ensure compliance with medication prescriptions and to rule out any illicit use. The [place] prescription drug data base was reviewed and is compliant with the patient's treatment plan. 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 We have evaluated the patient and we are prescribing over 72 hours of opioid medication within a comprehensive approach to care. Counseled regarding narcotic therapy and the risks; including tolerance dependence and addiction. Counseled regarding the risk of sedation with the use of narcotics and have advised that operating the car while under the influence of opiate medication or other medications that may impair their judgment could result in severe civil or criminal penalties. Counseled in regards to the risk of opioids in combination with other medication or substances that may depress the central nervous system such as anti-anxiety medications, muscle relaxants, antidepressants and other painkillers, alcohol and marijuana, and that the combination of these medications an have serious adverse side effects including respiratory depression, coma and . Related to Chronic pain syndrome Has not taken additi onal medications beyond what was prescribed and has denied side effects. Will continue the medications as previously prescribed and schedule a routine follow up appointment. Will continue the established plan of care as discussed at previous appointments. Related to alf (current) use of opiate analgesic The patient presents for intrathecal pump medication refill today. US was used to locate the pump port and ensure placement of medication into the IT pump. Please see procedure note. He has a 20 mL IT pump. Related to Radiculopathy of lumbosacral region Dietary management e ducation, guidance, and counseling Related to Obesity, unspecified Qualitative and Saleem titative Testing today.The patient reports improved pain on the current opioid medication regimen. There are no signs of adverse effects, medication abuse or evidence of diversion. The patient reports improved activity and functional levels on this medication regimen. We will refill opioid medications at this visit. The patient's last urine drug screen is consistent with prescribed medications; repeat UDS today. I checked the PDMP for the patient and it is consistent. The patient has chronic, intractable pain with the diagnoses listed in the assessment. They are receiving chronic opioid therapy which requires greater than 72 hours supply of controlled substances. Chronic opioid therapy may continue indefinitely and the patient will be reassessed at regular office visits. Patient was instructed not to use heavy machinery, not to drink alcohol, or use illicit substances while taking these opioid medications. Related to alf (current) use of opiate analgesic Today the patient an d I have engaged in a nidia discussion about the proper treatment of pain. I have explained that it is not appropriate to rely solely on the use of opioid medications for pain control due to long-term side effects and inherent risks of these medications. I have further explained that the safest and most appropriate treatment of pain involves a step-chahal, multimodal approach and that I am not comfortable treating their pain with only opioid medications. Therefore we have discussed and agreed on a comprehensive treatment plan.I have reviewed the PDMP and found it to be appropriate. We have discussed all the treatment options with the patient and they would like to proceed with our plan. Related to Chronic pain syndrome Back and leg pain gillis s increased over past month. Pump was decreased and he thinks this is to blame. He'd like to increase his IT dose next visit. Related to Radiculopathy of lumbosacral region Today the patient an d I have engaged in a nidia discussion about the proper treatment of pain. I have explained that it is not appropriate to rely solely on the use of opioid medications for pain control due to long-term side effects and inherent risks of these medications. I have further explained that the safest and most appropriate treatment of pain involves a step-chahal, multimodal approach and that I am not comfortable treating their pain with only opioid medications. Therefore we have discussed and agreed on a comprehensive treatment plan.I have reviewed the PDMP and found it to be appropriate. We have discussed all the treatment options with the patient and they would like to proceed with our plan. Related to Chronic pain syndrome The patient reports improved pain on the current opioid medication regimen. There are no signs of adverse effects, medication abuse or evidence of diversion. The patient reports improved activity and functional levels on this medication regimen. We will refill opioid medications at this visit. The patient's last urine drug screen is consistent with prescribed medications. I checked the PDMP for the patient and it is consistent. The patient has chronic, intractable pain with the diagnoses listed in the assessment. They are receiving chronic opioid therapy which requires greater than 72 hours supply of controlled substances. Chronic opioid therapy may continue indefinitely and the patient will be reassessed at regular office visits. Patient was instructed not to use heavy machinery, not to drink alcohol, or use illicit substances while taking these opioid medications. 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 A modifier 25 was used. 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 Today the patient and I have engaged in a nidia discussion about the proper treatment of pain. I have explained that it is not appropriate to rely solely on the use of opioid medications for pain control due to long-term side effects and inherent risks of these medications. I have further explained that the safest and most appropriate treatment of pain involves a step-chahal, multimodal approach and that I am not comfortable treating their pain with only opioid medications. Therefore we have discussed and agreed on a comprehensive treatment plan. I have reviewed the PDMP and found it to be appropriate. We have discussed all the treatment options with the patient and they would like to proceed with our plan. Related to Chronic pain syndrome UDS re-ordered today , it was positive for Hydrocodone. The patient reports improved pain on the current opioid medication regimen. There are no signs of adverse effects, medication abuse or evidence of diversion. The patient reports improved activity and functional levels on this medication regimen. We will refill opioid medications at this visit. The patient's last urine drug screen is consistent with prescribed medications. I checked the PDMP for the patient and it is consistent. The patient has chronic, intractable pain with the diagnoses listed in the assessment. They are receiving chronic opioid therapy which requires greater than 72 hours supply of controlled substances. Chronic opioid therapy may continue indefinitely and the patient will be reassessed at regular office visits. Patient was instructed not to use heavy machinery, not to drink alcohol, or use illicit substances while taking these opioid medications. Related to alf (current) use of opiate analgesic Dietary management e ducation, guidance, and counseling Related to Body mass index (BMI) 31.0-31.9, adult His healing IT pump wound was examined. Advised to apply bacitracin and band aid over the site. Today the patient and I have engaged in a nidia discussion about the proper treatment of pain. I have explained that it is not appropriate to rely solely on the use of opioid medications for pain control due to long-term side effects and inherent risks of these medications. I have further explained that the safest and most appropriate treatment of pain involves a step-chahal, multimodal approach and that I am not comfortable treating their pain with only opioid medications. Therefore we have discussed and agreed on a comprehensive treatment plan. I have reviewed the PDMP and found it to be appropriate. We have discussed all the treatment options with the patient and they would like to proceed with our plan. Related to Chronic pain syndrome Last UDS was positiv e for Hydrocodone. Re-ordered today. The patient reports improved pain on the current opioid medication regimen. There are no signs of adverse effects, medication abuse or evidence of diversion. The patient reports improved activity and functional levels on this medication regimen. We will refill opioid medications at this visit. The patient's last urine drug screen is consistent with prescribed medications. I checked the PDMP for the patient and it is consistent. The patient has chronic, intractable pain with the diagnoses listed in the assessment. They are receiving chronic opioid therapy which requires greater than 72 hours supply of controlled substances. Chronic opioid therapy may continue indefinitely and the patient will be reassessed at regular office visits. Patient was instructed not to use heavy machinery, not to drink alcohol, or use illicit substances while taking these opioid medications. Related to alf (current) use of opiate analgesic Dietary management e ducation, guidance, and counseling Related to Body mass index (BMI) 31.0-31.9, adult Stopped Percocet at today's office visit. The patient reports improved pain on the current opioid medication regimen. There are no signs of adverse effects, medication abuse or evidence of diversion. The patient reports improved activity and functional levels on this medication regimen. We will refill opioid medications at this visit. The patient's last urine drug screen is consistent with prescribed medications; repeat UDS today. I checked the PDMP for the patient and it is consistent. The patient has chronic, intractable pain with the diagnoses listed in the assessment. They are receiving chronic opioid therapy which requires greater than 72 hours supply of controlled substances. Chronic opioid therapy may continue indefinitely and the patient will be reassessed at regular office visits. Patient was instructed not to use heavy machinery, not to drink alcohol, or use illicit substances while taking these opioid medications. Related to alf (current) use of opiate analgesic Patient had X-ray an d CT scan to investigate dry cough. He is follow up on this. Today the patient and I have engaged in a nidia discussion about the proper treatment of pain. I have explained that it is not appropriate to rely solely on the use of opioid medications for pain control due to long-term side effects and inherent risks of these medications. I have further explained that the safest and most appropriate treatment of pain involves a step-chahal, multimodal approach and that I am not comfortable treating their pain with only opioid medications. Therefore we have discussed and agreed on a comprehensive treatment plan.I have reviewed the PDMP and found it to be appropriate. We have discussed all the treatment options with the patient and they would like to proceed with our plan. Related to Chronic pain syndrome 66 year old male pre sents for back pain.Discussed with patient decreasing the concentration of Morphine in his pump due to potential for granuloma. Pt underwent uncomplicated morphine pump refill today. No changes made to pump setting. Patient still receiving Morphine 25.000 mg/ml at rate of 4.1250 mg daily, Clonidine 50 mcg/ml at flow rate of 8.2mcg daily, and Bupivacaine 3.000mg/ml at rate of 0.4950 mg daily. Pump was interrogated; expected volume removed 5.4 ml, actual volume removed 5.5 ml. See procedure note and attached documents for detail.Denies any recent change in pain pattern. Comfortable with current regimen and setting. Denies any increasing drowsiness, somnolence, pruritis, or SOB. Also denies increasing pain, sweating, muscle cramps, irritability. Related to Radiculopathy of lumbosacral region Patient presents tod ay stable. He reports improved and healthy urination. SCS insurance sales representative present today for pump reprogramming. Performed up titration of SCS pump by 20%, Related to Radiculopathy of lumbosacral region The patient reports improved pain on the current opioid medication regimen. There are no signs of adverse effects, medication abuse or evidence of diversion. The patient reports improved activity and functional levels on this medication regimen. We will refill opioid medications at this visit. The patient's last urine drug screen is consistent with prescribed medications; repeat UDS today. I checked the PDMP for the patient and it is consistent. The patient has chronic, intractable pain with the diagnoses listed in the assessment. They are receiving chronic opioid therapy which requires greater than 72 hours supply of controlled substances. Chronic opioid therapy may continue indefinitely and the patient will be reassessed at regular office visits. Patient was instructed not to use heavy machinery, not to drink alcohol, or use illicit substances while taking these opioid medications. 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 I have explained that it is not appropriate to rely solely on the use of opioid medications for pain control due to long-term side effects and inherent risks of these medications. I have further explained that the safest and most appropriate treatment of pain involves a step-chahal, multimodal approach and that I am not comfortable treating their pain with only opioid medications. Therefore we have discussed and agreed on a comprehensive treatment plan.I have reviewed the PDMP and found it to be appropriate. We have discussed all the treatment options with the patient and they would like to proceed with our plan. Related to Chronic pain syndrome Dietary management e ducation, guidance, and counseling Related to Body mass index (BMI) 31.0-31.9, adult Patient reports naus ea, insomnia, mental status changes, and pain.Pt reports decreased appetite; he states he has not eaten in days. He denies vomiting but states that he experiences the sensation of wanting to vomit. He reports last vomiting on 12/02/16. Pt states that he has not been able to produce bowel movements and that he has been catherizing himself to release urine. He reports decreased strength and bumping into georges. Pt states that backache and neck pain are continued but states that the pain is not excruciating. Patient went to emergency room per the advisory of customer loyalty representative. He was admitted to hospital and cleared.Friends and family remark that he seemed high as a kite Will decrease pump flow by 50%. Related to Radiculopathy of lumbosacral region I suspect that he is being overmedicated with the pump. We will decrease the flow by 50%. He has the oral medications for pain if needed. I'm concerned of a possible infection, however I don't think this is likely. We will get a CBC with diff and see. Today the patient and I have engaged in a nidia discussion about the proper treatment of pain. I have explained that it is not appropriate to rely solely on the use of opioid medications for pain control due to long-term side effects and inherent risks of these medications. I have further explained that the safest and most appropriate treatment of pain involves a step-chahal, multimodal approach and that I am not comfortable treating their pain with only opioid medications. Therefore we have discussed and agreed on a comprehensive treatment plan.I have reviewed the PDMP and found it to be appropriate. We have discussed all the treatment options with the patient and they would like to proceed with our plan. Related to Chronic pain syndrome Pt presents today fo r wound check. He had pump replaced 11/17/16. Pt reports vomiting four times on 11/24/16. He states that he has decreased his food intake to avoid vomiting. Pt reports improved urination.Bandages removed in the presence of scribe and [employer] insurance sales representative; no erythema or signs of infections. Antibiotic ointment applied and bandages replaced. Pt will follow up for adan removal, pump effectiveness check-in, and pain medication regimen updates. Related to Radiculopathy of lumbosacral region Today the patient an d I have engaged in a nidia discussion about the proper treatment of pain. I have explained that it is not appropriate to rely solely on the use of opioid medications for pain control due to long-term side effects and inherent risks of these medications. I have further explained that the safest and most appropriate treatment of pain involves a step-chahal, multimodal approach and that I am not comfortable treating their pain with only opioid medications. Therefore we have discussed and agreed on a comprehensive treatment plan.I have reviewed the PDMP and found it to be appropriate. We have discussed all the treatment options with the patient and they would like to proceed with our plan. Related to Chronic pain syndrome The patient reports improved pain on the current opioid medication regimen. There are no signs of adverse effects, medication abuse or evidence of diversion. The patient reports improved activity and functional levels on this medication regimen. We will refill opioid medications at this visit. The patient's last urine drug screen is consistent with prescribed medications. I checked the PDMP for the patient and it is consistent. The patient has chronic, intractable pain with the diagnoses listed in the assessment. They are receiving chronic opioid therapy which requires greater than 72 hours supply of controlled substances. Chronic opioid therapy may continue indefinitely and the patient will be reassessed at regular office visits. Patient was instructed not to use heavy machinery, not to drink alcohol, or use illicit substances while taking these opioid medications. Related to alf (current) use of opiate analgesic Dietary management e ducation, guidance, and counseling Related to Body mass index (BMI) 31.0-31.9, adult Pt IT pump is nearin g end of life. Pt states that it is not working well. He requests a pump replacement.The office visit for today is a separate and identifiable service from any other service provided today. Pump is filled with 40 ccs of Clonidine 50 mcg/mL, Morphine 25 mg/mL, Bupivacaine 3mg/mL. Pump refill performed with ultra sound for patient safety and to ensure adequate placement of the needle and the pump. Pt requests 5% decrease in IT pump. Pt underwent uncomplicated morphine pump refill today. See procedure note and attached documents for detail. Denies any recent change in pain pattern. Denies any increasing drowsiness, somnolence, pruritis, or SOB. Also denies increasing pain, sweating, muscle cramps, irritability. Related to Low back pain 65 y/o M presents today for neck pain. Related to Cervicalgia The patient reports improved pain on the current opioid medication regimen. There are no signs of adverse effects, medication abuse or evidence of diversion. The patient reports improved activity and functional levels on this medication regimen. We will refill opioid medications at this visit. The patient's last urine drug screen is consistent with prescribed medications. I checked the PDMP for the patient and it is consistent. The patient has chronic, intractable pain with the diagnoses listed in the assessment. They are receiving chronic opioid therapy which requires greater than 72 hours supply of controlled substances. Chronic opioid therapy may continue indefinitely and the patient will be reassessed at regular office visits. Patient was instructed not to use heavy machinery, not to drink alcohol, or use illicit substances while taking these opioid medications. 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 I have explained that it is not appropriate to rely solely on the use of opioid medications for pain control due to long-term side effects and inherent risks of these medications. I have further explained that the safest and most appropriate treatment of pain involves a step-chahal, multimodal approach and that I am not comfortable treating their pain with only opioid medications. Therefore we have discussed and agreed on a comprehensive treatment plan.I have reviewed the PDMP and found it to be appropriate. We have discussed all the treatment options with the patient and they would like to proceed with our plan. Related to Chronic pain syndrome SCS reprogramming do ne today with the use of alternate pulse widths, electrode arrays, and frequencies. New programs covered patient's pain adequately. Related to Radiculopathy of lumbosacral region The patient reports improved pain on the current opioid medication regimen. There are no signs of adverse effects, medication abuse or evidence of diversion. The patient reports improved activity and functional levels on this medication regimen. We will refill opioid medications at this visit. The patient's last urine drug screen is consistent with prescribed medications; repeat UDS today. I checked the PDMP for the patient and it is consistent. The patient has chronic, intractable pain with the diagnoses listed in the assessment. They are receiving chronic opioid therapy which requires greater than 72 hours supply of controlled substances. Chronic opioid therapy may continue indefinitely and the patient will be reassessed at regular office visits. Patient was instructed not to use heavy machinery, not to drink alcohol, or use illicit substances while taking these opioid medications. Related to alf (current) use of opiate analgesic The patient asks to fill out his disability form for parking, which I completed today. Today the patient and I have engaged in a nidia discussion about the proper treatment of pain. I have explained that it is not appropriate to rely solely on the use of opioid medications for pain control due to long-term side effects and inherent risks of these medications. I have further explained that the safest and most appropriate treatment of pain involves a step-chahal, multimodal approach and that I am not comfortable treating their pain with only opioid medications. Therefore we have discussed and agreed on a comprehensive treatment plan.I have reviewed the PDMP and found it to be appropriate. We have discussed all the treatment options with the patient and they would like to proceed with our plan. Related to Chronic pain syndrome The patient was sche duled for thoracic spine x-rays to evaluate for possible lead migration of SCS. He will get this completed before the next visit. The SCS has not been working as well as we had hoped. He will get a reprogramming and follow up. Pain pump was decreased by 5% as of the last visit. The patient states he noted a difference, and his pain has increased. However, he still states he would like to wean off of the morphine. Will decrease pain pump another 5% and add Marcaine. The patient reports he has so much pain on his leg when he puts weight on it that he has been falling more often. If his pain is intolerable at the next appointment, then we will consider replacing the pump. Related to Radiculopathy of lumbosacral region Pt had SCS revision on August 01, 2016. He reports that the SCS is providing inconsistent relief. He states that he feels more stimulation when he bends forward and minimal stimulation when he sits straight up. Pt feels as though his movements are controlling the degree of stimulation more than the actual remote. Will order x-rays to determine if leads have moved. Advised to speak with [employer] Representatives to optimize stimulation. The patient presents with signs and symptoms of a radiculopathy. I am concerned their pain may be due to nerve root irritation and MRI is indicated to determine if disc pathology, soft tissue injury, spine instability or other pathology may be contributing to their pain. The patient has tried and failed conservative therapy including NSAIDs, rest, activity modification, and pain medications. Schedule thoracic spine x-ray. Related to Radiculopathy of lumbosacral region Pt would like to tur n pump down 5%. Will do today. Today the patient and I have engaged in a nidia discussion about the proper treatment of pain. I have explained that it is not appropriate to rely solely on the use of opioid medications for pain control due to long-term side effects and inherent risks of these medications. I have further explained that the safest and most appropriate treatment of pain involves a step-chahal, multimodal approach and that I am not comfortable treating their pain with only opioid medications. Therefore we have discussed and agreed on a comprehensive treatment plan. I have reviewed the PDMP and found it to be appropriate. We have discussed all the treatment options with the patient and they would like to proceed with our plan. Patient was given greater than 72 hours of narcotic medication to control severe and intractable pain. Interventional procedures, physical therapy and adjuvant therapy was not successful alone in controlling patient's severe pain. Chronic opioid therapy may be continued indefinitely and the patient will be reassessed at regular office visits. Urine drug screens will be performed in order to ensure compliance with medication prescriptions and to rule out any illicit use. The [place] prescription drug data base was reviewed and is compliant with the patient's treatment plan. Related to alf (current) use of opiate analgesic Dietary management e ducation, guidance, and counseling Related to Body mass index (BMI) 31.0-31.9, adult Pt had SCS revision performed on August 01, 2016 and is here for post-op check-up. He states that he has felt pain around the surgery site the last couple days. Pt will follow up for medications. Related to Radiculopathy of lumbosacral region Today the patient an d I have engaged in a nidia discussion about the proper treatment of pain. I have explained that it is not appropriate to rely solely on the use of opioid medications for pain control due to long-term side effects and inherent risks of these medications. I have further explained that the safest and most appropriate treatment of pain involves a step-chahal, multimodal approach and that I am not comfortable treating their pain with only opioid medications. Therefore we have discussed and agreed on a comprehensive treatment plan. I have reviewed the PDMP and found it to be appropriate. We have discussed all the treatment options with the patient and they would like to proceed with our plan. Patient was given greater than 72 hours of narcotic medication to control severe and intractable pain. Interventional procedures, physical therapy and adjuvant therapy was not successful alone in controlling patient's severe pain. Chronic opioid therapy may be continued indefinitely and the patient will be reassessed at regular office visits. Urine drug screens will be performed in order to ensure compliance with medication prescriptions and to rule out any illicit use. The [place] prescription drug data base was reviewed and is compliant with the patient's treatment plan. Related to alf (current) use of opiate analgesic Dietary management e ducation, guidance, and counseling Related to Body mass index (BMI) 31.0-31.9, adult Patient scheduled fo r an SCS revision tomorrow for his lumbar radiculopathy. Pt recently fell and fractured thumb due to his left leg weakness. He would like to decrease his Percocet eventually, but will wait until after his SCS revision. Related to Radiculopathy of lumbosacral region Today the patient an d I have engaged in a nidia discussion about the proper treatment of pain. I have explained that it is not appropriate to rely solely on the use of opioid medications for pain control due to long-term side effects and inherent risks of these medications. I have further explained that the safest and most appropriate treatment of pain involves a step-chahal, multimodal approach and that I am not comfortable treating their pain with only opioid medications. Therefore we have discussed and agreed on a comprehensive treatment plan. I have reviewed the PDMP and found it to be appropriate. We have discussed all the treatment options with the patient and they would like to proceed with our plan. Patient was given greater than 72 hours of narcotic medication to control severe and intractable pain. Interventional procedures, physical therapy and adjuvant therapy was not successful alone in controlling patient's severe pain. Chronic opioid therapy may be continued indefinitely and the patient will be reassessed at regular office visits. Urine drug screens will be performed in order to ensure compliance with medication prescriptions and to rule out any illicit use. The [place] prescription drug data base was reviewed and is compliant with the patient's treatment plan. 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 I have explained that it is not appropriate to rely solely on the use of opioid medications for pain control due to long-term side effects and inherent risks of these medications. I have further explained that the safest and most appropriate treatment of pain involves a step-chahal, multimodal approach and that I am not comfortable treating their pain with only opioid medications. Therefore we have discussed and agreed on a comprehensive treatment plan.I have reviewed the PDMP and found it to be appropriate. We have discussed all the treatment options with the patient and they would like to proceed with our plan.IT pump can be addressed after SCS IPG replacement. Related to Chronic pain syndrome The patient reports improved pain on the current opioid medication regimen. There are no signs of adverse effects, medication abuse or evidence of diversion. The patient reports improved activity and functional levels on this medication regimen. We will refill opioid medications at this visit. The patient's last urine drug screen is consistent with prescribed medications; repeat UDS today. I checked the PDMP for the patient and it is consistent. The patient has chronic, intractable pain with the diagnoses listed in the assessment. They are receiving chronic opioid therapy which requires greater than 72 hours supply of controlled substances. Chronic opioid therapy may continue indefinitely and the patient will be reassessed at regular office visits. Patient was instructed not to use heavy machinery, not to drink alcohol, or use illicit substances while taking these opioid medications.He is doing well with his current regimen. 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 It is medically necessary to schedule this the week of 07/31/16 so he can have his drive him to the surgery and take care of him afterwards. She is unable to get time off work until that time. Related to Radiculopathy of lumbosacral region Dietary management e ducation, guidance, and counseling Related to Obesity, unspecified The patient reports improved pain on the current opioid medication regimen. There are no signs of adverse effects, medication abuse or evidence of diversion. The patient reports improved activity and functional levels on this medication regimen. We will refill opioid medications at this visit. The patient's last urine drug screen is consistent with prescribed medications; repeat UDS today. I checked the PDMP for the patient and it is consistent. The patient has chronic, intractable pain with the diagnoses listed in the assessment. They are receiving chronic opioid therapy which requires greater than 72 hours supply of controlled substances. Chronic opioid therapy may continue indefinitely and the patient will be reassessed at regular office visits. Patient was instructed not to use heavy machinery, not to drink alcohol, or use illicit substances while taking these opioid medications. 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 I have explained that it is not appropriate to rely solely on the use of opioid medications for pain control due to long-term side effects and inherent risks of these medications. I have further explained that the safest and most appropriate treatment of pain involves a step-chahal, multimodal approach and that I am not comfortable treating their pain with only opioid medications. Therefore we have discussed and agreed on a comprehensive treatment plan.I have reviewed the PDMP and found it to be appropriate. We have discussed all the treatment options with the patient and they would like to proceed with our plan.SCS device not working. He states this was very helpful when it was working and he would like the battery replaced. This is medically necessary for his treatment as the battery is at its end of life.We will consider IT pump removal or replacement pending the SCS revision.We will try Gabadone for sleep. Mobic may help also so we will try this. We will try the Lidopro and Tercin patches as well. Related to Chronic pain syndrome Dietary management e ducation, guidance, and counseling Related to Obesity, unspecified He has not had SCS r eprogramming yet. He states the battery is about 6 years old and he may be due for a battery upgrade. We will contact the BS representatives to see if this can be addressed. Related to Radiculopathy of lumbosacral region The patient reports improved pain on the current opioid medication regimen. There are no signs of adverse effects, medication abuse or evidence of diversion. The patient reports improved activity and functional levels on this medication regimen. We will refill opioid medications at this visit. The patient's last urine drug screen is consistent with prescribed medications; repeat UDS today. I checked the PDMP for the patient and it is consistent. The patient has chronic, intractable pain with the diagnoses listed in the assessment. They are receiving chronic opioid therapy which requires greater than 72 hours supply of controlled substances. Chronic opioid therapy may continue indefinitely and the patient will be reassessed at regular office visits. Patient was instructed not to use heavy machinery, not to drink alcohol, or use illicit substances while taking these opioid medications.Start MSContin 15mg BID. Related to alf (current) use of opiate analgesic Today the patient an d I have engaged in a nidia discussion about the proper treatment of pain. I have explained that it is not appropriate to rely solely on the use of opioid medications for pain control due to long-term side effects and inherent risks of these medications. I have further explained that the safest and most appropriate treatment of pain involves a step-chahal, multimodal approach and that I am not comfortable treating their pain with only opioid medications. Therefore we have discussed and agreed on a comprehensive treatment plan.I have reviewed the PDMP and found it to be appropriate. We have discussed all the treatment options with the patient and they would like to proceed with our plan.He states the last decrease of the IT pump has been difficult for him. Nonetheless, he would like to continue with another 5% decrease with the goal of removing the pump.Clonidine caused somnolence. Related to Chronic pain syndrome Dietary management e ducation, guidance, and counseling Related to Obesity, unspecified He has a Red Arile ntific SCS in place but states it is not helpful for his left leg. We will contact the insurance sales representative for reprogramming. Related to Radiculopathy of lumbosacral region Today the patient an d I have engaged in a nidia discussion about the proper treatment of pain. I have explained that it is not appropriate to rely solely on the use of opioid medications for pain control due to long-term side effects and inherent risks of these medications. I have further explained that the safest and most appropriate treatment of pain involves a step-chahal, multimodal approach and that I am not comfortable treating their pain with only opioid medications. Therefore we have discussed and agreed on a comprehensive treatment plan.I have reviewed the PDMP and found it to be appropriate. We have discussed all the treatment options with the patient and they would like to proceed with our plan.We discussed his IT pump. Dye study with Dr. Borjas 03/28/16 showed catheter problem. He recently had the pump refilled by [facility]. He has the sheet from the refill, showing 10.4cc remaining. This shows the medication in the pump is being pumped out but not through the catheter. This is concerning as we do not know where the medication is going. The patient would like to get the pump removed. We will decrease the pump 5% per month. He will use Percocet in the meantime for pain and to cover his withdrawal. Prescriptions for clonidine and Phenergan provided for withdrawal. Related to Chronic pain syndrome The patient reports improved pain on the current opioid medication regimen. There are no signs of adverse effects, medication abuse or evidence of diversion. The patient reports improved activity and functional levels on this medication regimen. We will refill opioid medications at this visit. The patient's last urine drug screen is consistent with prescribed medications; repeat UDS today. I checked the PDMP for the patient and it is consistent. The patient has chronic, intractable pain with the diagnoses listed in the assessment. They are receiving chronic opioid therapy which requires greater than 72 hours supply of controlled substances. Chronic opioid therapy may continue indefinitely and the patient will be reassessed at regular office visits. Patient was instructed not to use heavy machinery, not to drink alcohol, or use illicit substances while taking these opioid medications. Related to alf (current) use of opiate analgesic Dietary management e ducation, guidance, and counseling Related to Overweight Pt reports increasin g pain, flu like symptoms, and recurrent diarrhea. I am concerned the intrathecal pump may not be functioning properly. I have discussed his options and will schedule him for an intrathecal pump catheter dye study in order to assess the function of his intrathecal drug delivery system. Related to alf (current) use of opiate analgesic - Has had multiple e pidural steroid injectiosn as well as lumbar facet injections that have failed to control pain.- Uses Spinal Cord Stimulator daily with 40% relief felt in low back and legs bilaterally. - Continues with use of LSO back brace several days a week with activity. Related to Radiculopathy of lumbosacral region The patient has training analyst krishna, intractable pain with the diagnoses listed in the assessment. The patient is receiving chronic opioid therapy which requires greater than 72 hours of controlled medications. The patient has failed or is undergoing other conservative measures, including but not limited to adjuvant therapy, interventional pain medicine, and physical therapy. Chronic opioid therapy may be continued indefinitely, and the patient will be reassessed at regular office visits. Urine drug screening will be performed in order to ensure compliance with medication prescriptions and rule out any illicit use. The [place] Prescription Drug Database was accessed and is compliant with the patient's treatment plan Related to Chronic pain syndrome Dietary management e ducation, guidance, and counseling Related to Obesity, unspecified Dietary management e ducation, guidance, and counseling Related to Obesity, unspecified Dietary management e ducation, guidance, and counseling Related to Obesity, unspecified Mr Power has been e xperiencing urinary retention and an increase in his lumbar pain over the past three weeks. I am very concerned by this development and will order a CT scan of the lumbar and thoracic regions to check both his anatomy for disease progression and his IT catheter tip in order to rule out a granuloma. He has been advised to notify his urologist ADALBERTO in order to assess a primary renal condition which would be very problematic as his IT morphine is cleared via renal function. Related to roving frame tender (current) use of opiate analgesic - Has had multiple e pidural steroid injectiosn as well as lumbar facet injections that have failed to control pain.- Uses Spinal Cord Stimulator daily with 40% relief felt in low back and legs bilaterally. - Continues with use of LSO back brace several days a week with activity. Related to Radiculopathy of lumbosacral region As part of a multi-m odal approach to pain management, I continue to encourage the patient to use conservative measures including ice/heat, rest, and light stretching as tolerated. The patient appears to be compliant with the treatment plan listed above and these conservative measures Related to Cervicalgia The patient has training analyst krishna, intractable pain with the diagnoses listed in the assessment. The patient is receiving chronic opioid therapy which requires greater than 72 hours of controlled medications. The patient has failed or is undergoing other conservative measures, including but not limited to adjuvant therapy, interventional pain medicine, and physical therapy. Chronic opioid therapy may be continued indefinitely, and the patient will be reassessed at regular office visits. Urine drug screening will be performed in order to ensure compliance with medication prescriptions and rule out any illicit use. The [place] Prescription Drug Database was accessed and is compliant with the patient's treatment plan Related to Chronic pain syndrome Dietary management e ducation, guidance, and counseling Related to Obesity, unspecified He is very stable on his medication and IT medications. no changes will be made at this time. Related to alf (current) use of opiate analgesic neck pain has improv ed. we will consider an MRI in the future if the condition worsens. Related to Cervicalgia - Has had multiple e pidural steroid injectiosn as well as lumbar facet injections that have failed to control pain.- Uses Spinal Cord Stimulator daily with 40% relief felt in low back and legs bilaterally. - Continues with use of LSO back brace several days a week with activity. Related to Radiculopathy of lumbosacral region The patient has training analyst krishna, intractable pain with the diagnoses listed in the assessment. The patient is receiving chronic opioid therapy which requires greater than 72 hours of controlled medications. The patient has failed or is undergoing other conservative measures, including but not limited to adjuvant therapy, interventional pain medicine, and physical therapy. Chronic opioid therapy may be continued indefinitely, and the patient will be reassessed at regular office visits. Urine drug screening will be performed in order to ensure compliance with medication prescriptions and rule out any illicit use. The [place] Prescription Drug Database was accessed and is compliant with the patient's treatment plan Related to Chronic pain syndrome Dietary management e ducation, guidance, and counseling Related to Obesity, unspecified There has been an in crease in his neck pain with radiation into the left shoulder. i will order an MRI of the cervical spine in order to assess the nature of his pain. He will present to clinic directly following his MRI in order to ensure his IT pump is still functioning. Related to Cervicalgia - Has had multiple e pidural steroid injectiosn as well as lumbar facet injections that have failed to control pain.- Uses Spinal Cord Stimulator daily with 40% relief felt in low back and legs bilaterally. - Continues with use of LSO back brace several days a week with activity. Related to Radiculopathy of lumbosacral region IT pump in place and functioning properly. 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 The patient is receiving chronic opioid therapy which requires greater than 72 hours of controlled medications. The patient has failed or is undergoing other conservative measures, including but not limited to adjuvant therapy, interventional pain medicine, and physical therapy. Chronic opioid therapy may be continued indefinitely, and the patient will be reassessed at regular office visits. Urine drug screening will be performed in order to ensure compliance with medication prescriptions and rule out any illicit use. The [place] Prescription Drug Database was accessed and is compliant with the patient's treatment plan Related to Chronic pain syndrome Previous UDS confirm ation results reviewed and are appropriate with medication regimen. Related to Encounter for therapeutic drug level monitoring Dietary management e ducation, guidance, and counseling Related to Obesity, unspecified Patient submitted sp ecimen for testing today. Previous UDS confirmation results reviewed and are appropriate with medication regimen. Related to Encounter for therapeutic drug level monitoring There has been an in crease in his neck pain with radiation into the left shoulder. i will order an MRI of the cervical spine in order to assess the nature of his pain. He will present to clinic directly following his MRI in order to ensure his IT pump is still functioning. Related to Cervicalgia pain has been relati vely well controlled with his IT pump. He appears to be at a threshold where further decreases in dose result in increases in his pain and a decrease in his level of functioning. I will hold the dose where it is at for now. Related to Radiculopathy of lumbosacral region He is s/p his first IT pump refill with [facility] and is doing well. 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 The patient is receiving chronic opioid therapy which requires greater than 72 hours of controlled medications. The patient has failed or is undergoing other conservative measures, including but not limited to adjuvant therapy, interventional pain medicine, and physical therapy. Chronic opioid therapy may be continued indefinitely, and the patient will be reassessed at regular office visits. Urine drug screening will be performed in order to ensure compliance with medication prescriptions and rule out any illicit use. The [place] Prescription Drug Database was accessed and is compliant with the patient's treatment plan Related to Chronic pain syndrome Dietary management e ducation, guidance, and counseling Related to Obesity, unspecified As part of a multi-m odal approach to pain management, I continue to encourage the patient to use conservative measures including ice/heat, rest, and light stretching as tolerated. The patient appears to be compliant with the treatment plan listed above and these conservative measures Related to Cervicalgia Pt states his back p ain has increased due to an increase in activity levels. the pump still provides benefit but we will not decrease the dose any further considering the increase in his pain. we will remain at 27.5mg of morphine per day. Related to Radiculopathy of lumbosacral region Patient submitted sp ecimen for testing today. Previous UDS confirmation results reviewed and are appropriate with medication regimen. Related to Encounter for therapeutic drug level monitoring Pt's intrathecal pum p was filled today. no complications. no changes made to his dosing or plan. 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 The patient is receiving chronic opioid therapy which requires greater than 72 hours of controlled medications. The patient has failed or is undergoing other conservative measures, including but not limited to adjuvant therapy, interventional pain medicine, and physical therapy. Chronic opioid therapy may be continued indefinitely, and the patient will be reassessed at regular office visits. Urine drug screening will be performed in order to ensure compliance with medication prescriptions and rule out any illicit use. The [place] Prescription Drug Database was accessed and is compliant with the patient's treatment plan Related to Chronic pain syndrome As part of a multi-m odal approach to pain management, I continue to encourage the patient to use conservative measures including ice/heat, rest, and light stretching as tolerated. The patient appears to be compliant with the treatment plan listed above and these conservative measures Related to Cervicalgia pain is controlled w ith his current intrathecal medications. I filled the intrathecal pump today. no changes were made to the medications or dosing. he will remain at morphine 27.5mg per day Related to Radiculopathy of lumbosacral region Patient submitted sp ecimen for testing today. Previous UDS confirmation results reviewed and are appropriate with medication regimen. Related to Encounter for therapeutic drug level monitoring The patient is doing very well with their current medical regimen which allows them to function well and carry out their activities of daily living without experiencing significant side effects. 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 The patient is receiving chronic opioid therapy which requires greater than 72 hours of controlled medications. The patient has failed or is undergoing other conservative measures, including but not limited to adjuvant therapy, interventional pain medicine, and physical therapy. Chronic opioid therapy may be continued indefinitely, and the patient will be reassessed at regular office visits. Urine drug screening will be performed in order to ensure compliance with medication prescriptions and rule out any illicit use. The [place] Prescription Drug Database was accessed and is compliant with the patient's treatment plan Related to Chronic pain syndrome pain well controlled with his current medications and his IT pump Related to Cervicalgia As part of a multi-m odal approach to pain management, I continue to encourage the patient to use conservative measures including ice/heat, rest, and light stretching as tolerated. The patient appears to be compliant with the treatment plan listed above and these conservative measures Related to Radiculopathy of lumbosacral region The patient is doing very well with their current medical regimen which allows them to function well and carry out their activities of daily living without experiencing significant side effects. 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 The patient is receiving chronic opioid therapy which requires greater than 72 hours of controlled medications. The patient has failed or is undergoing other conservative measures, including but not limited to adjuvant therapy, interventional pain medicine, and physical therapy. Chronic opioid therapy may be continued indefinitely, and the patient will be reassessed at regular office visits. Urine drug screening will be performed in order to ensure compliance with medication prescriptions and rule out any illicit use. The [place] Prescription Drug Database was accessed and is compliant with the patient's treatment plan Related to Chronic pain syndrome Patient submitted sp ecimen for testing today. Previous UDS confirmation results reviewed and are appropriate with medication regimen.I will refill the intrathecal pump today. no complications and no changes made to the pump medications or programming. Related to Encounter for therapeutic drug level monitoring Dietary management e ducation, guidance, and counseling Related to Obesity, unspecified Pt presents today fo r a refill of their intrathecal pump. The patient's pump was refilled without complication and no changes were made to the medications or the dosing of the pump medications. The patient will follow up prior to the next low reservoir alarm date. They have been given a copy of the telemetry and are aware of the need for refill prior to the alarm date. 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 Previous UDS confirmation results reviewed and are appropriate with medication regimen. Related to Encounter for therapeutic drug level monitoring Pain is well control led with his current medical regimen. Related to Radiculopathy of lumbosacral region As part of a multi-m odal approach to pain management, I continue to encourage the patient to use conservative measures including ice/heat, rest, and light stretching as tolerated. The patient appears to be compliant with the treatment plan listed above and these conservative measures Related to Cervicalgia The patient has training analyst krishna, intractable pain with the diagnoses listed in the assessment. The patient is receiving chronic opioid therapy which requires greater than 72 hours of controlled medications. The patient has failed or is undergoing other conservative measures, including but not limited to adjuvant therapy, interventional pain medicine, and physical therapy. Chronic opioid therapy may be continued indefinitely, and the patient will be reassessed at regular office visits. Urine drug screening will be performed in order to ensure compliance with medication prescriptions and rule out any illicit use. The [place] Prescription Drug Database was accessed and is compliant with the patient's treatment plan Related to Chronic pain syndrome Dietary management e ducation, guidance, and counseling Related to Obesity, unspecified I will refill his in trathecal pump today. I am decreasing his concentration from 50mg per cc to 25mg per cc of morphine. he will be set for a simple continuous rate of 27 .5 mg per day of morphine and clonidine at 55mcg per day Related to Encounter for current correction use of high risk medication The patient has training analyst krishna, intractable pain with the diagnoses listed in the assessment. The patient is receiving chronic opioid therapy which requires greater than 72 hours of controlled medications. The patient has failed or is undergoing other conservative measures, including but not limited to adjuvant therapy, interventional pain medicine, and physical therapy. Chronic opioid therapy may be continued indefinitely, and the patient will be reassessed at regular office visits. Urine drug screening will be performed in order to ensure compliance with medication prescriptions and rule out any illicit use. The [place] Prescription Drug Database was accessed and is compliant with the patient's treatment plan Related to Chronic pain syndrome Dietary management e ducation, guidance, and counseling Related to Overweight we discussed decreas ing his concentration from 50mg of morphine per cc to 25 mg per cc in order to decrease his risk of granuloma. we will also consider checking his catheter to ensure proper functioning of the system. should all systems function properly but the pain still remain less than adequately controlled, we will consider changing the intrathecal medications. 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 The patient is receiving chronic opioid therapy which requires greater than 72 hours of controlled medications. The patient has failed or is undergoing other conservative measures, including but not limited to adjuvant therapy, interventional pain medicine, and physical therapy. Chronic opioid therapy may be continued indefinitely, and the patient will be reassessed at regular office visits. Urine drug screening will be performed in order to ensure compliance with medication prescriptions and rule out any illicit use. The [place] Prescription Drug Database was accessed and is compliant with the patient's treatment plan Related to Chronic pain syndrome As part of a multi-m odal approach to pain management, I continue to encourage the patient to use conservative measures including ice/heat, rest, and light stretching as tolerated. The patient appears to be compliant with the treatment plan listed above and these conservative measures Related to Chronic pain syndrome Patient submitted sp ecimen for testing today. Previous UDS confirmation results reviewed and are appropriate with medication regimen. Related to Encounter for therapeutic drug monitoring - Patient has intrat hecal narcotic infusion device in place that was filled today. He has been slowly decreasing his pump rate over the last several months because he would like to wean off IT meds if possiblel. Decreased rate again today another 5% going from 29 to 27.5mg/day. It is the patient's goal to eventually wean off the pump completely. - Has had multiple epidural steroid injectiosn as well as lumbar facet injections that have failed to control pain.- Uses Spinal Cord Stimulator daily with 40% relief felt in low back and legs bilaterally. - Continues with use of LSO back brace several days a week with activity. Related to Lumbar radiculopathy Dietary management e ducation, guidance, and counseling Related to Obesity, unspecified Giving encouragement to exercise Related to Obesity, unspecified Assessments Type Assessment Date No Information Patient Care Teams Name Effective Dates (start - stop) Status Members No Information
--- NOTE | ~2025-08-05 | CT_ITS ---
EXAMINATION: CT ABDOMEN AND PELVIS WITHOUT CONTRAST CLINICAL INFORMATION: R19.09 - Other intra-abdominal and pelvic swelling, mass and lump, Previous pain pump right flank now with palpable mass COMPARISON: None available. TECHNIQUE: Multidetector volumetric imaging was performed from the superior aspect of the liver through the pubic symphysis. Sagittal and coronal reformatted images were obtained on the technologist's workstation. This CT examination was performed using dose optimization techniques as appropriate, variously including the following: *Automated exposure control *Adjustment of mA and/or kV according to patient size (this includes techniques or standardized protocols for targeted exams where dose is matched to indication/reason for exam; i.e. extremities or head) *Use of iterative reconstruction technique FINDINGS: LUNG BASES: The visualized lung bases are unremarkable. LIVER, GALLBLADDER, AND BILIARY TREE: The liver is normal in size, shape, and attenuation. No focal hepatic lesion or biliary ductal dilatation is present. The gallbladder is unremarkable with no evidence of radiopaque gallstones, gallbladder wall thickening, or obvious pericholecystic inflammatory changes. PANCREAS: Unremarkable. SPLEEN: There are calcified granulomas in spleen. ADRENAL GLANDS: Unremarkable. KIDNEYS AND URETERS: There are multiple stones in the left kidney. The 2 largest stones are in the upper pole and both measure 5 mm. BLADDER: Unremarkable. GASTROINTESTINAL TRACT: There are a few pseudodiverticula in the distal transverse colon. Appendix is nonvisualized. ABDOMINAL WALL: There is increased density in the subcutaneous soft tissues left of the umbilicus likely representing scarring. There are abandoned wires in the subcutaneous soft tissues in the lumbar region. There are also wires visible in the spinal canal between L3 and S2. The cephalad margin of the wire is located anteriorly at L3 and left posterior below L4-5. Wire may be intrathecal. There is a partially calcified capsule in the right flank where a generator was removed, likely filled with fluid and measuring 3.9 x 1.2 x 2.6 cm (AP by transverse by CC). There is a right spermatic cord lipoma versus inguinal hernia. LYMPH NODES: Normal. VASCULAR: Multifocal vascular calcifications are evident PELVIC VISCERA: Unremarkable. OSSEOUS STRUCTURES: There is mild to moderate osteoarthritis with joint space narrowing and osteophytes involving both hips. There is mild multilevel degenerative disc disease in the visualized lumbar spine. CT/CT abdomen pelvis wo IV con IMPRESSION: There is a small seroma with partially calcified capsule in the right flank or generator was removed. Abandoned wires are present in the posterior lumbar region. There is a lead extending between L3 and S2 that may be intrathecal. Nephrolithiasis: There are multiple stones in the left kidney, the 2 largest are 5 mm and located in the upper pole. Fleischner guidelines were followed. Electronically signed by: Lucius Leija MD 08/05/2025 04:58 PM EST
== END 2025-08-05 16:01 | disposition home or self-care (01) ==
LOC: HO.CT 16:00
PROVIDERS: PCP Hospitalist; Visit Provider Surgery
DX: R19.09 Other intra-abdominal and pelvic swelling, mass and lump (principal)
CPT/HCPCS: 74176

== ENCOUNTER → 2025-08-05 16:03 | Outpatient (BNV) | payer MEDICARE, SELFPAY | PROVIDERS: PCP Hospitalist; Visit Provider Radiology Diagnostic Radiology | DX: N20.0 Calculus of kidney (principal) | CPT/HCPCS: 74176 ==

== ENCOUNTER 2025-08-17 09:31 | Outpatient (AMB) | payer MEDICARE, SELFPAY ==
--- NOTE | 2025-08-17 09:33 | A.OFFVIS_ITS ---
Vital Signs 3 08/17/25 09:40 Height 5 ft 8 in Weight 165 lb 5.547 oz BMI 25.1 Respiration 16 Pulse 62 Intake Visit Reasons: ct results Intake Note: Patient is seen in office for CT scan results, following right flank mass. Pt c/o:no changes since last visit, here for CT results CT: 08/05/25 Allergies No Known Allergies Allergy (Verified 06/09/25 13:14) Medication List - Last Reconciled 08/17/25 by Arben Garcia MD amlodipine 5 mg PO DAILY atorvastatin 80 mg PO DAILY cholecalciferol (vitamin D3) 10 mcg PO DAILY clopidogrel 75 mg PO DAILY diclofenac sodium 2% mL topical empagliflozin (Jardiance) 25 mg PO DAILY isosorbide mononitrate ER 30 mg PO DAILY losartan 50 mg PO DAILY metformin ER 500 mg PO BID ondansetron 2 mg PO Q6-8H PRN oxycodone myristate CR-ER (Xtampza ER) 9 mg PO BID pantoprazole 20 mg PO DAILY pregabalin 150 mg PO BID tamsulosin mg PO tirzepatide (Mounjaro) mg subcut HPI Comments Details: 74-year-old male patient presenting for evaluation of a lump located in the right flank. He reports some pain associated with this lump which seems to be increasing in severity. He is uncertain if the pain is from the lump or from kidney stones. He also has issues with his back in his previously undergone pain pump insertions including 1 in the right flank in the exact location of the palpable lump. He also had a pain pump in the left flank as well as the abdomen which subsequently became infected. He is interested in having the lump in the right flank removed. He does report losing a significant amount of weight which is made the lump more noticeable. He underwent a CT abdomen and pelvis performed on 08/05/2025. This does reveal calcified pocket in the right flank corresponding to the palpable lump with wires emanating from this calcified collection consistent with a prior pocket for a pain pump. Incidentally noted are 2 kidney stones in the left kidney but not in the right kidney. Images were reviewed with the patient today. [facility] Surgical History Hx of colonoscopy History of nasal surgery History of surgery on left wrist History of arthroscopy of left knee History of back surgery Hx of carpal tunnel repair Review of Systems Narrative Review of Systems - Musculoskeletal: Reports soreness on the right side over a palpable mass. - Integumentary: Reports a hard, rock-like lump on his right side. - Genitourinary: Reports a history of kidney stones. - General: Reports being tired of surgeries and nervous about them due to his age. Const All systems reviewed & are unremarkable except as noted in HPI and below Physical Exam Vital Signs: Last Vital Signs Pulse 62 08/17/25 09:40 Resp 16 08/17/25 09:40 BMI result Body Mass Index 25.1 Const General: cooperative and no acute distress Nutritional Appearance: well nourished Orientation/consciousness: patient oriented x3 Limitations: no limitations HEENT Head: Yes normocephalic and Yes atraumatic Ears: hearing grossly normal bilaterally Resp Effort & Inspection: normal respiratory effort, no audible wheezes, no cough and no respiratory distress Cardio Jugular venous distension: no JVD GI Inspection: Yes normal to inspection Back/Spine/Pelvis Other: Palpable mass noted below the right flank incision which appears hard possibly scar tissue from prior hardware insertion. Does not feel like a lipoma to me. Back/spine/pelvis image: 2 1. Site of palpable calcified pocket from prior pain pump. Skin Other: Warm, dry, no rash Neuro General: patient oriented x3 Extrem General: Yes no clubbing, cyanosis or edema Assessment & Plan Assessment & Plan (1) Right flank mass: Code(s): R19.09 - Other intra-abdominal and pelvic swelling, mass and lump Category: Medical Plan Patient returns today to review findings on his recent CT which finds remnants of a previous pocket in the right flank with wires corresponding to the palpable findings. He reports that he is feeling somewhat improved currently and is not interested in proceeding with surgery at this time however should the pain started to increase I recommended he call to make arrangements for excision of this calcified pocket. He expressed understanding and agrees with the plan. Coding Level of Care Code Est Pt Level 3 (27058) Diagnoses Right flank mass R19.09
[2025-08-17 09:40] VITALS: PULSE 62; RESP 16; BMI 25.1
== END 2025-08-17 10:04 | disposition home or self-care (01) ==
LOC: HO.HGS 09:32
PROVIDERS: PCP Hospitalist; Visit Provider Surgery
DX: R19.09 Other intra-abdominal and pelvic swelling, mass and lump (principal)
CPT/HCPCS: 99213

== ENCOUNTER → 2025-08-17 09:31 | Outpatient (BNVA) | payer MEDICARE, SELFPAY | PROVIDERS: PCP Hospitalist; Visit Provider Surgery | DX: R19.09 Other intra-abdominal and pelvic swelling, mass and lump (principal) | CPT/HCPCS: 99212 ==